=== PATIENT | male | born 1930 | race Hispanic/Latino ===

== ENCOUNTER 2016-11-22 13:05 | Inpatient (IN) | payer MEDICARE ==
[2016-11-22] MEDS ORDERED: Vancomycin 1gm in NS 250ml 1 GM/250 ML BAG IVPB STA (13:38)
[2016-11-22] MEDS ORDERED: Piperacillin/Tazobact 3.375 gm 100 ML IVPB STA (13:38)
--- NOTE | 2016-11-22 13:40 | ED PDOC ---
Arrival/HPI - General Chief Complaint: Cough, Cold, Congestion Time Seen by Provider: 11/22/16 13:27 Historian: Patient - History of Present Illness Narrative History of Present Illness (Text): 11/22/16 13:37 86 year old male whose past medical history includes myelodysplasia, hypertension, lung fibrosis, presents to the emergency department with cough and congestion for the past 2 days. Patient reports cough with white sputum. Denies pain or other complaints. PMD: Dr. Norwood Time/Duration: < week Symptom Onset: Gradual Symptom Course: Unchanged Modifying Factors (Text): None Past Medical History - Provider Review Nursing Documentation Reviewed: Yes - Infectious Disease Hx of Infectious Diseases: None - Cardiac Hx Cardiac Disorders: Yes Hx Congestive Heart Failure: No Hx Hypertension: Yes - Pulmonary Hx Chronic Obstructive Pulmonary Disease (COPD): No Hx Pneumonia: Yes - Neurological HX Cerebrovascular Accident: No - HEENT Hx HEENT Disorder: No - Renal Hx Renal Disorder: No - Endocrine/Metabolic Hx Endocrine Disorders: No - Hematological/Oncological Hx Cancer: Yes (of bone marrow) - Integumentary Hx Dermatological Disorder: No - Musculoskeletal/Rheumatological Hx Falls: Yes - Gastrointestinal Hx Gastrointestinal Disorders: No - Genitourinary/Gynecological Hx Prostate Problems: Yes - Psychiatric Hx Psychophysiologic Disorder: No Hx Substance Use: No - Surgical History Hx Appendectomy: Yes Hx Cardiac Catheterization: No Hx Coronary Stent: No - Anesthesia Hx Anesthesia: Yes Hx Anesthesia Reactions: No Hx Malignant Hyperthermia: No Family/Social History - Physician Review Nursing Documentation Reviewed: Yes Family/Social History: Unknown Family HX Smoking Status: Never Smoked Hx Alcohol Use: No Hx Substance Use: No Allergies/Home Meds Allergies/Adverse Reactions: Allergies No Known Allergies Allergy (Verified 11/22/16 13:27) Home Medications: Home Meds Medication Instructions Recorded Confirmed Deferasirox [Exjade] 250 mg PO Q72H 10/23/14 11/22/16 Valsartan [Diovan] 320 mg PO QAM 10/23/14 11/22/16 Aliskiren [Tekturna] 300 mg PO QPM 04/20/15 11/22/16 Epoetin Hal [Procrit] 2,000 units SQ QWK 05/01/16 11/22/16 Filgrastim [Neupogen] 300 mcg SQ QWK 05/01/16 11/22/16 Finasteride [Proscar] 5 mg PO PRN PRN 05/01/16 11/22/16 Lenalidomide [Revlimid] 2.5 mg PO .EVERY OTHER DAY 05/01/16 11/22/16 Review of Systems - Physician Review All systems were reviewed & negative as marked: Yes - Review of Systems ENT: Sinus Congestion Respiratory: Cough, Sputum (white) Physical Exam Vital Signs Reviewed: Yes Vital Signs Temp Pulse Resp BP Pulse Ox 11/22/16 16:07 84 18 142/72 97 11/22/16 14:07 101.6 F H 11/22/16 13:40 99.8 F H 108 H 18 138/71 94 L 11/22/16 13:19 100.2 F H 113 H 16 176/67 H 92 L Temperature: Febrile Blood Pressure: Hypertensive Pulse: Tachycardic Respiratory Rate: Normal Appearance: Positive for: Well-Appearing, Non-Toxic, Comfortable Pain Distress: None Mental Status: Positive for: Alert and Oriented X 3 - Systems Exam Head: Present: Atraumatic, Normocephalic Pupils: Present: PERRL Extroacular Muscles: Present: EOMI Conjunctiva: Present: Normal Mouth: Present: Moist Mucous Membranes Neck: Present: Normal Range of Motion Respiratory/Chest: Present: Good Air Exchange, Other (Coarse breath sounds bilaterally). No: Respiratory Distress, Accessory Muscle Use Cardiovascular: Present: Regular Rate and Rhythm, Normal S1, S2. No: Murmurs Abdomen: Present: Normal Bowel Sounds. No: Tenderness, Distention, Peritoneal Signs Back: Present: Normal Inspection Upper Extremity: Present: Normal Inspection. No: Cyanosis, Edema Lower Extremity: Present: Normal Inspection. No: Edema Neurological: Present: GCS=15, CN II-XII Intact, Speech Normal Skin: Present: Warm, Dry, Normal Color. No: Rashes Psychiatric: Present: Alert, Oriented x 3, Normal Insight, Normal Concentration Medical Decision Making ED Course and Treatment: Impression: 86 year old male presents to the emergency department with cough and congestion for the past 2 days. Differential Diagnosis included but are not limited to: r/o pna/sepssis Plan: -- EKG, CXR -- Vanco, Zosyn -- Reassess and disposition Prior Visits: Notes and results from previous visits were reviewed. Patient last seen in the ED on 05/21/16 for fever and chills and admitted for sepsis. Progress Notes: 11/22/16 14:47 pt with unknown ef, , fluids 500 cc ordered. b/p 140 systolic, hemodynamically stable. does not need 30cc/kg bolus 11/22/16 15:08 mildly elevated bnp, at baseline, diuresis held at this time. dr norwood accepts. requests ID consult. 02 sat low 90s, milldy hypoxic. pt with comorbities septic, needs iv antibiotics. 11/22/16 15:10 - Lab Interpretations Lab Results: 11/22/16 14:20 11/22/16 14:20 Lab Results 11/22/16 14:20: Sodium 141, Chloride 103, Potassium 4.5, Carbon Dioxide 29, Anion Gap 14, BUN 26 H, Creatinine 1.1, Est GFR ( Amer) > 60, Est GFR ( Non-Af Amer) > 60, Random Glucose 102, Calcium 9.8, Magnesium 1.9, Total Bilirubin 0.9, AST 22, ALT 44, Alkaline Phosphatase 108, Lactate Dehydrogenase 431, Total Creatine Kinase 31 L, Troponin I 0.01 D, NT-Pro-B Natriuret Pep 834 H, Total Protein 7.0, Albumin 4.3, Globulin 2.8, Albumin/Globulin Ratio 1.5 11/22/16 14:20: PT 11.3, INR 1.05, APTT 30.2 11/22/16 14:20: WBC 15.5 H D, RBC 2.78 L, Hgb 8.3 L, Hct 25.0 L, MCV 89.9, MCH 29.9, MCHC 33.2, RDW 18.9 H, Plt Count 98 L, MPV 12.2 H, Gran % 61.7, Lymph % ( Auto) 9.3 L, [place] % (Auto) 28.0 H, Eos % (Auto) 0.7 L, Baso % (Auto) 0.3, Gran # 9.59 H, Lymph # 1.4, [place] # 4.4 H, Eos # 0.1, Baso # 0.04 11/22/16 14:20: pO2 41, VBG pH 7.35, VBG pCO2 54.0, VBG HCO3 29.8 H, VBG Total CO2 31.5 H, VBG O2 Sat (Calc) 79.1 H, VBG Base Excess 2.9 H, VBG Potassium 4.4, Sodium 141.0, Chloride 107.0, Glucose 110, Lactate 2.8 H, FiO2 21.0, Venous Blood Potassium 4.4 11/22/16 13:45: Influenza Typ A,B (EIA) Negative for flu a/b 11/22/16 02:10: Urine Color Yellow, Urine Appearance Clear, Urine pH 6.0, Ur Specific [place] 1.025, Urine Protein 100 H, Urine Glucose (UA) Negative, Urine Ketones Negative, Urine Blood Moderate H, Urine Nitrate Negative, Urine Bilirubin Negative, Urine Urobilinogen 0.2, Ur Leukocyte Esterase Negative, Urine RBC 2 - 5, Urine WBC Negative, Ur Epithelial Cells 0 - 2 - RAD Interpretation Radiology Orders: 11/22/16 13:37 CHEST PORTABLE [RAD] Stat - EKG Interpretation EKG Interpretation (Text): EKG shows sinus tachycardia at 104 BPM with right bundle branch block which is old. Interpreted by me. Interpreted by ED Physician: Yes Type: 12 lead EKG - Medication Orders Current Medication Orders: Vancomycin HCl (Vancomycin 1gm) 1 gm in 250 mls @ 167 mls/hr IVPB Q12 SAPPHIRE PRN Reason: Protocol Piperacillin Sod/Tazobactam Sod (Zosyn 3.375 In Ns 100ml) 100 mls @ 200 mls/hr IVPB Q6 SAPPHIRE PRN Reason: Protocol Stop: 11/29/16 20:01 Last Admin: 11/22/16 20:35 Dose: 200 mls/hr Discontinued Medications Acetaminophen (Tylenol 325mg Tab) 650 mg PO STAT STA Stop: 11/22/16 13:40 Last Admin: 11/22/16 14:07 Dose: 650 mg Vancomycin HCl (Vancomycin 1gm) 1 gm in 250 mls @ 167 mls/hr IVPB STAT STA PRN Reason: Protocol Stop: 11/22/16 15:07 Last Admin: 11/22/16 15:31 Dose: 167 mls/hr Piperacillin Sod/Tazobactam Sod (Zosyn 3.375 In Ns 100ml) 100 mls @ 200 mls/hr IVPB STAT STA PRN Reason: Protocol Stop: 11/22/16 14:07 Last Admin: 11/22/16 14:07 Dose: 200 mls/hr Sodium Chloride (Sodium Chloride 0.9%) 500 mls @ 999 mls/hr IV .Q31M STA Stop: 11/22/16 15:17 Last Admin: 11/22/16 14:54 Dose: 999 mls/hr Piperacillin Sod/Tazobactam Sod (Zosyn 3.375 In Ns 100ml) 100 mls @ 200 mls/hr IVPB Q6 SAPPHIRE PRN Reason: Protocol Stop: 11/23/16 00:29 - Scribe Statement The provider has reviewed the documentation as recorded by the Kurt Armstrong Provider Scribe Attestation: All medical record entries made by the Kurt were at my direction and personally dictated by me. I have reviewed the chart and agree that the record accurately reflects my personal performance of the history, physical exam, medical decision making, and the department course for this patient. I have also personally directed, reviewed, and agree with the discharge instructions and disposition. Disposition/Present on Arrival - Present on Arrival Any Indicators Present on Arrival: No History of DVT/PE: No History of Uncontrolled Diabetes: No Urinary Catheter: No History of Decub. Ulcer: No History Surgical Site Infection Following: None - Disposition Have Diagnosis and Disposition been Completed?: Yes Diagnosis: Sepsis, Pneumonia Disposition: HOSPITALIZED Disposition Time: 15:10 Patient Problems: Current Active Problems Problem Status Onset Pneumonia Acute Sepsis Acute Condition: FAIR
[2016-11-22 14:20] LABS: ADD MANUAL DIFF? NO
[2016-11-22 14:23] LABS: URINE BILIRUBIN NEGATIVE (NEGATIVE); URINE BLOOD MODERATE (NEGATIVE); URINE GLUCOSE (UA) NEGATIVE (NEGATIVE); URINE KETONE NEGATIVE (NEGATIVE); URINE LEUKOCYTE ESTERASE NEGATIVE Leu/uL (NEGATIVE); URINE PROTEIN 100 mg/dL (<30 mg/dL); URINE UROBILINOGEN 0.2 E.U./dL (<1 E.U./dL)
[2016-11-22 14:25] LABS: URINE APPEARANCE CLEAR (CLEAR); URINE COLOR YELLOW (YELLOW)
[2016-11-22 14:26] LABS: URINE EPITHELIAL CELLS 0 - 2 /hpf (0-5); URINE WBC NEGATIVE /hpf (0-6)
[2016-11-22 14:27] LABS: VENOUS BLOOD GAS BASE EXCESS 2.9 mmol/L (0.0-2.0); VENOUS BLOOD PH 7.35 (7.32-7.43)
[2016-11-22 14:31] LABS: BASO # 0.04 K/mm3 (0.0-2.0); BASO % 0.3 % (0.0-3.0); EOS # 0.1 (0.0-0.7); EOS % 0.7 % (1.5-5.0); GRAN # 9.59 (1.4-6.5); GRAN % 61.7 % (50.0-68.0); LYMPH # 1.4 (1.2-3.4); LYMPH % 9.3 % (22.0-35.0); MEAN CELL VOLUME 89.9 fL (80.0-105.0); MEAN CORPUSCULAR HEMOGLOBIN 29.9 pg (25.0-35.0); MEAN CORPUSCULAR HGB CONC 33.2 g/dl (31.0-37.0); MEAN PLATELET VOLUME 12.2 fl (7.0-11.0); MONO # 4.4 (0.1-0.6); PLATELET COUNT 98 10^3/uL (120.0-450.0); RED CELL DISTRIBUTION WIDTH 18.9 % (11.5-14.5); WHITE BLOOD COUNT 15.5 10^3/ul (4.5-11.0)
[2016-11-22 14:43] LABS: INR 1.05 (0.93-1.08); PARTIAL THROMBOPLASTIN TIME 30.2 Seconds (23.7-30.8)
[2016-11-22 14:44] LABS: ALB/GLOB RATIO 1.5 (1.1-1.8); ALKALINE PHOSPHATASE 108 U/L (38-133); ALT/SGPT 44 U/L (7-56); AST/SGOT 22 U/L (15-59); BILIRUBIN,TOTAL 0.9 mg/dL (0.2-1.3); BLOOD UREA NITROGEN 26 mg/dL (7-21); CALCIUM 9.8 mg/dL (8.4-10.5); CARBON DIOXIDE 29 mmol/L (21-33); CHLORIDE 103 mmol/L (98-107); GFR AFRICAN-AMERICAN > 60; GLUCOSE,RANDOM 102 mg/dL (70-110); MAGNESIUM 1.9 mg/dL (1.7-2.2); POTASSIUM 4.5 mmol/L (3.6-5.0); SODIUM 141 mmol/L (132-148)
[2016-11-22] MEDS ORDERED: Sodium Chloride 0.9% 500 ML IV STA (14:47)
[2016-11-22 14:53] LABS: TROPONIN I 0.01 ng/mL
--- NOTE | 2016-11-22 15:53 | CARD ---
APPROVED REPORT EKG Measurement Heart [id number] <Conclusion> Sinus tachycardia Possible Left atrial enlargement Right bundle branch block Cannot rule out Inferior infarct, age undetermined Abnormal ECG
[2016-11-22 17:48] LABS: VENOUS BLOOD GAS BASE EXCESS 3.4 mmol/L (0.0-2.0); VENOUS BLOOD PH 7.42 (7.32-7.43)
[2016-11-22] MEDS ORDERED: Piperacillin/Tazobact 3.375 gm 100 ML IVPB SCH ×2 (18:00→20:00)
[2016-11-22 21:08] VITALS: BMI 24.7
[2016-11-22] MEDS ORDERED: Pneumococcal 23-Valent Vaccine IM ONE (21:09)
[2016-11-22] MEDS: Promethazine/Cod 6.25mg-10mg/5ml Syr UD PO PRN (22:03)
[2016-11-22] MEDS: Vancomycin 1gm in NS 250ml 1 GM/250 ML BAG IVPB SCH (22:19)
[2016-11-23] MEDS: Levalbuterol 1.25 MG/3 ML Inhal Soln UD IH PRN ×2 (00:52→20:13)
--- NOTE | 2016-11-23 01:10 | CP.PCM.PN ---
Subjective - Date & Time of Evaluation Date of Evaluation: 11/23/16 Time of Evaluation: 01:10 - Subjective Subjective: Patient was seen at bedside because as per nurse Marilynn he sounding wet , congested , had wheezing, does not look good. Patient complains of having lack of sleep. Denies sob, chest pain, nause, sweating , palpitation. This 86 year old white male is admitted with congestion, cough, sepsis pna. Has PMH of ,htn,cardiac disorder, renal disease, prostate, lung fibrosis, myelodysplasia. 99.5, 105/min 24 94% 3l/min Has received iv fluid when he received vancomycin ,merem, zosyn x 2. Objective - Vital Signs/Intake and Output Vital Signs (last 24 hours): Temp Pulse Resp BP Pulse Ox 98.1 F 86 19 140/58 L 97 11/22/16 20:58 11/23/16 00:53 11/22/16 20:58 11/22/16 20:58 11/22/16 16:07 - Medications Medications: Current Medications Arformoterol Tartrate (Brovana) 15 mcg IH [id number] SAPPHIRE Budesonide (Pulmicort Respules) 0.5 mg IH [id number] SAPPHIRE Vancomycin HCl (Vancomycin 1gm) 1 gm in 250 mls @ 167 mls/hr IVPB Q12 SAPPHIRE PRN Reason: Protocol Last Admin: 11/22/16 22:19 Dose: 167 mls/hr Meropenem 1g/NS 100mL IVPB (Meropenem 1g/Ns 100ml Ivpb) 1 gm in 100 mls @ 100 mls/hr IVPB Q8 SAPPHIRE PRN Reason: Protocol Stop: 11/29/16 22:31 Last Admin: 11/23/16 00:00 Dose: 100 mls/hr Levalbuterol HCl (Xopenex) 1.25 mg IH [id number] PRN PRN Reason: Shortness of Breath Last Admin: 11/23/16 00:52 Dose: 1.25 mg Promethazine HCl/Codeine (Phenergan/Codeine Oral Syrup) 5 ml PO Q6H PRN PRN Reason: Cough and congestion Last Admin: 11/22/16 22:03 Dose: 5 ml - Labs Labs: PT 11.3 Seconds (9.9-11.8) 11/22/16 14:20 INR 1.05 (0.93-1.08) 11/22/16 14:20 APTT 30.2 Seconds (23.7-30.8) 11/22/16 14:20 - Constitutional Appears: Well, No Acute Distress - Head Exam Head Exam: ATRAUMATIC, NORMAL INSPECTION, NORMOCEPHALIC - Eye Exam Eye Exam: Normal appearance - ENT Exam ENT Exam: Normal External Ear Exam - Neck Exam Neck Exam: Normal Inspection - Respiratory Exam Respiratory Exam: Wheezes (Occasional.), NORMAL BREATHING PATTERN. absent: Decreased Breath Sounds, Rales, Rhonchi, Respiratory Distress, Stridor - Cardiovascular Exam Cardiovascular Exam: Tachycardia, REGULAR RHYTHM, +S1 (Normal.), +S2 (Normal.). absent: JVD - GI/Abdominal Exam GI & Abdominal Exam: absent: Distended - Rectal Exam Rectal Exam: Deferred - Extremities Exam Extremities Exam: Pedal Edema (1+) - Back Exam Back Exam: NORMAL INSPECTION - Neurological Exam Neurological Exam: Alert, Oriented x3 Additional comments: Bilateral hands tremors positive. - Psychiatric Exam Psychiatric exam: Normal Affect, Normal Mood - Skin Skin Exam: Warm Assessment and Plan - Assessment and Plan (Free Text) Assessment: Airway congestion. CHF-Elevated BNP. Bilateral PNA. Sepsis. Myelodysplastic syndrome. Anemia. Prostate problem. Tremors. HTN. Cardiac disorder history. Plan: Lasix 40 mg IV stat. Frquent suctioning of airway. CBC, CMP, troponin, mag, phos stat.-->Hgb7.7 Hct--->23.3.-->Will order type and screen. EKG stat.------->Sinus tachycardia,RBBB, n s st t changes. Recieved nebulizer treatment. Oxygen at 4L/min by mn. Continue present management.
[2016-11-23 01:41] LABS: ADD MANUAL DIFF? NO
[2016-11-23 01:43] LABS: BASO # 0.05 K/mm3 (0.0-2.0); BASO % 0.3 % (0.0-3.0); EOS # 0.1 (0.0-0.7); EOS % 0.6 % (1.5-5.0); GRAN # 9.22 (1.4-6.5); GRAN % 51.1 % (50.0-68.0); LYMPH # 3.4 (1.2-3.4); LYMPH % 18.7 % (22.0-35.0); MEAN CELL VOLUME 89.6 fL (80.0-105.0); MEAN CORPUSCULAR HEMOGLOBIN 29.6 pg (25.0-35.0); MEAN PLATELET VOLUME 10.7 fl (7.0-11.0); MONO # 5.3 (0.1-0.6); MONO % 29.3 % (1.0-6.0); PLATELET COUNT 79 10^3/uL (120.0-450.0); RED CELL DISTRIBUTION WIDTH 18.9 % (11.5-14.5)
[2016-11-23 01:48] LABS: HEMATOCRIT 23.3 % (42.0-52.0)
[2016-11-23 01:53] LABS: ALB/GLOB RATIO 1.5 (1.1-1.8); ALKALINE PHOSPHATASE 83 U/L (38-133); ALT/SGPT 38 U/L (7-56); AST/SGOT 19 U/L (15-59); BILIRUBIN,TOTAL 1.2 mg/dL (0.2-1.3); BLOOD UREA NITROGEN 23 mg/dL (7-21); CALCIUM 9.1 mg/dL (8.4-10.5); CARBON DIOXIDE 28 mmol/L (21-33); CHLORIDE 104 mmol/L (98-107); GFR AFRICAN-AMERICAN > 60; GLUCOSE,RANDOM 104 mg/dL (70-110); MAGNESIUM 1.8 mg/dL (1.7-2.2); PHOSPHOROUS 3.5 mg/dL (2.5-4.5); POTASSIUM 4.3 mmol/L (3.6-5.0); SODIUM 140 mmol/L (132-148); TOTAL PROTEIN 6.4 g/dL (5.8-8.3)
[2016-11-23 02:07] LABS: TROPONIN I 0.02 ng/mL
[2016-11-23] MEDS: Meropenem 1g/NS 100mL IVPB 1 GM/100 ML PIGGYBACK IVPB SCH ×3 (05:32→13:43)
--- NOTE | 2016-11-23 07:56 | RAD ---
HISTORY: cough COMPARISON: No prior. FINDINGS: LUNGS: Elevated right hemidiaphragm with infiltrate/atelectasis at the right cardiophrenic angle. PLEURA: No significant pleural effusion identified, no pneumothorax apparent. CARDIOVASCULAR: Normal. OSSEOUS STRUCTURES: No significant abnormalities. VISUALIZED UPPER ABDOMEN: Normal. OTHER FINDINGS: None. IMPRESSION: Elevated right hemidiaphragm with infiltrate/atelectasis at the right cardiophrenic angle.
[2016-11-23] MEDS: Arformoterol 15 mcg/2 ml Inh Sol IH SCH ×2 (08:00→20:13)
[2016-11-23] MEDS: Budesonide 0.5 mg/2 ml Inhal Susp UD IH SCH ×2 (08:01→20:13)
[2016-11-23] MEDS ORDERED: DEFERASIROX PO SCH (08:15)
[2016-11-23] MEDS: Vancomycin 1gm in NS 250ml 1 GM/250 ML BAG IVPB SCH (10:13)
--- NOTE | 2016-11-23 10:40 | CP.PCM.CON ---
History of Present Illness - History of Present Illness History of Present Illness: 86 year old male with PMH of Morganella UTI with hematuria, myelodysplastic syndrome, BPH, coronary artery disease, history of ESBL E. coli bacteremia, history of lung fibrosis was brought in to [facility] because of cough and feeling of chest congestion for the past 2-3 days associated with cough productive of whitish phlegm. The patient denies fever or chills, no nausea or vomiting, no chest pain, no sore throat, no rhinorrhea, no dysphagia, no headache or dizziness, no abdominal pain, no diarrhea, no dysuria. In the ED , CXR was done which showed some opacification in the right costophrenic angle, either atelectasis or infiltrates. Infectious diseases consult is requested to further evaluate and manage. Review of Systems - Review of Systems All systems: reviewed and no additional remarkable complaints except (as per HPI ) Past Patient History - Infectious Disease Hx of Infectious Diseases: None - Past Social History Smoking Status: Never Smoked - CARDIAC Hx Cardiac Disorders: Yes Hx Congestive Heart Failure: No Hx Hypertension: Yes - PULMONARY Hx Respiratory Disorders: Yes (lung fibrosis) Hx Chronic Obstructive Pulmonary Disease (COPD): No Hx Pneumonia: Yes - NEUROLOGICAL HX Cerebrovascular Accident: No - HEENT Hx HEENT Problems: Yes Other/Comment: right eye red with watery drainage x 1 month - RENAL Hx Chronic Kidney Disease: Yes - ENDOCRINE/METABOLIC Hx Endocrine Disorders: No - HEMATOLOGICAL/ONCOLOGICAL Hx Anemia: Yes (blood transfusions) Hx Cancer: Yes (of bone marrow) Other/Comment: myelodysplastic anemia, bone marrow bx, thrombocytopenia - INTEGUMENTARY Hx Dermatological Problems: Yes Other/Comment: red hard dry skin to buttocks, ble tight red dry skin and multiple scabs,callous to ball of left foot 2cm x 1cm wound bed is red - MUSCULOSKELETAL/RHEUMATOLOGICAL Hx Falls: Yes (past) - GASTROINTESTINAL Hx Gastrointestinal Disorders: No - GENITOURINARY/GYNECOLOGICAL Hx Hematuria: Yes Hx Incontinence: Yes (leaky bladder) Hx Prostate Problems: Yes (enlarged) - PSYCHIATRIC Hx Substance Use: No - SURGICAL HISTORY Hx Appendectomy: Yes Hx Cardiac Catheterization: No Hx Coronary Stent: No Other/Comment: T&A, penile dorsal slit,cysto - ANESTHESIA Hx Anesthesia: Yes Hx Anesthesia Reactions: No Hx Malignant Hyperthermia: No Meds Allergies/Adverse Reactions: Allergies Allergy/AdvReac Type Severity Reaction Status Date / Time No Known Allergies Allergy Verified 11/22/16 13:27 - Medications Medications: Current Medications Arformoterol Tartrate (Brovana) 15 mcg IH [id number] SAPPHIRE Budesonide (Pulmicort Respules) 0.5 mg IH [id number] SAPPHIRE Vancomycin HCl (Vancomycin 1gm) 1 gm in 250 mls @ 167 mls/hr IVPB Q12 SAPPHIRE PRN Reason: Protocol Last Admin: 11/22/16 22:19 Dose: 167 mls/hr Piperacillin Sod/Tazobactam Sod (Zosyn 3.375 In Ns 100ml) 100 mls @ 200 mls/hr IVPB Q6 SAPPHIRE PRN Reason: Protocol Stop: 11/29/16 20:01 Last Admin: 11/22/16 20:35 Dose: 200 mls/hr Promethazine HCl/Codeine (Phenergan/Codeine Oral Syrup) 5 ml PO Q6H PRN PRN Reason: Cough and congestion Last Admin: 11/22/16 22:03 Dose: 5 ml Physical Exam - Constitutional Appears: Non-toxic, No Acute Distress - Head Exam Head Exam: NORMAL INSPECTION - ENT Exam ENT Exam: Mucous Membranes Moist - Neck Exam Neck exam: Negative for: Lymphadenopathy, Meningismus - Respiratory Exam Respiratory Exam: Decreased Breath Sounds (at the bases) - Cardiovascular Exam Cardiovascular Exam: +S1, +S2 - GI/Abdominal Exam GI & Abdominal Exam: Soft. absent: Tenderness Results - Vital Signs Recent Vital Signs: Last Vital Signs Temp 98.1 F 11/22/16 20:58 Pulse 86 11/22/16 20:58 Resp 19 11/22/16 20:58 BP 140/58 L 11/22/16 20:58 Pulse Ox 97 11/22/16 16:07 - Labs Result Diagrams: 11/23/16 01:35 11/23/16 01:35 Labs: Laboratory Results - last 24 hr 11/22/16 17:25 pO2 34 VBG pH 7.42 VBG pCO2 44.0 VBG HCO3 28.5 H VBG Total CO2 29.9 H VBG O2 Sat (Calc) 71.0 H VBG Base Excess 3.4 H VBG Potassium 4.5 Sodium 140.0 Chloride 108.0 H Glucose 116 H Lactate 2.2 H FiO2 21.0 Venous Blood Potassium 4.5 Assessment & Plan - Assessment and Plan (Free Text) Plan: Assessment systemic inflammatory response syndrome, R/O sepsis due to healthcare- associated pneumonia with possible gram positive cocci and/or gram negative bacilli history of sepsis secondary to ESBL E. coli bacteremia S/P sepsis due to Morganella UTI with hematuria history of lung fibrosis myelodysplastic syndrome BPH coronary artery disease Plan started patient on Vancomycin and Merrem pending blood, sputum cx, PCT; reviewed CXR; suggest to repeat the CXR tomorrow will follow clinically
--- NOTE | 2016-11-23 18:38 | CON ---
DATE: 11/23/2016 The patient in room 261, bed 2. REASON FOR CONSULTATION: Fever, respiratory tract infection, myelodysplastic syndrome, shortness of breath. HISTORY OF PRESENT ILLNESS: The patient is an 86-year-old male, known case of myelodysplastic syndro me, hypertension, lung fibrosis, BPH, admitted with a history that he has been having cough and conge stion since last past 2 days and he also had white expectoration. There is no chest pain, palpitatio n. The patient lying flat in bed without shortness of breath. PAST MEDICAL HISTORY: Positive for hypertension, myelodysplastic syndrome, pneumonia, respiratory tr act infections. PAST SURGICAL HISTORY: The patient had appendectomy in the past. PERSONAL HISTORY: No smoking, no drinking. ALLERGIES: None. REVIEW OF SYSTEMS: All the review of systems; positive mentioned in the history, others were negativ e. HOME MEDICATIONS: At home Diovan 320 mg daily, Exjade 250 mg p.o. q. 72 hours, Tekturna 300 mg p.o. daily, Procrit 2000 units subQ weekly, Neupogen 300 mcg subQ weekly, Proscar 5 mg p.o. p.r.n., Revlim id 2.5 mg p.o. alternate day. PHYSICAL EXAMINATION: VITAL SIGNS: Blood pressure 130/60, respirations 19, pulse 97, and temperature 101. HEENT: Head is normocephalic. Eyes: Pupils normal. Conjunctivae pale. NECK: JVP low. Carotid equal. THORAX: AP diameter normal. LUNGS: Scattered rales and rhonchi. CARDIOVASCULAR: S1, S2, systolic murmur, no rub. ABDOMEN: Soft, nontender, no organomegaly. EXTREMITIES: No clubbing, no cyanosis. LABORATORY DATA: WBC 18.0, hemoglobin 7.7, hematocrit 23.3, platelet 79. Sodium 140, potassium 4.3, BUN 23, creatinine 1.1. Calcium, phosphorus, magnesium normal. AST, ALT normal. Troponin x 2 were negative. Chest x-ray showed elevated right hemidiaphragm with infiltrate or bleeding atelectasis i n the right cardiophrenic angle. EKG showed regular sinus rhythm, R____ patent. The patient had ech o 05/24/2016, normal size LV, concentric LV hypertrophy with normal LV ejection fraction of 60% - 65% , RV mildly dilated, trace aortic regurgitation, mild tricuspid regurg. DIAGNOSES: Respiratory tract infection, possible pneumonia, myelodysplastic syndrome, lung fibrosis, benign prostatic hypertrophy, hypertension, anemia. PLAN: The patient is getting blood transfusions. The patient also getting Diovan 320 p.o. daily, fu rosemide 20 mg IV b.i.d. has been ordered, metoprolol 25 mg b.i.d., meropenem 1 gram IV q. 8 hours, Proscar 5 mg daily, vancomycin 1 gram IV q. 12 hours, Xopenex hand nebulizer therapy, piperacillin t azobactam 3.375 gram IV stat dose was given, Xopenex hand nebulizer therapy. Clinically no evidence of congestive heart failure. We will continue present therapy and we will monitor with you and feliciano herbert with you. Brenton Menezes MD cc: [id number] TT: 11/23/2016 18:37:25 Confirmation # [id number] Dictation # [id number] jn
--- NOTE | 2016-11-23 19:42 | CON ---
DATE: 11/23/2016 REFERRING PHYSICIAN: Dr. Magallon. REASON FOR CONSULT: Cough and shortness of breath, may have pneumonia. HISTORY OF PRESENT ILLNESS: This is an 86-year-old gentleman with a history of UTI, has myelodysplas tic syndrome, coronary artery disease, pulmonary fibrosis, came into Emergency Room with cough, short ness of breath, fever. Has a right lung infiltrate. No hemoptysis, no hematemesis. No hematuria, n o diarrhea. Admits to have snoring at nighttime, daytime sleepy and tired. PAST MEDICAL HISTORY: Myelodysplastic syndrome, BPH, coronary artery disease, recurrent UTI, history of pulmonary fibrosis, also has a history of recurrent urinary tract infections. SOCIAL HISTORY: Stopped smoking 50 years ago. Denied any alcohol use. ALLERGIES: None known. FAMILY HISTORY: No significant cardiopulmonary disease reported. MEDICATIONS: He is on Brovana 15 mcg inhaled twice a day and Diovan 320 mg daily. Also getting home medication . Lasix is 20 mg IV twice a day, metoprolol tartrate 25 mg twice a day, meropenem 1 g IV q.8 hours, Phenergan with codeine q.6 hours p.r.n., Proscar 5 mg daily, Pulmicort inhaled twice a day, Tylenol on a p.r.n. basis, vancomycin 1 g IV q.12 hours, Xopenex 1.25 mg q.6 hours p.r.n. REVIEW OF SYSTEMS: No headache, no rhinitis. Has a cough, shortness of breath and fever. No nausea , no vomiting, no diarrhea. No dysuria. No leg pain or leg swelling. Admitted to have snoring, day time sleepy and tired. PHYSICAL EXAMINATION: GENERAL: Lying in the bed. VITAL SIGNS: T-max is 101, heart rate is 86, respiratory rate is 20, blood pressure 110/51. HEENT: Moist mucous membranes. Crowded airway. Mallampati score is 4. NECK: Supple. No JVD. LUNGS: Has crackles and scattered rhonchi in both lungs correa. HEART: S1 and S2. ABDOMEN: Soft, nontender. No organomegaly. EXTREMITIES: There is no edema. NEUROLOGIC: Awake, alert, follows simple commands. LABORATORY DATA: Shows hemoglobin 7.7, hematocrit 23.3, WBC , and platelet is 79. INR 1.05, PT T is 30. Blood gases done yesterday shows VBG: pH 7.42, pCO2 44, O2 . Sodium 140, potassium 4 .3, chloride 104, bicarbonate 28, BUN 23, creatinine 1.1, glucose 104, calcium 9.1, phosphorus 3.5, m agnesium 1.8, AST 19, ALT 38, alkaline phosphatase is 83, albumin is 3.8. Troponin is 0.02. ProBNP 1080. Procalcitonin is . MICROBIOLOGY: Blood culture and urine culture, there is no growth. Chest x-ray showed possible righ t lung infiltrate. IMPRESSION AND PLAN: Pneumonia, history of recurrent urinary tract infection related infection, pulm onary fibrosis, myelodysplastic syndrome, benign prostatic hypertrophy and coronary artery disease. The patient was started on broad spectrum antibiotics covering healthcare-associated organism. Will add inhaled bronchodilator. Gastric prophylaxis. Deep venous thrombosis prophylaxis. The patient b eing transfused. Will order a CT of the chest without contrast to evaluate lung parenchyma. Kristine leon a sleep study upon discharge as an outpatient. Careful with sedation. Will suggest getting echoca rdiogram to assess right ventricular and left ventricular function. Thank you and will follow with you. Brenton Diaz MD cc: [id number] TT: 11/23/2016 19:41:43 Confirmation # [id number] Dictation # [id number]
--- NOTE | 2016-11-23 21:18 | PN ---
DATE: 11/23/2016 The patient had a fever of 101 today. Also, hemoglobin is low. He feels better than yesterday. He ate. No nausea, no vomiting. PHYSICAL EXAMINATION: GENERAL: The patient in the bed, comfortable. Family members are around him. He is in no distress. He is talking and seems better. VITAL SIGNS: Temperature 98.3, heart rate 105, blood pressure 139/64, respiration 19, saturation 94% on nasal cannula 3 liters. HEAD AND NECK: Normal. No JVD, no thyromegaly. CHEST: There are basilar rales bilaterally. CARDIAC: First and second sounds are normal. ABDOMEN: Soft, nontender. EXTREMITIES: No edema. NEUROLOGIC: Nonfocal. LABORATORY DATA: He had blood work today, which shows white count 18,000, hemoglobin 7.7, hematocrit 23.3, platelets 79. Chemistry: Sodium 140, potassium 4.3, chloride 104, bicarb 28, BUN 23, creatin ine 1.1. Liver function test is normal. Troponin is 0.02. Albumin globulin ratio is normal. The p atient also had a procalcitonin which is 0.87 elevated. His proBNP is elevated also at 1080. IMPRESSION AND PLAN: 1. Sepsis due to pneumonia. Continue IV antibiotic. The patient on IV meropenem and vancomycin. C ontinue current therapy. Cultures still pending. Continue inhaled bronchodilators, cough medicine a nd follow up clinically. 2. Hypertension, tachycardia, probably due to fever. Continue metoprolol 25 mg b.i.d., Diovan. IV fluids were given with Hep-Lock IV fluid because the patient has some crepitant rales with a high BNP and will consider IV Lasix. 3. Congestive heart failure. We will get a cardiology consult, probably an echocardiography to asse ss the left ventricular function. Will give him Lasix, monitor his cardiopulmonary status and will f ollow up clinically. 4. Anemia, thrombocytopenia. The patient will get transfusion of 2 units. I spoke with seth Koroma to give Solu-Cortef 100 mg plus Benadryl and Tylenol. The patient had a history of multiple t ransfusions in the past. PLAN: Continue current treatment, GI and DVT prophylaxis, SCDs, Protonix IV, Tylenol p.r.n. Mook Magallon MD cc: [phone] TT: 11/23/2016 21:17:42 Confirmation # [id number] Dictation # [id number] mn
--- NOTE | 2016-11-23 22:09 | HP ---
I saw the patient on 11/22/2016. The patient came to the hospital because of fever of 101, feeling weak and cough. HISTORY OF PRESENT ILLNESS: This is an 86-year-old male with myelodysplasia for the last years being managed by Dr. 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 The patient also has a history of hypertension, has a history of darren g mass and came into the Emergency Room because he felt weak, had a fever, chills, cough and came to the ER for evaluation. Denied any nausea, vomiting or dysuria or any abdominal pain or diarrhea. PAST MEDICAL HISTORY: As I mentioned, myelodysplasia, lung mass, prostate enlargement, hypertension, general weakness, history of lung fibrosis, pancytopenia on Neupogen, Procrit and Revlimid for his m yelodysplasia in addition to deferasirox or Exjade 250 mg every 3 days for iron overload. Also, lance ent getting Diovan is being used for his blood pressure management. PAST SURGICAL HISTORY: As above. ALLERGIES: No known allergies. SOCIAL HISTORY: No smoking, no drinking. The patient does not use any drugs. He does not drink. FAMILY HISTORY: Noncontributory. Brother has coronary artery disease. He did have immunizations of influenza and pneumococcal. REVIEW OF SYSTEMS: general weakness, multiple transfusions, feeling weak, dysuria, frequent ur inations and short of breath with exertion. The patient was seen in the Emergency Room for aa fever. Please be advised that the history and phys ical I am dictating is done in the Emergency Room on 11/22/2016. PHYSICAL EXAMINATION: VITAL SIGNS: His temperature was 101. His blood pressure was 176/67, heart rate 115, respirations 1 6, saturation 92% on room air. HEAD AND NECK: Normal. No JVD, no thyromegaly. CHEST: A few basilar rales. CARDIAC: First sound and second sound normal. ABDOMEN: Obese, nontender. EXTREMITIES: No edema with some mild discoloration of both of them. NEUROLOGIC: Normal, nonfocal, but general weakness. He has mild tremors. LABORATORY DATA: When he came in on 11/22/2016, date of admission, on which I saw the patient on . White count, 15.5, hemoglobin 8.3, hematocrit 25, platelet is 98. Chemistry shows sodium 141 , potassium 4.5, chloride 103, bicarb 29, BUN 26, creatinine 1.1. Liver function test is normal. CP K is 31. Troponin 0.01. BNP is 834. Albumin and globulin and albumin/globulin ratio were normal. He also had a blood gas which was probably venous blood, pH 7.35, pO2 of 41, pCO2 of 54 and his coagu lations PT and PTT were normal. The patient also had a urinalysis which shows moderate blood, but th ere was no white blood cells. The patient also had influenza type A and B were negative serology. T he patient had a chest x-ray when he came in, questionable atelectasis or infiltrates in the right stefan ng. IMPRESSION AND PLAN: 1. An 86-year-old male immunocompromised cancer patient came in with sepsis, leukocytosis, fever, in filtrates on x-ray, admitted with sepsis, pneumonia. Start the patient on IV meropenem. The patient already got Zosyn. We will get an ID consult, Dr. Mesa, or Dr. Jacobs, covering physician. Wi ll give IV fluids, IV Protonix, vancomycin and will follow up clinically. Also, pulmonary consult, Jayshree Diaz. We will also give the patient bronchodilators, IV and will follow up clinically. 2. Anemia. Will get a repeat blood count tomorrow. If blood count is still low or getting lower we may transfuse 2 units of packed RBCs. Oncology consult, Dr. Gonsales. 3. Hypertension. Monitor blood pressure. Resume Diovan and maybe will add beta yang for his tac hycardia. Continue current medications. Follow up clinically. Tylenol p.r.n. Proscar for his prost ate and cough medicine p.r.n. Continue current therapy. Mook Magallon MD cc: [phone] TT: 11/23/2016 22:08:50 oksana
--- NOTE | 2016-11-23 22:36 | CON ---
DATE: 11/23/2016 HISTORY OF PRESENT ILLNESS: The patient has the diagnosis of myelodysplastic syndrome with associate d anemia and is being followed by us in the office for the same. Has been getting intermittent blood transfusions along with treatment with drug called Vidaza. The patient also has a known left lower lobe lung mass along with some nodules in the right lung that is being monitored. The patient does n ot want any aggressive treatment for the diagnosis of the lung mass which was picked up recently abou t 4 months ago when he was in [facility]. The patient is now admitted with cough, shortn ess of breath and what appears to be pneumonia, at least on the chest x-ray. The patient has a histo ry of UTI, has a history of myelodysplastic syndrome under care for the last 4 years and has had inte rmittent treatments with Vidaza and Dacogen and he has been holding his own over the last several yea rs with intermittent therapy. The patient also has a history of coronary artery disease, pulmonary f ibrosis, history of benign prostatic hypertrophy, on medications for the BPH and also has a history o f hypertension. He denies any history of hemoptysis or hematemesis. No hematuria, no diarrhea. The patient feels tired and exhausted during the daytime. He was scheduled to start his treatment with next week. PAST MEDICAL HISTORY: Significant for myelodysplastic syndrome, BPH, coronary artery disease, recurr ent UTI, history of pulmonary fibrosis. SOCIAL HISTORY: The patient quit smoking 50 years ago. ALLERGIES: The patient has no known allergies. MEDICATIONS: Brovana 15 mcg inhaled twice a day, Diovan 320 mg daily. He is on Lasix 20 twice a day , metoprolol 25 mg twice a day. He has been already started on Merrem 1 gram IV q. 8 hours. He is o n Phenergan with codeine q. 6 hours p.r.n., Proscar 5 mg p.o. daily, Pulmicort inhaled twice a day, T ylenol on p.r.n. He is on vancomycin 1 gram IV q. 12 hours. He is on Xopenex 1.25 mg q. 6 hours via nebulizer. REVIEW OF SYSTEMS: Except for tiredness, he denies any headache, rhinitis. He has a history of coug h, which is nonproductive and shortness of breath on minimal exertion. The patient has also been hav ing temperature at home over the last 3 days. No nausea, no vomiting, no dysuria. PHYSICAL EXAMINATION: GENERAL: Reveals the patient to be alert. He is lying in bed. VITAL SIGNS: T-max is 101, heart rate is 86, respirations 20, blood pressure is 110/51. HEENT: Head is normocephalic, atraumatic. Conjunctivae are pale. Sclerae are anicteric. Pupils ar e equally reactive to light and accommodation. Examination of the oropharynx reveals no oropharyngea l lesions. Tongue is coated and dry. NECK: Supple. There is no adenopathy. No jugular venous distention noted. LUNGS: Reveal crackles and scattered rhonchi in both lung correa posteriorly. CARDIOVASCULAR: Reveals S1 and S2 to be normal. No gallop or murmur is heard. ABDOMEN: Soft, nontender. No rebound, rigidity or guarding is noted. Liver and spleen are not palp able. EXTREMITIES: Reveals no cyanosis, clubbing or edema. NEUROLOGIC: The patient is awake, alert and oriented to time, place and person. LABORATORY DATA: Reviewed shows a hemoglobin of 7.7, hematocrit 23, platelet count of 79. White cou nt is elevated. INR is 1.05. PH is 7.42, pCO2 is 44. Sodium is 140, K is 4.3, chloride 104, bicarb tyrone 28, BUN 23, creatinine 1.1. Magnesium is 1.8. AST is 19, ALT is 30. His alkaline phosphatase is 83 with an albumin of 3.8 and troponin of 0.02. ProBNP is 1080. Microbiology: Blood cultures and urine cultures have no growth. Chest x-ray shows a possible right lower lobe infiltrate. CAT scan that was done in September had shown left lower lobe lung mass and nodules in the right lobe of the lung on the CAT scan of 10/06/2016. ASSESSMENT NOTES AND PLAN: The patient has significant anemia for which he will benefit from 2 units of blood, which have already been ordered. The patient has already been started on broad spectrum a ntibiotics. In the background of the history the patient has myelodysplastic syndrome. On top of th at he has fever and what appears to be an infiltrate on the chest x-ray. The patient is on GI and DV T prophylaxis. Repeat CAT scan of chest has been ordered without contrast to compare with the September CAT scan that was done. Routine post exam instructions have been given to the patient. Will continu e to monitor the patient very carefully. Pulmonary and cardiology are already on the case. Echo has been also ordered in the a.m. Routine post exam instructions have been given. Mehdi Gonsales MD cc: [phone] TT: 11/23/2016 22:35:12 Confirmation # [id number] Dictation # [id number] mn
[2016-11-24] MEDS: Meropenem 1g/NS 100mL IVPB 1 GM/100 ML PIGGYBACK IVPB SCH ×4 (02:04→21:07)
[2016-11-24] MEDS: Vancomycin 1gm in NS 250ml 1 GM/250 ML BAG IVPB SCH (03:27)
[2016-11-24 07:10] LABS: BLOOD UREA NITROGEN 34 mg/dL (7-21); CALCIUM 8.9 mg/dL (8.4-10.5); CARBON DIOXIDE 30 mmol/L (21-33); CHLORIDE 100 mmol/L (98-107); GFR AFRICAN-AMERICAN > 60; GLUCOSE,RANDOM 99 mg/dL (70-110); POTASSIUM 3.7 mmol/L (3.6-5.0); SODIUM 141 mmol/L (132-148)
[2016-11-24] MEDS: Arformoterol 15 mcg/2 ml Inh Sol IH SCH (07:30)
[2016-11-24] MEDS: Budesonide 0.5 mg/2 ml Inhal Susp UD IH SCH (07:30)
--- NOTE | 2016-11-24 09:05 | CP.PCM.PN ---
Subjective - Date & Time of Evaluation Date of Evaluation: 11/24/16 Time of Evaluation: 07:45 - Subjective Subjective: Patient still had fever yesterday but is afebrile this morning. The patient is feeling a little better today, breathing better. Objective - Vital Signs/Intake and Output Vital Signs (last 24 hours): Temp Pulse Resp BP Pulse Ox 97.9 F 72 20 121/59 L 97 11/24/16 06:00 11/24/16 06:00 11/24/16 06:00 11/24/16 06:00 11/24/16 06:00 Intake and Output: 11/24/16 11/24/16 06:59 18:59 Intake Total 1025 Output Total 550 Balance 475 - Medications Medications: Current Medications Acetaminophen (Tylenol 325mg Tab) 650 mg PO Q6H PRN PRN Reason: temp Last Admin: 11/23/16 21:24 Dose: 650 mg Arformoterol Tartrate (Brovana) 15 mcg IH [id number] [facility] Last Admin: 11/24/16 07:30 Dose: Not Given Budesonide (Pulmicort Respules) 0.5 mg IH [id number] [facility] Last Admin: 11/24/16 07:30 Dose: Not Given Finasteride (Proscar) 5 mg PO DAILY [facility] Last Admin: 11/23/16 10:10 Dose: 5 mg Furosemide (Lasix) 20 mg IVP BID [facility] Last Admin: 11/23/16 19:52 Dose: 20 mg Home Med (Home Med) 1 unit PO Q72H [facility] Last Admin: 11/23/16 10:06 Dose: Not Given Meropenem 1g/NS 100mL IVPB (Meropenem 1g/Ns 100ml Ivpb) 1 gm in 100 mls @ 100 mls/hr IVPB Q8 [facility]PHIRE PRN Reason: Protocol Stop: 11/29/16 22:31 Last Admin: 11/24/16 06:00 Dose: 100 mls/hr Doxycycline Hyclate 100 mg/ (Sodium Chloride) 100 mls @ 100 mls/hr IVPB Q12 [facility]PHIRE PRN Reason: Protocol Levalbuterol HCl (Xopenex) 1.25 mg IH [id number] PRN PRN Reason: Shortness of Breath Last Admin: 11/23/16 20:13 Dose: 1.25 mg Metoprolol Tartrate (Lopressor) 25 mg PO BRKDIN [facility] Last Admin: 11/23/16 18:03 Dose: 25 mg Pantoprazole Sodium (Protonix Inj) 40 mg IVP DAILY [facility] Promethazine HCl/Codeine (Phenergan/Codeine Oral Syrup) 5 ml PO Q6H PRN PRN Reason: Cough and congestion Last Admin: 11/22/16 22:03 Dose: 5 ml Valsartan (Diovan) 320 mg PO QAM [facility] Last Admin: 11/23/16 10:12 Dose: 320 mg - Labs Labs: 11/23/16 01:35 11/24/16 05:10 PT 11.3 Seconds (9.9-11.8) 11/22/16 14:20 INR 1.05 (0.93-1.08) 11/22/16 14:20 APTT 30.2 Seconds (23.7-30.8) 11/22/16 14:20 - Constitutional Appears: Non-toxic, No Acute Distress - Head Exam Head Exam: NORMAL INSPECTION - ENT Exam ENT Exam: Mucous Membranes Moist - Neck Exam Neck Exam: absent: Lymphadenopathy, Meningismus - Respiratory Exam Respiratory Exam: Decreased Breath Sounds - Cardiovascular Exam Cardiovascular Exam: +S1, +S2 - GI/Abdominal Exam GI & Abdominal Exam: Soft. absent: Tenderness Assessment and Plan - Assessment and Plan (Free Text) Plan: Assessment systemic inflammatory response syndrome, R/O sepsis due to healthcare- associated pneumonia with possible gram positive cocci and/or gram negative bacilli history of sepsis secondary to ESBL E. coli bacteremia S/P sepsis due to Morganella UTI with hematuria history of lung fibrosis myelodysplastic syndrome BPH coronary artery disease Plan will hold IV Vancomycin since the patient developed mild renal failure; will continue Merrem (day 2) and add Doxycycline; blood cx are negative x 1 day, follow up sputum cx if it can be collected; PCT is elevated at 0.87; reviewed CXR will continue to follow clinically
[2016-11-24 09:33] LABS: HEMATOCRIT 29.5 % (42.0-52.0); MEAN CELL VOLUME 88.3 fL (80.0-105.0); MEAN CORPUSCULAR HEMOGLOBIN 29.3 pg (25.0-35.0); MEAN CORPUSCULAR HGB CONC 33.2 g/dl (31.0-37.0); MEAN PLATELET VOLUME 12.2 fl (7.0-11.0); RED CELL DISTRIBUTION WIDTH 17.6 % (11.5-14.5); WHITE BLOOD COUNT 15.2 10^3/ul (4.5-11.0)
--- NOTE | 2016-11-24 10:07 | CT ---
PROCEDURE: CT Chest without contrast HISTORY: pnemonia COMPARISON: CT 09/27/2016 TECHNIQUE: Contiguous axial images were obtained through the chest without intravenous contrast enhancement. Sagittal and coronal reconstructions were performed. Radiation dose (DLP): 694 mGy-cm. This CT exam was performed using one or more of the following dose reduction techniques: Automated exposure control, adjustment of the mA and/or kV according to patient size, and/or use of iterative reconstruction technique. FINDINGS: LUNGS: There is a large masslike consolidation at the left lung base measuring 5.5 x 6 cm as seen on image 84 series 4. This is unchanged from the earlier study. This lack of resolution in a 2 month time interval suggests an underlying mass rather than pneumonia. Contused 2 new follow-up or biopsy is recommended. There is a new area of consolidation at the right lung base. This contains some air bronchograms and most likely represents pneumonia. Bilateral infiltrates are also seen in the superior segments of the lower lobes. There is a minimal patchy infiltrate in the posterior aspect of the right upper lobe. MEDIASTINUM: Unremarkable thoracic aorta. No aneurysm. Normal sized heart. Main pulmonary artery unremarkable. No vascular congestion. No lymphadenopathy. PLEURA: No pleural fluid. No pneumothorax. BONES: No fracture. No destructive lesion. UPPER ABDOMEN: Grossly unremarkable. OTHER FINDINGS: None. IMPRESSION: New bilateral infiltrates consistent with pneumonia. No change in masslike consolidation at the left lung base over a 2 month time interval. This raises the suspicion of an underlying mass.
[2016-11-24] MEDS ORDERED: Potassium Chloride 20 mEq ER Tab PO ONE (13:34)
--- NOTE | 2016-11-24 15:18 | PN ---
DATE: 11/24/2016 REASON FOR CONSULTATION AND FOLLOWUP: Fever, respiratory tract infection, Myelodysplasia syndrome, shortness of breath. Cardiac evaluation. BRIEF CLINICAL HISTORY: This is an 86-year-old male with past medical history significant for myelodysplastic syndrome, hypertension, lung pulmonary fibrosis , BPH. Admitted with complaint of shortness of breath for 2 days while having expectoration. Denies any chest pain, denies any palpitation. Lying flat on the bed. The patient is coming from chest x-ray and CAT scan now. PHYSICAL EXAMINATION: As follows: VITAL SIGNS: Temperature afebrile, heart rate 80, blood pressure 118/56. HEENT: PERRLA. Extraocular muscles intact. NECK: Supple. No carotid bruits, thyromegaly. CHEST: Clear to auscultation. HEART: S1, S2 regular. ABDOMEN: Soft. EXTREMITIES: Clubbing and cyanosis negative. BLOOD WORKUP: As follows: WBC 15.2, hemoglobin 9.8, hematocrit 29.5, platelet count 96. Chemistry shows sodium 141, potassium 3.7, chloride 100, carbon dioxide 30, anion gap of 15, BUN 34, creatinine 1.3. Troponin 0.1, 0.2 x 2 negative. Total protein 6.4, albumin 3.8, albumin/globulin ratio 1.5. BNP 1080 ,. The patient had a chest CT done that shows new bilateral infiltrate consistent with pneumonia. No changes in massive consolidation at the lung base over 2 month time interval. There is suspicious for underlying mass. EKG shows sinus tachycardia, possible left atrial enlargement, right bundle branch block, poor progression. The patient had echocardiography on 05/24/2016, normal sized contraction, concentric left ventricular hypertrophy, ejection fraction 60% to 65%, right ventricle mildly dilated, trace aortic regurgitation , mild tricuspid regurgitation. RECOMMENDATION: Respiratory tract infection, possible pneumonia as per CT chest. Monitor for Myelodysplasia syndrome, lung fibrosis, pulmonary fibrosis , benign prostatic hypertrophy, hypertension, anemia. The patient got 2 units of packed RBC. Admitting was 7.7, now it increased to 8.8. Continue gentle diuretics. Keep hemoglobin around 10. Echo shows preserved Lv Fx, ejection fraction 60% to 65%, mild tricuspid regurgitation, mild dilated RV, trace aortic regurgitation. Continue treatment for COPD. Continue steroid. We will follow with you. Thank you, Dr. Magallon, for providing us the opportunity in taking care of patient. We will follow with you. Pulmonary infiltrate, rule out lung CA of mass. Anemia, as mentioned status post RBC transfusion, COPD. History of moderate mitral regurgitation by last echo. Keep gentle diuretics. Keep the fluid negative balance. We will follow with you. Thank you, Dr. Magallon, for providing the opportunity in taking care of the patient. Brenton Martines MD cc: [phone] TT: 11/24/2016 13:56:43 Confirmation # [id number] Dictation # [id number] 11/24/2016 14:17:22 LAURENCE
--- NOTE | 2016-11-24 20:30 | PN ---
DATE: 11/24/2016 REFERRING PHYSICIAN: Dr. Magallon. SUBJECTIVE: He is lying in the bed, feels better, still having cough and shortness of breath. No na usea, no vomiting, no diarrhea, no leg pain or leg swelling. OBJECTIVE: GENERAL: No acute distress. VITAL SIGNS: Temp is 98, heart rate is 86, respiratory rate is 20, blood pressure 120/58, pulse ox 9 5% on nasal cannula. HEENT: Moist mucous membrane. Crowded airway. NECK: Supple, no JVD. LUNGS: Have scattered rhonchi with crackles. HEART: S1, S2. ABDOMEN: Soft, nontender. No organomegaly. EXTREMITIES: Not much edema. NEUROLOGIC: Awake, alert, follows simple command. MEDICATIONS: He is on Brovana 15 mcg inhaled twice a day, Colace 100 mg twice a day, valsartan 320 m g daily, doxycycline 100 mg twice a day, Lasix 40 mg IV daily, metoprolol tartrate 25 mg twice a day, meropenem 1 g IV q. 8 hours, promethazine with codeine 5 mL q. 6 hours p.r.n., Proscar 5 mg daily, P rotonix 40 mg daily, Pulmicort inhaled twice a day, Tylenol p.r.n., Xopenex 1.25 mg q. 6 hours p.r.n. LABORATORY DATA: Shows hemoglobin 9.8, hematocrit 25, WBC 15.2, platelet count is 96. Sodium 141, p otassium 3.7, chloride 100, bicarbonate 30, BUN 34, creatinine 1.3, glucose is 99, calcium is 8.9. P roBNP 1080. Procalcitonin 0.87. Influenza A and B have been negative. Blood cultures no growth. U rine culture is no growth. CAT scan of the chest shows multilobar pneumonia. There is also a mass-l kiran consolidation left lung base which is not changed from the last 2 months. IMPRESSION AND PLAN: Multilobar pneumonia, recurrent urinary tract infection, pulmonary fibrosis, my elodysplastic syndrome, benign prostate hypertrophy, coronary artery disease, left lower lobe mass li ke infiltrate. Continue antibiotics covering healthcare-associated organism, bronchodilator. Gastri c prophylaxis. DVT prophylaxis. Once pneumonia improved, he will need CT-guided needle biopsy of th e left lower lobe area. Thank you and will follow with you. Brenton Diaz MD cc: [phone] TT: 11/24/2016 20:29:39 Confirmation # [id number] Dictation # [id number] jn
[2016-11-24] MEDS: Promethazine/Cod 6.25mg-10mg/5ml Syr UD PO PRN (22:15)
--- NOTE | 2016-11-25 01:49 | PN ---
DATE: 11/24/2016 LOCATION: The patient is in room 261, bed 2. SUBJECTIVE: The patient is lying in bed, feeling better, still has coughing and shortness of breath. No nausea, vomiting, diarrhea, leg pain or leg swelling. PHYSICAL EXAMINATION: GENERAL: The patient is in no acute distress. VITAL SIGNS: T-max is 98.4, heart rate is 86, respirations 20, blood pressure is 120/58, pulse ox is 95% on nasal cannula. HEENT: Head is normocephalic, atraumatic. Conjunctivae pale. Sclerae are anicteric. Pupils are eq ually reactive to light and accommodation. Examination of the oropharynx, tongue to be moist. No or opharyngeal lesions are noted. NECK: Supple. There is no adenopathy. No jugular venous distention. LUNGS: Reveals scattered wheezes and rhonchi with crackles at the bases. HEART: Reveals S1 and S2 to be normal. ABDOMEN: Soft, nontender. No organomegaly is noted. EXTREMITIES: Reveals no cyanosis, clubbing or edema. NEUROLOGIC: Reveals higher functions to be normal, no focal deficits are noted. MEDICATIONS: The patient's medications were reviewed. Her is on Brovana 15 mcg inhaled twice a day, Colace 100 mg twice a day, valsartan 320 mg daily, doxycycline 100 mg twice a day, Lasix 40 IV daily , metoprolol tartrate 25 mg twice a day, meropenem 1 gram IV q. 8 hours, promethazine q. 6 hour s p.r.n., Proscar 5 mg daily, Protonix 40 mg daily, Pulmicort inhaled twice a day, Tylenol p.r.n., Xo penex 1-1.25 mg q. 6 hours p.r.n. LABORATORY DATA: Shows hemoglobin 9.8, hematocrit 25, white count is 15.2 with a platelet count 96. Sodium is 141, K is 3.7, chloride is 100, bicarbonate is 30, BUN is 34, creatinine is 1.3, glucose i s 99, calcium is 8.9. ProBNP is 1080. Procalcitonin is 0.87. Influenza A and B are negative. Bloo d cultures showed no growth. Urine cultures negative. CAT scan of the chest shows multilobar pneumo sole. There is also a mass-like consolidation of the left lung, which is unchanged since 09/2016. ASSESSMENT NOTES AND PLAN: The patient has myelodysplastic syndrome with anemia, thrombocytopenia, s tatus post transfusion, now has a diagnosis of multilobar pneumonia, recurrent urinary tract infectio n, pulmonary fibrosis, benign prostatic hypertrophy, left lower lobe lung mass, etiology of which is unclear, coronary artery disease. Will continue IV antibiotics to cover healthcare-associated organi sms, bronchodilators. Gastric and deep venous thrombosis prophylaxis. Once patients an infection is better, we may have to consider CT-guided biopsy of the left lower lobe area. The patient has denie d testing when I questioned him and asked him about that when the initial scan from May showed t he left lung lesion. We will try to discuss again with the patient about rebiopsying the area, espec ially to document what we may be dealing with. Labs for a.m. have been requested. We will follow th e patient with you and make appropriate recommendations. Mehdi Gonsales MD cc: [phone] TT: 11/25/2016 01:49:13 Confirmation # [id number] Dictation # [id number] oksana
[2016-11-25] MEDS: Meropenem 1g/NS 100mL IVPB 1 GM/100 ML PIGGYBACK IVPB SCH ×3 (05:52→21:38)
[2016-11-25] MEDS: Arformoterol 15 mcg/2 ml Inh Sol IH SCH ×2 (07:16→20:34)
[2016-11-25] MEDS: Budesonide 0.5 mg/2 ml Inhal Susp UD IH SCH ×2 (07:16→20:34)
--- NOTE | 2016-11-25 08:19 | PN ---
DATE: 11/24/2016 The patient came in with cough, fever and shortness of breath. The patient clinically is stable, bet ter than before. Afebrile. No nausea, no vomiting. PHYSICAL EXAMINATION: VITAL SIGNS: Temperature 97.4, heart rate 86, blood pressure 120/58, respirations 20, saturation 95% on room air. HEAD AND NECK: Normal. No JVD. No thyromegaly. CHEST: There are crepitations bilaterally. CARDIAC: First and second sounds are normal. ABDOMEN: Soft, nontender. EXTREMITIES: No edema. NEUROLOGIC: Normal. LABORATORY DATA: Shows white count 15.2, hemoglobin 9.8, hematocrit 29.5, platelets 96. Hemoglobin 9.8 after transfusions of 2 units of packed RBCs. Sodium 141, potassium 3.7, chloride 100, bicarb 30 , BUN 34, creatinine 1.3. CAT scan of the lungs shows bilateral lower lobe and bilateral basilar infiltrate consistent with pne umonia. On the CAT scan, there is a mass. No change for the last 2 months. IMPRESSION AND PLAN: 1. Community-acquired pneumonia in an immunocompromised patient. Will continue current antibiotic a s per ID consults. The patient currently getting meropenem IV every 8 hours. Continue current treat ment. Continue inhaled bronchodilators, cough medicine. Will add chest PT. Will add Mucomyst and f ollow up clinically. 2. Hypertension. Continue blood pressure medicine Diovan. The patient also getting a dose of Lasix to help his breathing problems. Seems doing well with that and in addition to his cough medicine. 3. The patient has pancytopenia, has myelodysplasia. Hemoglobin was 7.5, now it is high above 9. H is last hemoglobin here is 9.8 after 2 units of packed RBCs. Seems to be doing well. Continue curre nt treatment and follow up with oncology. 4. Thrombocytopenia, stable, 96. We will continue current treatment for now. Will follow up clinic ally. 5. Underlying chronic obstructive pulmonary disease. Continue inhaled bronchodilators. The patient is getting nebulizer treatment. He is getting Brovana, Pulmicort, Xopenex, plus cough medicines. C ontinue current treatment. The patient also getting doxycycline IV. Mook S Saleeb MD cc: [phone] TT: 11/25/2016 08:18:26 Confirmation # [id number] Dictation # [id number] mn
[2016-11-25] MEDS: Promethazine/Cod 6.25mg-10mg/5ml Syr UD PO PRN ×2 (09:50→18:54)
--- NOTE | 2016-11-25 12:56 | PN ---
DATE: 11/25/2016 REASON FOR CONSULTATION AND FOLLOWUP: Fever, respiratory tract infection, myelodysplastic syndrome, shortness of breath, cardiac evaluation. BRIEF CLINICAL HISTORY: An 86-year-old male with past medical history significant for myelodysplasti c syndrome, hypertension, pulmonary fibrosis, BPH, admitted with complaint of shortness of breath for 2 days, having difficulty with expectoration, lying flat. Denies any chest pain, shortness of breat h, any palpitation. PHYSICAL EXAMINATION: VITAL SIGNS: Temperature afebrile, heart rate 85, blood pressure 128/61. HEENT: PERRLA. Extraocular muscles intact. NECK: Supple. No carotid bruits. No thyromegaly. CHEST: Clear to auscultation. HEART: S1, S2 regular. ABDOMEN: Soft. EXTREMITIES: Clubbing and cyanosis negative. LABORATORY DATA: Blood workup as follows: WBC ____, hemoglobin ____, hematocrit 29.5, platelet coun t 96. Chemistry shows sodium 141, potassium 3.7, chloride 100, carbon dioxide 30, anion gap of 15, B UN 34, creatinine 1.3. Troponin 0.02. IMPRESSION: No evidence of acute coronary syndrome, no evidence of acute angina, myelodysplastic syn drome, possible community-acquired pneumonia, anemia, thrombocytopenia, myelodysplastic syndrome, res piratory tract infection as mentioned. CT chest for possible pneumonia ____. Pulmonary fibrosis, his tory of benign prostatic hypertrophy, history of hypertension, anemia. RECOMMENDATION: Continue broad spectrum antibiotic. The patient's last echo showed preserved left v entricular function, ejection fraction 65%, mild TR, mildly dilated RV, trace aortic regurgitation. Continue aggressive treatment for COPD. Continue gentle diuretics, to keep a negative fluid balance. No further cardiac workup is planned at this time. Thank you, Dr. Magallon, for providing the opportunity in taking care of this patient. Brenton Martines MD cc: [id number] TT: 11/25/2016 12:56:00 Confirmation # [id number] Dictation # [id number] brandon
--- NOTE | 2016-11-25 15:19 | CP.PCM.PN ---
Subjective - Date & Time of Evaluation Date of Evaluation: 11/25/16 Time of Evaluation: 09:40 - Subjective Subjective: Comfortable, breathing better, not in distress, no fevers overnight. Objective - Vital Signs/Intake and Output Vital Signs (last 24 hours): Temp Pulse Resp BP Pulse Ox 98.2 F 85 22 128/61 96 11/25/16 07:30 11/25/16 07:30 11/25/16 07:30 11/25/16 07:30 11/25/16 07:30 Intake and Output: 11/25/16 11/25/16 06:59 18:59 Intake Total 620 Output Total 250 Balance 370 - Medications Medications: Current Medications Acetaminophen (Tylenol 325mg Tab) 650 mg PO Q6H PRN PRN Reason: temp Last Admin: 11/23/16 21:24 Dose: 650 mg Arformoterol Tartrate (Brovana) 15 mcg IH [id number] [facility] Last Admin: 11/25/16 07:16 Dose: 15 mcg Budesonide (Pulmicort Respules) 0.5 mg IH [id number] [facility] Last Admin: 11/25/16 07:16 Dose: 0.5 mg Docusate Sodium (Colace) 100 mg PO BID [facility] Last Admin: 11/24/16 18:40 Dose: 100 mg Finasteride (Proscar) 5 mg PO DAILY [facility] Last Admin: 11/24/16 11:15 Dose: 5 mg Furosemide (Lasix) 40 mg IV DAILY [facility] Home Med (Home Med) 1 unit PO Q72H [facility] Last Admin: 11/23/16 10:06 Dose: Not Given Meropenem 1g/NS 100mL IVPB (Meropenem 1g/Ns 100ml Ivpb) 1 gm in 100 mls @ 100 mls/hr IVPB Q8 [facility] PRN Reason: Protocol Stop: 11/29/16 22:31 Last Admin: 11/25/16 05:52 Dose: 100 mls/hr Doxycycline Hyclate 100 mg/ (Sodium Chloride) 100 mls @ 100 mls/hr IVPB Q12 [facility] PRN Reason: Protocol Last Admin: 11/24/16 22:42 Dose: 100 mls/hr Levalbuterol HCl (Xopenex) 1.25 mg IH [id number] PRN PRN Reason: Shortness of Breath Last Admin: 11/23/16 20:13 Dose: 1.25 mg Metoprolol Tartrate (Lopressor) 25 mg PO BRKDIN [facility] Last Admin: 11/24/16 18:41 Dose: 25 mg Pantoprazole Sodium (Protonix Inj) 40 mg IVP DAILY [facility] Last Admin: 11/24/16 11:14 Dose: 40 mg Promethazine HCl/Codeine (Phenergan/Codeine Oral Syrup) 5 ml PO Q6H PRN PRN Reason: Cough and congestion Last Admin: 11/24/16 22:15 Dose: 5 ml Valsartan (Diovan) 320 mg PO QAM [facility] Last Admin: 11/24/16 11:15 Dose: 320 mg - Labs Labs: 11/24/16 08:00 11/24/16 05:10 PT 11.3 Seconds (9.9-11.8) 11/22/16 14:20 INR 1.05 (0.93-1.08) 11/22/16 14:20 APTT 30.2 Seconds (23.7-30.8) 11/22/16 14:20 - Constitutional Appears: Non-toxic, No Acute Distress - Head Exam Head Exam: NORMAL INSPECTION - ENT Exam ENT Exam: Mucous Membranes Moist - Neck Exam Neck Exam: absent: Lymphadenopathy, Meningismus - Respiratory Exam Respiratory Exam: Decreased Breath Sounds - Cardiovascular Exam Cardiovascular Exam: +S1, +S2 - GI/Abdominal Exam GI & Abdominal Exam: Soft. absent: Tenderness Assessment and Plan - Assessment and Plan (Free Text) Plan: Assessment systemic inflammatory response syndrome, R/O sepsis due to healthcare- associated pneumonia with possible gram positive cocci and/or gram negative bacilli history of sepsis secondary to ESBL E. coli bacteremia S/P sepsis due to Morganella UTI with hematuria history of lung fibrosis myelodysplastic syndrome BPH coronary artery disease Plan will hold IV Vancomycin since the patient developed mild renal failure; will continue Merrem (day 3) and Doxycycline; blood cx are negative; PCT is elevated at 0.87; reviewed CXR; will target 4-7 days of therapy will continue to follow clinically
--- NOTE | 2016-11-25 17:18 | PN ---
DATE: 11/25/2016 REFERRING PHYSICIAN: Dr. Magallon. SUBJECTIVE: He is lying in the bed, head at 45 degrees. Feels better. Still has a cough with clear sputum. No nausea, no vomiting, no diarrhea. No dysuria. No leg pain or leg swelling. OBJECTIVE: GENERAL: No acute distress. VITAL SIGNS: Temp is 98, heart rate is 85, respiratory rate is 22, blood pressure 128/60, pulse ox 9 6% on nasal cannula. HEENT: Moist mucous membrane. Crowded airway. Mallampati score is 4. NECK: Supple. No JVD. LUNGS: Have scattered rhonchi. HEART: S1 and S2. ABDOMEN: Soft, nontender. No organomegaly. EXTREMITIES: There is no edema. NEUROLOGIC: Awake, alert, follows simple commands. MEDICATIONS: The patient is on Brovana 15 mcg inhaled twice a day, Diovan 320 mg daily, doxycycline 100 mg twice a day, Lasix 40 mg daily, metoprolol tartrate 25 mg daily, meropenem 1 gram q. 8 hours, Phenergan with codeine 5 mL q. 6 hours p.r.n., Proscar 5 mg daily, Protonix 40 mg daily, Pulmicort in haled twice a day, Tylenol on a p.r.n. basis, Xopenex p.r.n. basis. LABORATORY DATA: Reviewed and no new data available since yesterday. MICROBIOLOGY: Blood culture and urine culture: There is no growth. IMPRESSION AND PLAN: Multilobar pneumonia, recurrent urinary tract infection, pulmonary fibrosis, my elodysplastic syndrome, benign prostatic hypertrophy, coronary artery disease, left lower lobe mass-l kiran infiltrate. Continue antibiotics as per infectious diseases. Gastric prophylaxis, DVT prophylax is. Bronchodilators. Once stable, will need CT-guided biopsy of the left lower lobe mass. Incentiv e spirometer. Will order labs for the morning. Thank you, and will follow with you. Brenton Diaz MD cc: [phone] TT: 11/25/2016 17:17:18 Confirmation # [id number] Dictation # [id number] mn
--- NOTE | 2016-11-26 00:32 | PN ---
DATE: 11/25/2016 LOCATION: The patient is in 561, bed 2. SUBJECTIVE: The patient is lying in bed, head at 45 degrees, feeling a little bit better. Still has cough with clear phlegm. No history of nausea, vomiting, diarrhea, dysuria, leg pain, or leg swelli ng. No history of headaches, fevers, or chills. OBJECTIVE: GENERAL: The patient is in no acute distress. VITAL SIGNS: Stable. T-max is 98.4, heart rate is 85, respirations 22, blood pressure 128/60, O2 sa t is 96% on nasal cannula. HEENT: Head is normocephalic, atraumatic. Conjunctivae pale. Sclerae are anicteric. Pupils are e qually reactive to light and accommodation. Examination of the oropharynx reveals tongue to be coate d. No oropharyngeal lesions are noted. NECK: Supple. There is no adenopathy. No jugular venous distention noted. LUNGS: Reveal bilateral wheezes and rhonchi. HEART: Reveals S1 and S2 to be normal. No gallop or murmur is heard. ABDOMEN: Soft, nontender. Liver and spleen not palpable. No rebound, rigidity, or guarding is note d. EXTREMITIES: Reveal no cyanosis, clubbing, or edema. NEUROLOGIC: Higher functions are normal. No focal deficits are noted. LABORATORY DATA: Was reviewed from yesterday. No new labs from today are available. MEDICATIONS: The patient is on Brovana 15 mcg inhaled twice a day, Diovan 320 mg daily, doxycycline 100 mg twice a day, Lasix 40 mg daily, metoprolol tartrate 25 mg daily, meropenem 1 g IV q. 8 hours, Phenergan with codeine 5 mL q. 6 hours p.r.n., Proscar 5 mg daily, Protonix 40 mg daily, Pulmicort in haled twice a day, Tylenol p.r.n. MICROBIOLOGY: Blood cultures and urine cultures so far reveal no growth. ASSESSMENT NOTES AND PLAN: The patient has multilobar pneumonia, recent recurrent urinary tract infe ction, pulmonary fibrosis, myelodysplastic syndrome, benign prostatic hypertrophy, coronary artery di sease, left lower lobe mass-like infiltrate, which has not yet been biopsied. Continue antibiotics a s previously ordered. Gastric and deep venous thrombosis prophylaxis. There is noted patient is on bronchodilators. Will continue the current medications. Once the patient is stable, we can decide a bout the CT-guided biopsy of the left lower lobe mass. Hopefully the labs, especially his platelets, will allow us to approach to do a CT-guided biopsy. In the meantime, will continue supportive care and aggressive antibiotic therapy and pulmonary toilet. Mehdi Gonsales MD cc: [phone] TT: 11/26/2016 00:32:41 Confirmation # [id number] Dictation # [id number] dn
[2016-11-26] MEDS: Meropenem 1g/NS 100mL IVPB 1 GM/100 ML PIGGYBACK IVPB SCH ×3 (05:25→21:44)
[2016-11-26 06:53] LABS: HEMATOCRIT 32.3 % (42.0-52.0); MEAN CORPUSCULAR HEMOGLOBIN 29.3 pg (25.0-35.0); MEAN CORPUSCULAR HGB CONC 31.9 g/dl (31.0-37.0); MEAN PLATELET VOLUME 10.7 fl (7.0-11.0); PLATELET COUNT 93 10^3/uL (120.0-450.0); RED CELL DISTRIBUTION WIDTH 18.4 % (11.5-14.5); WHITE BLOOD COUNT 8.8 10^3/ul (4.5-11.0)
[2016-11-26 07:02] LABS: ADD MANUAL DIFF? YES
[2016-11-26 07:11] LABS: ALB/GLOB RATIO 1.3 (1.1-1.8); ALKALINE PHOSPHATASE 60 U/L (38-133); ALT/SGPT 34 U/L (7-56); AST/SGOT 23 U/L (15-59); BILIRUBIN,TOTAL 0.9 mg/dL (0.2-1.3); BLOOD UREA NITROGEN 43 mg/dL (7-21); CALCIUM 8.6 mg/dL (8.4-10.5); CARBON DIOXIDE 28 mmol/L (21-33); CHLORIDE 102 mmol/L (95-110); GFR AFRICAN-AMERICAN > 60; GLUCOSE,RANDOM 83 mg/dL (70-110); POTASSIUM 4.4 mmol/L (3.6-5.0); SODIUM 138 mmol/L (132-148)
[2016-11-26] MEDS: Arformoterol 15 mcg/2 ml Inh Sol IH SCH ×2 (07:13→22:00)
[2016-11-26] MEDS: Budesonide 0.5 mg/2 ml Inhal Susp UD IH SCH ×2 (07:13→22:00)
[2016-11-26 08:33] LABS: ATYPICAL LYMPHOCYTE 3 % (0.0-0.0); EOSINOPHIL 3 % (0.0-3.0); METAMYELOCYTE 1 %; MYELOCYTE 2 %
[2016-11-26 08:34] LABS: NEUTROPHIL 33 % (50.0-70.0)
[2016-11-26 08:35] LABS: ANISOCYTOSIS 1+; HYPOCHROMIA 1+; PLATELET ESTIMATE LOW (NORMAL); POLYCHROMASIA SLIGHT
[2016-11-26 08:36] LABS: OVALOCYTES SLIGHT; TEAR DROP CELLS SLIGHT; TOXIC GRANULATION SLIGHT
[2016-11-26] MEDS: Promethazine/Cod 6.25mg-10mg/5ml Syr UD PO PRN ×2 (10:15→18:48)
--- NOTE | 2016-11-26 15:58 | PN ---
DATE: 11/26/2016 REFERRING PHYSICIAN: Dr. Magallon SUBJECTIVE: He is out of bed to chair, feels better, decreased cough, decreased shortness of breath. No nausea, no vomiting, diarrhea. No leg pain or leg swelling. OBJECTIVE: GENERAL: No acute distress. VITAL SIGNS: Temp is 98, heart rate 78, respiratory rate is 20, blood pressure 120/60, pulse ox 94% on nasal cannula. HEENT: Moist mucous membrane. Crowded airway. NECK: Supple, no JVD. LUNGS: Have scattered rhonchi and a few crackles. HEART: S1, S2. ABDOMEN: Soft, nontender. No organomegaly. EXTREMITIES: There is no edema. NEUROLOGIC: Awake, alert, follows simple command. MEDICATIONS: He is on Brovana 15 mcg inhaled twice a day, Colace 100 mg twice a day, Diovan 320 mg d aily, doxycycline 100 mg twice a day, Lasix 40 mg daily, metoprolol tartrate 25 mg daily, meropenem 1 g IV q. 8 hours, Phenergan with codeine 5 mL q. 6 hours p.r.n., Proscar 5 mg daily, Protonix 40 mg d aily, Pulmicort inhaled twice a day, Tylenol p.r.n., Xopenex p.r.n. basis. LABORATORY DATA: Shows hemoglobin 10.3, hematocrit 32.3, WBC 8.8, platelet is 93. Sodium 138, potas sium 4.4, chloride 102, bicarbonate 28, BUN 43, creatinine 1.3, glucose 83, calcium is 8.6, AST 23, A LT 34, alk phos is 60, albumin is 3.4. IMPRESSION AND PLAN: Multilobar pneumonia, recurrent urinary tract infection, pulmonary fibrosis, my elodysplastic syndrome, benign prostatic hypertrophy, coronary artery disease, left lower lobe mass-l kiran infiltrate. Pulmonary point of view, doing well. Continue antibiotics, bronchodilators, gastric prophylaxis, deep venous thrombosis prophylaxis. Follow up platelet closely. The patient could be transferred to [facility] to complete his antibiotics and start some therapy. Will need followup CAT scan or biopsy of the left lower lobe mass-like infiltrate if it persists. Thank you, and will follow with you. Brenton Diaz MD cc: [phone] TT: 11/26/2016 15:58:08 Confirmation # [id number] Dictation # [id number] dn
--- NOTE | 2016-11-26 16:33 | CP.PCM.PN ---
Subjective - Date & Time of Evaluation Date of Evaluation: 11/26/16 Time of Evaluation: 09:25 - Subjective Subjective: Breathing better, no fevers, not in distress. Objective - Vital Signs/Intake and Output Vital Signs (last 24 hours): Temp Pulse Resp BP Pulse Ox 98.8 F 78 20 121/58 L 94 L 11/26/16 07:30 11/26/16 08:25 11/26/16 07:30 11/26/16 08:25 11/26/16 07:30 Intake and Output: 11/26/16 11/26/16 06:59 18:59 Intake Total 540 Output Total 100 Balance 440 - Medications Medications: Current Medications Acetaminophen (Tylenol 325mg Tab) 650 mg PO Q6H PRN PRN Reason: temp Last Admin: 11/23/16 21:24 Dose: 650 mg Arformoterol Tartrate (Brovana) 15 mcg IH [id number] [facility] Last Admin: 11/26/16 07:13 Dose: 15 mcg Budesonide (Pulmicort Respules) 0.5 mg IH [id number] [facility] Last Admin: 11/26/16 07:13 Dose: 0.5 mg Docusate Sodium (Colace) 100 mg PO BID [facility] Last Admin: 11/25/16 18:54 Dose: 100 mg Finasteride (Proscar) 5 mg PO DAILY [facility] Last Admin: 11/25/16 09:49 Dose: 5 mg Furosemide (Lasix) 40 mg IV DAILY [facility] Last Admin: 11/25/16 09:50 Dose: 40 mg Home Med (Home Med) 1 unit PO Q72H [facility] Last Admin: 11/23/16 10:06 Dose: Not Given Meropenem 1g/NS 100mL IVPB (Meropenem 1g/Ns 100ml Ivpb) 1 gm in 100 mls @ 100 mls/hr IVPB Q8 [facility] PRN Reason: Protocol Stop: 11/29/16 22:31 Last Admin: 11/26/16 05:25 Dose: 100 mls/hr Doxycycline Hyclate 100 mg/ (Sodium Chloride) 100 mls @ 100 mls/hr IVPB Q12 [facility] PRN Reason: Protocol Last Admin: 11/25/16 22:39 Dose: 100 mls/hr Levalbuterol HCl (Xopenex) 1.25 mg IH [id number] PRN PRN Reason: Shortness of Breath Last Admin: 11/23/16 20:13 Dose: 1.25 mg Metoprolol Tartrate (Lopressor) 25 mg PO BRKDIN [facility] Last Admin: 11/26/16 08:25 Dose: 25 mg Pantoprazole Sodium (Protonix Inj) 40 mg IVP DAILY [facility] Last Admin: 11/25/16 09:50 Dose: 40 mg Promethazine HCl/Codeine (Phenergan/Codeine Oral Syrup) 5 ml PO Q6H PRN PRN Reason: Cough and congestion Last Admin: 11/25/16 18:54 Dose: 5 ml Valsartan (Diovan) 320 mg PO QAM [facility] Last Admin: 11/25/16 09:50 Dose: 320 mg - Labs Labs: 11/26/16 06:15 11/26/16 06:15 PT 11.3 Seconds (9.9-11.8) 11/22/16 14:20 INR 1.05 (0.93-1.08) 11/22/16 14:20 APTT 30.2 Seconds (23.7-30.8) 11/22/16 14:20 - Constitutional Appears: Non-toxic, No Acute Distress - Head Exam Head Exam: NORMAL INSPECTION - ENT Exam ENT Exam: Mucous Membranes Moist - Neck Exam Neck Exam: absent: Lymphadenopathy, Meningismus - Respiratory Exam Respiratory Exam: Decreased Breath Sounds - Cardiovascular Exam Cardiovascular Exam: +S1, +S2 - GI/Abdominal Exam GI & Abdominal Exam: Soft. absent: Tenderness Assessment and Plan - Assessment and Plan (Free Text) Plan: Assessment systemic inflammatory response syndrome, R/O sepsis due to healthcare- associated pneumonia with possible gram positive cocci and/or gram negative bacilli history of sepsis secondary to ESBL E. coli bacteremia S/P sepsis due to Morganella UTI with hematuria history of lung fibrosis myelodysplastic syndrome BPH coronary artery disease Plan will continue Merrem (day 4) and Doxycycline; blood cx are negative; PCT is elevated at 0.87; reviewed CXR; will target 4-7 days of therapy will continue to follow clinically
--- NOTE | 2016-11-26 17:39 | PN ---
DATE: 11/25/2016 The patient being treated for pneumonia. He feels better. Less cough, less short of breath. No majo st pain. PHYSICAL EXAMINATION: VITAL SIGNS: Temperature is 98, heart rate 81, blood pressure 148/61, respiration , saturating % on 2 liters. HEAD AND NECK: Normal. No JVD, no thyromegaly. CHEST: Reveals few crepitations at the bases. CARDIAC: First sound, second sound normal. ABDOMEN: Soft, nontender. EXTREMITIES: No edema. NEUROLOGIC: Normal. Chest x-ray shows bilateral lower lobe pneumonias. The patient's chemistry: Sodium 141, potassium 3.7, chloride 100, bicarb 30, BUN 34, creatinine 1.3. The patient also white count 15.2, hemoglobin 9.8, hematocrit 29.5, platelets is 96. IMPRESSION AND PLAN: 1. Community-acquired pneumonia, immunocompromised. Continue current IV antibiotic as per ID consul t. The patient currently is getting meropenem IV q. 8 plus doxycycline IV. Continue current treatme nt. 2. Chronic obstructive pulmonary disease, history of lung mass, history of lung fibrosis. Continue Brovana, Pulmicort, cough medicines. Follow up clinically. 3. Hypertension. Continue current meds. Also, patient does have a history of prostate enlargement. He is currently on Proscar and he is getting Diovan, Lasix. Follow up clinically. 4. General weakness. The patient may benefit from continuation of physical therapy at [facility]CU in additi on to IV antibiotic. Continue current therapy. Mook Magallon MD cc: [phone] TT: 11/26/2016 17:38:29 Confirmation # [id number] Dictation # [id number] en
[2016-11-26] MEDS ORDERED: DEFERASIROX PO SCH (18:02)
--- NOTE | 2016-11-26 18:46 | PN ---
DATE: 11/26/2016 LOCATION: The patient in room 561, bed 2. REASON FOR CONSULTATION: Fever, respiratory tract infection, myelodysplastic syndrome, shortness of breath. HISTORY OF PRESENT ILLNESS: This is an 86-year-old male with a past medical history significant for myelodysplastic syndrome, hypertension, pulmonary fibrosis, BPH, admitted with shortness of breath of 2 days' duration, having difficulty expectorating and having a lot of cough. The patient denies any chest pain or palpitations. The patient states that his breathing is improving and he still has a c ough, but he is able to expectorate now. PHYSICAL EXAMINATION: VITAL SIGNS: Blood pressure 139/52, respirations 18, pulse 86, temperature 98.7. HEAD: Normocephalic. EYES: Pupils normal. Conjunctivae slightly pale. NECK: JVP low. Carotid equal. THORAX: AP diameter normal. LUNGS: A few rales on the bases, more so on the right base. Slight wheezing also noticed. CARDIOVASCULAR: S1, S2. ABDOMEN: Soft, nontender, no organomegaly. EXTREMITIES: No clubbing, no cyanosis. LABORATORY DATA: WBC 8.8, hemoglobin 10.3, hematocrit 32.3, platelet 93. Sodium 138, potassium 4.4, BUN 43, creatinine 1.3. AST and ALT normal. Total protein and albumin normal. DIAGNOSES: Myelodysplastic syndrome, possible community-acquired pneumonia, anemia, thrombocytopenia , pulmonary fibrosis, history of benign prostatic hypertrophy, hypertension, anemia. PLAN: Is to continue present therapy including metoprolol 25 b.i.d. The patient is on IV antibiotic , meropenem, Xopenex and Doryx 100 mg p.o. q.12 hours. Will follow with you. Brenton Menezes MD cc: [phone] TT: 11/26/2016 18:45:23 Confirmation # [id number] Dictation # [id number] denis
[2016-11-26] MEDS: DEFERASIROX PO SCH (19:07)
--- NOTE | 2016-11-26 21:42 | PN ---
DATE: 11/26/[address] Gonsales. SUBJECTIVE: The patient is an 86-year-old male seen resting in bed with cough modestly improved, adm itted for multilobular pneumonia with known history of severe anemia, myelodysplastic syndrome with t ransfusions and Procrit and Neupogen given on an almost weekly basis in the past. The patient is als o known to have a left lower lobe mass which is suspicious for a malignancy with biopsy to be conside red once he has improved. He is currently being treated for pneumonia. He is in no acute distress. PHYSICAL EXAMINATION: VITAL SIGNS: Temperature 98.7, pulse 85, respirations 18, blood pressure 140/52, pulse ox 92%. HEENT: Unremarkable. NECK: Supple. HEART: Regular rate, occasional ectopic beat. LUNGS: Occasional rhonchi, left greater than right. ABDOMEN: Soft. EXTREMITIES: No edema. SKIN: Warm, dry and clear. NEUROLOGIC: Awake, alert. However, he does suffer from Parkinson's with decreased range of motion. LABORATORY DATA: The patient's labs were done. White blood cell count of 8.8, hemoglobin of 10.3 up from a hemoglobin of 7.7 two days prior after transfusion of 2 units of packed cells with a platelet count of 93,000. His chem metabolic panel showed a BUN of 43, otherwise normal chem metabolic panel . His procalcitonin 0.8 three days prior. ASSESSMENT: Pneumonia, multilobular; myelodysplastic syndrome, pulmonary fibrosis, pulmonary mass, b enign prostatic hypertrophy, Parkinson's disease, hypertension, arteriosclerotic vascular heart disea se. PLAN: The patient is to continue present medical regimen with continuation of medication as per radha sharif and Dr. Magallon. The prognosis for this patient is guarded. Fabian Rosado MD cc: [phone] TT: 11/26/2016 21:42:05 Confirmation # [id number] Dictation # [id number] mn
[2016-11-27] MEDS: Meropenem 1g/NS 100mL IVPB 1 GM/100 ML PIGGYBACK IVPB SCH ×2 (05:47→15:29)
[2016-11-27 07:06] LABS: HEMATOCRIT 31.4 % (42.0-52.0); MEAN CELL VOLUME 91.8 fL (80.0-105.0); MEAN CORPUSCULAR HEMOGLOBIN 29.2 pg (25.0-35.0); MEAN CORPUSCULAR HGB CONC 31.8 g/dl (31.0-37.0); PLATELET COUNT 91 10^3/uL (120.0-450.0); RED CELL DISTRIBUTION WIDTH 18.4 % (11.5-14.5)
[2016-11-27 07:15] LABS: ADD MANUAL DIFF? YES
[2016-11-27 07:25] LABS: ALB/GLOB RATIO 1.2 (1.1-1.8); CALCIUM 8.8 mg/dL (8.4-10.5); POTASSIUM 4.5 mmol/L (3.6-5.0); TOTAL PROTEIN 5.8 g/dL (5.8-8.3)
[2016-11-27 08:35] LABS: ATYPICAL LYMPHOCYTE 1 % (0.0-0.0); BAND 2 % (0-2); NEUTROPHIL 20 % (50.0-70.0)
[2016-11-27 08:36] LABS: ANISOCYTOSIS 1+; EOSINOPHIL 8 % (0.0-3.0); HYPOCHROMIA 1+; MYELOCYTE 2 %; OVALOCYTES 1+; PLATELET ESTIMATE LOW (NORMAL); POIKILOCYTOSIS SLIGHT; POLYCHROMASIA SLIGHT; TEAR DROP CELLS SLIGHT
[2016-11-27 08:37] LABS: BURR CELLS 1+; TOXIC GRANULATION SLIGHT
[2016-11-27] MEDS: Acetylcysteine 20% Inhal Soln (4ml) IH SCH (08:52)
[2016-11-27] MEDS: Arformoterol 15 mcg/2 ml Inh Sol IH SCH ×2 (08:53→22:08)
[2016-11-27] MEDS: Budesonide 0.5 mg/2 ml Inhal Susp UD IH SCH ×2 (08:53→22:08)
--- NOTE | 2016-11-27 09:57 | PN ---
DATE: 11/26/2016 He is still coughing. He is getting chest PT, cough medicines and antibiotic IV. The patient clinic ally he feels better than before and currently on IV antibiotic, doxycycline and meropenem. He is afebrile. PHYSICAL EXAMINATION: VITAL SIGNS: Temperature 98.7, heart rate 86, blood pressure 139/62, respiration 18, saturation 92% on ____. HEAD AND NECK: ____. No JVD. No thyromegaly. CHEST: There are a few basilar crepitations in the bases. CARDIAC: First sound, second sound normal. ABDOMEN: Soft, nontender. EXTREMITIES: No edema. NEUROLOGIC: He is generally weak. The patient has difficulty moving from one side to the other. SKIN: Noted his back, there is red rash and thigh area red rash. LABORATORY STUDIES: Show the following on 12/06/2016: White count 8.8, hemoglobin 10.3, hematocrit 3 2, platelets 93. Chemistry shows sodium 138, potassium 4.4, chloride 102, bicarb 28, BUN 43, creatin ine 1.3. Liver enzymes are normal. IMPRESSION AND PLAN: 1. Bilateral pneumonia. Continue meropenem, doxycycline. Continue IV antibiotic, inhaled bronchodi lators and we will add Mucomyst to his regimen and continue chest percussion, chest physical therapy. 2. Rash, etiology unclear, non-itchy. Could be antibiotic related. We will consult with the infect ious disease consult, Dr. Mesa. ____ rash and if any change in antibiotic. I doubt ____ as an etiology. Platelet count 93,000 which is good enough. ____, however, is still a possibility. We w ill talk to the ____ consult. 3. Chronic underlying chronic obstructive pulmonary disease. Continue inhaled bronchodilators. 4. ____ dysplasia with pancytopenia, stable. Hemoglobin and platelets seem stable. Continue curren t therapy. 5. Hypertension, enlarged prostate. Continue Diovan, continue Lasix, continue Proscar. The patient otherwise better, ____ than before, clinically better. We will consider physical therapy and ____. The patient also getting ____. Mook Magallon MD cc: [phone] TT: 11/27/2016 09:18:34 Confirmation # [id number] Dictation # [id number] tn 11/27/2016 08:56:44
--- NOTE | 2016-11-27 10:58 | CON ---
DATE: 11/27/2016 This is an 86-year-old male seen at bedside complaining of pain to his left foot. The patient is in no distress. He states that he thinks he got a sore on his foot from the nonstick socks from twistin g in them when he is up with the physical therapist. PAST MEDICAL HISTORY: Positive for pneumonia, positive for a suspicious mass in his lungs. He is go ing to have a biopsy of that once he is improved. He has a history of myelodysplastic anemia. He al so has a history of coronary artery disease and BPH. The patient also has a history of UTI with seps is. MEDICATIONS: Reviewed on the AUG. He is presently on meropenem as per infectious disease. The rest of the medications were noted. ALLERGIES: He has no known drug allergies. SOCIAL HISTORY: He lives at home. He does not smoke or use alcohol. PHYSICAL EXAMINATION: GENERAL: Shows that he is nontoxic as noted above, in no distress. VITAL SIGNS: Today show a temperature of 98.2, his pulse is 82, his blood pressure is 129/63, his re spiratory is 22. LABORATORY DATA: Show a white blood cell count today of 9; he has had as high as 15.5 upon admission on 11/22/2016. H and H are 10 and 31.4 and his platelets are low at 95. The patient's BUN and crea tinine also are elevated with a 49 BUN and 1.6 creatinine. His glucose is within normal at 85. BNP was 1080. The rest of the SMA was grossly within normal limits. Microbiology shows blood cultures w ith no growth. LOWER EXTREMITIES: The patient's lower extremities were evaluated. He has nonpalpable pedal pulses bilateral. Temperature gradient to both feet is slightly cool and the capillary refill time is decre ased on all of his digits. His skin is extremely thin, hyperpigmented, and no pedal hair is noted. NEUROLOGICAL: He has intact neurological sensation. His DTRs at the ankle are 1/5. He does discern sharp and dull discrimination to the feet and to the lower legs. SKIN: His skin, as noted above, is thin. He has on his left foot an abrasion on the dorsal aspect o f his foot that measures 3 x 1 cm x 0.1; it is more of an abrasion than an ulceration at this time. There are no signs of infection. He does, however, have an ulceration submetatarsal 5. This ulcerat ion at this time is desiccated since it has no dressing on it; however, it is deep at approximately 0 .3 cm in depth. At this time, there was desiccated granulation tissue which was hard and firm over t he area. It did not probe to bone; however, there was some undermining around the edges. There was no cellulitis, but the area was painful to palpation for this patient. The wound measures 1.4 x 0.7 x 0.3 cm, and again there were no signs of any fulminant infection. ASSESSMENT: Severe peripheral vascular disease, nonstageable ulcer to the left plantar foot submetat arsal 5, and an abrasion to the dorsal aspect of the left foot, in a patient with severe peripheral v ascular disease. PLAN OF TREATMENT: A culture and sensitivity was taken from the wound. We ordered Silvadene and a d ry sterile dressing to be placed on daily over the wound areas. We also ordered surgical shoes for t his patient when he ambulates with physical therapy. We can offload the wound with some felt in the shoe. We also ordered ABIs for him and foot x-rays were also ordered. The patient's foot was dresse d with a DuoDERM in order to soften and rehydrate the wound. He will be seen and followed on a daily basis. The patient's foot was offloaded from the bed presently. Eleanor Agarwal DPM cc: 112 TT: 11/27/2016 10:57:28 Confirmation # [id number] Dictation # [id number] oksana
--- NOTE | 2016-11-27 15:37 | US ---
PROCEDURE: Lower extremity TIM exam HISTORY: Peripheral vascular disease with pain and claudication. Previous smoker PHYSICIAN(S): Shravan Sebastian MD. FINDINGS: The resting TIM's are normal: right, 1.20and left, 1.02. The brachial systolic pressures are symmetric. The high thigh pressures and waveforms are relatively normal. The calf PVR waveforms augment normally. No significant gradients are noted across the thighs. The ankle and metatarsal waveforms are relatively normal and symmetric. No significant pressure gradients are noted across the lower legs. IMPRESSION: 1. Normal TIM and PVR examination at rest.
--- NOTE | 2016-11-27 16:04 | RAD ---
PROCEDURE: Left Foot Radiographs. HISTORY: ulcer submet5 left COMPARISON: None. FINDINGS: BONES: There is no bony destruction to suggest osteomyelitis JOINTS: Normal. SOFT TISSUES: Normal. OTHER FINDINGS: None. IMPRESSION: No evidence of osteomyelitis
--- NOTE | 2016-11-27 16:42 | PN ---
DATE: 11/27/2016 REASON FOR CONSULTATION AND FOLLOWUP: Fever, respiratory tract infection, myelodysplastic syndrome, shortness of breath. The patient denies any chest pain, feels better, still feels congested and coug h. PHYSICAL EXAMINATION: As follows: VITAL SIGNS: Temperature afebrile, heart rate 82, blood pressure 110/63. HEENT: PERRLA, intact. NECK: Supple. No carotid bruits. No thyromegaly. CHEST: Clear to auscultation. HEART: S1, S2 regular. ABDOMEN: Soft. EXTREMITIES: Clubbing and cyanosis negative. BLOOD WORKUP: As follows: WBC 9, hemoglobin 10.0, hematocrit 31.4, platelet count 91. Chemistry sh ows sodium 139, potassium ____, chloride 103, carbon dioxide 26, anion gap of 15, BUN 46, creatinine 1.6. IMPRESSION: This is an 86-year-old male with a past medical history significant for myelodysplastic syndrome, hypertension, pulmonary fibrosis, benign prostatic hypertrophy, admitted with shortness of breath 2-3 days' duration. Having difficulty expectoration and having difficulty in cough. Denies a ny chest pain. Shortness of breath, anemia, myelodysplastic syndrome, possible community-acquired pn eumonia, anemia, thrombocytopenia, pulmonary fibrosis, history of benign prostatic hypertrophy, hyper tension, anemia. RECOMMENDATION: Continue metoprolol 25 mg daily. Continue IV antibiotic. Continue Xopenex. Contin ue gentle diuretics. Keep the negative fluid balance, but monitor electrolytes closely since the pat ient's BUN and creatinine is creeping up. We will hold the Lasix today and repeat the blood workup t omorrow. Today, creatinine is 1.5. The patient got the Lasix this morning. We will hold from now a nd repeat the lab in the morning. Thank you, Dr. Magallon, for providing us the opportunity in taking care of the patient. We will follo w with you. Brenton Martines MD cc: [phone] TT: 11/27/2016 16:41:13 Confirmation # [id number] Dictation # [id number] sn
[2016-11-27 17:29] VITALS: RESP 20
--- NOTE | 2016-11-27 18:33 | PN ---
DATE: 11/27/2016 REFERRING PHYSICIAN: Dr. Magallon. SUBJECTIVE: He is lying in the bed, head at 45 degrees. Still has some cough and shortness of breat h. No nausea, no vomiting, no diarrhea. No leg pain or leg swelling. OBJECTIVE: GENERAL: No acute distress. VITAL SIGNS: Temperature is 98, heart rate is 89, respiratory rate is 20, blood pressure 195/70, pul se ox 100% on room air. HEENT: Moist mucous membranes. Crowded airway. NECK: Supple, no JVD. LUNGS: Have a fair airflow with few rhonchi. HEART: S1, S2. ABDOMEN: Soft, nontender. No organomegaly. EXTREMITIES: There is no edema. NEUROLOGIC: Awake, alert, follows simple commands. MEDICATIONS: The patient is on Mucomyst inhaler twice a day, Brovana 15 mcg inhaled twice a day, Col alessandra 100 mg twice a day, Diovan 320 mg daily, doxycycline 100 mg twice a day, metoprolol tartrate 25 m g twice a day, meropenem 1 g IV q. 8 hours, Phenergan with codeine 5 mL q. 6 hours p.r.n., Proscar 5 mg daily, Protonix 40 mg daily, Pulmicort inhaled twice a day, Tylenol on a p.r.n. basis, Xopenex on a p.r.n. basis. LABORATORY DATA: Shows hemoglobin 10.0, hematocrit 31.4, WBC 9.0, platelet count is 91. Sodium 139, potassium 4.5, chloride 103, bicarbonate is 26, BUN 49, creatinine 1.6, glucose 85, calcium 8.5, AST 19, ALT 36, alkaline phosphatase is 60, albumin is 3.2. MICROBIOLOGY: Blood culture, urine culture, sputum culture: There is no growth. Foot x-ray done tod ay, which shows no evidence of osteomyelitis. IMPRESSION AND PLAN: Pneumonia, multilobar involvement; myelodysplastic syndrome; pulmonary fibrosis ; left lower lobe pulmonary mass; benign prostatic hypertrophy; hypertrophy; Parkinson's disease; hy pertension; arteriosclerosis vascular disease. From pulmonary point of view, doing well. Continue b ronchodilator. Keep head elevated at 45 degrees. Antibiotics. Aspiration precautions. deep venous thrombosis precaution. Thank you and will follow with you. Brenton Diaz MD cc: [phone] TT: 11/27/2016 18:32:51 Confirmation # [id number] Dictation # [id number] ln
[2016-11-27] MEDS: Promethazine/Cod 6.25mg-10mg/5ml Syr UD PO PRN (18:39)
--- NOTE | 2016-11-27 20:37 | PN ---
DATE: 11/27/2016 The patient is in bed in no acute distress, was seen earlier this morning, had a new rash on his back separate from the rash that he ____ groin. PHYSICAL EXAMINATION: VITAL SIGNS: Temperature of 98 Blood pressure is 195/70, respiratory rate of 22. HEENT: Unremarkable. NECK: Supple. LUNGS: Have decreased breath sounds. HEART: Normal S1, S2. ABDOMEN: Soft, nontender. Maculopapular rash present on the back. ASSESSMENT AND PLAN: This is an 86-year-old male who was seen earlier today in 561, bed 2. His liam edwin brother is present at the room visiting, and with systemic inflammatory response syndrome, and no w with new maculopapular rash, on day #5 of doxycycline and meropenem. We will discontinue the antib iotics. Follow the rash closely. The patient is chronically ill, but not acutely. ____ watch him o ff of antibiotics. Shilo Mesa MD cc: [phone] TT: 11/27/2016 20:36:20 Confirmation # [id number] Dictation # [id number] jn
--- NOTE | 2016-11-27 21:42 | PN ---
DATE: 11/27/2016 This the patient's hospital visit on the medical floor. For Dr. Gonsales. SUBJECTIVE: The patient is an 86-year-old male, seen lying awake in bed with family at the bedside, reporting that he feels improved, being treated for multilobar pneumonia, history of severe anemia, m yelodysplastic syndrome with transfusions almost on a weekly basis with Procrit and Neupogen being gi albin then also. The patient is also known to have a history of mass in the left lower lobe which is s uspicious for malignancy. With this, the patient is otherwise reporting he was not out bed due to di scomfort of his foot with a foot x-ray done earlier today read as left foot, no evidence of osteomyel itis. He also had an ultrasound of his lower extremities, TIM testing showing normal TIM and PVR exa mination at rest. PHYSICAL EXAMINATION: VITAL SIGNS: Temperature 98.4, pulse 89, respirations 20, blood pressure 129/63, pulse ox 100%. HEENT: Unremarkable. NECK: Supple. HEART: Regular rate, I/ systolic ejection murmur. LUNGS: Occasional rhonchi. Decreased breath sounds. ABDOMEN: Soft, nontender. EXTREMITIES: No edema. Decreased range of motion. NEUROLOGIC: Awake and alert with hearing aids. LABORATORY DATA: The patient's labs were done that include a white blood cell count of 9.0, hemoglob in 10.0, hematocrit of 31.4, platelet count of 91,000 with a chem metabolic panel showing a BUN of 49 , creatinine 1.6. ASSESSMENT: Multilobular pneumonia, myelodysplastic syndrome, severe anemia, pulmonary fibrosis, lef t lower lobe pulmonary mass, benign prostatic hypertrophy, Parkinson disease, hypertension, atheroscl erotic cardiovascular disease, deconditioning. PLAN: The patient is to continue his present medical regimen to include IV antibiotics as per Dr. Junaid koroma. However, these were discontinued as the patient had developed a rash after 5 days of doxyc ycline and meropenem with antibiotics discontinued as per Dr. Mesa and to be restarted as neede d. We will continue to monitor him clinically and with labs with consideration for transfer to [facility] o [facility] the patient is stable. Fabian Rosado MD cc: [phone] TT: 11/27/2016 21:41:01 Confirmation # [id number] Dictation # [id number] rn
[2016-11-28 07:11] LABS: CALCIUM 9.2 mg/dL (8.4-10.5); POTASSIUM 4.7 mmol/L (3.6-5.0)
[2016-11-28] MEDS: Arformoterol 15 mcg/2 ml Inh Sol IH SCH ×2 (07:14→20:27)
[2016-11-28] MEDS: Budesonide 0.5 mg/2 ml Inhal Susp UD IH SCH ×2 (07:15→20:27)
[2016-11-28] MEDS: Acetylcysteine 20% Inhal Soln (4ml) IH SCH ×2 (07:17→20:31)
[2016-11-28 08:24] VITALS: TEMP 98.6; O2SAT 96
--- NOTE | 2016-11-28 13:11 | PN ---
DATE: 11/27/2016 The patient seems comfortable, still coughing, getting chest physical therapy, Mucomyst. Otherwise s table. The patient seen by Dr. Mesa and seems better. PHYSICAL EXAMINATION: VITAL SIGNS: Temperature 98.4, heart rate 89, blood pressure 129/63, respiratory rate 20, saturation 100% on room air. HEAD AND NECK: Normal. No JVD, no thyromegaly. CHEST: Clear, good air entry. Few basal crepitations. CARDIAC: First sound, second sound normal. ABDOMEN: Soft, obese, nontender. EXTREMITIES: No edema. NEUROLOGIC: Normal. LABORATORY STUDIES: White count 9, hemoglobin 10, hematocrit 31.4, platelets is 95. Chemistry: Sod ium 141, potassium 4.7, chloride 101, bicarb 31, BUN 54, creatinine 1.4. Liver function test has bee n done and it was normal. IMPRESSION AND PLAN: 1. Bilateral pneumonia. Continue current IV antibiotic. The patient seen by ID consult. Currently , patient getting same antibiotic, meropenem and vancomycin. We will discuss with the ID about the r tawny. He may consider changing it or discontinuation of the antibiotics. We will discuss further wit h him. 2. Hypertension. Continue Diovan. Will monitor blood pressure. 3. Chronic obstructive pulmonary disease. Continue inhaled bronchodilators. The patient seems doin g better. He is on Lasix, which will be discontinued. 4. Pancytopenia, thrombocytopenia, secondary to myelodysplasia. Continue current therapy. Monitor his platelets. Platelet count is normal. Continue Mucomyst. Continue chest physiotherapy. The pat ient will go to transitional care unit for further evaluations. Mook Magallon MD cc: [phone] TT: 11/28/2016 13:11:18 Confirmation # [id number] Dictation # [id number] en
--- NOTE | 2016-11-28 16:15 | CP.PCM.PN ---
Subjective - Date & Time of Evaluation Date of Evaluation: 11/28/16 Time of Evaluation: 11:15 - Subjective Subjective: Comfortable, breathing well, has rash on his back which is not bothering him. Objective - Vital Signs/Intake and Output Vital Signs (last 24 hours): Temp Pulse Resp BP Pulse Ox 98.6 F 90 20 150/63 96 11/28/16 08:23 11/28/16 08:23 11/28/16 08:23 11/28/16 08:23 11/28/16 08:23 Intake and Output: 11/28/16 11/28/16 06:59 18:59 Intake Total 240 Output Total 1300 Balance -1060 - Medications Medications: Current Medications Acetaminophen (Tylenol 325mg Tab) 650 mg PO Q6H PRN PRN Reason: temp Last Admin: 11/23/16 21:24 Dose: 650 mg Acetylcysteine (Acetylcysteine 20%) 3 ml IH BIDRESP [facility] Last Admin: 11/28/16 07:17 Dose: 3 ml Arformoterol Tartrate (Brovana) 15 mcg IH [id number] [facility] Last Admin: 11/28/16 07:14 Dose: 15 mcg Atenolol (Tenormin) 25 mg PO DAILY [facility] Budesonide (Pulmicort Respules) 0.5 mg IH [id number] [facility] Last Admin: 11/28/16 07:15 Dose: 0.5 mg Clonidine HCl (Catapres) 0.1 mg PO Q6H PRN PRN Reason: Systolic Blood Pressure Stop: 12/29/16 08:31 Docusate Sodium (Colace) 100 mg PO BID [facility] Last Admin: 11/27/16 18:38 Dose: 100 mg Finasteride (Proscar) 5 mg PO DAILY [facility] Last Admin: 11/27/16 11:10 Dose: 5 mg Home Med (Home Med) 1 unit PO Q48H [facility] Last Admin: 11/26/16 19:07 Dose: 1 unit Levalbuterol HCl (Xopenex) 1.25 mg IH [id number] PRN PRN Reason: Shortness of Breath Last Admin: 11/23/16 20:13 Dose: 1.25 mg Metoprolol Tartrate (Lopressor) 25 mg PO BRKDIN [facility] Last Admin: 11/27/16 18:39 Dose: 25 mg Pantoprazole Sodium (Protonix Inj) 40 mg IVP DAILY [facility] Last Admin: 11/27/16 11:10 Dose: 40 mg Promethazine HCl/Codeine (Phenergan/Codeine Oral Syrup) 5 ml PO Q6H PRN PRN Reason: Cough and congestion Last Admin: 11/27/16 18:39 Dose: 5 ml Valsartan (Diovan) 320 mg PO QAM [facility] Last Admin: 11/27/16 11:10 Dose: 320 mg - Labs Labs: 11/27/16 06:30 11/28/16 06:30 PT 11.3 Seconds (9.9-11.8) 11/22/16 14:20 INR 1.05 (0.93-1.08) 11/22/16 14:20 APTT 30.2 Seconds (23.7-30.8) 11/22/16 14:20 - Constitutional Appears: Non-toxic, No Acute Distress - Head Exam Head Exam: NORMAL INSPECTION - ENT Exam ENT Exam: Mucous Membranes Moist - Neck Exam Neck Exam: absent: Lymphadenopathy, Meningismus - Respiratory Exam Respiratory Exam: Decreased Breath Sounds - Cardiovascular Exam Cardiovascular Exam: +S1, +S2 - GI/Abdominal Exam GI & Abdominal Exam: Soft. absent: Tenderness - Skin Skin Exam: Rash (maculopapular, on his back) Assessment and Plan - Assessment and Plan (Free Text) Plan: Assessment systemic inflammatory response syndrome, S/P treatment of healthcare-associated pneumonia Maculopapular rash on his back history of sepsis secondary to ESBL E. coli bacteremia S/P sepsis due to Morganella UTI with hematuria history of lung fibrosis myelodysplastic syndrome BPH coronary artery disease Plan Will continue to monitor off antibiotics since he is at risk for nosocomial infections; will also monitor his rash on his back, which is currently not bothering him
[2016-11-28] MEDS ORDERED: Silver Sulfadiazine 1% Cream (20 gm) TOP SCH (18:00)
--- NOTE | 2016-11-28 18:19 | PN ---
DATE: 11/28/2016 LOCATION: The patient in room 561, bed 2. REASON FOR CONSULTATION AND FOLLOWUP: Fever and respiratory tract infection, myelodysplastic syndrom e, shortness of breath. HISTORY OF PRESENT ILLNESS: The patient with known case of myelodysplastic syndrome, admitted with c ough and shortness of breath. The patient is now feeling better, he still has a cough. He denies an y chest pain, shortness of breath or palpitations. PHYSICAL EXAMINATION: VITAL SIGNS: Blood pressure 150/63, respirations 20, pulse 90, temperature 98.6. HEAD: Normocephalic. EYES: Pupils normal. Conjunctivae slightly pale. NECK: JVP low. Carotid equal. THORAX: AP diameter normal. LUNGS: A few rales in the right base. CARDIOVASCULAR: S1, S2. ABDOMEN: Soft, nontender, no organomegaly. Bowel sounds normal. EXTREMITIES: No clubbing, no cyanosis. LABORATORY DATA: WBC 9.0, hemoglobin 10.0, hematocrit 31.4, platelets 91. Sodium 141, potassium 4.7 , BUN 54, creatinine 1.4, glucose 92, calcium 9.2. DIAGNOSES: Respiratory tract infection, myelodysplastic syndrome, hypertension, pulmonary fibrosis, benign prostatic hypertrophy, possible community-acquired pneumonia, anemia, thrombocytopenia, renal dysfunction with elevated BUN. PLAN: The patient's Lasix has been stopped because of elevated BUN. The patient on Diovan 320 mg da nirmala, metoprolol tartrate 25 b.i.d., Proscar 5 mg daily and Protonix. Brenton Menezes MD cc: [phone] TT: 11/28/2016 18:18:32 Confirmation # [id number] Dictation # [id number] denis
[2016-11-28] MEDS: Promethazine/Cod 6.25mg-10mg/5ml Syr UD PO PRN (18:42)
[2016-11-28] MEDS: DEFERASIROX PO SCH (18:43)
[2016-11-28 18:52] VITALS: BP 128/87; PULSE 78
--- NOTE | 2016-11-28 18:56 | PN ---
DATE: 11/28/2016 The patient is in room 561, bed 2. REASON FOR CONSULTATION: The patient has a diagnosis of myelodysplastic syndrome, is on ongoing bloo d transfusion and systemic chemotherapy, was admitted to the hospital because of failure to thrive an d pneumonia and is on antibiotics and is gradually improving. SUBJECTIVE: The patient is comfortable, breathing well. The rash on his back which is not bothering him. OBJECTIVE: VITAL SIGNS: Stable. T-max is 98.4, pulse is 90, respirations 20, blood pressure is 150/63, pulse o x is 96. CURRENT MEDICATIONS: Reviewed. He is on Tylenol p.r.n. He is on acetylcysteine 20% 3 mL inhaled b. i.d. for his lungs. He is on Brovana 15 mcg inhaled q. 12 hours, Tenormin 25 mg p.o. b.i.d., Pulmic ort 0.5 mg inhaled q. 12 hours, clonidine 0.1 mg q. 6 hours. He is on Colace 100 mg b.i.d., Prosca r 5 mg daily. He is on Xopenex 1.25 mg inhaled q. 6 hours p.r.n. He is on metoprolol 25 mg p.o. b. i.d. He is on pantoprazole 40 mg IV daily, Phenergan with codeine for cough 5 mL q. 6 hours p.r.n. and he is on Diovan 320 mg p.o. once a day. LABORATORY DATA: From today reveals a white count of 9, hemoglobin 10, hematocrit 31, platelet count is 91,000. Sodium is 141, K is 4.7, chloride 101, CO2 of 31, BUN of 54, creatinine 1.4, blood sugar is 92. PHYSICAL EXAMINATION: GENERAL: The patient is examined in bed, appears to be nontoxic, in no acute distress. HEENT: Head is normocephalic, atraumatic. Temporal muscle wasting is noted. Examination of the or opharynx reveals mucous membranes to be moist. No oropharyngeal lesions are noted. NECK: Supple. There is no adenopathy. No jugular venous distention noted. LUNGS: Reveals decreased breath sounds bilaterally with scattered wheezes. HEART: Reveals S1 and S2 to be normal. ABDOMEN: Soft, nontender. Liver and spleen are not palpable. No rebound, rigidity or guarding note d. EXTREMITIES: Reveals no cyanosis, clubbing or edema. NEUROLOGIC: Higher functions are normal. No focal deficits are noted at this time. Blood cultures, urine cultures and sputum cultures are all negative. Foot x-ray did not show any ost eomyelitis. ASSESSMENT NOTES AND PLAN: The patient has multilobar pneumonia in the background history of having myelodysplastic syndrome, pulmonary fibrosis. The patient also has a left lower lobe pulmonary mass, which we will plan to biopsy once he overcomes his pneumonia to determine the source of it, most lik vincenzo it could be neoplastic as when you came to know about it in 05/2016 when he was first admitted to the hospital, benign prostatic hypertrophy, Parkinson's disease, hypertension, atherosclerotic heart disease. The patient is improving from a hematologic point of view. He is stable. The patient is also stable from a pulmonary point of view with bronchodilators. He is on gastric and DVT prophylaxi s at this time and we will discuss with pulmonary and ID about the timing of the CT-guided biopsy of the lung. Initially when I had asked the patient and discussed with him and his sister, he wanted me to hold off on the biopsy. It may be prudent to find out what we are dealing with at this time, bec ause there are nodules on the right side of the lung as well. Primary differential diagnosis would b e a neoplastic process. Routine post exam instructions have been given to the patient. Blood work f or a.m. has been requested. Mehdi Gonsales MD cc: [phone] TT: 11/28/2016 18:55:09 Confirmation # [id number] Dictation # [id number] diana
--- NOTE | 2016-11-28 19:57 | PN ---
DATE: 11/28/2016 REFERRING PHYSICIAN: Dr. Magallon. SUBJECTIVE: He is out of bed to chair, feels better, decreased cough, decreased shortness of breath. No nausea, vomiting, diarrhea. No leg pain or leg swelling. OBJECTIVE: GENERAL: No acute distress. VITAL SIGNS: Temp is 98, heart rate is 90, respiratory rate is 20, blood pressure 150/63, pulse ox 9 6% on nasal cannula. HEENT: Moist mucous membrane. Crowded airway. NECK: Supple. No JVD. LUNGS: Has scattered rhonchi. HEART: S1, S2. ABDOMEN: Soft, nontender. No organomegaly. EXTREMITIES: There is no edema. NEUROLOGIC: Awake, alert, follows simple commands. MEDICATIONS: He is on Mucomyst 20% inhaled twice a day, Brovana 15 mcg inhaled twice a day, clonidin e 0.1 mg q. 6 hours p.r.n., Colace 100 mg twice a day, Diovan 320 mg daily, metoprolol tartrate 50 mg twice a day, Phenergan with codeine q. 6 hours, 5 mg daily, Protonix 40 mg daily, Pulmicort in haled twice a day, Tylenol on a p.r.n. basis, Topamax on a p.r.n. basis. LABORATORY DATA: Shows sodium 141, potassium 4.7, chloride 101, bicarbonate 31, BUN 54, creatinine 1 .4, glucose is 92, calcium is 9.2. IMPRESSION AND PLAN: Multilobar pneumonia, history of myelodysplastic syndrome, pulmonary fibrosis, left lower lobe dense infiltrate, benign prostatic hypertrophy, prostate hypertrophy, Parkinson disea se, hypertension, atherosclerotic vascular disease. Will continue inhaled bronchodilators and antibi otics. Gastric prophylaxis. Once improved, will need to consider biopsy of the left lower lobe area . Thank you and will follow with you. Brenton Diaz MD cc: [phone] TT: 11/28/2016 19:56:44 Confirmation # [id number] Dictation # [id number] ln
--- NOTE | 2016-12-01 08:58 | DS ---
The patient is an 86-year-old male admitted with pneumonia. The patient received IV antibiotic for a t least 5 days. The patient had ____ vancomycin and doxycycline. The patient seems to have responde d well. No respiratory distress. His cough was less. He received Mucomyst and chest PT. He develo ped a rash. ID saw the patient and discontinued antibiotic for now and patient seems stable. He is generally weak, with difficulty ambulating. Blood pressure seems fluctuating. The patient does have a history of blood pressures very difficult to control in the past; however, recently it is better, required less blood pressure medicines. Has been on labetalol, has been on Diovan, has been on other meds and diuretics. ____ has no other new complaint. Generally weak, ____ instability. The patien t will be evaluated for TCU ____ to be discharged to transitional care unit. PHYSICAL EXAMINATION: VITAL SIGNS: Temperature 98.6, heart rate 90, blood pressure 150/63, respirations 20, saturation 96% . HEAD AND NECK: ____ No JVD. CHEST: Clear, good entry. CARDIAC: 1st and 2nd sounds normal. ABDOMEN: Soft, nontender. EXTREMITIES: No edema. NEUROLOGIC: General weakness. SKIN: Rash on the back and the thigh area. LABORATORY DATA: White count 9, hemoglobin 10, hematocrit 31.____, platelets ____. Chemistry: sod ium 141, potassium ____, chloride 101. bicarb 31, BUN 54, creatinine 1.4. DISCHARGE DIAGNOSES: 1. Community-acquired pneumonia. 2. 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 3. Myelodysplasia with pancytopenia and thrombocytopenia. 4. Anemia requiring blood transfusion. 5. Iron ____ saturations ____ continue ____ continue current therapy ____ 6. ____ 7. Hypertension, stable. Currently the patient on antibiotic. He will be discharged to rehab ____. Continue GI and DVT proph ylaxis ____ SCDs. Mook Magallon MD cc: 223 TT: 11/30/2016 12:33:47 diana
== END 2016-11-28 22:00 | DRG 871 ==
LOC: ED 13:05 → ERH 15:00 → 2RNO 16:31 → 5RNO 11-24 16:51
PROVIDERS: ADMIT Internal Medicine; ATTEND Internal Medicine
PROC: 30233N1 Transfusion of Nonautologous Red Blood Cells into Peripheral Vein, Percutaneous Approach (ICD-10-PCS; principal; 2016-11-23)
PROC: 3E0F7GC Introduction of Other Therapeutic Substance into Respiratory Tract, Via Natural or Artificial Opening (ICD-10-PCS; 2016-11-23)
DX: A41.9 Sepsis, unspecified organism (principal); J18.9 Pneumonia, unspecified organism; D46.9 Myelodysplastic syndrome, unspecified; D61.818 Other pancytopenia; C34.32 Malignant neoplasm of lower lobe, left bronchus or lung; I50.9 Heart failure, unspecified; G20 Parkinson's disease; J84.10 Pulmonary fibrosis, unspecified; I25.10 Atherosclerotic heart disease of native coronary artery without angina pectoris; N18.9 Chronic kidney disease, unspecified; L97.529 Non-pressure chronic ulcer of other part of left foot with unspecified severity; I73.9 Peripheral vascular disease, unspecified; R21 Rash and other nonspecific skin eruption; N40.0 Benign prostatic hyperplasia without lower urinary tract symptoms; J44.0 Chronic obstructive pulmonary disease with (acute) lower respiratory infection; I13.0 Hypertensive heart and chronic kidney disease with heart failure and stage 1 through stage 4 chronic kidney disease, or unspecified chronic kidney disease; R62.7 Adult failure to thrive; Z79.899 Other long term (current) drug therapy; Z87.440 Personal history of urinary (tract) infections; Z87.891 Personal history of nicotine dependence

== ENCOUNTER 2016-11-28 22:00 | Inpatient (IN) | payer MEDICARE ==
[2016-11-28] MEDS ORDERED: Levalbuterol 1.25 MG/3 ML Inhal Soln UD IH PRN (23:14)
[2016-11-29 00:20] VITALS: BMI 24.2
[2016-11-29] MEDS ORDERED: Pantoprazole 40mg/100ml IVPB 40 MG/100 ML BAG IVPB SCH (06:00)
[2016-11-29 06:53] LABS: HEMATOCRIT 29.5 % (42.0-52.0); MEAN CELL VOLUME 92.5 fL (80.0-105.0); MEAN CORPUSCULAR HEMOGLOBIN 29.5 pg (25.0-35.0); MEAN CORPUSCULAR HGB CONC 31.9 g/dl (31.0-37.0); PLATELET COUNT 74 10^3/uL (120.0-450.0); RED CELL DISTRIBUTION WIDTH 17.9 % (11.5-14.5); WHITE BLOOD COUNT 8.6 10^3/ul (4.5-11.0)
[2016-11-29 06:54] LABS: ADD MANUAL DIFF? YES
[2016-11-29 07:11] LABS: BLOOD UREA NITROGEN 55 mg/dL (7-21); CALCIUM 9.3 mg/dL (8.4-10.5); CARBON DIOXIDE 28 mmol/L (21-33); CHLORIDE 103 mmol/L (95-110); GFR AFRICAN-AMERICAN > 60; GLUCOSE,RANDOM 85 mg/dL (70-110); POTASSIUM 4.2 mmol/L (3.6-5.0); SODIUM 141 mmol/L (132-148)
[2016-11-29] MEDS: Arformoterol 15 mcg/2 ml Inh Sol IH SCH ×2 (07:16→21:00)
[2016-11-29] MEDS: Acetylcysteine 20% Inhal Soln (4ml) IH SCH ×2 (07:16→21:00)
[2016-11-29] MEDS: Budesonide 0.5 mg/2 ml Inhal Susp UD IH SCH ×2 (07:16→21:00)
[2016-11-29] MEDS ORDERED: Arformoterol 15 mcg/2 ml Inh Sol IH SCH (08:00)
[2016-11-29 08:21] LABS: BAND 5 % (0-2); NEUTROPHIL 40 % (50.0-70.0)
[2016-11-29 08:33] LABS: EOSINOPHIL 2 % (0.0-3.0)
[2016-11-29 08:34] LABS: ATYPICAL LYMPHOCYTE 7 % (0.0-0.0); PLATELET ESTIMATE LOW (NORMAL)
[2016-11-29 08:35] LABS: ANISOCYTOSIS 1+; HYPOCHROMIA 1+; POLYCHROMASIA SLIGHT
--- NOTE | 2016-11-29 10:51 | PN ---
DATE: 11/29/2016 An 86-year-old man seen at bedside for continued evaluation and management of an ulceration on his l eft plantar foot at the 5th metatarsophalangeal joint and a nonstageable superficial ulceration on hi s dorsal left foot. The patient states that his wound is becoming less painful; however, he states h e is tired. He is still extremely tired. VITAL SIGNS: Reveal temperature 98.7, pulse rate of 76, blood pressure 130/64, respiratory rate of 2 0. LABORATORY DATA: Reveal a white count of 8.6, hemoglobin of 9.4, hematocrit of 29.5, platelet count of 74. X-ray results of the foot reveal no radiographic evidence of bony destruction to suggest oste omyelitis at the 5th metatarsophalangeal joint. Arterial Dopplers revealed relatively normal wave le ngths, which are symmetrical. OBJECTIVE: Nonpalpable pedal pulses noted bilaterally, +1 nonpitting lower extremity edema noted orlando aterally, temperature gradient is slightly reversed and capillary filling time is delayed x 10. Low er extremity skin presents thin, shiny and discolored and there is an absence of pedal hair growth no holly. There is a full thickness ulceration on the plantar aspect of his left foot at the 5th metatars ophalangeal joint that measures approximately 1 cm x 0.6 cm x 0.2 cm. Base of the ulceration is prim arily granular with minimal serous drainage. There is no purulence to suggest underlying abscess for mation. The wound does not probe to tendon or bone. The area is less edematous and erythematous santa n yesterday. There is a superficial abrasion on the dorsal aspect of the foot that remains granular and with minimal serous drainage and no signs of acute infection. ASSESSMENT: Full thickness ulceration to the plantar aspect of the left foot as well as superficial nonstageable ulceration on the dorsal aspect of the left foot in a patient with severe peripheral vas cular disease. PLAN: Culture and sensitivity results were reviewed. Dr. Jacobs's note was read and appreciated. We will continue with antibiotics as per infectious disease. His foot was cleansed with normal sterile saline and application of Silvadene and a dry sterile dressing was applied. I will order a forefoot offloading shoe for patient to be trained to ambulate on as tolerated. However, if patient is unsta ble on his forefoot offloading shoe, we will discontinue using it, but it would speed up wound healin g. The patient will be seen and followed daily. Neville Maya DPM cc: [id number] TT: 11/29/2016 10:50:39 Confirmation # [id number] Dictation # [id number] diana
[2016-11-29 10:56] LABS: URINE BILIRUBIN NEGATIVE (NEGATIVE); URINE BLOOD TRACE-INTACT (NEGATIVE); URINE GLUCOSE (UA) NEGATIVE (NEGATIVE); URINE KETONE NEGATIVE (NEGATIVE); URINE LEUKOCYTE ESTERASE NEGATIVE Leu/uL (NEGATIVE); URINE PROTEIN 30 mg/dL (<30 mg/dL); URINE UROBILINOGEN 0.2 E.U./dL (<1 E.U./dL)
[2016-11-29 10:57] LABS: URINE APPEARANCE CLEAR (CLEAR); URINE COLOR YELLOW (YELLOW)
[2016-11-29] MEDS: Silver Sulfadiazine 1% Cream (20 gm) TOP SCH ×2 (10:59→17:32)
[2016-11-29 11:08] LABS: URINE BACTERIA FEW (NEG); URINE EPITHELIAL CELLS 0 - 2 /hpf (0-5); URINE RBC 0 - 2 /hpf (0-2); URINE WBC 0 - 2 /hpf (0-6)
[2016-11-29] MEDS: Promethazine/Cod 6.25mg-10mg/5ml Syr UD PO PRN (14:48)
--- NOTE | 2016-11-29 19:12 | CON ---
DATE: 11/29/2016 REFERRING PHYSICIAN: Dr. Magallon. REASON FOR CONSULT: Multilobe pneumonia. HISTORY OF PRESENT ILLNESS: This is an 86-year-old gentleman with a history of urinary tract infecti on, myelodysplastic syndrome, coronary artery disease, pulmonary fibrosis, history of left lower lobe dense infiltrate, comes into ER with cough, shortness of breath, found to have multilobe pneumonia, admitted to the hospital, started on antibiotics, slowly improved. Presently, transferred to [facility] continued care. He is lying in the bed. Night was unremarkable. Still has some cough. No sputum production. No nausea, no vomiting, diarrhea. No leg pain or leg swelling. Admitted to have snori ng, daytime sleepy and tired. PAST MEDICAL HISTORY: Myelodysplastic syndrome, BPH, coronary artery disease, recurrent urinary trac t infection, history of pulmonary fibrosis. SOCIAL HISTORY: Stopped smoking many years ago. Denied any alcohol use. ALLERGIES: None known. FAMILY HISTORY: No significant cardiopulmonary disease reported. MEDICATIONS: He is on Mucomyst 20% 3 mL inhaled twice a day, Bactroban ointment to the affected area , Brovana 15 mcg inhaled twice a day, clonidine 0.1 mg q. 6 hours p.r.n., Colace 100 mg twice a day, Diovan 320 mg daily, metoprolol tartrate 50 mg twice a day, promethazine with codeine 5 mL q. 6 hours p.r.n., Proscar 5 mg daily, Protonix 40 mg daily, Pulmicort inhaled twice a day, Pyridium 100 mg twi ce a day, Tylenol p.r.n., Xopenex q. 6 hours p.r.n. REVIEW OF SYSTEMS: No headache, no rhinitis. Still has a cough, clear sputum. No chest pain, no na usea, no vomiting, no dysuria, leg pain or leg swelling. Admitted to have snoring, daytime sleepy an d tired. PHYSICAL EXAMINATION: GENERAL: No acute distress. VITAL SIGNS: Temp is 99, heart rate is 75, respiratory rate is 18, blood pressure 137/58, pulse ox 9 6% on nasal cannula. HEENT: Moist mucous membranes. Crowded airway. Mallampati score is 4. NECK: Supple. No JVD. LUNGS: Have scattered rhonchi with few crackles at the bases. HEART: S1, S2. ABDOMEN: Soft, nontender. No organomegaly. EXTREMITIES: There is no edema. NEUROLOGIC: Awake, alert, follows simple commands. LABORATORY DATA: Shows hemoglobin 9.4, hematocrit 29.5, WBC 8.6, platelet is 74. Sodium 141, potass ium 4.2, chloride 103, bicarbonate 28, BUN 55, creatinine 1.3, glucose 52, blood glucose is 385, calc ium is 9.3. Leg wound has a staph. Blood cultures have been negative. Sputum culture has normal brianne ra. IMPRESSION AND PLAN: Multilobe pneumonia, myelodysplastic syndrome, pulmonary fibrosis, left lower l obe dense infiltrate, benign prostate hypertrophy, Parkinson's disease, hypertension, atherosclerosis , vascular disease. Pulmonary point of view, doing okay. We will continue antibiotics as per infect ious disease, use bronchodilator. Gastric prophylaxis. Aspiration precautions. We will do followup PA and lateral chest x-ray to assure the stability of infiltrate. Avoid sedatives. We will recommen d PFT and attended sleep study as outpatient. Thank you and we will follow with you. Brenton Diaz MD cc: [phone] TT: 11/29/2016 19:12:10 Confirmation # [id number] Dictation # [id number] brandon
[2016-11-30] MEDS: Promethazine/Cod 6.25mg-10mg/5ml Syr UD PO PRN ×3 (05:22→23:42)
[2016-11-30] MEDS: Pantoprazole 40 mg EC Tab PO SCH (05:47)
[2016-11-30] MEDS: Budesonide 0.5 mg/2 ml Inhal Susp UD IH SCH ×2 (07:12→22:10)
[2016-11-30] MEDS: Arformoterol 15 mcg/2 ml Inh Sol IH SCH ×2 (07:12→22:10)
[2016-11-30] MEDS: Acetylcysteine 20% Inhal Soln (4ml) IH SCH ×2 (07:12→22:10)
--- NOTE | 2016-11-30 07:37 | HP ---
The patient is an 86-year-old male, came into transitional care unit from medical floor for generaliz ed weakness and underlying pneumonia. HISTORY OF PRESENT ILLNESS: As in the previous admission, patient came with community-acquired pneum onia, IV antibiotics. The patient complained of general weakness, inability to ambulate using a walk er. However, he got weak with his pneumonia. The patient seen by ID consult, Dr. Mesa; pulmon lucy consult, Dr. Diaz; oncology consult, Dr. Gonsales. The patient was treated, received blood rowe sfusion, IV antibiotic. Developed rash, was discontinued antibiotic on discharge. However, patient seems weak and needs further evaluation and observations. This time his underlying lung disease, johnathan montes has lung mass, has COPD. We will admit the patient for continuation of therapy and follow up wi th the other consultants. PAST MEDICAL HISTORY: As I mentioned before, myelodysplasia for years, anemia, thrombocytopenia, hyp ertension, prostate enlargement, lung mass, chronic lung fibrosis. ALLERGIES: No known allergies. SOCIAL HISTORY: He does not smoke nor drink, lives by himself. FAMILY HISTORY: Noncontributory. MEDICATIONS: As before. He is taking Diovan 320. He is taking Proscar, Neupogen, Procrit, ____. H as been taking Tekturna in the past and Revlimid for myelodysplasia the other day. This has been adrián en as outpatient. REVIEW OF SYSTEMS: As in present illness. PHYSICAL EXAMINATION: VITAL SIGNS: Stable. ____. Temperature 98.3, heart rate 75, blood pressure 114/59, respirations 20 , saturation 98%. HEAD AND NECK: Normal. No JVD, no thyromegaly. CHEST: Diminished breath sounds, few basilar rales. CARDIAC: First sound, second sound normal. ABDOMEN: Soft, nontender. EXTREMITIES: No edema. NEUROLOGIC: Normal. LABORATORY STUDIES: Shows white count 8.6, hemoglobin 9.4, hematocrit 29.5, platelets 374. Chemistr y: Sodium 141, potassium 4.2, chloride 103, bicarb 28, BUN 55, creatinine 1.3. UA negative. IMPRESSION AND PLAN: 1. Status post community-acquired pneumonia. Off intravenous antibiotics. Continue current therapy . Follow up with Dr. Diaz. Will continue Brovana, Pulmicort, inhaled bronchodilators, chest ____. 2. Generalized weakness. Continue physical therapy. 3. The patient complained of dysuria, burning urination. We will get a urine culture sensitivity. We will hold off on any antibiotic, give him Pyridium and will follow up with infectious disease on t hat. 4. Hypertension, stable. Continue metoprolol 50 b.i.d., Diovan. Doing okay. Continue gastrointest inal and deep venous thrombosis prophylaxis. 5. Prostate enlargement. Continue Proscar and Flomax. Mook Magallon MD cc: [phone] TT: 11/30/2016 07:37:38 sn
[2016-11-30] MEDS: Silver Sulfadiazine 1% Cream (20 gm) TOP SCH ×2 (10:28→17:16)
--- NOTE | 2016-11-30 12:44 | RAD ---
HISTORY: Infiltrate. COMPARISON: 11/22/2016. 11/24/2016 CT thorax TECHNIQUE: Chest PA and lateral FINDINGS: LUNGS: Persistent consolidative changes retrocardiac region left lower lobe accentuated by poor inspiratory effort. No additional abnormalities are identified. PLEURA: No significant pleural effusion identified. No pneumothorax apparent. CARDIOVASCULAR: Normal. OSSEOUS STRUCTURES: No significant abnormalities. VISUALIZED UPPER ABDOMEN: Normal. OTHER FINDINGS: None. IMPRESSION: Left lower lobe infiltrate/mass. Perceived changes likely technical related to poor inspiratory effort.
[2016-11-30] MEDS: DEFERASIROX PO SCH (17:14)
[2016-11-30] MEDS: Benzocaine/Menthol (Cepacol) Lozenge MT PRN ×2 (17:16→20:37)
--- NOTE | 2016-11-30 18:46 | PN ---
DATE: 11/30/2016 REFERRING PHYSICIAN: Dr. Magallon. SUBJECTIVE: The patient is out of bed to chair, night was unremarkable. Cough is better. No nausea , no vomiting and no diarrhea. No leg pain or leg swelling. OBJECTIVE: GENERAL: In no acute distress. VITAL SIGNS: Temp is 98, heart rate is 77, respiratory rate is 20, blood pressure 136/68, pulse ox 9 7% on room air. HEENT: Moist mucous membranes. Crowded airway. NECK: Supple, no JVD. LUNGS: Have fair airflow with few rhonchi. HEART: S1 and S2. ABDOMEN: Soft and nontender. No organomegaly. EXTREMITIES: There is no edema. NEUROLOGIC: Awake, alert, follows simple commands. MEDICATIONS: He is on Mucomyst 20% inhaled twice a day, Bactroban to the affected area twice a day, Brovana 15 mcg inhaled twice a day, clonidine 0.1 mg q. 6 hours p.r.n., Cepacol lozenges q. ho urs p.r.n., Colace 100 mg twice a day, Diovan 320 mg daily, metoprolol tartrate 50 mg twice a day, Ph energan with codeine 5 mL q. 6 hours p.r.n., Proscar 5 mg daily, Protonix 40 mg daily, Pulmicort inha led twice a day, Pyridium 100 mg twice a day, Tylenol p.r.n., Xopenex inhaled q. 6 hours p.r.n. LABORATORY DATA: Reviewed and shows procalcitonin is . Chest x-ray done yesterday shows a left lower lobe infiltrate/mass. IMPRESSION AND PLAN: Multilobar pneumonia which is resolved, mild lower myelodysplastic syndrome, pu lmonary fibrosis, left lower lobe with dense infiltrate/mass, benign prostatic hypertrophy, Parkinson disease, hypertension, atherosclerosis, vascular disease. From a pulmonary point of view doing well . Continue bronchodilator. Keep head elevated at 45 degrees. Gastric prophylaxis. DVT prophylaxis . Will get Dr. Shravan Sebastian to see the patient. We can do biopsy of the left lower lobe area mass. Thank you and will follow with you. Brenton Diaz MD cc: [id number] TT: 11/30/2016 18:45:39 Confirmation # [id number] Dictation # [id number] mn
--- NOTE | 2016-11-30 22:13 | CP.PCM.PN ---
Subjective - Date & Time of Evaluation Date of Evaluation: 11/29/16 Time of Evaluation: 14:00 - Subjective Subjective: NO acute complaints. Would like to go home. Family at bedsie 12 ROS negative. Worked with PT and able to ambulate today Objective - Vital Signs/Intake and Output Vital Signs (last 24 hours): Temp Pulse Resp BP Pulse Ox 98.6 F 77 18 136/68 97 11/30/16 16:00 11/30/16 17:15 11/30/16 16:00 11/30/16 17:15 11/30/16 16:00 - Medications Medications: Current Medications Acetaminophen (Tylenol 325mg Tab) 650 mg PO Q6H PRN PRN Reason: Fever >100.4 F Acetylcysteine (Acetylcysteine 20%) 3 ml IH BIDRESP [facility] Last Admin: 11/30/16 07:12 Dose: 3 ml Arformoterol Tartrate (Brovana) 15 mcg IH [id number] [facility] Last Admin: 11/30/16 07:12 Dose: 15 mcg Benzocaine/Menthol (Cepacol Sore Throat) 1 yoni MT Q2H PRN; Protocol PRN Reason: Sore Throat Last Admin: 11/30/16 20:37 Dose: 1 yoni Budesonide (Pulmicort Respules) 0.5 mg IH [id number] [facility] Last Admin: 11/30/16 07:12 Dose: 0.5 mg Clonidine HCl (Catapres) 0.1 mg PO Q6 PRN PRN Reason: if BP is > 180 Docusate Sodium (Colace) 100 mg PO BID [facility] Last Admin: 11/30/16 17:13 Dose: 100 mg Finasteride (Proscar) 5 mg PO DAILY [facility] Last Admin: 11/30/16 10:28 Dose: 5 mg Home Med (Home Med) 1 unit PO Q48H [facility] Last Admin: 11/30/16 17:14 Dose: 1 unit Levalbuterol HCl (Xopenex) 1.25 mg IH [id number] PRN PRN Reason: Shortness of Breath Levofloxacin (Levaquin) 500 mg PO DAILY [facility] Metoprolol Tartrate (Lopressor) 50 mg PO 0800,1800 [facility] Last Admin: 11/30/16 17:15 Dose: 50 mg Mupirocin (Bactroban Ointment) 0 gm TOP BID [facility] Last Admin: 11/30/16 17:12 Dose: 1 applic Pantoprazole Sodium (Protonix Ec Tab) 40 mg PO 0630 [facility] Last Admin: 11/30/16 05:47 Dose: 40 mg Phenazopyridine HCl (Pyridium) 100 mg PO BID [facility] Stop: 12/03/16 18:00 Last Admin: 11/30/16 17:15 Dose: 100 mg Promethazine HCl/Codeine (Phenergan/Codeine Oral Syrup) 5 ml PO Q6 PRN PRN Reason: Cough and congestion Last Admin: 11/30/16 17:16 Dose: 5 ml Silver Sulfadiazine (Silvadene 1% 20 Gm) 1 ea TOP BID [facility] Last Admin: 11/30/16 17:16 Dose: 1 applic Valsartan (Diovan) 320 mg PO QAM [facility] Last Admin: 11/30/16 10:28 Dose: 320 mg - Labs Labs: 11/29/16 06:37 11/29/16 06:37 - Constitutional Appears: Well - Respiratory Exam Respiratory Exam: Clear to Ausculation Bilateral, NORMAL BREATHING PATTERN - Cardiovascular Exam Cardiovascular Exam: REGULAR RHYTHM, +S1, +S2. absent: Murmur - GI/Abdominal Exam GI & Abdominal Exam: Soft, Normal Bowel Sounds. absent: Tenderness - Extremities Exam Extremities Exam: Full ROM, Normal Capillary Refill, Normal Inspection. absent : Joint Swelling, Pedal Edema Assessment and Plan (1) Thrombocytopenia Status: Acute - Assessment and Plan (Free Text) Assessment: Mr. Oseguera yasmani 86 y/o man with MDS, pulmonary fibrosis, BPH, Parkinson's HTN, ASCVD recently admitted with multilobar pneumonia and appears to be recovering slowly. MDS appears stable will continue to observe. Agree with management with primary team
--- NOTE | 2016-11-30 22:15 | CP.PCM.PN ---
Subjective - Date & Time of Evaluation Date of Evaluation: 12/07/16 Time of Evaluation: 16:00 - Subjective Subjective: patient endorses some sore throat and some burning with urinary. 12 ROS otherwise negative Objective - Vital Signs/Intake and Output Vital Signs (last 24 hours): Temp Pulse Resp BP Pulse Ox 98.6 F 77 18 136/68 97 11/30/16 16:00 11/30/16 17:15 11/30/16 16:00 11/30/16 17:15 11/30/16 16:00 - Medications Medications: Current Medications Acetaminophen (Tylenol 325mg Tab) 650 mg PO Q6H PRN PRN Reason: Fever >100.4 F Acetylcysteine (Acetylcysteine 20%) 3 ml IH BIDRESP [facility] Last Admin: 11/30/16 07:12 Dose: 3 ml Arformoterol Tartrate (Brovana) 15 mcg IH [id number] [facility] Last Admin: 11/30/16 07:12 Dose: 15 mcg Benzocaine/Menthol (Cepacol Sore Throat) 1 yoni MT Q2H PRN; Protocol PRN Reason: Sore Throat Last Admin: 11/30/16 20:37 Dose: 1 yoni Budesonide (Pulmicort Respules) 0.5 mg IH [id number] [facility] Last Admin: 11/30/16 07:12 Dose: 0.5 mg Clonidine HCl (Catapres) 0.1 mg PO Q6 PRN PRN Reason: if BP is > 180 Docusate Sodium (Colace) 100 mg PO BID [facility] Last Admin: 11/30/16 17:13 Dose: 100 mg Finasteride (Proscar) 5 mg PO DAILY [facility] Last Admin: 11/30/16 10:28 Dose: 5 mg Home Med (Home Med) 1 unit PO Q48H [facility] Last Admin: 11/30/16 17:14 Dose: 1 unit Levalbuterol HCl (Xopenex) 1.25 mg IH [id number] PRN PRN Reason: Shortness of Breath Levofloxacin (Levaquin) 500 mg PO DAILY [facility] Metoprolol Tartrate (Lopressor) 50 mg PO 0800,1800 [facility] Last Admin: 11/30/16 17:15 Dose: 50 mg Mupirocin (Bactroban Ointment) 0 gm TOP BID [facility] Last Admin: 11/30/16 17:12 Dose: 1 applic Pantoprazole Sodium (Protonix Ec Tab) 40 mg PO 0630 [facility] Last Admin: 11/30/16 05:47 Dose: 40 mg Phenazopyridine HCl (Pyridium) 100 mg PO BID [facility] Stop: 12/03/16 18:00 Last Admin: 11/30/16 17:15 Dose: 100 mg Promethazine HCl/Codeine (Phenergan/Codeine Oral Syrup) 5 ml PO Q6 PRN PRN Reason: Cough and congestion Last Admin: 11/30/16 17:16 Dose: 5 ml Silver Sulfadiazine (Silvadene 1% 20 Gm) 1 ea TOP BID [facility] Last Admin: 11/30/16 17:16 Dose: 1 applic Valsartan (Diovan) 320 mg PO QAM [facility] Last Admin: 11/30/16 10:28 Dose: 320 mg - Labs Labs: 11/29/16 06:37 11/29/16 06:37 - Constitutional Appears: Well - Respiratory Exam Respiratory Exam: Clear to Ausculation Bilateral, NORMAL BREATHING PATTERN - Cardiovascular Exam Cardiovascular Exam: REGULAR RHYTHM, +S1, +S2. absent: Murmur - Extremities Exam Extremities Exam: Full ROM, Normal Capillary Refill, Normal Inspection. absent : Joint Swelling, Pedal Edema Assessment and Plan (1) Thrombocytopenia Status: Acute - Assessment and Plan (Free Text) Assessment: Mr. Oseguera yasmani 86 y/o man with MDS, pulmonary fibrosis, BPH, Parkinson's HTN, ASCVD recently admitted with multilobar pneumonia and appears to be recovering slowly. MDS appears stable will continue to observe. CXR obtained yesterday demonstrated LLL infiltrate vs mass? Would consider obtaining CT for further evaluation? Will discuss with pulmonary. Agree with primary team getting UA/UCx given dsyuria symptoms. Will continue to follow
--- NOTE | 2016-12-01 01:27 | PN ---
DATE: 11/30/2016 HISTORY OF PRESENT ILLNESS: An 86-year-old male stable, still complaining of burning urinations. Ot herwise, no new complaints. PHYSICAL EXAMINATION: VITAL SIGNS: Temperature 98.6, heart rate 77, blood pressure 136/68, respirations 18, saturation 97% on room air. HEAD AND NECK: Normal. No JVD, no thyromegaly. CHEST: Clear, good entry. CARDIAC: First and second sounds are normal. ABDOMEN: Soft and nontender. EXTREMITIES: No edema. NEUROLOGIC: Nonfocal, but general weakness. LABORATORY DATA: Urinalysis negative. Culture is negative. IMPRESSION AND PLAN: 1. Dysuria, probably prostate-related. No evidence of infections. No need for any antibiotics. We will continue Proscar and will also give him Flomax and continue current therapy. 2. History of underlying chronic obstructive pulmonary disease, lung mass. Also has chronic history of pneumonia, resolved, off antibiotic, continue inhaled bronchodilators. 3. Hypertension, stable. Continue Lopressor, Diovan, doing better. 4. Generalized weakness. Continue physical therapy. 5. Myelodysplasia, stable. Seen by oncologist. PLAN: Continue current therapy, follow up clinically. Mook Magallon MD cc: 223 TT: 12/01/2016 01:25:52 Confirmation # [id number] Dictation # [id number] oksana
[2016-12-01] MEDS: Pantoprazole 40 mg EC Tab PO SCH (05:55)
[2016-12-01] MEDS: Acetylcysteine 20% Inhal Soln (4ml) IH SCH ×2 (07:28→21:15)
[2016-12-01] MEDS: Budesonide 0.5 mg/2 ml Inhal Susp UD IH SCH ×2 (07:28→21:14)
[2016-12-01] MEDS: Arformoterol 15 mcg/2 ml Inh Sol IH SCH ×2 (07:28→21:14)
--- NOTE | 2016-12-01 10:10 | CP.PCM.PN ---
Subjective - Date & Time of Evaluation Date of Evaluation: 12/01/16 Time of Evaluation: 11:00 - Subjective Subjective: 86 year old male seen at bedside concerning left foot ulceration. Pts dressing remain, clean, dry, and intact. No complaints of pedal pain at this time. Fatigue is reducing. No major pedal complaints at this time Objective - Vital Signs/Intake and Output Vital Signs (last 24 hours): Temp Pulse Resp BP Pulse Ox 98.6 F 77 18 136/68 97 11/30/16 16:00 11/30/16 17:15 11/30/16 16:00 11/30/16 17:15 11/30/16 16:00 - Medications Medications: Current Medications Acetaminophen (Tylenol 325mg Tab) 650 mg PO Q6H PRN PRN Reason: Fever >100.4 F Acetylcysteine (Acetylcysteine 20%) 3 ml IH BIDRESP [facility] Last Admin: 12/01/16 07:28 Dose: 3 ml Arformoterol Tartrate (Brovana) 15 mcg IH [id number] [facility] Last Admin: 12/01/16 07:28 Dose: 15 mcg Benzocaine/Menthol (Cepacol Sore Throat) 1 yoni MT Q2H PRN; Protocol PRN Reason: Sore Throat Last Admin: 11/30/16 20:37 Dose: 1 yoni Budesonide (Pulmicort Respules) 0.5 mg IH [id number] [facility] Last Admin: 12/01/16 07:28 Dose: 0.5 mg Clonidine HCl (Catapres) 0.1 mg PO Q6 PRN PRN Reason: if BP is > 180 Docusate Sodium (Colace) 100 mg PO BID [facility] Last Admin: 11/30/16 17:13 Dose: 100 mg Finasteride (Proscar) 5 mg PO DAILY [facility] Last Admin: 11/30/16 10:28 Dose: 5 mg Home Med (Home Med) 1 unit PO Q48H [facility] Last Admin: 11/30/16 17:14 Dose: 1 unit Levalbuterol HCl (Xopenex) 1.25 mg IH [id number] PRN PRN Reason: Shortness of Breath Levofloxacin (Levaquin) 500 mg PO DAILY [facility] Metoprolol Tartrate (Lopressor) 50 mg PO 0800,1800 [facility] Last Admin: 12/01/16 08:41 Dose: 50 mg Mupirocin (Bactroban Ointment) 0 gm TOP BID [facility] Last Admin: 11/30/16 17:12 Dose: 1 applic Pantoprazole Sodium (Protonix Ec Tab) 40 mg PO 0630 [facility] Last Admin: 12/01/16 05:55 Dose: 40 mg Phenazopyridine HCl (Pyridium) 100 mg PO BID [facility] Stop: 12/03/16 18:00 Last Admin: 11/30/16 17:15 Dose: 100 mg Promethazine HCl/Codeine (Phenergan/Codeine Oral Syrup) 5 ml PO Q6 PRN PRN Reason: Cough and congestion Last Admin: 11/30/16 23:42 Dose: 5 ml Silver Sulfadiazine (Silvadene 1% 20 Gm) 1 ea TOP BID [facility] Last Admin: 11/30/16 17:16 Dose: 1 applic Tamsulosin HCl (Flomax) 0.4 mg PO 1830 [facility] Stop: 12/09/16 08:00 Valsartan (Diovan) 320 mg PO QAM [facility] Last Admin: 11/30/16 10:28 Dose: 320 mg - Labs Labs: 11/29/16 06:37 11/29/16 06:37 - Constitutional Appears: Well, Non-toxic, No Acute Distress - Extremities Exam Additional comments: Left lower extremity focused. Non-palpable pedal pulses, Non-pitting edema noted to bilateral lower extremity. Delayed capillary refill time. DERM: Skin is thin, absent pedal hair growth. Left plantar 5th metatarsal full thickness ulceration measuring 1 x 0.6x 0.2 cm on a granular bed with minor seorus drainage. Absent purulent discharge. Superficial dorsal foot abrasion with a granular base absent acute signs of infection NERUO: Protective sensation is grossly absent. - Neurological Exam Neurological Exam: Alert, Awake, Oriented x3 Assessment and Plan - Assessment and Plan (Free Text) Assessment: 86 year old male with left foot ulcerations. 1) Full thickness ulceration ( Rose Grade 2) plantar to 5th metatarsal 2) Dorsal foot excoriation. Plan: Pt seen and evaluated with attending. Dr Agarwal. continue IV abx. Dressed foot with Silvadene cream and DSD. Continue full weightbearing ambulation with use of forefoot offloading shoe to left foot. Podiatry will continue to follow while inhouse.
[2016-12-01] MEDS: levoFLOXacin 500 MG TAB PO SCH (10:26)
[2016-12-01] MEDS: Silver Sulfadiazine 1% Cream (20 gm) TOP SCH ×2 (10:27→17:05)
[2016-12-01] MEDS: Promethazine/Cod 6.25mg-10mg/5ml Syr UD PO PRN ×2 (17:08→21:42)
[2016-12-01] MEDS: Benzocaine/Menthol (Cepacol) Lozenge MT PRN (17:09)
--- NOTE | 2016-12-01 21:02 | CON ---
DATE: 12/01/2016 CARDIOLOGY CONSULTATION REASON FOR CONSULTATION: Rule out CHF, continuity of care and transitional care unit. BRIEF CLINICAL HISTORY: This is an 86-year-old male with past medical history of myelodysplastic syn drome, hypertension, lung fibrosis/pulmonary fibrosis, BPH admitted with a cough, expectoration, poss ibly COPD, pneumonia. The patient was in acute medical floor. Now patient transferred to transition al care unit for continuity of care. Cardiology consult was called. PAST MEDICAL HISTORY: Significant for hypertension, myelodysplastic syndrome, pneumonia, respiratory tract infection. PAST SURGICAL HISTORY: Significant for appendectomy. PERSONAL HISTORY: Denies any history of alcohol abuse. CURRENT MEDICATIONS AT HOME: The patient is taking Diovan, Exjade q.24, Tekturna daily, Procrit, Lai pogen, Proscar. REVIEW OF SYSTEMS: As per HPI. PHYSICAL EXAMINATION: VITAL SIGNS: Temperature afebrile, heart rate 77, blood pressure 129/63. HEENT: PERRLA. Extraocular muscles intact. NECK: Supple. No carotid bruits. No thyromegaly. CHEST: Clear to auscultation. HEART: S1, S2, regular. ABDOMEN: Soft. EXTREMITIES: Clubbing and cyanosis negative. BLOOD WORKUP: WBC 8.6, hemoglobin 9.4, hematocrit 29.5, platelet count 74. Chemistry shows sodium 1 41, potassium 4.2, chloride 103, carbon dioxide 28, anion gap of 14, BUN 55, creatinine 1.3. IMPRESSION: Respiratory tract infection, myelodysplastic syndrome, hypertension, pulmonary fibrosis, benign prostatic hypertrophy; possible community-acquired pneumonia, recovering; anemia, thrombocyto penia, renal insufficiency. RECOMMENDATIONS: Continue clonidine, avoid nephrotoxic medication, continue valsartan. IV Lasix was stopped because of rising BUN and creatinine. Continue metoprolol, continue cough suppressant. Con tinue beta 2 agonist. Will follow with you. Thank you, Dr. Magallon, for providing the opportunity in taking care of the patient. Brenton Martines MD cc: [id number] TT: 12/01/2016 21:01:47 Confirmation # [id number] Dictation # [id number] [place]
[2016-12-02] MEDS: Pantoprazole 40 mg EC Tab PO SCH (06:27)
[2016-12-02] MEDS: Acetylcysteine 20% Inhal Soln (4ml) IH SCH ×2 (07:16→20:26)
[2016-12-02] MEDS: Budesonide 0.5 mg/2 ml Inhal Susp UD IH SCH ×2 (07:16→20:27)
[2016-12-02] MEDS: Arformoterol 15 mcg/2 ml Inh Sol IH SCH ×2 (07:16→20:27)
--- NOTE | 2016-12-02 08:13 | PN ---
DATE: 12/01/2016 SUBJECTIVE: He is ambulating in the [place]elson with the help of therapist. Night was unremarkable. Cough is better. No nausea, no vomiting, no diarrhea. No leg pain or leg swelling. OBJECTIVE: GENERAL: No acute distress. VITAL SIGNS: Temp is 98, heart rate is 77, respiratory rate is 16, blood pressure 129/63, pulse ox 9 7% on room air. HEENT: Moist mucous membranes. Crowded airway. NECK: Supple. No JVD. LUNGS: Have fair airflow with a few rhonchi. HEART: S1 and S2. ABDOMEN: Soft, nontender. No organomegaly. EXTREMITIES: No edema. NEUROLOGIC: Awake, alert, follows simple command. MEDICATIONS: He is on Mucomyst 20% inhaled twice a day, Brovana 15 mcg inhaled twice a day, Catapres tablet 0.1 mg q. 6 hours, Cepacol lozenges q. 2 hours p.r.n., Colace 100 mg twice a day, Diovan 320 mg daily, Flomax 0.4 mg daily, Levaquin 500 mg daily, metoprolol tartrate 50 mg twice a day, prometha zine 5 mL q. 6 hours p.r.n., Proscar 5 mg daily, Protonix 40 mg daily, Pulmicort inhaled twice a day, Pyridium 100 mg twice a day, Tylenol p.r.n. basis, Xopenex inhaled q. 6 hours. LABORATORY DATA: Shows yesterday procalcitonin 0.08. IMPRESSION AND PLAN: Multilobar pneumonia which has resolved, myelodysplastic syndrome, pulmonary fi brosis, pulmonary/left lower lobe with dense infiltrate, benign prostatic hypertrophy, Parkinson dise ase, hypertension, atherosclerotic vascular disease. Pulmonary point of view, doing okay. Continue bronchodilator. Gastric prophylaxis. DVT prophylaxis. Aspiration precaution. Interventional radio logy evaluation for possible biopsy. Thank you, and will follow with you. Brenton Diaz MD cc: [phone] TT: 12/02/2016 08:13:26 Confirmation # [id number] Dictation # [id number] mn
[2016-12-02] MEDS: Silver Sulfadiazine 1% Cream (20 gm) TOP SCH ×2 (10:19→18:37)
[2016-12-02] MEDS: levoFLOXacin 500 MG TAB PO SCH (10:20)
--- NOTE | 2016-12-02 16:42 | CP.PCM.PN ---
<Myke Almendarez - Last Filed: 12/02/16 16:38> Subjective - Date & Time of Evaluation Date of Evaluation: 12/02/16 Time of Evaluation: 12:00 - Subjective Subjective: 86 year old male seen at bedside concerning left foot ulceration. Pts dressing remain, clean, dry, and intact. No complaints of pedal pain at this time. Forefoot offloading shoe dispensed, pt has begun ambulating with it. No major pedal complaints at this time Objective - Vital Signs/Intake and Output Vital Signs (last 24 hours): Temp Pulse Resp BP Pulse Ox 97.3 F L 77 15 129/63 97 12/01/16 16:00 12/01/16 16:00 12/01/16 16:00 12/01/16 16:00 12/01/16 16:00 - Medications Medications: Current Medications Acetaminophen (Tylenol 325mg Tab) 650 mg PO Q6H PRN PRN Reason: Fever >100.4 F Acetylcysteine (Acetylcysteine 20%) 3 ml IH BIDRESP [facility] Last Admin: 12/02/16 07:16 Dose: 3 ml Arformoterol Tartrate (Brovana) 15 mcg IH [id number] [facility] Last Admin: 12/02/16 07:16 Dose: 15 mcg Benzocaine/Menthol (Cepacol Sore Throat) 1 yoni MT Q2H PRN; Protocol PRN Reason: Sore Throat Last Admin: 12/01/16 17:09 Dose: 1 yoni Budesonide (Pulmicort Respules) 0.5 mg IH [id number] [facility] Last Admin: 12/02/16 07:16 Dose: 0.5 mg Clonidine HCl (Catapres) 0.1 mg PO Q6 PRN PRN Reason: if BP is > 180 Docusate Sodium (Colace) 100 mg PO BID [facility] Last Admin: 12/02/16 10:20 Dose: 100 mg Finasteride (Proscar) 5 mg PO DAILY [facility] Last Admin: 12/02/16 10:20 Dose: 5 mg Home Med (Home Med) 1 unit PO Q48H [facility] Last Admin: 11/30/16 17:14 Dose: 1 unit Levalbuterol HCl (Xopenex) 1.25 mg IH [id number] PRN PRN Reason: Shortness of Breath Levofloxacin (Levaquin) 500 mg PO DAILY [facility] Last Admin: 12/02/16 10:20 Dose: 500 mg Metoprolol Tartrate (Lopressor) 50 mg PO 0800,1800 [facility] Last Admin: 12/02/16 08:42 Dose: 50 mg Mupirocin (Bactroban Ointment) 0 gm TOP BID [facility] Last Admin: 12/02/16 10:19 Dose: 1 applic Pantoprazole Sodium (Protonix Ec Tab) 40 mg PO 0630 [facility] Last Admin: 12/02/16 06:27 Dose: 40 mg Phenazopyridine HCl (Pyridium) 100 mg PO BID [facility] Stop: 12/03/16 18:00 Last Admin: 12/02/16 10:20 Dose: 100 mg Promethazine HCl/Codeine (Phenergan/Codeine Oral Syrup) 5 ml PO Q6 PRN PRN Reason: Cough and congestion Last Admin: 12/01/16 21:42 Dose: 5 ml Silver Sulfadiazine (Silvadene 1% 20 Gm) 1 ea TOP BID [facility] Last Admin: 12/02/16 10:19 Dose: 1 applic Tamsulosin HCl (Flomax) 0.4 mg PO 1830 [facility] Stop: 12/09/16 08:00 Last Admin: 12/01/16 17:54 Dose: Not Given Valsartan (Diovan) 320 mg PO QAM [facility] Last Admin: 12/02/16 10:20 Dose: 320 mg - Labs Labs: 11/29/16 06:37 11/29/16 06:37 - Constitutional Appears: Well, Non-toxic, No Acute Distress - Extremities Exam Additional comments: Left lower extremity focused. Non-palpable pedal pulses, Non-pitting edema noted to bilateral lower extremity. Delayed capillary refill time. DERM: Skin is thin, absent pedal hair growth. Left plantar 5th metatarsal full thickness ulceration measuring 1 x 0.6x 0.2 cm on a granular bed with minor seorus drainage. Absent purulent discharge. Superficial dorsal foot abrasion with a granular base absent acute signs of infection NERUO: Protective sensation is grossly absent. - Neurological Exam Neurological Exam: Alert, Awake, Oriented x3 - Psychiatric Exam Psychiatric exam: Normal Affect, Normal Mood Assessment and Plan - Assessment and Plan (Free Text) Assessment: 86 year old male with left foot ulcerations. 1) Full thickness ulceration ( Rose Grade 2) plantar to 5th metatarsal 2) Dorsal foot excoriation. Plan: Pt seen and evaluated with attending, Dr Maya. continue IV abx. Dressed foot with Silvadene cream and DSD. Continue full weightbearing ambulation with use of forefoot offloading shoe to left foot. Podiatry will continue to follow while inhouse. <Neville Maya - Last Filed: 12/05/16 18:20> Objective - Vital Signs/Intake and Output Vital Signs (last 24 hours): Temp Pulse Resp BP Pulse Ox 98.4 F 70 18 115/66 98 12/05/16 16:00 12/05/16 17:49 12/05/16 16:00 12/05/16 17:49 12/05/16 16:00 - Medications Medications: Current Medications Acetaminophen (Tylenol 325mg Tab) 650 mg PO Q6H PRN PRN Reason: Fever >100.4 F Acetylcysteine (Acetylcysteine 20%) 3 ml IH BIDRESP [facility] Last Admin: 12/05/16 07:14 Dose: 3 ml Arformoterol Tartrate (Brovana) 15 mcg IH [id number] [facility] Last Admin: 12/05/16 07:14 Dose: 15 mcg Benzocaine/Menthol (Cepacol Sore Throat) 1 yoni MT Q2H PRN; Protocol PRN Reason: Sore Throat Last Admin: 12/04/16 21:14 Dose: 1 yoni Budesonide (Pulmicort Respules) 0.5 mg IH [id number] [facility] Last Admin: 12/05/16 07:14 Dose: 0.5 mg Clonidine HCl (Catapres) 0.1 mg PO Q6 PRN PRN Reason: if BP is > 180 Docusate Sodium (Colace) 100 mg PO BID [facility] Last Admin: 12/05/16 12:49 Dose: 100 mg Finasteride (Proscar) 5 mg PO DAILY [facility] Last Admin: 12/05/16 12:50 Dose: 5 mg Home Med (Home Med) 1 unit PO Q48H [facility] Last Admin: 12/04/16 18:18 Dose: 1 unit Levalbuterol HCl (Xopenex) 1.25 mg IH [id number] PRN PRN Reason: Shortness of Breath Last Admin: 12/03/16 20:43 Dose: 1.25 mg Levofloxacin (Levaquin) 500 mg PO DAILY [facility] Last Admin: 12/05/16 12:50 Dose: 500 mg Metoprolol Tartrate (Lopressor) 50 mg PO 0800,1800 [facility] Last Admin: 12/05/16 17:49 Dose: 50 mg Mupirocin (Bactroban Ointment) 0 gm TOP BID [facility] Last Admin: 12/05/16 10:00 Dose: 1 applic Pantoprazole Sodium (Protonix Ec Tab) 40 mg PO 0630 [facility] Last Admin: 12/05/16 05:43 Dose: 40 mg Promethazine HCl/Codeine (Phenergan/Codeine Oral Syrup) 5 ml PO Q6 PRN PRN Reason: Cough and congestion Last Admin: 12/04/16 21:15 Dose: 5 ml Silver Sulfadiazine (Silvadene 1% 20 Gm) 1 ea TOP BID [facility] Last Admin: 12/05/16 17:50 Dose: 1 applic Tamsulosin HCl (Flomax) 0.4 mg PO 1830 [facility] Stop: 12/09/16 08:00 Last Admin: 12/05/16 17:48 Dose: 0.4 mg Valsartan (Diovan) 320 mg PO QAM [facility] Last Admin: 12/05/16 12:49 Dose: Not Given - Labs Labs: 12/05/16 06:30 12/05/16 06:30 Attending/Attestation - Attestation I have personally seen and examined this patient.: Yes I have fully participated in the care of the patient.: Yes I have reviewed all pertinent clinical information, including history, physical exam and plan: Yes
[2016-12-02] MEDS: DEFERASIROX PO SCH (18:35)
--- NOTE | 2016-12-02 21:04 | PN ---
DATE: 12/02/[address] Gonsales. SUBJECTIVE: The patient is an 86-year-old male seen with family at the bedside, suffers from MDS wit h transfusions and Procrit and Neupogen given almost on a weekly basis, pulmonary fibrosis, BPH, Park inson disease and now with multilobular pneumonia with a biopsy being done earlier today on a suspici ous lesion in his lung. He is otherwise sitting up, resting comfortably, in no acute distress. PHYSICAL EXAMINATION: VITAL SIGNS: Temperature 97.3, pulse 77, respirations 15, blood pressure 120/63, pulse ox 97%. HEENT: Unremarkable. NECK: Supple. HEART: Regular rate, I/ systolic ejection murmur. LUNGS: Scattered rhonchi. ABDOMEN: Soft, nontender. EXTREMITIES: No edema, no tremor. NEUROLOGIC: Awake and alert. SKIN: Warm and dry. LABORATORY DATA: The patient's labs were done 3 days prior and will be repeated tomorrow. ASSESSMENT: Deconditioning, multilobular pneumonia improved, myelodysplastic syndrome, pulmonary fib rosis, suspicious left lower lobe infiltrate/mass, Parkinson disease, hypertension. PLAN: To check the biopsy report with further recommendations as indicated. We will check his labs tomorrow in the morning. Continue with reconditioning. Fabian Rosado MD cc: [phone] TT: 12/02/2016 21:03:52 Confirmation # [id number] Dictation # [id number] [place]
--- NOTE | 2016-12-02 21:12 | PN ---
DATE: 12/02/2016 REFERRING PHYSICIAN: Dr. Magallon. SUBJECTIVE: Lying in the bed. No headache, no rhinitis, decreased cough, decreased shortness of vandana ath. No nausea, no vomiting, no diarrhea. No leg pain or leg swelling. OBJECTIVE: GENERAL: No acute distress. VITAL SIGNS: Temp is 98, heart rate is 77, respiratory rate is 20, blood pressure 129/63, pulse ox 9 7% nasal cannula. HEENT: Moist mucous membranes. Crowded airway. NECK: Supple, no JVD. LUNGS: Have a fair airflow with few rhonchi. HEART: S1, S2. ABDOMEN: Soft, nontender. No organomegaly. EXTREMITIES: There is no edema. NEUROLOGIC: Awake, alert, follows simple command. MEDICATIONS: He is on Mucomyst 20% inhaled twice a day, Brovana 15 mcg inhaled twice a day, clonidin e 0.1 mg q. 6 hours p.r.n., Cepacol lozenges p.r.n. basis, Colace 100 mg twice a day, Diovan 320 mg d aily, Flomax 0.4 mg daily, Levaquin 500 mg daily, metoprolol tartrate 50 mg twice a day, promethazine with codeine q. 6 hours p.r.n., Proscar 5 mg daily, Protonix 40 mg daily, Pulmicort inhaled twice a day, Pyridium 100 mg twice a day, Tylenol on a p.r.n. basis, Xopenex 1.25 mg q. 6 hours p.r.n. LABORATORY DATA: Reviewed. No new lab is available. IMPRESSION AND PLAN: Multilobar pneumonia which has been resolved, pulmonary fibrosis, myelodysplast ic syndrome, left lower lobe dense infiltrate , BPH, Parkinson disease, hypertension, atheroscle rotic vascular disease. Pulmonary point of view, doing okay. Scheduled for biopsy today. Gastric p rophylaxis, deep venous thrombosis prophylaxis. Fall precaution. Thank you and will follow with you . Brenton Diaz MD cc: [phone] TT: 12/02/2016 21:11:33 Confirmation # [id number] Dictation # [id number] mn
[2016-12-02] MEDS: Promethazine/Cod 6.25mg-10mg/5ml Syr UD PO PRN (23:00)
[2016-12-02] MEDS: Benzocaine/Menthol (Cepacol) Lozenge MT PRN (23:00)
[2016-12-03] MEDS: Pantoprazole 40 mg EC Tab PO SCH (05:31)
[2016-12-03 07:09] LABS: ADD MANUAL DIFF? NO
[2016-12-03 07:13] LABS: BASO # 0.02 K/mm3 (0.0-2.0); BASO % 0.3 % (0.0-3.0); EOS # 0.2 (0.0-0.7); EOS % 2.7 % (1.5-5.0); GRAN # 2.13 (1.4-6.5); GRAN % 30.7 % (50.0-68.0); HEMATOCRIT 24.3 % (42.0-52.0); LYMPH # 2.1 (1.2-3.4); LYMPH % 30.2 % (22.0-35.0); MEAN CELL VOLUME 92.4 fL (80.0-105.0); MEAN CORPUSCULAR HEMOGLOBIN 29.3 pg (25.0-35.0); MEAN CORPUSCULAR HGB CONC 31.7 g/dl (31.0-37.0); MEAN PLATELET VOLUME 11.3 fl (7.0-11.0); MONO # 2.5 (0.1-0.6); MONO % 36.1 % (1.0-6.0); PLATELET COUNT 46 10^3/uL (120.0-450.0); RED CELL DISTRIBUTION WIDTH 17.2 % (11.5-14.5); WHITE BLOOD COUNT 6.9 10^3/ul (4.5-11.0)
[2016-12-03] MEDS: Acetylcysteine 20% Inhal Soln (4ml) IH SCH ×2 (07:14→20:42)
[2016-12-03] MEDS: Budesonide 0.5 mg/2 ml Inhal Susp UD IH SCH ×2 (07:14→20:42)
[2016-12-03] MEDS: Arformoterol 15 mcg/2 ml Inh Sol IH SCH ×2 (07:14→20:42)
[2016-12-03 07:23] LABS: ALB/GLOB RATIO 1.2 (1.1-1.8); ALKALINE PHOSPHATASE 58 U/L (38-133); ALT/SGPT 43 U/L (7-56); AST/SGOT 21 U/L (15-59); BLOOD UREA NITROGEN 36 mg/dL (7-21); CALCIUM 9.3 mg/dL (8.4-10.5); CARBON DIOXIDE 29 mmol/L (21-33); CHLORIDE 103 mmol/L (98-107); GFR AFRICAN-AMERICAN > 60; GLUCOSE,RANDOM 86 mg/dL (70-110); POTASSIUM 4.7 mmol/L (3.6-5.0); SODIUM 140 mmol/L (132-148); TOTAL PROTEIN 6.4 g/dL (5.8-8.3)
[2016-12-03] MEDS: Silver Sulfadiazine 1% Cream (20 gm) TOP SCH ×2 (10:28→18:33)
[2016-12-03] MEDS: levoFLOXacin 500 MG TAB PO SCH (10:29)
--- NOTE | 2016-12-03 14:08 | CP.PCM.PN ---
Subjective - Date & Time of Evaluation Date of Evaluation: 12/03/16 Time of Evaluation: 14:04 - Subjective Subjective: 86 year old male seen at bedside concerning left foot ulceration. Pts dressing remain, clean, dry, and intact. No complaints of pedal pain at this time. Forefoot offloading shoe dispensed, pt has begun ambulating with it. No major pedal complaints at this time Objective - Vital Signs/Intake and Output Vital Signs (last 24 hours): Temp Pulse Resp BP Pulse Ox 97.8 F 72 20 128/63 97 12/03/16 10:00 12/03/16 10:00 12/03/16 10:00 12/03/16 10:00 12/03/16 10:00 - Medications Medications: Current Medications Acetaminophen (Tylenol 325mg Tab) 650 mg PO Q6H PRN PRN Reason: Fever >100.4 F Acetylcysteine (Acetylcysteine 20%) 3 ml IH BIDRESP [facility] Last Admin: 12/03/16 07:14 Dose: 3 ml Arformoterol Tartrate (Brovana) 15 mcg IH [id number] [facility] Last Admin: 12/03/16 07:14 Dose: 15 mcg Benzocaine/Menthol (Cepacol Sore Throat) 1 yoni MT Q2H PRN; Protocol PRN Reason: Sore Throat Last Admin: 12/02/16 23:00 Dose: 1 yoni Budesonide (Pulmicort Respules) 0.5 mg IH [id number] [facility] Last Admin: 12/03/16 07:14 Dose: 0.5 mg Clonidine HCl (Catapres) 0.1 mg PO Q6 PRN PRN Reason: if BP is > 180 Docusate Sodium (Colace) 100 mg PO BID [facility] Last Admin: 12/03/16 10:29 Dose: 100 mg Finasteride (Proscar) 5 mg PO DAILY [facility] Last Admin: 12/03/16 10:29 Dose: 5 mg Home Med (Home Med) 1 unit PO Q48H [facility] Last Admin: 12/02/16 18:35 Dose: 1 unit Levalbuterol HCl (Xopenex) 1.25 mg IH [id number] PRN PRN Reason: Shortness of Breath Levofloxacin (Levaquin) 500 mg PO DAILY [facility] Last Admin: 12/03/16 10:29 Dose: 500 mg Metoprolol Tartrate (Lopressor) 50 mg PO 0800,1800 [facility] Last Admin: 12/03/16 08:36 Dose: 50 mg Mupirocin (Bactroban Ointment) 0 gm TOP BID [facility] Last Admin: 12/03/16 10:28 Dose: 1 applic Pantoprazole Sodium (Protonix Ec Tab) 40 mg PO 0630 [facility] Last Admin: 12/03/16 05:31 Dose: 40 mg Phenazopyridine HCl (Pyridium) 100 mg PO BID [facility] Stop: 12/03/16 18:00 Last Admin: 12/03/16 10:29 Dose: 100 mg Promethazine HCl/Codeine (Phenergan/Codeine Oral Syrup) 5 ml PO Q6 PRN PRN Reason: Cough and congestion Last Admin: 12/02/16 23:00 Dose: 5 ml Silver Sulfadiazine (Silvadene 1% 20 Gm) 1 ea TOP BID [facility] Last Admin: 12/03/16 10:28 Dose: 1 applic Tamsulosin HCl (Flomax) 0.4 mg PO 1830 [facility] Stop: 12/09/16 08:00 Last Admin: 12/02/16 18:36 Dose: 0.4 mg Valsartan (Diovan) 320 mg PO QAM [facility] Last Admin: 12/03/16 10:29 Dose: 320 mg - Labs Labs: 12/03/16 05:30 12/03/16 05:30 - Constitutional Appears: Well, Non-toxic, No Acute Distress - Extremities Exam Additional comments: Left lower extremity focused. Non-palpable pedal pulses, Non-pitting edema noted to bilateral lower extremity. Delayed capillary refill time. DERM: Skin is thin, absent pedal hair growth. Left plantar 5th metatarsal full thickness ulceration measuring 1 x 0.6x 0.2 cm on a fibro-granular bed with minor serous drainage. Absent purulent discharge. Superficial dorsal foot abrasion with a granular base absent acute signs of infection NERUO: Protective sensation is grossly absent. - Neurological Exam Neurological Exam: Alert, Awake, Oriented x3 Assessment and Plan - Assessment and Plan (Free Text) Assessment: 86 year old male with left foot ulcerations. 1) Full thickness ulceration ( Rose Grade 2) plantar to 5th metatarsal 2) Dorsal foot excoriation. Plan: Pt seen and evaluated with attending, Dr Agarwal. continue IV abx. Aseptic excisional debridement of devitalized fibrotic wound base tissue using a curette. Debrided area totaled 1cm^2 down to level of health perfused dermal tissue without incident. Dressed foot with Silvadene cream and DSD. Continue full weightbearing ambulation with use of forefoot offloading shoe to left foot. Podiatry will continue to follow while inhouse.
--- NOTE | 2016-12-03 15:06 | PN ---
DATE: 12/02/2016 The patient seems comfortable, status post lung biopsy. He is doing better. No distress. No nausea , no vomiting, no fever. PHYSICAL EXAMINATION: VITAL SIGNS: Temperature 97.3, heart rate 77, blood pressure is 129/63, respirations 15, saturating 97% on 2 liters. HEAD AND NECK: Normal. No JVD, no thyromegaly. CHEST: There are a few basal crackles in the bases. CARDIAC: First sound, second sound normal. ABDOMEN: Soft, nontender. EXTREMITIES: No edema. NEUROLOGIC: General weakness but nonfocal. LABORATORY DATA: White count 8.6, hemoglobin 9.4, hematocrit 29.5, platelets 74. IMPRESSION AND PLAN: 1. Lung mass status post lung biopsy. Will follow up on the pathology. Will continue current manag ement. Discuss with oncology. 2. Chronic obstructive pulmonary disease, lung fibrosis, history of pneumonia. Continue Levaquin. Continue inhaled bronchodilators. 3. Myelodysplasia, anemia. Will repeat labs in the morning, CBC. Will follow up clinically. 4. Dysuria, prostate enlargement. Continue Proscar, continue Flomax, Pyridium. Follow up clinicall y. 5. General weakness. Continue physical therapy. 6. Hypertension. Continue Catapres, Diovan, and clonidine. Will follow up clinically. Mook Magallon MD cc: 223 TT: 12/03/2016 15:06:02 Confirmation # [id number] Dictation # [id number] mn
--- NOTE | 2016-12-03 15:16 | PN ---
DATE: 12/01/2016 An 86-year-old male who is in TCU. The patient is comfortable. Complained of sore throat which is b mary, cough which seems less than before. The patient has no chest pain, no other complaint. PHYSICAL EXAMINATION: VITAL SIGNS: Temperature 97.9, heart rate 76, blood pressure 119/55, respirations 20, saturation 98% . HEAD AND NECK: Normal. No JVD. No thyromegaly. CHEST: Clear, good entry. CARDIAC: First sound, second sound normal. ABDOMEN: Soft, obese, nontender. EXTREMITIES: No edema. NEUROLOGIC: Normal. LABORATORY DATA: The patient had urine culture, which came back negative. IMPRESSION AND PLAN: 1. Generalized weakness. Continue physical therapy. 2. Chronic obstructive pulmonary disease, lung fibrosis, lung mass, ____ biopsy; however, we will ge t the diagnosis for prognostic. We will discuss with Dr. Gonsales about it. 3. Hypertension, stable and better. Continue current blood pressure medicines. 4. Hypertrophic prostate enlargement. Continue Proscar. 5. Myelodysplasia. We will repeat labs in the morning, CBC. The patient seems stable clinically. Continue gastrointestinal and deep venous thrombosis prophylaxis. We will follow up clinically. CURRENT MEDICATIONS: Inhaled bronchodilator, Pulmicort, Brovana, Mucomyst, Catapres, Colace, Diovan, Flomax, ____, Levaquin and Protonix, Silvadene, Xopenex We will put SCDs on. Continue current treatment. Continue Pyridium. Mook Magallon MD cc: 223 TT: 12/03/2016 15:15:12 Confirmation # [id number] Dictation # [id number] tn
--- NOTE | 2016-12-03 16:02 | PN ---
DATE: 12/03/2016 REFERRING PHYSICIAN: Dr. Magallon. SUBJECTIVE: He is lying in the bed, head at 45 degrees. Had a biopsy done yesterday. No nausea, no vomiting. Mild cough. No dysuria. No leg pain or leg swelling. OBJECTIVE: GENERAL: No acute distress. VITAL SIGNS: Temp is 98, heart rate is 72, respiratory rate is 20, blood pressure 128/63, pulse ox 9 7% on 3 liter nasal cannula. HEENT: Moist mucous membrane. Crowded airway. NECK: Supple. No JVD. LUNGS: Have fair airflow with scattered rhonchi. HEART: S1, S2. ABDOMEN: Soft, nontender. No organomegaly. EXTREMITIES: There is no edema. NEUROLOGIC: Awake, alert, follows simple command. MEDICATIONS: He is on Mucomyst 20% 3 mL inhaled twice a day, bacitracin ointment to affected area tw ice a day, ____ Catapres is 0.1 mg q. 6 hours p.r.n., Cepacol lozenges q. 2 hours p.r.n., Colace 100 mg twice a day, Diovan 320 mg daily, Flomax 0.4 mg daily, Levaquin 500 mg daily, metoprolol tartrate 50 mg twice a day, Phenergan with codeine q. 6 hours p.r.n., Proscar 5 mg daily, Protonix 40 mg daily , Pulmicort inhaled twice a day, Pyridium 100 mg twice a day, Tylenol on a p.r.n. basis, Xopenex 1.25 mg q. 6 hours p.r.n. LABORATORY DATA: Shows hemoglobin 7.7, hematocrit 24.3, WBC 6.9, platelet is 46. Sodium 140, potass ium 4.7, chloride 103, bicarbonate 29, BUN 36, creatinine 1.2, glucose 86, calcium 9.3. AST 21, ALT 43, alk phos is 58. Procalcitonin 0.08. Microbiology: Urine culture, there is no growth. IMPRESSION AND PLAN: Multilobar pneumonia, which is resolved; pulmonary fibrosis, myelodysplastic sy ndrome, left lower lobe nodule, benign prostatic hypertrophy, Parkinson disease, hypertension, athero sclerotic vascular disease, anemia, drop of hemoglobin since yesterday. Will repeat PA and lateral c hest x-ray. Follow up H and H in the morning. There is no obvious bleed; hemodynamically stable. Thank you, and will follow with you. Brenton Diaz MD cc: [phone] TT: 12/03/2016 16:01:56 Confirmation # [id number] Dictation # [id number] mn
[2016-12-03 16:57] VITALS: RESP 18
--- NOTE | 2016-12-03 21:42 | PN ---
DATE: 12/03/2016 SUBJECTIVE: The patient is an 86-year-old male seen on the TCU floor; however, being transfused toda y as per Dr. Gonsales's recommendations. Family at his bedside. He is now being reconditioned after recent treatment for pneumonia. Suffers from MDS with transfusion, Procrit, and Neupogen given perio dically. He is known to have an early decubitus on his backside for which Optifoam was placed. He is otherwise without complaint. PHYSICAL EXAMINATION: VITAL SIGNS: Temperature 98.1, pulse 68, respirations 18, blood pressure 123/60 with a pulse ox of 9 7%. HEENT: Unremarkable. NECK: Supple. HEART: Regular rate, I/ systolic ejection murmur. LUNGS: Rare rhonchi. ABDOMEN: Soft, nontender. EXTREMITIES: No edema. SKIN: Warm, dry. NEUROLOGIC: Awake and alert. LABORATORY DATA: The patient's labs were done. White blood cell count of 6.9, hemoglobin 7.7, hemat ocrit 24.3, platelet count of 46,000 with a chem metabolic panel within normal limits. BUN of 36. ASSESSMENT: Deconditioning, anemia of chronic disease, myelodysplastic syndrome, recently treated fo r multilobar pneumonia, pulmonary fibrosis, lower lobe lung nodule, status post biopsy, Parkinson's d isease, hypertension, ACVD. PLAN: To check a chest x-ray as per Dr. Diaz of pulmonary. We will ask for a doughnut pad 1/3 inf lated with Optifoam treatment for his early decubitus and wound care for his decubiti. We will check his labs in the morning. With transfusion of 2 units packed cells done today. Fabian Rosado MD cc: [phone] TT: 12/03/2016 21:41:34 Confirmation # [id number] Dictation # [id number] an
[2016-12-03] MEDS: Benzocaine/Menthol (Cepacol) Lozenge MT PRN (21:49)
[2016-12-03] MEDS: Promethazine/Cod 6.25mg-10mg/5ml Syr UD PO PRN (21:49)
[2016-12-04] MEDS: Pantoprazole 40 mg EC Tab PO SCH (05:36)
[2016-12-04] MEDS: Promethazine/Cod 6.25mg-10mg/5ml Syr UD PO PRN ×2 (05:45→21:15)
[2016-12-04 07:14] LABS: HEMATOCRIT 27.6 % (42.0-52.0); MEAN CELL VOLUME 88.5 fL (80.0-105.0); MEAN CORPUSCULAR HEMOGLOBIN 28.8 pg (25.0-35.0); MEAN CORPUSCULAR HGB CONC 32.6 g/dl (31.0-37.0); MEAN PLATELET VOLUME 12.8 fl (7.0-11.0); RED CELL DISTRIBUTION WIDTH 16.6 % (11.5-14.5); WHITE BLOOD COUNT 10.4 10^3/ul (4.5-11.0)
[2016-12-04] MEDS: Arformoterol 15 mcg/2 ml Inh Sol IH SCH ×2 (07:38→20:04)
[2016-12-04] MEDS: Budesonide 0.5 mg/2 ml Inhal Susp UD IH SCH ×2 (07:38→20:04)
[2016-12-04] MEDS: Acetylcysteine 20% Inhal Soln (4ml) IH SCH ×2 (07:38→20:04)
--- NOTE | 2016-12-04 09:09 | RAD ---
HISTORY: infiltrate COMPARISON: 12/02/2016 TECHNIQUE: Chest PA and lateral FINDINGS: LUNGS: There is a minimal infiltrate at the right lung base. There is a persistent small infiltrate in the lingular segment of the left lobe. Findings are unchanged PLEURA: No significant pleural effusion identified. No pneumothorax apparent. CARDIOVASCULAR: Normal. OSSEOUS STRUCTURES: No significant abnormalities. VISUALIZED UPPER ABDOMEN: Normal. OTHER FINDINGS: None. IMPRESSION: There is a minimal infiltrate at the right lung base. There is a persistent small infiltrate in the lingular segment of the left lobe. Findings are unchanged
--- NOTE | 2016-12-04 09:22 | PN ---
DATE: 12/03/2016 An 86-year-old male patient in TCU is comfortable, no distress, found to have anemia, hemoglobin 7, h istory of myelodysplasia. The patient clinically stable. No new complaint. PHYSICAL EXAMINATION: VITAL SIGNS: Temperature 97.8, heart rate 72, blood pressure 128/63, respirations 20, saturation 97% . HEAD AND NECK: Normal. No JVD, no thyromegaly. CHEST: Clear, good air entry. There are diminished breath sounds on the left lung more than the rig ht. CARDIAC: First sound, second sound normal: ABDOMEN: Soft, nontender. EXTREMITIES: No edema. NEUROLOGIC: Generally weak, especially both legs and difficult ambulation. LABORATORY DATA: White count 6.9, hemoglobin 7.7, hematocrit 24.3, platelets 46. Chemistry shows so dium 140, potassium 4.7, chloride 103, bicarb 29, BUN 36, creatinine 1.2. Liver function test is nor mal. IMPRESSION AND PLAN: 1. Severe anemia secondary to myelodysplasia. We will give 2 units of blood transfusions. Repeat l abs in the morning. 2. Thrombocytopenia, leukopenia, anemia secondary to myelodysplasia. 3. Chronic obstructive lung disease in addition to lung fibrosis. The patient has a lung mass. [place] recio is still pending status post biopsy. 4. Generalized weakness, especially lower extremity. Continue physical therapy. Continue gait sorin mahsa. The patient may need more physical therapy. 5. Hypertension, stable. Continue Diovan. Continue metoprolol and patient also getting clonidine p .r.n. Continue current medicines, follow up clinically. Continue gastrointestinal and deep venous t hrombosis prophylaxis. He is getting sequential compression devices, getting Flomax for his prostate plus Proscar. Mook Magallon MD cc: [phone] TT: 12/04/2016 09:21:16 Confirmation # [id number] Dictation # [id number] tn
[2016-12-04] MEDS: levoFLOXacin 500 MG TAB PO SCH (11:06)
[2016-12-04] MEDS: Silver Sulfadiazine 1% Cream (20 gm) TOP SCH ×2 (11:07→18:19)
[2016-12-04] MEDS ORDERED: Darbepoetin Alfa 60 mcg/ml Inj SC ONE (12:23)
--- NOTE | 2016-12-04 14:10 | CP.PCM.PN ---
Subjective - Date & Time of Evaluation Date of Evaluation: 12/04/16 Time of Evaluation: 08:40 - Subjective Subjective: 86 year old male seen at bedside concerning left foot ulceration. Pts dressing remain clean, dry, and intact. No complaints of pedal pain at this time. No major pedal complaints at this time. Objective - Vital Signs/Intake and Output Vital Signs (last 24 hours): Temp Pulse Resp BP Pulse Ox 98.1 F 91 H 18 125/57 L 125 H 12/03/16 16:00 12/04/16 08:40 12/03/16 16:00 12/04/16 08:40 12/03/16 16:00 - Medications Medications: Current Medications Acetaminophen (Tylenol 325mg Tab) 650 mg PO Q6H PRN PRN Reason: Fever >100.4 F Acetylcysteine (Acetylcysteine 20%) [address] [facility] Last Admin: 12/04/16 07:38 Dose: 3 ml Arformoterol Tartrate (Brovana) [id number] [facility] Last Admin: 12/04/16 07:38 Dose: 15 mcg Benzocaine/Menthol (Cepacol Sore Throat) 1 yoni MT Q2H PRN; Protocol PRN Reason: Sore Throat Last Admin: 12/03/16 21:49 Dose: 1 yoni Budesonide (Pulmicort Respules) 0.[id number] [facility] Last Admin: 12/04/16 07:38 Dose: 0.5 mg Clonidine HCl (Catapres) 0.1 mg PO Q6 PRN PRN Reason: if BP is > 180 Docusate Sodium (Colace) [address] [facility] Last Admin: 12/04/16 11:04 Dose: 100 mg Finasteride (Proscar) [address] [facility] Last Admin: 12/04/16 11:06 Dose: 5 mg Home Med (Home Med) [address] [facility] Last Admin: 12/02/16 18:35 Dose: 1 unit Levalbuterol HCl (Xopenex) 1.25 mg IH [id number] PRN PRN Reason: Shortness of Breath Last Admin: 12/03/16 20:43 Dose: 1.25 mg Levofloxacin (Levaquin) [address] [facility] Last Admin: 12/04/16 11:06 Dose: 500 mg Metoprolol Tartrate (Lopressor) 50 mg PO 0800,1800 [facility] Last Admin: 12/04/16 08:40 Dose: 50 mg Mupirocin (Bactroban Ointment) [address] [facility] Last Admin: 12/04/16 11:07 Dose: 1 applic Pantoprazole Sodium (Protonix Ec Tab) [address] [facility] Last Admin: 12/04/16 05:36 Dose: 40 mg Promethazine HCl/Codeine (Phenergan/Codeine Oral Syrup) 5 ml PO Q6 PRN PRN Reason: Cough and congestion Last Admin: 12/04/16 05:45 Dose: 5 ml Silver Sulfadiazine (Silvadene 1% 20 Gm) [address] [facility] Last Admin: 12/04/16 11:07 Dose: 1 applic Tamsulosin HCl (Flomax) 0.[address] [facility] Stop: 12/09/16 08:00 Last Admin: 12/03/16 18:32 Dose: Not Given Valsartan (Diovan) [address] [facility] Last Admin: 12/04/16 11:11 Dose: Not Given - Labs Labs: 12/04/16 06:25 12/03/16 05:30 - Constitutional Appears: Well, Non-toxic, No Acute Distress - Extremities Exam Additional comments: Left lower extremity focused. Non-palpable pedal pulses, Non-pitting edema noted to bilateral lower extremity. Delayed capillary refill time. DERM: Skin is thin, absent pedal hair growth. Left plantar 5th metatarsal full thickness ulceration measuring 0.8 x 0.6x 0.2 cm on a fibro-granular bed with minor serous drainage. Absent purulent discharge. Superficial dorsal foot abrasion with a granular base absent acute signs of infection NERUO: Protective sensation is grossly absent. - Neurological Exam Neurological Exam: Alert, Awake, Oriented x3 - Psychiatric Exam Psychiatric exam: Normal Affect, Normal Mood Assessment and Plan - Assessment and Plan (Free Text) Assessment: 86 year old male with left foot ulcerations. 1) Full thickness ulceration ( Rose Grade 2) plantar to 5th metatarsal 2) Dorsal foot excoriation. Plan: Pt seen and evaluated with attending, Dr Agarwal. continue IV abx. Dressed foot with Silvadene cream and DSD. Continue full weightbearing ambulation with use of forefoot offloading shoe to left foot. Podiatry will continue to follow while inhouse.
[2016-12-04] MEDS: DEFERASIROX PO SCH (18:18)
[2016-12-04] MEDS: Benzocaine/Menthol (Cepacol) Lozenge MT PRN (21:14)
--- NOTE | 2016-12-04 22:45 | PN ---
DATE: 12/04/[address] Gonsales. SUBJECTIVE: The patient is an 86-year-old male seen sitting up in bed, status post transfusion of 2 units of packed red blood cells yesterday. The patient without complaint today. The patient has been getting Procrit and Neupogen almost on a weekly basis for his severe myelodyspla stic syndrome with consideration for this to be given here in the hospital as per Dr. Gonsales's recom mendation. With this, the patient is otherwise noted to have early decubitus on his backside with re commendations for a doughnut pad to be given along with treatment for his decubitus. PHYSICAL EXAMINATION: VITAL SIGNS: Temperature 98.1, pulse 74, respirations 18, blood pressure 132/55, pulse ox 98%. HEENT: Unremarkable. NECK: Supple. HEART: Regular rate, I/ systolic ejection murmur. Occasional ectopic beat. LUNGS: Clear. ABDOMEN: Soft, nontender. EXTREMITIES: No edema. SKIN: With early decubitus on his backside. LABORATORY DATA: The patient's labs were done. White blood cell count of 10.4, hemoglobin 9.0, incr eased from 7.7 yesterday after transfusion of 2 units of packed red blood cells, hematocrit 27.6, pietro telet count of 60,000 with a chem metabolic panel showing a BUN of 36, creatinine 1.2. The patient had a chest x-ray done yesterday; it was read as minimal infiltrate at the right lung bas e, persistent small infiltrate lingular segment of the left lobe. Findings are unchanged. ASSESSMENT: Deconditioning, multilobular pneumonia, anemia of chronic disease, myelodysplastic syndr ome, thrombocytopenia, lower lobe lung nodule status post biopsy, Parkinson disease, hypertension, at herosclerotic cardiovascular disease. PLAN: Recondition with awaiting of the tissue diagnosis of his lung biopsy. The patient also has a left foot ulceration which is being followed by Dr. Agarwal. We will also monitor clinically and wit h labs as indicated with continuation of his present medical regimen as per Dr. Magallon. We will also offer the Neupogen, which is Granix, in [facility] along with Procrit which is ____ equi valent here as per Dr. Gonsales's recommendation. The prognosis for this patient is guarded. Fabian Rosado MD cc: [phone] TT: 12/04/2016 22:44:45 Confirmation # [id number] Dictation # [id number] jn
--- NOTE | 2016-12-05 01:25 | PN ---
DATE: 12/04/2016 REFERRING PHYSICIAN: Dr. Magallon. SUBJECTIVE: He is lying in the reclining chair. Night was unremarkable. Doing well in therapy. Co ugh is better. Shortness of breath is better. No nausea, no vomiting, diarrhea. No leg pain or leg swelling. OBJECTIVE: GENERAL: No acute distress. VITAL SIGNS: Temp is 98, heart rate 74, respiratory rate is 18, blood pressure 132/55, pulse ox 98% on nasal cannula. HEENT: Moist mucous membrane. Crowded airway. NECK: Supple. No JVD. LUNGS: Has a fair airflow with few rhonchi. HEART: S1, S2. ABDOMEN: Soft, nontender. No organomegaly. EXTREMITIES: There is no edema. NEUROLOGIC: Awake, alert, follows simple commands. MEDICATIONS: He is on Mucomyst mL inhaled twice a day, Bactroban ointment to the affected area twice a day, Brovana 15 mcg inhaled twice a day, Catapres 0.1 mg q. 6 hours p.r.n., Cepacol lozenges q. 2 hours p.r.n., Colace 100 mg twice a day, Diovan 320 mg daily, Flomax 0.4 mg daily, Levaquin 500 mg daily, metoprolol tartrate 50 mg q. 12 hours, promethazine with codeine q. 6 hours p.r.n., Prosca r 5 mg daily, Protonix 40 mg daily, Pulmicort inhaled twice a day, Tylenol on a p.r.n. basis, Xopenex 1.25 mg q. 6 hours p.r.n. LABORATORY DATA: Shows hemoglobin 9.0, hematocrit 27.6, WBC , platelet is 60. IMPRESSION AND PLAN: Multilobar pneumonia, which is resolved, pulmonary fibrosis, myelodysplastic sy ndrome, left lower lobe nodule, status post biopsy, apposed to be adenocarcinoma, Parkinson disease, hypertension, atherosclerosis, vascular disease, anemia. I spoke to the patient and informed him abo ut his diagnosis. The patient already being followed by Dr. Gonsales's group. We will speak to him w ith further care. The patient seemed like a poor candidate for any resection this time. May benefit from radiation and chemotherapy. Thank you. Will follow with you. Brenton Diaz MD cc: [phone] TT: 12/05/2016 01:25:27 Confirmation # [id number] Dictation # [id number] mn
[2016-12-05] MEDS: Pantoprazole 40 mg EC Tab PO SCH (05:43)
[2016-12-05 07:00] LABS: ADD MANUAL DIFF? NO
[2016-12-05 07:10] LABS: BASO # 0.02 K/mm3 (0.0-2.0); BASO % 0.3 % (0.0-3.0); EOS # 0.1 (0.0-0.7); EOS % 2.2 % (1.5-5.0); GRAN # 1.68 (1.4-6.5); GRAN % 28.7 % (50.0-68.0); HEMATOCRIT 27.9 % (42.0-52.0); LYMPH # 2.5 (1.2-3.4); LYMPH % 43.2 % (22.0-35.0); MEAN CELL VOLUME 89.4 fL (80.0-105.0); MEAN CORPUSCULAR HEMOGLOBIN 29.2 pg (25.0-35.0); MEAN CORPUSCULAR HGB CONC 32.6 g/dl (31.0-37.0); MEAN PLATELET VOLUME 12.2 fl (7.0-11.0); MONO # 1.5 (0.1-0.6); MONO % 25.6 % (1.0-6.0); PLATELET COUNT 60 10^3/uL (120.0-450.0); RED CELL DISTRIBUTION WIDTH 16.5 % (11.5-14.5); WHITE BLOOD COUNT 5.9 10^3/ul (4.5-11.0)
[2016-12-05] MEDS: Acetylcysteine 20% Inhal Soln (4ml) IH SCH ×2 (07:14→19:59)
[2016-12-05] MEDS: Budesonide 0.5 mg/2 ml Inhal Susp UD IH SCH ×2 (07:14→20:00)
[2016-12-05] MEDS: Arformoterol 15 mcg/2 ml Inh Sol IH SCH ×2 (07:14→20:00)
[2016-12-05 07:27] LABS: ALB/GLOB RATIO 1.2 (1.1-1.8); ALKALINE PHOSPHATASE 58 U/L (38-133); ALT/SGPT 36 U/L (7-56); AST/SGOT 20 U/L (15-59); BILIRUBIN,TOTAL 1.2 mg/dL (0.2-1.3); BLOOD UREA NITROGEN 43 mg/dL (7-21); CALCIUM 9.1 mg/dL (8.4-10.5); CARBON DIOXIDE 27 mmol/L (21-33); CHLORIDE 104 mmol/L (98-107); GFR AFRICAN-AMERICAN > 60; GLUCOSE,RANDOM 83 mg/dL (70-110); SODIUM 142 mmol/L (132-148); TOTAL PROTEIN 6.5 g/dL (5.8-8.3)
--- NOTE | 2016-12-05 09:56 | PN ---
DATE: 12/04/2016 An 86-year-old male in transitional care unit. The patient seems comfortable, no distress. He seems to be very weak. He has been getting physical therapy, using walker but still needs more days. He has no new complaint. PHYSICAL EXAMINATION (12/04/2016): VITAL SIGNS: Temperature 98.1, heart rate 74, blood pressure 132/55, respirations 18, sat 98%. HEAD AND NECK: Normal. No JVD, no thyromegaly. CHEST: Clear. Good air entry. Diminished breath sound on the left side, a few rhonchi on the bases . CARDIAC: First and second sounds are normal. ABDOMEN: Soft, nontender. EXTREMITIES: No edema. NEUROLOGIC: General weakness. He is alert, awake, oriented x 3. LABORATORY DATA: White count 10.4, hemoglobin 9, hematocrit 27.6, platelet is 60. Chemistry showed sodium , potassium 4.7, chloride 103, bicarbonate 29, BUN 36, creatinine 1.2. Liver function te st is normal. Pathology report for lung biopsy showed positive adenocarcinoma of the lung. IMPRESSION AND PLAN: 1. Generalized weakness due to multifactorial, continue current therapy, physical therapy on daily b asis and gait training. The patient is using a walker now, seems better but will need more physical therapy. 2. Chronic obstructive pulmonary disease, lung fibrosis, lung adenocarcinoma, positive biopsy. Disc ussed with the patient. We are not doing any treatments for that symptomatically. The patient would not tolerate any chemotherapy. Benefit from radiation could be done as outpatient to help him. Silvio armstrong discuss further with the oncologist. 3. Myelodysplasia with anemia, severe. The patient may be symptomatic from it by general weakness s tatus post transfusion 2 units. Hemoglobin went up from 7 to 9 range and seems to be doing better to uch 4. Prostate enlargement, hypertension. The patient is stable. Continue current treatment. Mook Magallon MD cc: 223 TT: 12/05/2016 09:55:35 Confirmation # [id number] Dictation # [id number] tn
[2016-12-05] MEDS: Silver Sulfadiazine 1% Cream (20 gm) TOP SCH ×2 (10:57→17:50)
[2016-12-05] MEDS: levoFLOXacin 500 MG TAB PO SCH (12:50)
[2016-12-05 16:39] VITALS: TEMP 98.4; O2SAT 98
--- NOTE | 2016-12-05 18:31 | CP.PCM.PN ---
<Myke Almendarez - Last Filed: 12/05/16 18:27> Subjective - Date & Time of Evaluation Date of Evaluation: 12/05/16 Time of Evaluation: 14:30 - Subjective Subjective: 86 year old male seen at bedside concerning left foot ulceration. Pts dressing remain clean, dry, and intact. No complaints of pedal pain at this time. No major pedal complaints at this time. Objective - Vital Signs/Intake and Output Vital Signs (last 24 hours): Temp Pulse Resp BP Pulse Ox 98.4 F 70 18 115/66 98 12/05/16 16:00 12/05/16 17:49 12/05/16 16:00 12/05/16 17:49 12/05/16 16:00 - Medications Medications: Current Medications Acetaminophen (Tylenol 325mg Tab) 650 mg PO Q6H PRN PRN Reason: Fever >100.4 F Acetylcysteine (Acetylcysteine 20%) 3 ml IH BIDRESP [facility] Last Admin: 12/05/16 07:14 Dose: 3 ml Arformoterol Tartrate (Brovana) 15 mcg IH [id number] [facility] Last Admin: 12/05/16 07:14 Dose: 15 mcg Benzocaine/Menthol (Cepacol Sore Throat) 1 yoni MT Q2H PRN; Protocol PRN Reason: Sore Throat Last Admin: 12/04/16 21:14 Dose: 1 yoni Budesonide (Pulmicort Respules) 0.5 mg IH [id number] [facility] Last Admin: 12/05/16 07:14 Dose: 0.5 mg Clonidine HCl (Catapres) 0.1 mg PO Q6 PRN PRN Reason: if BP is > 180 Docusate Sodium (Colace) 100 mg PO BID [facility] Last Admin: 12/05/16 12:49 Dose: 100 mg Finasteride (Proscar) 5 mg PO DAILY [facility] Last Admin: 12/05/16 12:50 Dose: 5 mg Home Med (Home Med) 1 unit PO Q48H [facility] Last Admin: 12/04/16 18:18 Dose: 1 unit Levalbuterol HCl (Xopenex) 1.25 mg IH [id number] PRN PRN Reason: Shortness of Breath Last Admin: 12/03/16 20:43 Dose: 1.25 mg Levofloxacin (Levaquin) 500 mg PO DAILY [facility] Last Admin: 12/05/16 12:50 Dose: 500 mg Metoprolol Tartrate (Lopressor) 50 mg PO 0800,1800 [facility] Last Admin: 12/05/16 17:49 Dose: 50 mg Mupirocin (Bactroban Ointment) 0 gm TOP BID [facility] Last Admin: 12/05/16 10:00 Dose: 1 applic Pantoprazole Sodium (Protonix Ec Tab) 40 mg PO 0630 [facility] Last Admin: 12/05/16 05:43 Dose: 40 mg Promethazine HCl/Codeine (Phenergan/Codeine Oral Syrup) 5 ml PO Q6 PRN PRN Reason: Cough and congestion Last Admin: 12/04/16 21:15 Dose: 5 ml Silver Sulfadiazine (Silvadene 1% 20 Gm) 1 ea TOP BID [facility] Last Admin: 12/05/16 17:50 Dose: 1 applic Tamsulosin HCl (Flomax) 0.4 mg PO 1830 [facility] Stop: 12/09/16 08:00 Last Admin: 12/05/16 17:48 Dose: 0.4 mg Valsartan (Diovan) 320 mg PO QAM [facility] Last Admin: 12/05/16 12:49 Dose: Not Given - Labs Labs: 12/05/16 06:30 12/05/16 06:30 - Constitutional Appears: Well, Non-toxic, No Acute Distress - Extremities Exam Additional comments: Left lower extremity focused. Non-palpable pedal pulses, Non-pitting edema noted to bilateral lower extremity. Delayed capillary refill time. DERM: Skin is thin, absent pedal hair growth. Left plantar 5th metatarsal full thickness ulceration measuring 0.8 x 0.6x 0.2 cm on a 100% granular bed with minor serous drainage. Minor hyperkeratotic wound border. Absent purulent discharge. Superficial dorsal foot abrasion with a epitheliazed base absent acute signs of infection. NERUO: Protective sensation is grossly absent. - Neurological Exam Neurological Exam: Alert, Awake, Oriented x3 - Psychiatric Exam Psychiatric exam: Normal Affect, Normal Mood Assessment and Plan - Assessment and Plan (Free Text) Assessment: 86 year old male with left foot ulcerations. 1) Full thickness ulceration ( Rose Grade 2) plantar to 5th metatarsal 2) Dorsal foot excoriation. Plan: Pt seen and evaluated. Discussed with attending, Dr Maya. continue IV abx. Dressed foot with Silvadene cream and DSD. Continue full weightbearing ambulation with use of forefoot offloading shoe to left foot. PT evaluation reviewed; assessment for transfer home noted. Podiatry will continue to follow while inhouse. Pt is stable from podiatric standpoint for discharge. <Neville Maya - Last Filed: 12/06/16 08:12> Objective - Vital Signs/Intake and Output Vital Signs (last 24 hours): Temp Pulse Resp BP Pulse Ox 98.4 F 70 18 115/66 98 12/05/16 16:00 12/05/16 17:49 12/05/16 16:00 12/05/16 17:49 12/05/16 16:00 - Medications Medications: Current Medications Acetaminophen (Tylenol 325mg Tab) 650 mg PO Q6H PRN PRN Reason: Fever >100.4 F Acetylcysteine (Acetylcysteine 20%) 3 ml IH BIDRESP [facility] Last Admin: 12/06/16 07:23 Dose: 3 ml Arformoterol Tartrate (Brovana) 15 mcg IH [id number] [facility] Last Admin: 12/06/16 07:23 Dose: 15 mcg Benzocaine/Menthol (Cepacol Sore Throat) 1 yoni MT Q2H PRN; Protocol PRN Reason: Sore Throat Last Admin: 12/04/16 21:14 Dose: 1 yoni Budesonide (Pulmicort Respules) 0.5 mg IH [id number] [facility] Last Admin: 12/06/16 07:24 Dose: 0.5 mg Clonidine HCl (Catapres) 0.1 mg PO Q6 PRN PRN Reason: if BP is > 180 Docusate Sodium (Colace) 100 mg PO BID [facility] Last Admin: 12/05/16 12:49 Dose: 100 mg Finasteride (Proscar) 5 mg PO DAILY [facility] Last Admin: 12/05/16 12:50 Dose: 5 mg Home Med (Home Med) 1 unit PO Q48H [facility] Last Admin: 12/04/16 18:18 Dose: 1 unit Levalbuterol HCl (Xopenex) 1.25 mg IH [id number] PRN PRN Reason: Shortness of Breath Last Admin: 12/03/16 20:43 Dose: 1.25 mg Levofloxacin (Levaquin) 500 mg PO DAILY [facility] Last Admin: 12/05/16 12:50 Dose: 500 mg Metoprolol Tartrate (Lopressor) 50 mg PO 0800,1800 [facility] Last Admin: 12/05/16 17:49 Dose: 50 mg Mupirocin (Bactroban Ointment) 0 gm TOP BID [facility] Last Admin: 12/05/16 10:00 Dose: 1 applic Pantoprazole Sodium (Protonix Ec Tab) 40 mg PO 0630 [facility] Last Admin: 12/06/16 05:36 Dose: 40 mg Promethazine HCl/Codeine (Phenergan/Codeine Oral Syrup) 5 ml PO Q6 PRN PRN Reason: Cough and congestion Last Admin: 12/04/16 21:15 Dose: 5 ml Silver Sulfadiazine (Silvadene 1% 20 Gm) 1 ea TOP BID [facility] Last Admin: 12/05/16 17:50 Dose: 1 applic Tamsulosin HCl (Flomax) 0.4 mg PO 1830 [facility] Stop: 12/09/16 08:00 Last Admin: 12/05/16 17:48 Dose: 0.4 mg Valsartan (Diovan) 320 mg PO QAM [facility] Last Admin: 12/05/16 12:49 Dose: Not Given - Labs Labs: 12/05/16 06:30 12/05/16 06:30 Attending/Attestation - Attestation I have personally seen and examined this patient.: Yes I have fully participated in the care of the patient.: Yes I have reviewed all pertinent clinical information, including history, physical exam and plan: Yes
--- NOTE | 2016-12-05 18:57 | PN ---
DATE: 12/05/2016 REASON FOR CONSULTATION AND FOLLOWUP: Rule out congestive heart failure. Continued care in the [facility] emergency department unit. BRIEF CLINICAL HISTORY: This is an 86-year-old male with a past medical history significant for myel odysplastic syndrome, hypertension, pulmonary fibrosis, BPH. Admitted floor. Now patient is i n the transitional care. Denies any chest pain, shortness of breath or any palpitations. PHYSICAL EXAMINATION: VITAL SIGNS: Temperature afebrile, heart rate 70, blood pressure . HEENT: PERRLA. Extraocular muscles intact. NECK: Supple. No carotid bruits. No thyromegaly. CHEST: Clear to auscultation. HEART: S1, S2 regular. ABDOMEN: Soft. EXTREMITIES: Clubbing and cyanosis negative. LABORATORY DATA: Blood workup as follows: WBC 5.9, hemoglobin , hematocrit 27.9, platelet coun t 60. Chemistry shows sodium , potassium 4, chloride 104, carbon dioxide 27, anion gap of 15, B UN , creatinine 1.3. IMPRESSION: Respiratory tract infection, myelodysplastic syndrome, hypertension, pulmonary fibrosis, benign prostatic hypertrophy, possible community-acquired pneumonia, recovering; anemia, thrombocyto penia, renal insufficiency. RECOMMENDATION: Continue physical therapy. Monitor H and H. Monitor platelets. Avoid nephrotoxic medication. Continue valsartan, continue metoprolol at 50 mg twice. Will follow with you. Thank you, Dr. Magallon, for providing me the opportunity in taking care of the patient. Brenton Martines MD cc: [id number] TT: 12/05/2016 18:56:34 Confirmation # [id number] Dictation # [id number] dn
[2016-12-06] MEDS: Pantoprazole 40 mg EC Tab PO SCH (05:36)
[2016-12-06] MEDS: Acetylcysteine 20% Inhal Soln (4ml) IH SCH (07:23)
[2016-12-06] MEDS: Arformoterol 15 mcg/2 ml Inh Sol IH SCH (07:23)
[2016-12-06] MEDS: Budesonide 0.5 mg/2 ml Inhal Susp UD IH SCH (07:24)
[2016-12-06 08:18] VITALS: BP 136/61; PULSE 78
[2016-12-06] MEDS: levoFLOXacin 500 MG TAB PO SCH (09:16)
[2016-12-06] MEDS: Silver Sulfadiazine 1% Cream (20 gm) TOP SCH (09:17)
--- NOTE | 2016-12-06 10:03 | CP.PCM.PN ---
<Karen Christopher - Last Filed: 12/06/16 09:59> Subjective - Date & Time of Evaluation Date of Evaluation: 12/06/16 Time of Evaluation: 10:00 - Subjective Subjective: 86 year old male seen at bedside concerning left foot ulceration. Pts dressing remain clean, dry, and intact. No complaints of pedal pain at this time. No major pedal complaints at this time. He denies any n/v/f/c/sob/cp. Objective - Vital Signs/Intake and Output Vital Signs (last 24 hours): Temp Pulse Resp BP Pulse Ox 98.4 F 78 18 136/61 98 12/05/16 16:00 12/06/16 08:16 12/05/16 16:00 12/06/16 08:16 12/05/16 16:00 - Medications Medications: Current Medications Acetaminophen (Tylenol 325mg Tab) 650 mg PO Q6H PRN PRN Reason: Fever >100.4 F Acetylcysteine (Acetylcysteine 20%) 3 ml IH BIDRESP [facility] Last Admin: 12/06/16 07:23 Dose: 3 ml Arformoterol Tartrate (Brovana) 15 mcg IH [id number] [facility] Last Admin: 12/06/16 07:23 Dose: 15 mcg Benzocaine/Menthol (Cepacol Sore Throat) 1 yoni MT Q2H PRN; Protocol PRN Reason: Sore Throat Last Admin: 12/04/16 21:14 Dose: 1 yoni Budesonide (Pulmicort Respules) 0.5 mg IH [id number] [facility] Last Admin: 12/06/16 07:24 Dose: 0.5 mg Clonidine HCl (Catapres) 0.1 mg PO Q6 PRN PRN Reason: if BP is > 180 Docusate Sodium (Colace) 100 mg PO BID [facility] Last Admin: 12/06/16 09:16 Dose: 100 mg Finasteride (Proscar) 5 mg PO DAILY [facility] Last Admin: 12/06/16 09:17 Dose: 5 mg Home Med (Home Med) 1 unit PO Q48H [facility] Last Admin: 12/04/16 18:18 Dose: 1 unit Levalbuterol HCl (Xopenex) 1.25 mg IH [id number] PRN PRN Reason: Shortness of Breath Last Admin: 12/03/16 20:43 Dose: 1.25 mg Levofloxacin (Levaquin) 500 mg PO DAILY [facility] Last Admin: 12/06/16 09:16 Dose: 500 mg Metoprolol Tartrate (Lopressor) 50 mg PO 0800,1800 [facility] Last Admin: 12/06/16 08:16 Dose: 50 mg Mupirocin (Bactroban Ointment) 0 gm TOP BID [facility] Last Admin: 12/06/16 09:14 Dose: 1 applic Pantoprazole Sodium (Protonix Ec Tab) 40 mg PO 0630 [facility] Last Admin: 12/06/16 05:36 Dose: 40 mg Promethazine HCl/Codeine (Phenergan/Codeine Oral Syrup) 5 ml PO Q6 PRN PRN Reason: Cough and congestion Last Admin: 12/04/16 21:15 Dose: 5 ml Silver Sulfadiazine (Silvadene 1% 20 Gm) 1 ea TOP BID [facility] Last Admin: 12/06/16 09:17 Dose: 1 applic Tamsulosin HCl (Flomax) 0.4 mg PO 1830 [facility] Stop: 12/09/16 08:00 Last Admin: 12/05/16 17:48 Dose: 0.4 mg Valsartan (Diovan) 320 mg PO QAM [facility] Last Admin: 12/06/16 09:15 Dose: 320 mg - Labs Labs: 12/05/16 06:30 12/05/16 06:30 - Constitutional Appears: Well, Non-toxic, No Acute Distress - Extremities Exam Additional comments: Left lower extremity focused. VASC:Non-palpable pedal pulses, Non-pitting edema noted to bilateral lower extremity. Delayed capillary refill time. DERM: Skin is thin, absent pedal hair growth. Left plantar 5th metatarsal full thickness ulceration measuring 0.8cm x 0.6cm x 0.2 cm on a 100% granular bed with minor serous drainage. Minor hyperkeratotic wound border. Absent purulent discharge. Superficial dorsal foot abrasion with a epitheliazed base absent acute signs of infection. NERUO: Protective sensation is grossly absent. - Neurological Exam Neurological Exam: Alert, Awake, Oriented x3 - Psychiatric Exam Psychiatric exam: Normal Affect, Normal Mood Assessment and Plan - Assessment and Plan (Free Text) Assessment: 86 year old male with left foot ulcerations Full thickness ulceration (Rose Grade 2) plantar to 5th metatarsal, and Dorsal foot excoriation. Plan: Pt seen and evaluated with attending, Dr Maya. continue IV abx. Dressed foot with optifoam, silvadene cream and DSD. Continue full weightbearing ambulation with use of forefoot offloading shoe to left foot. Patient to follow up in wound care center next week <Neville Maya - Last Filed: 12/07/16 21:10> Objective - Vital Signs/Intake and Output Vital Signs (last 24 hours): Temp Pulse Resp BP Pulse Ox 98.4 F 78 18 136/61 98 12/05/16 16:00 12/06/16 08:16 12/05/16 16:00 12/06/16 08:16 12/05/16 16:00 - Labs Labs: 12/05/16 06:30 12/05/16 06:30 Attending/Attestation - Attestation I have personally seen and examined this patient.: Yes I have fully participated in the care of the patient.: Yes I have reviewed all pertinent clinical information, including history, physical exam and plan: Yes
--- NOTE | 2016-12-06 13:35 | PN ---
DATE: 12/05/2016 REFERRING PHYSICIAN: . Subjectively, he is participating in therapy. . Short of breath with minimal exertion. Cough is better. No nausea, no vomiting, no diarrhea and no leg pain or leg swelling. OBJECTIVE: GENERAL: No acute distress. VITAL SIGNS: Temperature is 98, heart rate is 70, respiratory rate is 18, blood pressure 131/64 and pulse ox 98% on nasal cannula. HEENT: Moist mucous membranes. Crowded airway. NECK: Supple. No JVD. LUNGS: Fair airflow with few rhonchi. HEART: S1 and S2. ABDOMEN: Soft and nontender. No organomegaly. EXTREMITIES: Not much edema. NEUROLOGIC: Awake and alert, follows simple commands. MEDICATIONS: He is on Mucomyst 20% inhaled twice a day, Bactroban ointment to affected area twice a day, Brovana 15 mcg inhaled twice a day, Catapres 0.1 mg q. 6 hours p.r.n., Cepacol lozenges q. 2 bob rs p.r.n., Colace 100 mg twice a day, Diovan 320 mg daily, Flomax 0.4 mg daily, Levaquin 500 mg daily , metoprolol tartrate 50 mg twice a day, promethazine 5 mg q. 6 hours p.r.n., Proscar 5 mg daily, Pro tonix 40 mg daily, Pulmicort inhaled twice a day, Tylenol on a p.r.n. basis and ____ q. 6 hours p.r.n . LABORATORY DATA: Shows hemoglobin 9.1, hematocrit 27.9, WBC 5.9 and platelets are 60. Sodium 142, p otassium 4.0, chloride 104, bicarbonate 27, BUN , creatinine 1.3, glucose is 52, calcium , AST 20, ALT 36, alk phos is 58 and albumin is 3.5. IMPRESSION AND PLAN: Multilobar pneumonia, which has resolved, left lower lobe biopsy showed adenoca rcinoma, pulmonary fibrosis, myelodysplastic syndrome, reactive anemia transfusion, Parkinson d isease, hypertension, atherosclerosis, vascular disease . The case discussed with Dr. Gonsales. The patient is unresectable because of medical condition. From a pulmonary point of view, continue bronchodilator, keep head elevated at 45 degrees, gastric prophylaxis, ____ to lower extremity, cont inue therapy and fall precautions. In the future, needs to make a decision. The patient would benef it from chemotherapy/radiation therapy. We will follow with you. Brenton Diaz MD cc: [phone] TT: 12/05/2016 23:48:57 Confirmation # [id number] Dictation # [id number] sn
--- NOTE | 2016-12-06 15:57 | PN ---
DATE: 12/06/2016 REFERRING PHYSICIAN: Dr. Magallon. SUBJECTIVE: He is out of bed to chair, night was unremarkable, feels okay. Cough is better, still s hort of breath with exertion. No nausea, no vomiting, diarrhea. No leg pain or leg swelling. OBJECTIVE: GENERAL: No acute distress. VITAL SIGNS: Temperature is 98, heart rate is 70, respiratory rate is 18, blood pressure 115/66, pul se ox 98% on room air. HEENT: Moist mucous membranes. Crowded airway. NECK: Supple. No JVD. LUNGS: Has a few scattered rhonchi. HEART: S1 and S2. ABDOMEN: Soft, nontender. No organomegaly. EXTREMITIES: There is no edema. NEUROLOGIC: Awake, alert, follows simple commands. MEDICATIONS: Reviewed, noted. No new changes in medication reported since yesterday. LABORATORY DATA: Reviewed, noted. No new lab is available since yesterday. IMPRESSION AND PLAN: Left lung adenocarcinoma, chronic obstructive lung disease, status post pneumon ia, pulmonary fibrosis, myelodysplastic syndrome, recurrent anemia requiring multiple transfusions, P arkinson disease, hypertension, arthrosclerosis, vascular disease. Pulmonary point of view, he is do ing okay. Okay to discharge. Follow up with Dr. Magallon as well as Dr. Gonsales as an outpatient. Dr Rafaela Gonsales will make decision about further care for adenocarcinoma. Thank you. Brenton Diaz MD cc: [phone] TT: 12/06/2016 15:56:03 Confirmation # [id number] Dictation # [id number] diana
--- NOTE | 2016-12-07 18:50 | PN ---
DATE: 12/05/2016 The patient is an 86-year-old male. The patient clinically stable, has no new complaint. He is walk ing with a walker, may need some more walking as outpatient, more physical therapy as outpatient. He has no chest pain. He is getting oxygen at home. PHYSICIAL EXAMINATION: VITAL SIGNS: On that date, 12/05/2016, temperature 98.7, heart rate 80, blood pressure 118/74, respi ration 18, saturation 97%. HEAD AND NECK: Normal. No JVD. No thyromegaly. CHEST: A few rhonchi in the bases, otherwise negative. CARDIAC: First sound and second sound normal. ABDOMEN: Soft, obese, nontender. EXTREMITIES: No edema. NEUROLOGIC: The patient is stable. Generally weak, able to walk with a walker to the bed and to the bathroom. LABORATORY DATA: Last lab shows white count 5.9, hemoglobin 9.1, hematocrit 27.9, platelets 60. IMPRESSION AND PLAN: 1. Myelodysplastic syndrome. Continue current therapy. The patient is status post transfusions. 2. Anemia, status post transfusion, stable. He got 2 units x 2, a total of 4 units while he is in [facility] this admission. 3. Lung CA adenocarcinoma. No chemotherapy for now due to his condition and bone marrow depre ssion, myelodysplasia. 4. COPD. 5. History of hypertension, prostate enlargement. We will continue current therapy and will follow up clinically. The patient may be discharged in the morning. Mook Magallon MD cc: [phone] TT: 12/07/2016 18:49:48 Confirmation # [id number] Dictation # [id number] mn
--- NOTE | 2016-12-07 18:55 | DS ---
The patient clinically stable, being discharged today, has a walker, all prescriptions given to his p cristian. He has no chest pain, no short of breath. He is on oxygen, stable. PHYSICAL EXAMINATION: VITAL SIGNS: Temperature 98.4, heart rate 78, blood pressure 136/61, respirations 18, saturation 98% on 2 liters. HEAD AND NECK: Normal. No JVD, no thyromegaly. CHEST: Few basilar rhonchi bilaterally. CARDIAC: First sound and second sound normal. ABDOMEN: Obese. EXTREMITIES: No edema. NEUROLOGIC: General weakness, otherwise negative. LABORATORY DATA: Last white count 5.9, hemoglobin 9.1, hematocrit 27.9, platelets . His also c hemistry noted for sodium 142, potassium 4, chloride 104, bicarbonate 27, BUN 43, creatinine 1.3. Li leo function test is normal. DISCHARGE DIAGNOSES: 1. Generalized weakness, due to multifactorial. The patient does have underlying adenocarcinoma, my elodysplasia, multiple medical problems, aging which contributed to general weakness. The patient wi ll be discharged home on a walker and will get physical therapy by [place] visiting nurse. 2. Myelodysplasia, anemia, pancytopenia. 3. Anemia, status post transfusion. 4. Prostate enlargement, COPD, hypertension. PLAN: Discharge the patient home. Resume all his meds. All prescriptions were given to his pharmac y and sent electronically. Mook Magallon MD cc: [phone] TT: 12/07/2016 18:54:45 pa
== END 2016-12-06 10:22 | disposition home or self-care (01) | DRG 194 ==
LOC: TRCU 22:00
PROVIDERS: ADMIT Internal Medicine; ATTEND Internal Medicine
PROC: F07Z9FZ Gait Training/Functional Ambulation Treatment using Assistive, Adaptive, Supportive or Protective Equipment (ICD-10-PCS; principal; 2016-11-29)
PROC: F07M6ZZ Therapeutic Exercise Treatment of Musculoskeletal System - Whole Body (ICD-10-PCS; 2016-11-29)
PROC: F08Z1ZZ Dressing Techniques Treatment (ICD-10-PCS; 2016-12-01)
PROC: F08Z2ZZ Grooming/Personal Hygiene Treatment (ICD-10-PCS; 2016-12-01)
PROC: F08Z0ZZ Bathing/Showering Techniques Treatment (ICD-10-PCS; 2016-12-01)
PROC: F08Z4ZZ Home Management Treatment (ICD-10-PCS; 2016-12-01)
DX: J18.9 Pneumonia, unspecified organism (principal); C34.92 Malignant neoplasm of unspecified part of left bronchus or lung; D61.818 Other pancytopenia; G20 Parkinson's disease; J44.0 Chronic obstructive pulmonary disease with (acute) lower respiratory infection; J84.10 Pulmonary fibrosis, unspecified; D46.9 Myelodysplastic syndrome, unspecified; D63.8 Anemia in other chronic diseases classified elsewhere; I73.9 Peripheral vascular disease, unspecified; I10 Essential (primary) hypertension; I25.10 Atherosclerotic heart disease of native coronary artery without angina pectoris; L97.529 Non-pressure chronic ulcer of other part of left foot with unspecified severity; N40.0 Benign prostatic hyperplasia without lower urinary tract symptoms; Z87.01 Personal history of pneumonia (recurrent); Z87.440 Personal history of urinary (tract) infections; Z87.891 Personal history of nicotine dependence; Z99.81 Dependence on supplemental oxygen; I99.9 Unspecified disorder of circulatory system; J98.8 Other specified respiratory disorders; Z90.49 Acquired absence of other specified parts of digestive tract; N28.9 Disorder of kidney and ureter, unspecified; R30.0 Dysuria; L85.9 Epidermal thickening, unspecified; S90.812A Abrasion, left foot, initial encounter

== ENCOUNTER 2016-12-02 14:22 | Day surgery (SDC) | payer MEDICARE ==
[2016-12-02 14:48] VITALS: TEMP 98.4
[2016-12-02] MEDS ORDERED: Sodium Chloride 0.45% 1,000 ML IV SCH (15:45)
[2016-12-02 16:32] VITALS: O2SAT 99
[2016-12-02 16:50] VITALS: RESP 21
[2016-12-02 17:13] VITALS: BP 136/58; PULSE 72
--- NOTE | 2016-12-02 17:48 | CT ---
PROCEDURE: CT guided left lower lobe lung biopsy. HISTORY: Myelodysplastic syndrome. Bilateral large pulmonary opacities. Evaluate for malignancy versus infection. PHYSICIAN(S): Shravan Sebastian MD. TECHNIQUE: The relative risks and indications of the procedure were explained to the patient and consent obtained. The patient was placed prone on the CT scanner and preliminary images through the bases obtained. Conscious sedation and monitoring were provided throughout the procedure by a nurse. There is a dominant 5.5 cm opacity in the left lower lobe posteromedially.. A left posterior approach was selected and the area prepped and draped in the usual sterile fashion. 1% Xylocaine was used to anesthetize the skin and soft tissues. A 19 gauge guiding needle was advanced into the 5.5 cm left lower lobe opacity. Its position was confirmed with CT. Using coaxial technique, multiple core biopsies were obtained. The postprocedure images show no evidence of large pneumothorax or significant hemorrhage.. IMPRESSION: 1. CT-guided left lower lobe lung biopsy as described above. The specimen was sent for histology and microbiology
--- NOTE | 2016-12-03 15:24 | RAD ---
HISTORY: lt lung bx COMPARISON: 11/29/2016 FINDINGS: LUNGS: No active pulmonary disease. PLEURA: No significant pleural effusion identified, no pneumothorax apparent. CARDIOVASCULAR: Normal. OSSEOUS STRUCTURES: No significant abnormalities. VISUALIZED UPPER ABDOMEN: Normal. OTHER FINDINGS: None. IMPRESSION: No evidence of pneumothorax
== END 2016-12-02 18:05 ==
LOC: SDS 14:22
PROVIDERS: ATTEND Radiology Vascular & Interventional Radiology
DX: C34.32 Malignant neoplasm of lower lobe, left bronchus or lung (principal); D46.9 Myelodysplastic syndrome, unspecified
CPT/HCPCS: 32405; 71010; 77012; 87015; 87070; 87075; 87101; 87116; 87206; 88305; J3010; J7030

== ENCOUNTER 2017-06-08 08:23 | Day surgery (SDC) | payer MEDICARE ==
[2017-06-04 10:08] VITALS: BMI 25.1
[2017-06-08 09:18] LABS: BASO # 0.02 K/mm3 (0.0-2.0); BASO % 0.3 % (0.0-3.0); EOS # 0.2 (0.0-0.7); GRAN # 2.19 (1.4-6.5); GRAN % 35.2 % (50.0-68.0); LYMPH # 1.7 (1.2-3.4); LYMPH % 27.8 % (22.0-35.0); MEAN CELL VOLUME 90.2 fl (80.0-105.0); MEAN CORPUSCULAR HEMOGLOBIN 28.9 pg (25.0-35.0); MONO # 2.1 (0.1-0.6); MONO % 33.7 % (1.0-6.0); PLATELET COUNT 63 10^3/uL (120.0-450.0); WHITE BLOOD COUNT 6.2 10^3/ul (4.5-11.0)
[2017-06-08 09:25] VITALS: RESP 18; TEMP 98
[2017-06-08 09:31] LABS: BLOOD UREA NITROGEN 34 mg/dL (7-21); CALCIUM 9.4 mg/dL (8.4-10.5); CARBON DIOXIDE 27 mmol/L (21-33); CHLORIDE 105 mmol/L (98-107); GFR AFRICAN-AMERICAN > 60; GLUCOSE,RANDOM 90 mg/dL (70-110); POTASSIUM 4.7 mmol/L (3.6-5.0); SODIUM 143 mmol/L (132-148)
[2017-06-08 10:06] LABS: INR 1.24 (0.93-1.08); PARTIAL THROMBOPLASTIN TIME 38.1 Seconds (25.1-36.5)
[2017-06-08 10:09] LABS: HEMATOCRIT 23.1 % (42.0-52.0)
[2017-06-08 11:09] LABS: ATYPICAL LYMPHOCYTE 3 % (0.0-0.0); BAND 3 % (0-2); BASOPHIL 1 % (0.0-1.0); EOSINOPHIL 1 % (0.0-3.0); NEUTROPHIL 40 % (50.0-70.0)
[2017-06-08 11:10] LABS: ANISOCYTOSIS 1+; HYPOCHROMIA 2+; METAMYELOCYTE 1 %; MYELOCYTE 1 %; PLATELET ESTIMATE LOW (NORMAL); POLYCHROMASIA SLIGHT
[2017-06-08] MEDS ORDERED: Midazolam 2 MG/2 ML VIAL ONE ×2 (12:22→13:24)
[2017-06-08] MEDS ORDERED: Lidocaine 2% Inj (20ml) ONE (12:22)
[2017-06-08] MEDS ORDERED: Oxycodone/Acetaminophen 5/325 mg Tab PO PRN (14:18)
[2017-06-08] MEDS ORDERED: Sodium Chloride 0.45% 1,000 ML IV SCH (14:30)
[2017-06-08 15:59] VITALS: O2SAT 92
[2017-06-08 17:11] VITALS: BP 126/72; PULSE 87
--- NOTE | 2017-06-08 18:00 | VASCULAR ---
PROCEDURE: Ultrasound and fluoroscopic right internal jugular venous access port. CLINICAL HISTORY: Myelodysplastic syndrome. Chronic anemia. Needs venous port for frequent IV ax PHYSICIAN(S): Shravan Sebastian M.D. TECHNIQUE: The relative risks and indications of the procedure were explained to the patient and his sister and consent obtained. The patient was placed supine on the arteriogram table and the right neck and chest prepped and draped in the usual sterile fashion. Conscious sedation monitoring was provided throughout the procedure by a nurse. Antibiotics were given prior to the procedure. Under direct ultrasound guidance, the right internal jugular vein was punctured with a micro-puncture set. A 0.035 angled Glidewire was advanced into the IVC. A 4 cm incision was made below the right clavicle and the pocket blunted dissected. A 8 [place] single-lumen catheter, 22 cm long, was advanced to the SVC/RA junction. The catheter was trimmed and attached to the port. The port aspirates and injects easily. The port was placed in the pocket and closed in 2 layers.. The patient tolerated the procedure well. IMPRESSION: Ultrasound and fluoroscopically placed right internal jugular venous access port.
== END 2017-06-08 17:00 | disposition home or self-care (01) ==
LOC: SDSVAS 08:23
PROVIDERS: ATTEND Radiology Vascular & Interventional Radiology
DX: D46.9 Myelodysplastic syndrome, unspecified (principal); I10 Essential (primary) hypertension; J84.10 Pulmonary fibrosis, unspecified
CPT/HCPCS: 36415; 36561; 76937; 77001; 80048; 85025; 85610; 85730; 99152; 99153; C1769; C1788; J0690; J2250; J2405; J3010; J7030 ×2

== ENCOUNTER 2017-08-29 16:33 | Inpatient (IN) | payer MEDICARE ==
[2017-08-29 16:33] VITALS: BMI 25.1
--- NOTE | 2017-08-29 16:51 | ED PDOC ---
Arrival/HPI - General Chief Complaint: Abdominal Pain Time Seen by Provider: 08/29/17 16:48 Historian: Patient - History of Present Illness Narrative History of Present Illness (Text): 08/29/17 16:50 86 year old male whose past medical history includes myelodysplasia, hypertension, lung fibrosis, presents to the emergency department with family member c/o RLQ abdominal pain a few hours ago. Patient stated pain is moderate. Patient also noted darken urine. Patient denies fever, sob, cp, nausea, vomiting, diarrhea, dysuria, hematuria, rectal bleeding, dizziness, or skin rash. Last BM was this victoriano, domitila Magallon, PMD Time/Duration: Other Context: Home Past Medical History - Provider Review Nursing Documentation Reviewed: Yes - Infectious Disease Hx of Infectious Diseases: None - Cardiac Hx Hypertension: Yes Hx Pacemaker: No - Pulmonary Hx Respiratory Disorders: Yes (lung fibrosis) Hx Chronic Obstructive Pulmonary Disease (COPD): No Hx Pneumonia: Yes - Neurological Hx Paralysis: No - HEENT Hx HEENT Disorder: Yes Other/Comment: right eye red with watery drainage x 1 month - Renal Hx Renal Disorder: Yes - Endocrine/Metabolic Hx Endocrine Disorders: No - Hematological/Oncological Hx Blood Transfusions: Yes (11/2016) Hx Blood Transfusion Reaction: No - Integumentary Hx Dermatological Disorder: Yes Other/Comment: red hard dry skin to buttocks, ble tight red dry skin and multiple scabs,callous to ball of left foot 2cm x 1cm wound bed is red - Musculoskeletal/Rheumatological Hx Musculoskeletal Disorders: No - Gastrointestinal Hx Gastrointestinal Disorders: No - Genitourinary/Gynecological Hx Hematuria: Yes Hx Incontinence: Yes (leaky bladder) Hx Prostate Problems: Yes (enlarged) - Psychiatric Hx Emotional Abuse: No Hx Physical Abuse: No Hx Substance Use: No - Surgical History Hx Appendectomy: Yes Other/Comment: T&A, penile dorsal slit,cysto - Anesthesia Hx Anesthesia Reactions: No Hx Malignant Hyperthermia: No - Suicidal Assessment Feels Threatened In Home Enviroment: No Family/Social History - Physician Review Nursing Documentation Reviewed: Yes Family/Social History: Other (noncontributory) Smoking Status: Never Smoked Hx Alcohol Use: No Hx Substance Use: No Allergies/Home Meds Allergies/Adverse Reactions: Allergies No Known Allergies Allergy (Verified 08/29/17 16:42) Home Medications: Home Meds Medication Instructions Recorded Confirmed Deferasirox [Exjade] 250 mg PO Q48H 02/12/17 08/29/17 Doxazosin [Cardura] 8 mg PO BID 06/04/17 08/29/17 Finasteride [Proscar] 5 mg PO DAILY 06/04/17 08/29/17 Metoprolol Tartrate [Lopressor] 50 mg PO BID 06/04/17 08/29/17 Pramipexole Di-HCl [Pramipexole 0.125 mg PO TID 06/04/17 08/29/17 Dihydrochloride] hydrALAZINE [hydralazine 25 mg PO TID 06/04/17 08/29/17 Hydrochloride] Danazol 50 mg PO DAILY 07/30/17 08/29/17 Review of Systems - Review of Systems Constitutional: Normal. absent: Fatigue, Weight Change, Fevers, Night Sweats Eyes: Normal ENT: Normal Respiratory: Normal Cardiovascular: Normal Gastrointestinal: Abdominal Pain. absent: Stool Changes, Constipation, Diarrhea , Nausea, Vomiting, Appetite Changes, Hematochezia, Hematemesis, Anorexia, Food Intolerance Genitourinary Male: Other (see hpi). absent: Dysuria Musculoskeletal: Normal. absent: Back Pain Skin: Normal Neurological: Normal Endocrine: Normal Hemo/Lymphatic: Normal Psychiatric: Normal Physical Exam Vital Signs Temp Pulse Resp BP Pulse Ox 08/29/17 21:56 82 16 132/74 100 08/29/17 19:30 84 18 142/84 99 08/29/17 17:40 86 18 139/59 L 93 L 08/29/17 16:47 97.6 F 90 20 146/73 88 L Temperature: Afebrile Blood Pressure: Normal Pulse: Regular Respiratory Rate: Normal Appearance: Positive for: Well-Appearing, Non-Toxic, Comfortable Pain Distress: None - Systems Exam Head: Present: Atraumatic, Normocephalic Pupils: Present: PERRL Extroacular Muscles: Present: EOMI Conjunctiva: Present: Other (trace discharge left ey. pt is been tretaed by pmd ) Mouth: Present: Moist Mucous Membranes Nose (External): Present: Atraumatic Neck: Present: Normal Range of Motion. No: Meningeal Signs, MIDLINE TENDERNESS , Paraspinal Tenderness Respiratory/Chest: Present: Clear to Auscultation, Good Air Exchange. No: Respiratory Distress, Accessory Muscle Use, Wheezes, Retracting, Rhonchi Cardiovascular: Present: Regular Rate and Rhythm, Normal S1, S2. No: Murmurs Abdomen: Present: Normal Bowel Sounds. No: Tenderness, Distention, Peritoneal Signs Back: Present: Normal Inspection. No: CVA Tenderness Upper Extremity: Present: Normal Inspection, Normal ROM, NORMAL PULSES, Neurovascularly Intact. No: Cyanosis, Edema, Tenderness, Erythema Lower Extremity: Present: Edema (chronic b/l trace edema). No: CALF TENDERNESS , Erythema, Temperature Abnormalties Neurological: Present: GCS=15, CN II-XII Intact, Speech Normal Skin: Present: Warm, Dry, Normal Color. No: Rashes Psychiatric: Present: Alert, Normal Insight, Normal Concentration Medical Decision Making ED Course and Treatment: 08/29/17 21:[address] Magallon regarding ct scan finding, labs result, cxr with infiltrates, and patient chief complains. He recommended consult for Ilda Rai, and Dr. Shravan Sebastian. Re-evaluation Time: 21:59 Reassessment Condition: Re-examined, Improving,but remains with symptoms - Lab Interpretations Lab Results: 08/29/17 17:30 08/29/17 17:30 Lab Results 08/29/17 19:05: Urine Color Yellow, Urine Appearance Slight-cloudy, Urine pH 6.0 , Ur Specific [place] 1.025, Urine Protein 100 H, Urine Glucose (UA) Negative, Urine Ketones Negative, Urine Blood Large H, Urine Nitrate Negative, Urine Bilirubin Negative, Urine Urobilinogen 0.2, Ur Leukocyte Esterase Negative, Urine RBC Tntc, Urine WBC 1 - 3, Ur Epithelial Cells 1 - 3, Urine Bacteria Few 08/29/17 17:30: Sodium 146, Potassium 4.6, Chloride 106, Carbon Dioxide 27, Anion Gap 18, BUN 57 H, Creatinine 1.9 H, Est GFR ( Amer) 41, Est GFR ( Non-Af Amer) 34, Random Glucose 125 H, Calcium 9.9, Total Bilirubin 0.3, AST 16 L, ALT 28, Alkaline Phosphatase 73, Lactate Dehydrogenase 341, Total Creatine Kinase 30 L, Troponin I 0.01 D, Total Protein 6.6, Albumin 3.9, Globulin 2.7, Albumin/Globulin Ratio 1.4, Lipase 77 08/29/17 17:30: PT 12.7 H, INR 1.11 H, APTT 33.0 08/29/17 17:30: WBC 14.2 H D, RBC 2.85 L, Hgb 8.1 L, Hct 25.2 L, MCV 88.4 D, MCH 28.4, MCHC 32.1, RDW 17.5 H, Plt Count 61 L, Gran % 67.0, Lymph % (Auto) 14.0 L, Calloway % (Auto) 17.7 H, Eos % (Auto) 1.2 L, Baso % (Auto) 0.1, Gran # 9.48 H, Lymph # (Auto) 2.0, Calloway # (Auto) 2.5 H, Eos # (Auto) 0.2, Baso # (Auto ) 0.02 I have reviewed the lab results: Yes Interpretation: Abnormal lab values - RAD Interpretation Narrative RAD Interpretations (Text): 08/29/17 21:32 IMPRESSION: Mild right pelvocaliectasis and ureterectasis with a 3.4 mm stone at the right ureterovesical junction; multiple bilateral renal cysts with probable hemorrhage in a right renal cyst; interval increase in size of the left lower lobe mass now with multiple bilateral pulmonary nodules consistent with metastases; bilateral pleural effusions with basilar airspace disease; mediastinal and hilar adenopathy; gallstones, no ductal dilatation; prominence of the pancreatic head with peripancreatic edema suggest possible pancreatitis; L3 compression fracture Additional nonemergent findings as described above. 08/29/17 21:00 CXR: RML infiltrates Radiology Orders: 08/29/17 17:10 CHEST PORTABLE [RAD] Stat 08/29/17 17:15 ABD & PELVIS W/O PO OR IV CONT [CT] Stat - Medication Orders Current Medication Orders: Acetaminophen (Tylenol 325mg Tab) 650 mg PO Q4H PRN PRN Reason: Pain, Mild (1-3) Acetylcysteine (Acetylcysteine 20%) 4 ml IH BIDRESP SAPPHIRE Albuterol/Ipratropium (Duoneb 3 Mg/0.5 Mg (3 Ml) Ud) 3 ml IH QIDRESP SAPPHIRE Last Admin: 08/30/17 11:12 Dose: 3 ml Albuterol/Ipratropium (Duoneb 3 Mg/0.5 Mg (3 Ml) Ud) 3 ml IH Q4 PRN PRN Reason: Cough and congestion Doxazosin Mesylate (Cardura) 8 mg PO BID [facility] Last Admin: 08/30/17 10:42 Dose: 8 mg Finasteride (Proscar) 5 mg PO DAILY [facility] Last Admin: 08/30/17 10:43 Dose: 5 mg Home Med (Home Med) 250 unit PO DAILY [facility] Hydralazine HCl (Apresoline) 25 mg PO TID [facility] Last Admin: 08/30/17 10:40 Dose: 25 mg MAR Pulse and Blood Pressure Document 08/30/17 10:40 AJ (Rec: 08/30/17 10:41 AJ [facility] [id number][place] Pulse Pulse Rate (60-90) 86 Blood Pressure Blood Pressure (100/60-150/90) 133/60 Sodium Chloride (Sodium Chloride 0.9%) 1,000 mls @ 60 mls/hr IV .[id number] STA Stop: 08/30/17 14:35 Last Admin: 08/29/17 22:12 Dose: 60 mls/hr eMAR Start Stop Document 08/29/17 22:12 GONZALEZ (Rec: 08/29/17 22:12 GONZALEZ [facility] [id number]) Intravenous Solution Start Date 08/29/17 Start Time 22:12 Methylprednisolone (Solu-Medrol) 30 mg IVP Q8 [facility] Last Admin: 08/30/17 10:37 Dose: 30 mg IVP Administration Document 08/30/17 10:37 AJ (Rec: 08/30/17 10:37 AJ [facility] [id number][place] Charges for Administration # of IVP Administrations 1 Metoprolol Tartrate (Lopressor) 50 mg PO BID [facility] Last Admin: 08/30/17 10:42 Dose: 50 mg MAR Pulse and Blood Pressure Document 08/30/17 10:42 AJ (Rec: 08/30/17 10:43 AJ [facility] [id number]) Pulse Pulse Rate (60-90) 86 Blood Pressure Blood Pressure (100/60-150/90) 133/60 Morphine Sulfate (Morphine) 2 mg IVP Q4H PRN PRN Reason: Pain, severe (8-10) Pramipexole Dihydrochloride (Mirapex) 0.125 mg PO TID [facility] Last Admin: 08/30/17 10:43 Dose: 0.125 mg Valsartan (Diovan) 320 mg PO QAM [facility] Last Admin: 08/30/17 10:42 Dose: 320 mg Discontinued Medications Albuterol/Ipratropium (Duoneb 3 Mg/0.5 Mg (3 Ml) Ud) 3 ml IH Q4 [facility] Home Med (Home Med) 50 unit PO DAILY [facility] Last Admin: 08/30/17 10:42 Dose: Sodium Chloride (Sodium Chloride 0.9%) 500 mls @ 999 mls/hr IV .Q31M STA Stop: 08/29/17 17:42 Last Admin: 08/29/17 17:29 Dose: 999 mls/hr eMAR Start Stop Document 08/29/17 17:29 EWO (Rec: 08/29/17 17:29 EWO [id number]) Intravenous Solution Start Date 08/29/17 Start Time 17:29 End Date 08/29/17 End time 17:59 Total Infusion Time 30 Ceftriaxone Sodium (Rocephin 1 Gram Ivpb) 1 gm in 100 mls @ 200 mls/hr IVPB STAT STA PRN Reason: Protocol Stop: 08/29/17 20:54 Last Admin: 08/29/17 20:57 Dose: 200 mls/hr eMAR Start Stop Document 08/29/17 20:57 GONZALEZ (Rec: 08/29/17 20:58 GONZALEZ [facility] [id number][place] Intravenous Solution Start Date 08/29/17 Start Time 20:58 End Date 08/29/17 End time 21:28 Total Infusion Time 30 Morphine Sulfate (Morphine) 2 mg IVP STAT STA Stop: 08/29/17 17:13 Last Admin: 08/29/17 17:28 Dose: 2 mg MAR Pain Assessment Document 08/29/17 17:28 EWO (Rec: 08/29/17 17:29 EWO [id number]) Pain Reassessment Is this a pain reassessment? No Sleep Is patient sleeping during reassessment? No Presence of Pain Presence of Pain Yes Pain Scale Used Pain Scale Used Numeric Location Pain Location Body Site Abdomen Description Description Intermittent Intensity of Pain at present 7 IVP Administration Document 08/29/17 17:28 EWO (Rec: 08/29/17 17:29 EWO [id number]) Charges for Administration # of IVP Administrations 1 Morphine Sulfate (Morphine) 2 mg IVP PRN PRN PRN Reason: Pain, severe (8-10) Stop: 08/30/17 09:00 Morphine Sulfate (Morphine) 2 mg IVP Q4 SAPPHIRE Stop: 08/30/17 09:00 Morphine Sulfate (Morphine) 2 mg IVP Q4 PRN PRN Reason: Pain, severe (8-10) Stop: 08/30/17 09:00 Ondansetron HCl (Zofran Inj) 4 mg IVP STAT STA Stop: 08/29/17 17:13 Last Admin: 08/29/17 17:28 Dose: 4 mg IVP Administration Document 08/29/17 17:28 EWO (Rec: 08/29/17 17:28 EWO [id number]) Charges for Administration # of IVP Administrations 1 Disposition/Present on Arrival - Present on Arrival Any Indicators Present on Arrival: No History of DVT/PE: No History of Uncontrolled Diabetes: No Urinary Catheter: No History of Decub. Ulcer: No History Surgical Site Infection Following: None - Disposition Have Diagnosis and Disposition been Completed?: Yes Diagnosis: Renal stone, Compression fracture of third lumbar vertebra, Intractable abdominal pain, Pneumonia Disposition: HOSPITALIZED Disposition Time: 22:00 Patient Plan: Admission Patient Problems: Current Active Problems Problem Status Onset Compression fracture of third lumbar vertebra Acute Intractable abdominal pain Acute Renal stone Acute Condition: STABLE
[2017-08-29] MEDS ORDERED: Morphine 2 mg/ml ISec IVP STA ×2 (17:12→21:57)
[2017-08-29] MEDS ORDERED: Sodium Chloride 0.9% 500 ML IV STA (17:12)
[2017-08-29 17:40] LABS: BASO # 0.02 K/mm3 (0.0-2.0); BASO % 0.1 % (0.0-3.0); EOS # 0.2 (0.0-0.7); EOS % 1.2 % (1.5-5.0); GRAN # 9.48 (1.4-6.5); HEMOGLOBIN 8.1 g/dL (14.0-18.0); MEAN CELL VOLUME 88.4 fl (80.0-105.0); MEAN CORPUSCULAR HEMOGLOBIN 28.4 pg (25.0-35.0); MEAN CORPUSCULAR HGB CONC 32.1 g/dl (31.0-37.0); MONO # 2.5 (0.1-0.6); MONO % 17.7 % (1.0-6.0); PLATELET COUNT 61 10^3/uL (120.0-450.0); RBC 2.85 10^6/uL (3.5-6.1); RED CELL DISTRIBUTION WIDTH 17.5 % (11.5-14.5); WHITE BLOOD COUNT 14.2 10^3/ul (4.5-11.0)
[2017-08-29 18:03] LABS: ALB/GLOB RATIO 1.4 (1.1-1.8); ALBUMIN 3.9 g/dL (3.0-4.8); CALCIUM 9.9 mg/dL (8.4-10.5)
[2017-08-29 18:09] LABS: INR 1.11 (0.93-1.08); PROTHROMBIN TIME 12.7 SECONDS (9.4-12.5)
[2017-08-29 18:13] LABS: TROPONIN I 0.01 ng/mL
[2017-08-29 19:37] LABS: URINE BILIRUBIN NEGATIVE (NEGATIVE); URINE BLOOD LARGE (NEGATIVE); URINE GLUCOSE (UA) NEGATIVE (NEGATIVE); URINE LEUKOCYTE ESTERASE NEGATIVE Leu/uL (NEGATIVE); URINE PROTEIN 100 mg/dL (<30 mg/dL); URINE UROBILINOGEN 0.2 E.U./dL (<1 E.U./dL)
[2017-08-29 19:39] LABS: URINE APPEARANCE SLIGHT-CLOUDY (CLEAR)
[2017-08-29 19:46] LABS: URINE COLOR YELLOW (YELLOW)
[2017-08-29 19:53] LABS: URINE RBC TNTC /hpf (0-2)
[2017-08-29 19:54] LABS: URINE BACTERIA FEW (NEG)
[2017-08-29] MEDS ORDERED: cefTRIAXone 1 gm 1 GM/100 ML BAG IVPB STA (20:25)
--- NOTE | 2017-08-29 21:28 | CT ---
EXAM: CT Abdomen and Pelvis Without Intravenous Contrast EXAM DATE/TIME: 08/29/2017 5:15 PM CLINICAL HISTORY: 86 years old, male; Pain; Abdominal pain; Patient HX: Rlq abdominal pain; lung cancer TECHNIQUE: Axial computed tomography images of the abdomen and pelvis without intravenous contrast. All CT scans at this facility use one or more dose reduction techniques, viz.: automated exposure control; ma/kV adjustment per patient size (including targeted exams where dose is matched to indication; i.e. head); or iterative reconstruction technique. Coronal and sagittal reformatted images were created and reviewed. COMPARISON: CT - ABD PELVIS W/O PO OR IV CONT 2016-05-22 10:51 FINDINGS: Lower thorax: The heart is enlarged. There are coronary artery calcifications. There is a small amount of pericardial fluid. There is streak artifact from a central line. There is a 7.6 x 7.6 cm left lower lobe mass increased in size since the prior study.. There are now multiple bilateral pulmonary nodules bilaterally. There is a lingular nodule which measures approximately 2.3 x 2.1 cm, image 17 series 3. There are bilateral pleural effusions. There is airspace disease at the lung bases. There are small pericardial nodes. There is mediastinal and hilar adenopathy. ABDOMEN: Liver: There is increased attenuation of the liver. There is a small cyst in the liver. Gallbladder and bile ducts: Gallbladder is distended. There are dependent stones.There is prominence of the common duct. Pancreas: Pancreas is mildly atrophic. There is mild edema in and around the pancreatic head. Spleen: Spleen is unremarkable. There is an accessory spleen in the left upper quadrant. Adrenals: unremarkable Kidneys and ureters: Multiple bilateral renal cysts are again identified. There is increased echogenicity in the central renal cyst on the right suggesting hemorrhage, image 46 series 2. There are multiple nonobstructing left renal stones. There are no right renal stones. There is right pelvocaliectasis and ureterectasis. There is a 3.4 mm stone at the right ureterovesical junction. There is no pelvocaliectasis or ureterectasis on the left. There are no left ureteral stones. Stomach and bowel: Stomach is almost completely empty. Rotation is normal. Small bowel is mildly distended with fluid and air. There is no obstruction. Terminal ileum is unremarkable.There is no pericecal inflammation. Appendix is only partially visualized.Colon is incompletely distended which limits evaluation. There is scattered diverticulosis Appendix: See stomach and bowel PELVIS: Bladder: Bladder is almost empty. There is asymmetric bladder wall thickening. Reproductive: The prostate is mildly prominent with calcifications. Seminal vesicles are unremarkable. ABDOMEN and PELVIS: Intraperitoneal space: There is a small amount of free fluid in the abdomen and pelvis. There is no free air Bones/joints: Bony structures are osteopenic. There is multilevel degenerative change. There is a new compression fracture at L3. Lesion /hemangioma T10 is unchanged. There has been progression of L5-S1 disc disease. Soft tissues: There are bilateral fat-containing inguinal hernias. There is a small amount of fluid in the inguinal hernias left greater than right. Vasculature: There are vascular calcifications. Lymph nodes: There is no para-aortic adenopathy. IMPRESSION: Mild right pelvocaliectasis and ureterectasis with a 3.4 mm stone at the right ureterovesical junction; multiple bilateral renal cysts with probable hemorrhage in a right renal cyst; interval increase in size of the left lower lobe mass now with multiple bilateral pulmonary nodules consistent with metastases; bilateral pleural effusions with basilar airspace disease; mediastinal and hilar adenopathy; gallstones, no ductal dilatation; prominence of the pancreatic head with peripancreatic edema suggest possible pancreatitis; L3 compression fracture Additional nonemergent findings as described above.
[2017-08-29] MEDS ORDERED: Sodium Chloride 0.9% 1,000 ML IV STA (21:56)
[2017-08-29] MEDS ORDERED: Morphine 2 mg/ml ISec IVP PRN ×2 (22:04→22:26)
[2017-08-29] MEDS ORDERED: Morphine 2 mg/ml ISec ONE (22:10)
[2017-08-30] MEDS ORDERED: Morphine 2 mg/ml ISec IVP SCH
--- NOTE | 2017-08-30 09:12 | RAD ---
HISTORY: admission COMPARISON: No prior. FINDINGS: LUNGS: Bilateral infiltrates left larger than right. Increasing right upper lobe mass now measures 2.6 cm. PLEURA: No significant pleural effusion identified, no pneumothorax apparent. CARDIOVASCULAR: No radiographic findings to suggest acute or significant cardiovascular disease. Venous access catheter in stable, satisfactory position. Last feels OSSEOUS STRUCTURES: No significant abnormalities. VISUALIZED UPPER ABDOMEN: Normal. OTHER FINDINGS: None. IMPRESSION: Progressive lower lobe infiltrates and pulmonary nodules.
[2017-08-30] MEDS: Albuterol-Ipratrop 3 mg / 0.5 (3 ml) UD IH SCH ×4 (09:28→19:03)
[2017-08-30] MEDS ORDERED: DANAZOL PO SCH (10:00)
[2017-08-30] MEDS: MethylPREDNISolone 40 mg Vial IVP SCH ×3 (10:37→21:19)
[2017-08-30] MEDS ORDERED: Albuterol-Ipratrop 3 mg / 0.5 (3 ml) UD IH SCH (12:00)
[2017-08-30] MEDS: Morphine 2 mg/ml ISec IVP PRN (15:46)
[2017-08-30] MEDS: Acetylcysteine 20% Inhal Soln (4ml) IH SCH (19:03)
--- NOTE | 2017-08-30 23:09 | CARD ---
APPROVED REPORT EKG Measurement Heart [id number] <Conclusion> Normal sinus rhythm Possible Left atrial enlargement Right bundle branch block Abnormal ECG
--- NOTE | 2017-08-31 03:34 | CON ---
DATE: 08/30/2017 This is Ash Oseguera's consult for Dr. Gonsales on the medical floor. CHIEF COMPLAINT: Severe back pain. HISTORY OF PRESENT ILLNESS: The patient is an 86-year-old male admitted by the Emergency Room for evaluation of severe pain to his back with subsequent workup showing nephrolithiasis along with a compression fracture. The patient is known to Dr. Gonsales for weekly visits in which Procrit and Neupogen are given almost on a weekly basis for his severe myelodysplastic syndrome with transfusions also being required periodically, most recently almost on a weekly basis. At present, he reports his pain is better. After conversation with his sister and his brother at the bedside, he continues to request full code status, which is what we will continue, with the patient now also known to suffer from cancer of the lung, for which the patient and family requested no active treatment to be given, with these results now noted on his most recent scans. He is at present resting comfortably, also recently Parkinson's disease was diagnosed with significant tremor with a significant gait disturbance for this patient. PAST MEDICAL HISTORY: Myelodysplastic syndrome, severe, requiring transfusions and weekly Procrit and Neupogen. He also suffers from hypertension, BPH, significant gait disturbance with Parkinson's disease, pedal edema, cancer of the lung, hypertension. ALLERGIES: NO KNOWN ALLERGIES. MEDICATIONS: Include hydralazine, Cardura, Diovan, DuoNeb, acetylcysteine, Exjade, metoprolol, Mirapex, Proscar and Zofran. FAMILY HISTORY: None. SOCIAL HISTORY: Nonsmoker. Non-ethanolic. Otherwise noncontributory. Brother and sister at the bedside. REVIEW OF SYSTEMS: A 12-point review of systems was done, which was negative to questioning except as per items mentioned in history of present illness. PHYSICAL EXAMINATION: GENERAL: He appears frail. VITAL SIGNS: Temperature 98.6, pulse 65, respirations 20, blood pressure 117/55 with a pulse ox of 93%. HEENT: Tongue is dry. NECK: Supple. HEART: Regular rate. Occasional ectopic beat. LUNGS: Scattered rhonchi. ABDOMEN: Soft. Nontender. EXTREMITIES: +1 edema of the feet of chronic nature with induration. NEUROLOGIC: He is awake and alert with sluggish responses to questioning with parkinsonian tremor at rest with decreased strength to customer services coordinator. SKIN: Otherwise warm, dry with known decubitus ulcers of his back side slowly improving. NEUROLOGIC: Patient is known to have a significant gait disturbance. LABORATORY DATA: Labs were done. White blood cell count of 14.2, hemoglobin of 8.1, status post transfusion earlier in this week, hematocrit of 25.2, platelet count of 61,000. His INR is 1.11 with a chem metabolic panel showing a BUN of 57, creatinine of 1.9, with otherwise normal chem metabolic panel. His urinalysis showed large amount of blood. Patient had a chest x-ray done earlier today. It was read as progressive lower lobe infiltrates and pulmonary nodules. He had a CT scan of the abdomen and pelvis done yesterday, it was read as mild right pelvocaliectasis and ureterectasis with a 3.4-mm stone at the right ureterovesical junction, multiple bilateral renal cysts with probable hemorrhage and the right renal cyst interval increase in size, left lower lobe mass, now with multiple bilateral pulmonary emboli consistent with metastases, bilateral pleural effusions with bibasilar airspace disease, mediastinal and hilar adenopathy, gallstones, no ductal dilatation prominence of the pancreatic head with peripancreatic edema suggestive of possible pancreatitis with a L3 compression fracture. Patient had EKG done, it was not read by the table games shift manager yet; however, the preliminary reading by the Emergency Room physician was to be read. ASSESSMENT: The assessment for this patient is that of intractable pain to the flank with nephrolithiasis, compression fracture of L3 with questionable pneumonia, decubitus ulcer at the back side, severe myelodysplastic syndrome with hemoglobin and platelets compromised with need for transfusion with Procrit, Neupogen almost on a weekly basis, Parkinson's disease with gait disturbance, peripheral edema, cancer of the lung with no active treatment as per patient and family's request, hypertension, atherosclerotic cardiovascular disease, benign prostatic hyperplasia, gait disturbance, chronic obstructive pulmonary disease. PLAN: Plan for this patient after conversation with Dr. Gonsales is to admit to the Med-Surg floor with consults recommended with Dr Hastings, Urology; Dr. Figueredo, as there is a question of pancreatitis; Dr. Diaz, Pulmonary; Dr. Og for his kidney function, and Dr Shravan Sebastian regarding possible compression fracture evaluation. We will continue his present medical regimen with narcotic analgesics given for pain as needed with antibiotics as indicated. This is a complex patient with a comprehensive medically necessary and appropriate history and physical carried out at the bedside in excess of 90 minutes [id number] time with the patient and his family members for which questions were answered to their satisfaction. It should be noted that the patient's amylase was within normal range, with ultrasound recommended by Dr. Figueredo. We will monitor clinically with labs. Fabian Rosado MD
--- NOTE | 2017-08-31 04:41 | CON ---
DATE: 08/30/2017 REASON FOR CONSULTATION: Cough, shortness of breath, abdominal pain. HISTORY OF PRESENT ILLNESS: This is an 86-year-old gentleman with a past medical history significant for myelodysplasia, hypertension, adenocarcinoma of the lung, lung fibrosis and has a history of renal stone, comes in with a right lower abdominal pain, found to have a ureteral stone. Has mild cough and shortness of breath. No chest pain. No nausea. No leg pain or leg swelling. PAST MEDICAL HISTORY: Myelodysplasia, hypertension, lung fibrosis, adenocarcinoma of the lung and BPH. ALLERGIES: NONE KNOWN. FAMILY HISTORY: No significant cardiopulmonary disease reported. SOCIAL HISTORY: Nonsmoker, nondrinker. MEDICATIONS: He is on Mucomyst 4 mL inhaled twice a day, hydralazine 25 mg three times a day, Cardura 8 mg twice a day, Diovan 320 mg daily in the morning, DuoNeb q.4 hours p.r.n. and four times daily [id number], metoprolol tartrate 50 mg twice a day, MiraLax three times a day, morphine 2 mg IV q.4 hours p.r.n., Proscar 5 mg daily, Solu-Medrol 30 mg q.8 hours and Tylenol p.r.n. REVIEW OF SYSTEMS: No headache, no rhinitis. Has some cough, shortness of breath. No chest pain. Has a right lower quadrant tenderness. No leg pain or leg swelling. PHYSICAL EXAMINATION: GENERAL: Lying in the bed, in no acute distress. VITAL SIGNS: Temp is 98, heart rate is 82, respiratory rate is 20, blood pressure 109/54, pulse ox of 95% on nasal cannula. HEENT: Moist mucous membrane. Crowded airway. Mallampati score is IV. NECK: Supple. No JVD. LUNGS: Have scattered rhonchi. HEART: S1, S2. ABDOMEN: Has right lower quadrant tenderness on palpation. EXTREMITIES: No edema. NEUROLOGIC: Awake, alert. Follows simple command. LABORATORY DATA: Shows hemoglobin 8.1, hematocrit 25.2, WBC of 14.2, platelet . INR 1.1. PTT is 33. Sodium 146, potassium 4.6, chloride 106, bicarbonate 27, BUN 57, creatinine 1.9, glucose 125, calcium 9.9 and total bili 0.3. AST 16, ALT 28, alk phos is 73. LDH 341. Troponin 0.01. Albumin 3.9 and lipase is 77. Urinalysis shows rbc too numerous to count, wbc . Microbiology, blood culture has been negative. He had a chest x-ray done in the ER shows progressive lower lobe infiltrate and pulmonary nodule. Has a CAT scan of the abdomen done, which shows mild right pelvocaliectasis and ureterectasis with 3.4 mm stone in the right ureterovesical junction. There are multiple bilateral renal cysts probably some hemorrhagic. There are left lower lobe mass with multiple bilateral pulmonary nodules consistent with metastatic disease, has a small bilateral pleural effusion and basilar atelectasis. There is also mediastinal and hilar adenopathy. Has a gallstone. No ductal dilatation. There is L3 compression fracture. IMPRESSION AND PLAN: Ureteral stone with hematuria, left lung adenocarcinoma, chronic obstructive lung disease, status post pneumonia in the past, pulmonary fibrosis, myelodysplastic syndrome, anemia, history of Parkinson disease, hypertension, atherosclerosis, vascular disease. Spoke to patient and brother at bedside. All the questions answered. Continue pain medication. Continue bronchodilator. Keep head at 45 degrees. May add Flomax 0.4 mg daily. Continue pain management. May need Oncology followup. Continue IV fluid. Follow up labs in the morning. Thank you and we will follow with you. Brenton Diaz MD
[2017-08-31] MEDS: MethylPREDNISolone 40 mg Vial IVP SCH ×3 (05:48→22:17)
[2017-08-31 06:44] LABS: BASO # 0.01 K/mm3 (0.0-2.0); BASO % 0.1 % (0.0-3.0); GRAN # 7.21 (1.4-6.5); GRAN % 85.1 % (50.0-68.0); HEMOGLOBIN 7.2 g/dL (14.0-18.0); LYMPH # 0.6 (1.2-3.4); LYMPH % 6.7 % (22.0-35.0); MEAN CELL VOLUME 89.4 fl (80.0-105.0); MEAN CORPUSCULAR HEMOGLOBIN 28.3 pg (25.0-35.0); MEAN CORPUSCULAR HGB CONC 31.7 g/dl (31.0-37.0); MEAN PLATELET VOLUME 11.6 fl (7.0-11.0); MONO # 0.7 (0.1-0.6); MONO % 8.1 % (1.0-6.0); RBC 2.54 10^6/uL (3.5-6.1); RED CELL DISTRIBUTION WIDTH 17.9 % (11.5-14.5); WHITE BLOOD COUNT 8.5 10^3/ul (4.5-11.0)
[2017-08-31 07:18] LABS: ALB/GLOB RATIO 1.2 (1.1-1.8); ALBUMIN 3.4 g/dL (3.0-4.8)
[2017-08-31] MEDS: Acetylcysteine 20% Inhal Soln (4ml) IH SCH ×2 (07:24→19:18)
[2017-08-31] MEDS: Albuterol-Ipratrop 3 mg / 0.5 (3 ml) UD IH SCH ×4 (07:24→19:18)
--- NOTE | 2017-08-31 08:27 | CON ---
DATE: 08/30/2017 REASON FOR CONSULTATION: Abdominal pain, abnormal CAT scan, rule out pancreatitis. HISTORY OF PRESENT ILLNESS: This is a 86-year-old patient with past medical history of lung cancer, metastatic; history of myelodysplasia, hypertension, lung fibrosis, was brought to the hospital by his family for complaints of increased right-sided abdominal pain. No vomiting. No fever. He described the pain mainly in the upper abdomen towards the right side. PAST MEDICAL HISTORY: Significant as above, history of COPD, lung cancer, history of thrombocytopenia, enlarged prostate. SOCIAL HISTORY: Denies any smoking or alcohol now. FAMILY HISTORY: Noncontributory. Brother was at bedside at the time of examination. REVIEW OF SYSTEMS: Chronically patient is weak. Patient gives a history of urinary incontinence and episodes of hematuria. ALLERGIES: NO KNOWN DRUG ALLERGY. PHYSICAL EXAMINATION GENERAL: Patient is lying on the bed, not in acute distress. VITAL SIGNS: Temperature is 98.8, pulse 84, blood pressure 118/55, O2 saturation is 88%. HEENT: Atraumatic, anicteric. NECK: Supple. HEART: S1 and S2 heard. LUNGS: Bilateral air entry present, slightly reduced at the base. ABDOMEN: Soft. There was tenderness present in the right upper quadrant area and epigastric area. There is no rebound or guarding. EXTREMITIES: No cyanosis, no clubbing. NEUROLOGICAL: The patient is alert. Overall the patient appears weak and cachectic. LABORATORY DATA: Hemoglobin 8.1, hematocrit 25.2, WBC is 14.2, platelets 61. Review of the labs, BUN 57, creatinine 1.9. Lipase 77. LFTs otherwise appear normal. The patient's creatinine 3 months ago was 1.3. Patient had a CAT scan of the abdomen and pelvis done with no p.o. or IV contrast, which was reviewed large lung mass with multiple lung lesions noticed, suggests metastatic. Patient does have some haziness around the pancreatic head area. The patient's gallbladder shows some small stones, slight prominence of the common bile duct noticed. In addition, patient also has a pelvocaliectasis with small stone in the right ureterovesical junction. IMPRESSION: This is an 86-year-old patient with metastatic lung cancer, myelodysplasia, with severe chronic obstructive pulmonary disease, presented with worsening of the right upper quadrant abdominal discomfort, epigastric pain. The patient's CAT scan showed some haziness around the pancreatic head. Slight prominence of the common bile duct was noticed. The patient has gallstones. The liver function tests appear normal. The patient also has the ureterovesical calculus noticed. The patient appears clinically cachectic. The patient is pancytopenic, have history of myelodysplasia. The differential diagnosis cannot rule out mild pancreatitis in this patient. Patient has multiple other comorbidities including metastatic lung cancer, myelodysplasia, ureteric stone. RECOMMENDATIONS: We would recommend now is: 1. Ultrasound scan of the abdomen to further evaluate the common bile duct and gallbladder. 2. We will continue the clear liquid diet. 3. Patient also has acute kidney injury on the top of chronic kidney disease. IV hydration. Advised strict intake and output. We will continue to closely follow up his care and suggest further management based on the clinical course. Valorie Figueredo MD MTDJayshree
[2017-08-31] MEDS ORDERED: Sod Polystyrene Sulf 15 gm/60 ml Susp PO ONE (09:44)
[2017-08-31] MEDS ORDERED: Home Med 1 UNIT PO SCH (10:00)
--- NOTE | 2017-08-31 10:45 | RAD ---
HISTORY: shortness of breath, ronchorous breath sounds COMPARISON: 08/29/2017 FINDINGS: LUNGS: No change in left-sided pulmonary nodule and infiltrate in left lower lobe PLEURA: No significant pleural effusion identified, no pneumothorax apparent. CARDIOVASCULAR: Moderate cardiomegaly OSSEOUS STRUCTURES: No significant abnormalities. VISUALIZED UPPER ABDOMEN: Normal. OTHER FINDINGS: None. IMPRESSION: No change in left-sided lower lobe infiltrate and left upper lobe pulmonary nodule
[2017-08-31] MEDS: cefTRIAXone 1 gm 1 GM/100 ML BAG IVPB SCH (11:30)
--- NOTE | 2017-08-31 11:57 | US ---
HISTORY: r/o pancreatitis COMPARISON: None. TECHNIQUE: Sonographic evaluation of the abdomen. FINDINGS: LIVER: Measures cm. Normal echogenicity of the liver parenchyma. No mass. No intrahepatic bile duct dilatation. GALLBLADDER: Gallstones. COMMON BILE DUCT: Measures mm. No stones. No dilatation. PANCREAS: Unremarkable as visualized. No mass. No ductal dilatation. RIGHT KIDNEY: Measures cm. Normal echogenicity. No calculus, mass, or hydronephrosis. Multiple renal cysts the largest measuring 9 centimeters. LEFT KIDNEY: Measures cm. Normal echogenicity. No calculus, mass, or hydronephrosis. Multiple renal cysts largest measuring 7 centimeters. SPLEEN: Normal in size and contour. No mass. AORTA: No aneurysmal dilatation. IVC: Unremarkable. OTHER FINDINGS: None. IMPRESSION: Multiple bilateral renal cysts. Cholelithiasis.
[2017-08-31] MEDS ORDERED: Sodium Chloride 0.9% 1,000 ML IV SCH (12:00)
--- NOTE | 2017-08-31 12:40 | CP.PCM.PN ---
Subjective - Date & Time of Evaluation Date of Evaluation: 08/31/17 Time of Evaluation: 07:20 - Subjective Subjective: Heme-onc Progress Note, Casey Francisco DO, IM PGY-2 This is an 86 yo M with PMH of MDS (transfusion dependent, on regular injections of Procrit and Neupogen), HTN, Lung fibrosis, and urinary incontinence who presented to [facility] with complaint of severe back pain, found to have likely compression fracture on imaging. Heme-onc was consulted for leukocystosis, and his hx of MDS. Patient seen and examined at bedside. Patient somewhat lethargic, answering some questions, not speaking much, but reports feeling terrible, due to shortness of breath. Notable ronchi at upper lobes bilaterally on auscultation , decreased breath sounds at bases, but patient denies productive cough (does exhibit wet cough at bedside during exam). Not grossly tachypnic or cyanotic on exam. Denies chest pain, emesis, fevers, chills. Objective - Vital Signs/Intake and Output Vital Signs (last 24 hours): Temp Pulse Resp BP Pulse Ox 98.0 F 82 20 127/60 93 L 08/31/17 07:27 08/31/17 07:27 08/31/17 07:27 08/31/17 07:27 08/31/17 07:27 Intake and Output: 08/31/17 08/31/17 06:59 18:59 Intake Total 1680 120 Output Total 380 Balance 1300 120 - Medications Medications: Current Medications Acetaminophen (Tylenol 325mg Tab) 650 mg PO Q4H PRN PRN Reason: Pain, Mild (1-3) Acetylcysteine (Acetylcysteine 20%) 4 ml IH BIDRESP [facility] Last Admin: 08/31/17 07:24 Dose: 4 ml Albuterol/Ipratropium (Duoneb 3 Mg/0.5 Mg (3 Ml) Ud) 3 ml IH QIDRESP [facility] Last Admin: 08/31/17 11:24 Dose: 3 ml Albuterol/Ipratropium (Duoneb 3 Mg/0.5 Mg (3 Ml) Ud) 3 ml IH Q4 PRN PRN Reason: Cough and congestion Doxazosin Mesylate (Cardura) 8 mg PO BID [facility] Last Admin: 08/31/17 10:04 Dose: 8 mg Finasteride (Proscar) 5 mg PO DAILY [facility] Last Admin: 08/31/17 10:04 Dose: 5 mg Home Med (Home Med) 1 unit PO DAILY [facility] Hydralazine HCl (Apresoline) 25 mg PO TID [facility] Last Admin: 08/31/17 10:00 Dose: 25 mg Ceftriaxone Sodium (Rocephin 1 Gram Ivpb) 1 gm in 100 mls @ 100 mls/hr IVPB DAILY [facility] PRN Reason: Protocol Doxycycline Hyclate 100 mg/ (Sodium Chloride) 100 mls @ 100 mls/hr IVPB Q12 [facility] PRN Reason: Protocol Last Admin: 08/31/17 10:05 Dose: 100 mls/hr Sodium Chloride (Sodium Chloride 0.9%) 1,000 mls @ 100 mls/hr IV .Q10H [facility] Methylprednisolone (Solu-Medrol) 30 mg IVP Q8 [facility] Last Admin: 08/31/17 05:48 Dose: 30 mg Metoprolol Tartrate (Lopressor) 50 mg PO BID [facility] Last Admin: 08/31/17 10:04 Dose: 50 mg Morphine Sulfate (Morphine) 2 mg IVP Q4H PRN PRN Reason: Pain, severe (8-10) Last Admin: 08/30/17 15:46 Dose: 2 mg Pramipexole Dihydrochloride (Mirapex) 0.125 mg PO TID [facility] Last Admin: 08/31/17 10:05 Dose: 0.125 mg Tamsulosin HCl (Flomax) 0.4 mg PO DAILY [facility] Last Admin: 08/31/17 10:04 Dose: 0.4 mg Valsartan (Diovan) 320 mg PO QAM [facility] Last Admin: 08/30/17 10:42 Dose: 320 mg - Labs Labs: 08/31/17 06:25 08/31/17 10:30 PT 12.7 SECONDS (9.4-12.5) H 08/29/17 17:30 INR 1.11 (0.93-1.08) H 08/29/17 17:30 APTT 33.0 Seconds (25.1-36.5) 08/29/17 17:30 - Constitutional Appears: Non-toxic, No Acute Distress (reports shortness of breath and feeling poorly, but does not exhibit this, and appeared to be resting comfortably in bed prior to interview/exam), Other (somewhat lethargic, but easily aroused) - Head Exam Head Exam: ATRAUMATIC, NORMAL INSPECTION, NORMOCEPHALIC - Eye Exam Eye Exam: EOMI, Normal appearance. absent: Conjunctival injection Pupil Exam: absent: Irregular, NORMAL ACCOMODATION, Unequal - ENT Exam ENT Exam: Mucous Membranes Moist Additional comments: no petechiae appreciated - Neck Exam Neck Exam: Full ROM. absent: Lymphadenopathy, Thyromegaly - Respiratory Exam Respiratory Exam: Decreased Breath Sounds (mild-moderately decreased breath sounds in all correa, most prominent at bilateral bases), Rhonchi (at bilateral upper lobes), NORMAL BREATHING PATTERN. absent: Clear to Ausculation Bilateral , Rales, Wheezes - Cardiovascular Exam Cardiovascular Exam: REGULAR RHYTHM, RRR, +S1, +S2. absent: Bradycardia, Tachycardia, Irregular Rhythm, JVD, +S4 - GI/Abdominal Exam GI & Abdominal Exam: Soft, Normal Bowel Sounds. absent: Distended, Firm, Tenderness - Extremities Exam Extremities Exam: Normal Inspection. absent: Calf Tenderness, Pedal Edema, Tenderness - Neurological Exam Additional comments: Lethargic but easily arousable, oriented to self and location, seems to have delay between some questions being asked and answered Following commands appropriately Motor appears grossly intact and equal bilaterally - Psychiatric Exam Psychiatric exam: Normal Affect, Normal Mood - Skin Skin Exam: Dry, Intact, Normal Color, Warm Assessment and Plan - Assessment and Plan (Free Text) Assessment: This is an 86 yo M with PMH of MDS (transfusion dependent, on regular injections of Procrit and Neupogen), HTN, Lung fibrosis, and urinary incontinence who presented to [facility] with complaint of severe back pain, found to have likely compression fracture on imaging. Heme-onc was consulted for leukocystosis, and his hx of MDS. 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 - worsened Nephrolithiasis L3 compression fracture Worsening renal function Hyperkalemia Will need to continue Procrit and Neupogen injections while inpatient Pending authorization for Revlimid Known to have lung cancer, but as per patient and family, wants no interventions for this Worsening renal function today, Renal has been consulted, appreciate their recs Leukocytosis improved, may be reactive to pain vs infection, but remains afebrile, continue to monitor GI consulted for possible pancreatitis Pain control X-ray and EKG ordered due to complaint of shortness of breath in setting of hyperkalemis, will f/u Kayexelate already ordered by primary for hyperkalemia, will obtain K recheck and f/u Patient reviewed and discussed at length with attending, Dr. Gonsales
--- NOTE | 2017-08-31 12:49 | CARD ---
APPROVED REPORT EKG Measurement Heart [id number] <Conclusion> Sinus rhythm withAPCs RBBB NSSTW changes Q in 3
--- NOTE | 2017-08-31 14:02 | HP ---
Patient is seen on 08/30/2017. The reason is patient complained of abdominal pain that seems worse and could not stay home. He also has been coughing and has some difficulty getting the phlegm out. Patient also feels generally weak. HISTORY OF PRESENT ILLNESS: Patient is an 86-year-old male with history of myelodysplasia syndrome that has been for years, over maybe 10 years, being treated with Oncology, Dr. Gonsales, with blood transfusions, oral chemotherapeutic agents, and seems stable despite of his worsening of his myelodysplastic syndrome. Patient came in today with worsening abdominal pain over the last few hours. He does localize the pain more on the right side and patient came for evaluations. No vomiting, no nausea, no diarrhea, no fever, no chills. Although patient also mentions if he has been coughing, he has difficulty getting the phlegm out and has some blood-tinged sputum and he seems compliant with all of his meds. There is no other complaint. He takes his blood pressure medications and prostate medications. PAST MEDICAL HISTORY: Noted for: 1. Myelodysplasia syndrome with pancytopenia, has history of multiple and recurrent blood transfusions. He has been on Epogen and Neupogen and also oral chemotherapeutic agents, iron chelating agents, and seems stable. 2. He does also have lung fibrosis. 3. He does have also lung CA, has been treated by Dr. Gonsales, positive biopsy. 4. He does have enlarged prostate and he has medication for that. Patient also has generalized weakness, thrombocytopenia in the past, anemia in the past and still having. Patient also has significant hypertension, it seems better controlled now. 5. Lung fibrosis, lung CA, and multiple nodules in the lung. 6. COPD. ALLERGIES: NO KNOWN ALLERGIES. FAMILY HISTORY: Patient is stable. No significant past medical history. REVIEW OF SYSTEMS: As in the present illness. He does have generalized weakness. He walks with a walker. He does have his brother, very psychiatric technician assistant to him and seems stable. He does have some trouble with urination because of prostate enlargement, coughing, dyspnea. No chest pain. He does have some weakness allover. He uses a walker. His mental status is still alert, awake, oriented x3, but does have some forgetfulness. PHYSICAL EXAMINATION VITAL SIGNS: On admission is as follows: On the , his temperature 98.8, his heart rate was 84, blood pressure 133/60, respiration is 20, and saturating was 93% on 3 liter nasal cannula. Earlier was 100%. HEAD AND NECK: Normal. No JVD, no thyromegaly. CHEST: Diminished breath sounds bilaterally. No wheezing. CARDIAC: First sound and second sound normal. ABDOMEN: Soft, obese, mild general tenderness allover. Bowel sounds intact. EXTREMITIES: No edema. NEUROLOGIC: Normal except the generalized weakness in the lower extremities. Patient also, on facial exam, he does have some blepharitis on the left eye than the right, and he does have some skin redness and plethora of his facial skin area. LABORATORY STUDIES: On admission, he has white count 14.2, hemoglobin 8.1, hematocrit 25.2, platelets 61. Chemistries: Sodium 146, potassium 4.6, chloride 106, bicarb 27, BUN 57, creatinine 1.9, blood sugar 125. Liver enzymes are normal. His troponin is negative. His lipase is normal. Albumin and globulin is normal with normal ratio. Patient also in emergency room, had chest x-ray done, which shows bilateral infiltrate, left larger than right, increasing right upper lobe mass, now measured 2.6 cm. He has a [address] abdomen and pelvis, which shows multiple bilateral renal cysts again are noted, increased echogenic cortical renal cysts on the right, suggesting hemorrhage. There are also multiple non-obstructing left renal stones. There are no right renal stones. There is right ureterovesical junction 3.4-mm stone on the ureter. That is all the findings, otherwise, the pancreas here showed mildly atrophic. There is mild edema in and around pancreatic head. There is accessory spleen on the left. There are vascular calcifications. There is bilateral fat-containing inguinal hernias. Small bowel is mildly distended with fluid and air. There is no obstructions in terminal ileum and there is pericecal inflammations. Appendix only partially visualized. According to the patient, he had a history of appendectomy. IMPRESSION AND PLAN: 1. Abdominal pain. Etiology could be that kidney stone causing the pain. We will give the patient intravenous fluid, pain medication p.r.n. Right now, he does not complain of any pain when I examine him, so we will monitor and observe. Right renal ureterovesical junction stone probably causing these minimal dilation. We will get Dr. Hastings, Urology consult for evaluation. 2. Pulmonary ellis, patient does have lung mass, has multiple nodules, has infiltrate increasing. We will put the patient on intravenous antibiotic. He receives Rocephin and doxycycline. We will continue intravenous antibiotic for now. We will give him also intravenous steroids, Solu-Medrol, and we will get Pulmonary consult for further evaluation and management. Continue oxygen if necessary. We will give the patient BiPAP. We will continue current therapy. 3. Acute renal failure. Usually, his creatinine is within normal range. If it got worse, we will give him intravenous fluids. We will resume his blood pressure medicine for now and monitor his electrolytes and kidney functions. Repeat labs in the morning and we will get Dr. Dwain Og for Renal consult. 4. Abdominal pain, again, right-sided more pain, however, patient does not have significant tenderness on physical examination; however, right-sided and vascular calcification with possibility of ischemic right-sided colon will be considered. We will get Dr. Figueredo for evaluation on that case. 5. Patient does have history of myelodysplasia, thrombocytopenia, pancytopenia, bone marrow failure. We will get Dr. Gonsales, Oncology consult. We will continue current medications, which include intravenous fluids, Mucomyst, chest PT. We will give him doxazosin 8 mg b.i.d., hydralazine 25 t.i.d. We will resume valsartan 320. Continue nebulizer treatment every 4 hours 4 times a day and every 4 hours p.r.n., Flomax 0.4 once a day, continue deferoxamine or iron chelating agents, metoprolol 50 mg b.i.d., continue Mirapex 0.125 t.i.d. for his leg cramps. Continue morphine p.r.n. only for abdominal pain, finasteride 5 mg and Rocephin 1 mg daily, Solu-Medrol 30 mg IV q.8, Tylenol p.r.n. has been added and we will also give doxycycline 100 mg b.i.d. Continue current therapy. Follow up with the other consultants. Mook Magallon MD [facility] # [id number]
[2017-08-31] MEDS: Sodium Chloride 0.9% 1,000 ML IV SCH ×2 (15:20→18:36)
[2017-08-31 20:22] LABS: CREATININE,RANDOM URINE 115 mg/dL
--- NOTE | 2017-09-01 02:22 | PN ---
DATE: 08/31/2017 PULMONARY PROGRESS NOTE REFERRING PHYSICIAN: Dr. Magallon. SUBJECTIVE: He is lying in the bed, head at 45 degrees. Feels a little better, has some cough and sputum production. No hemoptysis, no hematemesis. Abdominal pain a little better. No leg pain or leg swelling. OBJECTIVE: GENERAL: In no acute distress. VITAL SIGNS: Temperature is 98, heart rate is 94, respiratory rate is 18, blood pressure 123/61, pulse ox of 95% on 4 liters nasal cannula. HEENT: Moist mucous membrane. Crowded airway. NECK: Supple. No JVD. LUNGS: Has a scattered rhonchi. HEART: S1 and S2. ABDOMEN: Soft, nontender, nondistended. EXTREMITIES: No edema. NEUROLOGIC: Awake and alert, follows simple command. MEDICATIONS: He is on Mucomyst 4 mL inhaled twice a day; hydralazine 25 mg three times a day; Cardura 8 mg twice a day; doxycycline 100 mg twice a day; albuterol/Atrovent nebulizer q. 4 hours p.r.n., also q.i.d. round the clock; Flomax 0.4 mg daily; metoprolol tartrate 50 mg twice a day; MiraLax 0.125 mg three times a day; morphine 2 mg q. 4 hours p.r.n.; Proscar 5 mg daily; Rocephin 1 g IV daily; IV fluid normal saline 75 mL/hour; Solu-Medrol 30 mg q. 8 hours; Tylenol p.r.n. basis. LABORATORY DATA: Shows hemoglobin 7.2, hematocrit 22.7, WBC 8.5, platelet is 55. Sodium 144, potassium 5.3, chloride 109, bicarbonate 21, BUN 65, creatinine 2.9, glucose 148, AST 12, ALT 20, alk phos is 52. Albumin 3.4. Urinalysis shows rbc too numerous to count, wbc 1 to 3. Urine culture has gram-negative rods. Blood culture has been negative. Chest x-ray done today shows no change in the left-sided lower lobe infiltrate and left upper lobe pulmonary nodule. IMPRESSION AND PLAN: Ureteral stone with hematuria. He has a adenocarcinoma of the lung in left lung area, chronic obstructive lung disease, status post pneumonia, pulmonary fibrosis, myelodysplastic syndrome, anemia, history of Parkinson disease, hypertension, atherosclerosis, vascular disease, may have urinary tract infection. Pulmonary point of view, doing okay. I spoke to the patient's brother at bedside. All the questions answered. We will have speech therapy evaluate for oropharyngeal dysphagia. I spoke to nursing staff. Continue antibiotics, IV and inhaled bronchodilator. Keep head elevated at 45 degrees. Started on IV fluid. Follow BUN and creatinine. Thank you and we will follow with you. Brenton Diaz MD
--- NOTE | 2017-09-01 05:07 | PN ---
DATE:08/31/2017 SUBJECTIVE: Patient is comfortable, not in distress. PHYSICAL EXAMINATION: VITAL SIGNS: Temperature is 97.5, pulse 84, blood pressure 110/56. HEENT: Atraumatic, anicteric. NECK: Supple. HEART: S1 and S2 heard. LUNGS: Bilateral air entry present. ABDOMEN: Soft. Patient is still complaining of mild tenderness in the epigastric and right upper quadrant area. No rebound or guarding. EXTREMITIES: No cyanosis, no clubbing. LABORATORY DATA: Hemoglobin has gone down to 7.2, WBC is 8.5, platelets 55, low. IMPRESSION: This is an 86-year-old patient with large lung cancer, admitted with epigastric and right upper quadrant pain. CAT scan showed some haziness around the pancreatic head area. Also noticed to have ureterovesical calculus. History of myelodysplasia. RECOMMENDATIONS: He is advised to follow up with Dr. Gonsales. Abdominal ultrasound showed gallstones. Follow up with LFTs. Slowly advance the diet. Continue PPI. Valorie Figueredo MD [facility]
[2017-09-01] MEDS: MethylPREDNISolone 40 mg Vial IVP SCH ×3 (05:32→21:50)
[2017-09-01 06:46] LABS: MEAN CELL VOLUME 89.6 fl (80.0-105.0); MEAN CORPUSCULAR HEMOGLOBIN 28.6 pg (25.0-35.0); MEAN CORPUSCULAR HGB CONC 31.9 g/dl (31.0-37.0); PLATELET COUNT 57 10^3/uL (120.0-450.0); RBC 2.41 10^6/uL (3.5-6.1); WHITE BLOOD COUNT 6.1 10^3/ul (4.5-11.0)
[2017-09-01 07:03] LABS: HEMOGLOBIN 6.9 g/dL (14.0-18.0)
--- NOTE | 2017-09-01 07:13 | CON ---
DATE: 08/31/2017 The patient is admitted for Mook Magallon MD. REFERRING MD: Mook Magallon MD. REASON FOR CONSULTATION: Evaluation of a patient unknown to me, who presents with a rising BUN and creatinine in the setting of chronic kidney disease stage II/III. HISTORY OF PRESENT ILLNESS: The patient is a very pleasant 86-year-old white male who is seen together with his brother who is at his bedside. Patient has a history of myelodysplastic syndrome, currently receiving weekly injections of Neupogen and Procrit and requires transfusions on a p.r.n. basis. He follows with Dr. Gonsales. History of hypertension, history of BPH, history of Parkinson disease, history of adenocarcinoma of the lung. Patient was never a cigarette smoker. History of possible COPD and pulmonary fibrosis, patient has had a baseline BUN in the 30-50 range with a baseline creatinine in the 1.34 range to 1.4 range. Patient presented to the hospital on 08/29/2017 complaining of abdominal pain and dark urine. In the emergency room, he was noted to have TNTC red blood cells in his urine with a Gram-negative jeannine currently growing out of his urine. Imaging studies in the emergency room showed abdominal ultrasound, bilateral kidney stones with no obstruction. Bilateral renal cysts. Abdominal pelvic CT scan showed bilateral renal cysts, bilateral kidney stones with no obstruction. Patient had increased echogenicity of his kidneys and perhaps a hemorrhagic cyst in the right kidney. His chest CT scan showed a left lower lobe lung mass/infiltrate with bilateral pulmonary nodules. His chest x-ray showed a left lower lobe infiltrate with a left upper lobe nodule. On admission to the hospital, patient's BUN was 57 up from his baseline in the mid 30 to perhaps upper 40 range. His BUN today is 65. His creatinine had been in the 1.3-1.4 range consistent with chronic kidney disease stage II/III. It was 1.9 on admission and today's value was 2.9. His potassium level was elevated at 5.8 and it was repeated, post one dose of Kayexalate, it has come back at 5.3. We are asked to evaluate the patient for his rising BUN and creatinine in the setting of a possible Gram-negative jeannine urinary tract infection with no evidence for obstructive uropathy in a patient with bilateral kidney stones and renal cysts. PAST MEDICAL HISTORY: Significant for myelodysplastic syndrome, hypertension, BPH, Parkinson disease, history of lung cancer, history of COPD and pulmonary fibrosis. MEDICATIONS AT HOME: Include that of hydralazine, Diovan, pramipexole, Lopressor, Proscar, Cardura, Exjade, and danazol. ALLERGIES: HE HAS NO KNOWN ALLERGIES TO MEDICATIONS. CURRENT MEDICATIONS IN THE HOSPITAL: Include that of acetylcysteine, Apresoline, Cardura, Diovan is on hold, doxycycline, albuterol, Flomax, Exjade, metoprolol, Mirapex, morphine p.r.n., Proscar, Rocephin, normal saline 100 mL an hour, Solu-Medrol, and Tylenol p.r.n. SOCIAL HISTORY: No history of alcohol use presently. Remote history of cigarette smoking many years ago. FAMILY HISTORY: Father of gastric cancer. Mother of old age at the age of 98. REVIEW OF SYSTEMS: GENERAL: The patient, according to his brother, states appetite has been good. Weight has been stable. ENT: Denies any hearing or visual problems. PULMONARY: Increased shortness of breath with any type of exertion. History of COPD, history of pulmonary fibrosis, history of lung cancer. CARDIAC: No known history of ASHD. GI: Abdominal pain with negative findings on the CT scan. : History of chronic kidney disease stage II/III. ENDOCRINE: No history of diabetes. MUSCULOSKELETAL: No complaints. NEURO: Positive Parkinson disease. HEME/ONC: History of myelodysplastic syndrome, anemia, leukopenia, thrombocytopenia, and history of lung cancer. PSYCHIATRIC: History is negative. PHYSICAL EXAMINATION: GENERAL: Patient is currently seen on 5R. He is lying comfortable supine in bed, IV fluids are infusing. His brother is at bedside. Patient appears tremulous. VITAL SIGNS: Blood pressure is 127/60, temperature is 98.0 with a T-max of 99.8. Respiratory rate is 20 with a pulse of 82. Pulse ox is 93%. HEENT: Shows him to be normocephalic, atraumatic. Conjunctivae are pale. Sclerae are nonicteric. Pupils are equal, reactive to light and accommodation. Extraocular muscles are intact. Posterior appears normal. NECK: Supple. No neck vein distention. No lymphadenopathy. No bruits. CHEST: Scattered rhonchi. No wheezing. No rales. CARDIOVASCULAR: Shows a regular rate and rhythm without audible murmurs, rubs or gallops. ABDOMEN: Soft. Bowel sounds normal. There is no rebound, no guarding. No masses. BACK: No CVAT. No spinal tenderness. He does have trace to 1+ presacral edema. EXTREMITIES: Trace to 1+ pitting lower leg edema bilaterally. Diminished lower extremity pulses. No cyanosis or clubbing. NEURO: Shows him to be alert, oriented x3 with no gross focal sensory deficits. No obvious motor deficits. Positive bilateral tremors of his upper extremity. LABORATORY DATA AND IMAGING STUDIES: Imaging studies as noted above. Abdominal ultrasound as commented above, chest x-ray as commented above and chest and abdominal CT scan as commented above. Labs: CBC, white blood cell count 14.2 on admission with a hemoglobin of 8.1; today 8.5 with a hemoglobin of 7.2, platelet count is low at 55,000. Coags, PT 12.7 with an INR of 1.11 and PTT is 33. Chemistries: Sodium of 144. Potassium was 5.8 this morning, on admission it was 4.6, post Kayexalate, it is 5.3. CO2 was 21 with a chloride of 109, BUN is 65 with a creatinine of 2.9. This is well above his baseline BUN in the 30-40 range with a baseline creatinine in the 1.3-1.4 range. Glucose is 148. Calcium is 9.0. Liver enzymes are normal. Albumin is 3.4. Urine showed 2+ protein, TNTC red blood cells, 1 to 3 white blood cells. Microbiology, urine cultures presently are positive for Gram-negative jeannine. Blood cultures are negative at 24 hours. ASSESSMENT: 1. Acute renal failure superimposed on chronic kidney disease stage II/III. This is in the setting of a possible Gram-negative jeannine urinary tract infection. There is no evidence for obstructive uropathy. Patient has bilateral kidney cysts and bilateral renal stones, but no obstruction. Concern here is that patient is receiving IV fluid hydration and he is becoming more edematous. I think we definitely need to continue hydration, but we need to be very cautious not to over hydrate the patient as he will likely become very edematous from fluid administration. We will obtain a urine sodium and creatinine. We will obtain a urine Yanick stain, though I did not feel that he has acute interstitial nephritis. We will avoid all nephrotoxic agents. We will discontinue angiotensin receptor yang therapy, which I already had been discontinued. 2. History of hypertension. Patient's blood pressure currently is controlled on present medical therapy. Patient may continue beta-yang therapy and again will avoid angiotensin receptor yang therapy. We may continue hydralazine therapy. 3. History of Parkinson disease. Patient will continue present medical therapy. 4. History of adenocarcinoma of the lung with perhaps worsening on the chest CT scan and chest x-ray. Patient is being evaluated by Oncology. 5. History of myelodysplastic syndrome. Patient remains anemic with thrombocytopenia. Presently, he is not leukopenic. 6. History of chronic obstructive pulmonary disease with pulmonary fibrosis, being followed by Pulmonary. 7. History of benign prostatic hypertrophy, currently on medication. PLAN: 1. We may safely and cautiously continue IV fluid hydration, but my concern is that of increasing fluid retention with worsening edema. 2. Obtain urine sodium, urine creatinine. 3. Obtain urine Yanick stain, though I did not feel he has acute interstitial nephritis. 4. Try and taper steroids as quickly as possible as this will likely elevate his BUN further. 5. Continue to hold angiotensin receptor yang therapy. 6. Continue appropriate treatment for his urinary tract infection, avoid any nephrotoxic antibiotics and, for that matter, any nephrotoxic agents in general. 7. No IV contrast or dye studies. 8. Close renal followup with accurate monitoring of I's and O's and daily labs. 9. Case discussed with Dr. Magallon in the morning. Thank you for letting me partake and share in the care of your patient. Dwain Og
[2017-09-01 07:16] LABS: ALB/GLOB RATIO 1.3 (1.1-1.8); ALBUMIN 3.4 g/dL (3.0-4.8); URIC ACID 10.7 mg/dL (3.5-8.5)
[2017-09-01] MEDS: Acetylcysteine 20% Inhal Soln (4ml) IH SCH ×2 (07:16→22:21)
[2017-09-01] MEDS: Albuterol-Ipratrop 3 mg / 0.5 (3 ml) UD IH SCH ×4 (07:16→22:21)
--- NOTE | 2017-09-01 08:13 | CON ---
DATE: 08/31/2017 GENITOURINARY CONSULTATION CHIEF COMPLAINT: Abdominal pain. HISTORY OF PRESENT ILLNESS: This is an 86-year-old male who is known to me from office visits. He presented to the emergency room complaining of a few days' history of right lower quadrant abdominal pain. Pain was moderate in nature, but worsening. He did not have any noted gross hematuria, but felt his urine was dark. He did have some increased urinary frequency, but denied any fevers or chills, denied any nausea or vomiting. During his workup, he was noted to have a small ureterovesical junction calculus. He was admitted for pain control. Currently, he reports pain has resolved. He is feeling better. He has a Branch catheter in place, which is draining clear urine. He has had no fever or chills. No nausea or vomiting since admission. He is unsure whether or not he has passed the stone. PAST MEDICAL HISTORY: Significant for myelodysplasia, lung mass, hypertension, gross hematuria in the past, phimosis with dorsal slit, urinary tract infections, and BPH. MEDICATIONS: Currently include Mucomyst, hydralazine, Cardura, Diovan, doxycycline, DuoNeb, Flomax, Lopressor, Mirapex, morphine, Proscar, Rocephin, Solu-Medrol and Tylenol. ALLERGIES: NO KNOWN DRUG ALLERGIES. FAMILY HISTORY: Noncontributory to this event. SOCIAL HISTORY: No current smoking or EtOH use. REVIEW OF SYSTEMS: Patient is awake and answering questions. Family is present who is also helping. Positive for weakness. Positive for lethargy. Positive for dark urine. Positive for right lower quadrant abdominal pain. Positive for difficulty ambulating. Positive for weakness. Positive for loss of hearing. Positive for cough and shortness of breath. Other systems are negative. PHYSICAL EXAMINATION: GENERAL: Patient is awake, lying in bed. He is able to answer questions, somewhat lethargic. VITAL SIGNS: Temperature of 98, pulse 82, BP 127/60, respirations are 20. NECK: Supple. There is no noted adenopathy. CHEST: Reveals a slightly increased inspiratory effort. CARDIAC: Shows positive S1, S2. There is moderate peripheral edema noted. ABDOMEN: The abdomen is soft and is mildly distended. There is no tenderness. There is no rebound or guarding. There is no CVA tenderness. 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 There is a Branch catheter in place, which is draining clear colored urine. EXTREMITIES: There is moderate edema. No cyanosis. LABORATORY EXAMINATION: WBC count was 14.2, now down to 8.5. Creatinine 1.9, has now gone up to 2.9. Potassium is elevated at 5.3. GFR of 21. Urinalysis shows too numerous to count rbc's, 1 to 3 wbc's. Nitrites are negative. On radiologic exam, chest x-ray showed left-sided pulmonary nodule and infiltrate in the left lower lobe. Abdominal ultrasound done yesterday showed multiple bilateral renal cysts and cholelithiasis. No hydronephrosis on the left kidney. No hydronephrosis on the right kidney. There are multiple cysts again. Patient had a CT of the abdomen and pelvis done from August 29 that showed cardiomyopathy with a small amount of pericardial fluid. There is a ____ 7 x 6 cm left lower lobe mass, which is increased in size since prior study with multiple bilateral pulmonary nodules, mediastinal and hilar adenopathy. There are multiple nonobstructing left renal stones. There are no right renal stones. There is a right ureterectasis with a 3.4-mm stone at the right UV junction. There is asymmetric bladder wall thickening and an enlarged prostate. IMPRESSION AND PLAN: This is an 86-year-old male with multiple medical issues. 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 He has a history of myelodysplasia. As far as Urology is concerned, patient has a small right ureterovesical junction calculus. Currently, his pain has improved. The plan would be to continue patient on Flomax daily along with his other prostate medications. Continue IV hydration and IV antibiotics. Follow his blood work and GFR. If pain does not recur, we can discharge patient home from a Urology standpoint and repeat a CT scan in a few days to see if the stone has cleared. Alternatively, we can consider placing a ureteral stent or doing a ureteroscopy and pulling the stone out. The stone will likely pass spontaneously given its size; however, patient is 86 years old with significant medical issues and I would try to avoid internal anesthesia in him at this time. Need to discuss with Oncology regarding the lung mass and likely pulmonary metastases. Thank you for allowing me to participate in the care of this patient. We will follow him with you. French Hastings MD
[2017-09-01] MEDS: Sodium Chloride 0.9% 1,000 ML IV SCH (09:05)
[2017-09-01] MEDS ORDERED: DEFERASIROX PO SCH (10:00)
[2017-09-01] MEDS: cefTRIAXone 1 gm 1 GM/100 ML BAG IVPB SCH (11:26)
[2017-09-01] MEDS: DEFERASIROX PO SCH (13:09)
--- NOTE | 2017-09-01 14:05 | CP.PCM.PN ---
<Casey Francisco - Last Filed: 09/01/17 13:59> Subjective - Date & Time of Evaluation Date of Evaluation: 09/01/17 Time of Evaluation: 07:20 - Subjective Subjective: Heme-onc Progress Note, Casey Francisco DO, IM PGY-2 This is an 86 yo M with PMH of MDS (transfusion dependent, on regular injections of Procrit and Neupogen), HTN, Lung fibrosis, and urinary incontinence who presented to [facility] with complaint of severe back pain, found to have likely compression fracture on imaging. Heme-onc was consulted for leukocystosis, and his hx of MDS. Patient seen and examined at bedside. More awake today and answering all questions appropriately. Nursing reports confusion overnight, oriented only to self, but AAOx4 today on exam (self, year, location, situation). Pending blood transfusion due to worsening Hgb today. Patient reports improved but not fully alleviated shortness of breath. Does report sensation of phlegm that he is unable to clear in his throat. Denies chest pain, nausea, emesis, diarrhea. Objective - Vital Signs/Intake and Output Vital Signs (last 24 hours): Temp Pulse Resp BP Pulse Ox 99.5 F 82 20 122/60 92 L 09/01/17 12:35 09/01/17 12:35 09/01/17 12:35 09/01/17 12:35 09/01/17 07:28 Intake and Output: 09/01/17 09/01/17 06:59 18:59 Intake Total 4155 0 Output Total 1601 Balance 2554 0 - Medications Medications: Current Medications Acetaminophen (Tylenol 325mg Tab) 650 mg PO Q4H PRN PRN Reason: Pain, Mild (1-3) Acetylcysteine (Acetylcysteine 20%) 4 ml [facility] Last Admin: 09/01/17 07:16 Dose: 4 ml Albuterol/Ipratropium (Duoneb 3 Mg/0.5 Mg (3 Ml) Ud) 3 ml IH [facility]IDRESP [facility] Last Admin: 09/01/17 11:24 Dose: 3 ml Albuterol/Ipratropium (Duoneb 3 Mg/0.5 Mg (3 Ml) Ud) 3 ml IH Q4 PRN PRN Reason: Cough and congestion Doxazosin Mesylate (Cardura) 8 mg PO BID [facility] Last Admin: 09/01/17 10:31 Dose: 8 mg Finasteride (Proscar) 5 mg PO DAILY [facility] Last Admin: 09/01/17 10:33 Dose: 5 mg Home Med (Home Med) 0 unit PO DAILY [facility] Last Admin: 09/01/17 13:09 Dose: 1 unit Hydralazine HCl (Apresoline) 25 mg PO TID [facility] Last Admin: 09/01/17 10:32 Dose: 25 mg Doxycycline Hyclate 100 mg/ (Sodium Chloride) 100 mls @ 100 mls/hr IVPB Q12 [facility] PRN Reason: Protocol Last Admin: 09/01/17 10:33 Dose: 100 mls/hr Sodium Chloride (Sodium Chloride 0.9%) 1,000 mls @ 75 mls/hr IV .[id number] [facility] Last Admin: 09/01/17 09:05 Dose: 75 mls/hr Meropenem 500 mg/ Sodium (Chloride) 50 mls @ 100 mls/hr IVPB Q12 [facility] PRN Reason: Protocol Methylprednisolone (Solu-Medrol) 30 mg IVP Q8 [facility] Last Admin: 09/01/17 05:32 Dose: 30 mg Metoprolol Tartrate (Lopressor) 50 mg PO BID [facility] Last Admin: 09/01/17 10:32 Dose: 50 mg Morphine Sulfate (Morphine) 2 mg IVP Q4H PRN PRN Reason: Pain, severe (8-10) Last Admin: 08/30/17 15:46 Dose: 2 mg Pramipexole Dihydrochloride (Mirapex) 0.125 mg PO TID [facility] Last Admin: 09/01/17 10:33 Dose: 0.125 mg Tamsulosin HCl (Flomax) 0.4 mg PO DAILY [facility] Last Admin: 09/01/17 10:31 Dose: 0.4 mg - Labs Labs: 09/01/17 06:20 09/01/17 06:20 PT 12.7 SECONDS (9.4-12.5) H 08/29/17 17:30 INR 1.11 (0.93-1.08) H 08/29/17 17:30 APTT 33.0 Seconds (25.1-36.5) 08/29/17 17:30 - Additional Findings Additional findings: - Constitutional Appears: Non-toxic, No Acute Distress, Hard of hearing - Head Exam Head Exam: ATRAUMATIC, NORMAL INSPECTION, NORMOCEPHALIC - Eye Exam Eye Exam: EOMI, Normal appearance. absent: Conjunctival injection Pupil Exam: absent: Irregular, NORMAL ACCOMODATION, Unequal - ENT Exam ENT Exam: Mucous Membranes Moist, no petechiae appreciated - Neck Exam Neck Exam: Full ROM. absent: Lymphadenopathy, Thyromegaly - Respiratory Exam Respiratory Exam: Decreased Breath Sounds (mild-moderately decreased breath sounds in all correa, most prominent at bilateral bases), Rhonchi (at bilateral upper lobes), NORMAL BREATHING PATTERN. absent: Clear to Ausculation Bilateral , Rales, Wheezes - Cardiovascular Exam Cardiovascular Exam: REGULAR RHYTHM, RRR, +S1, +S2. absent: Bradycardia, Tachycardia, Irregular Rhythm, JVD, +S4 - GI/Abdominal Exam GI & Abdominal Exam: Soft, Normal Bowel Sounds. absent: Distended, Firm, Tenderness - Extremities Exam Extremities Exam: Normal Inspection. absent: Calf Tenderness, Pedal Edema, Tenderness - Neurological Exam Awake and alert, following all commands appropriately, AAOx4 (self, location, year, situation) Moving all extremities spontaneously Motor grossly intact and equal bilaterally - Psychiatric Exam Psychiatric exam: Normal Affect, Normal Mood - Skin Skin Exam: Dry, Intact, Normal Color, Warm Assessment and Plan - Assessment and Plan (Free Text) Assessment: This is an 86 yo M with PMH of MDS (transfusion dependent, on regular injections of Procrit and Neupogen), HTN, Lung fibrosis, and urinary incontinence who presented to [facility] with complaint of severe back pain, found to have likely compression fracture on imaging. Heme-onc was consulted for leukocystosis, and his hx of MDS. 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 - worsened Nephrolithiasis L3 compression fracture CAMILO on CKD II/III - improved Hyperkalemia - improved Shortness of breath - improved Will need to continue Procrit and Neupogen injections while inpatient Pending authorization for Revlimid Known to have lung cancer, but as per patient and family, wants no interventions for this Renal function improved, being followed by Nephro, in setting of possible G(-) jeannine UTI, will obtain Urine Yanick stain to rule out AIN Leukocytosis improved, may be reactive to pain vs infection, but remains afebrile, continue to monitor GI consulted for possible pancreatitis Pain control Hgb decreased to 6.9, ordered 2 units pRBC as per GI, Desferal IM 1g ordered to be given in between units transfused to chelate iron and prevent iron overload Patient reviewed and discussed at length with attending, Dr. Gonsales <Mehdi Gonsales P - Last Filed: 09/05/17 19:22> Objective - Vital Signs/Intake and Output Vital Signs (last 24 hours): Temp Pulse Resp BP Pulse Ox 98.0 F 81 18 140/70 96 09/05/17 18:45 09/05/17 18:45 09/05/17 18:45 09/05/17 18:45 09/05/17 07:30 Intake and Output: 09/05/17 09/06/17 18:59 06:59 Intake Total 385 Output Total 800 Balance -415 - Medications Medications: Current Medications Acetaminophen (Tylenol 325mg Tab) 650 mg PO Q4H PRN PRN Reason: Pain, Mild (1-3) Last Admin: 09/05/17 17:57 Dose: 650 mg Acetaminophen (Tylenol 325mg Tab) 650 mg PO ONCE PRN PRN Reason: 1/2 hour prior transfusion Acetylcysteine (Acetylcysteine 20%) 4 ml IH BIDRESP [facility] Last Admin: 09/05/17 07:52 Dose: 4 ml Albuterol/Ipratropium (Duoneb 3 Mg/0.5 Mg (3 Ml) Ud) 3 ml IH QIDRESP [facility] Last Admin: 09/05/17 15:19 Dose: Not Given Albuterol/Ipratropium (Duoneb 3 Mg/0.5 Mg (3 Ml) Ud) 3 ml IH Q4 PRN PRN Reason: Cough and congestion Last Admin: 09/03/17 01:22 Dose: 3 ml Calcium Acetate (Phoslo) 667 mg PO WM [facility] Last Admin: 09/05/17 18:08 Dose: 667 mg Carbidopa/Levodopa (Sinemet 10/100) 1 tab PO BID [facility] Last Admin: 09/05/17 18:09 Dose: 1 tab Diphenhydramine HCl (Benadryl) 25 mg IVP ONCE PRN PRN Reason: 1/2 hour prior transfusion Last Admin: 09/05/17 17:57 Dose: 25 mg Doxazosin Mesylate (Cardura) 8 mg PO BID [facility] Last Admin: 09/05/17 18:09 Dose: 8 mg Famotidine (Pepcid) 20 mg PO 2200 [facility] Last Admin: 09/04/17 21:43 Dose: 20 mg Finasteride (Proscar) 5 mg PO DAILY [facility] Last Admin: 09/05/17 12:00 Dose: 5 mg Home Med (Home Med) 0 unit PO DAILY [facility] Last Admin: 09/05/17 12:02 Dose: 1 unit Hydralazine HCl (Apresoline) 25 mg PO TID [facility] Last Admin: 09/05/17 18:09 Dose: 25 mg Hydrocortisone Sodium Succinate (Solu-Cortef) 100 mg IVP ONCE PRN PRN Reason: 1/2 hr prior transfusion Last Admin: 09/05/17 17:57 Dose: 100 mg Meropenem 500 mg/ Sodium (Chloride) 50 mls @ 100 mls/hr IVPB Q12 [facility] PRN Reason: Protocol Last Admin: 09/05/17 12:01 Dose: 100 mls/hr Sodium Chloride (Sodium Chloride 0.45%) 1,000 mls @ 50 mls/hr IV .Q20H [facility] Last Admin: 09/01/17 21:07 Dose: 50 mls/hr Methylprednisolone (Solu-Medrol) 30 mg IVP Q8 [facility] Last Admin: 09/05/17 14:37 Dose: 30 mg Metoprolol Tartrate (Lopressor) 50 mg PO BID [facility] Last Admin: 09/05/17 18:10 Dose: 50 mg Morphine Sulfate (Morphine) 2 mg IVP Q4H PRN PRN Reason: Pain, severe (8-10) Last Admin: 08/30/17 15:46 Dose: 2 mg Polyethylene Glycol (Miralax) 17 gm PO DAILY [facility] Last Admin: 09/05/17 12:01 Dose: 17 gm Pramipexole Dihydrochloride (Mirapex) 0.125 mg PO TID [facility] Last Admin: 09/05/17 18:09 Dose: 0.125 mg Silver Sulfadiazine (Silvadene 1% 25 Gm) 0 gm TP BID [facility] Last Admin: 09/05/17 18:10 Dose: 25 gm Tamsulosin HCl (Flomax) 0.4 mg PO DAILY [facility] Last Admin: 09/05/17 12:00 Dose: 0.4 mg - Labs Labs: 09/05/17 08:27 09/05/17 08:27 PT 12.7 SECONDS (9.4-12.5) H 08/29/17 17:30 INR 1.11 (0.93-1.08) H 08/29/17 17:30 APTT 33.0 Seconds (25.1-36.5) 08/29/17 17:30 Attending/Attestation - Attestation I have personally seen and examined this patient.: Yes I have fully participated in the care of the patient.: Yes I have reviewed all pertinent clinical information, including history, physical exam and plan: Yes
--- NOTE | 2017-09-01 14:33 | PN ---
DATE: 08/31/2017 SUBJECTIVE: The patient is an 86-year-old male, seems stable. He still has some cough with blood-tinged sputum. Otherwise, no respiratory distress. He is on oxygen 3 liters, seems stable. He is awake and alert. Does not have any abdominal pain. No nausea, no vomiting. No other complaints. PHYSICAL EXAMINATION VITAL SIGNS: On 08/31/2017, temperature is 98.3, heart rate 94, blood pressure 123/61, respirations 16, and saturation 95% on 3 liters nasal cannula. HEAD AND NECK: Normal. No JVD. No thyromegaly. EYES: A little bit red on the eyelid area, otherwise stable. CHEST: There are bilateral crackles with diminished breath sounds bilaterally. CARDIAC: First sound and second sound are normal. No murmur. ABDOMEN: Soft, nontender. EXTREMITIES: There is no edema. NEUROLOGIC: He is alert, awake, oriented x3 and moves all extremities. LABORATORY DATA: His laboratory study on 08/31 is as follows: White count 8.5, hemoglobin 7.2, hematocrit 22.7 and platelets 55. Chemistry was noted for sodium 144, potassium 5.8, chloride 102, bicarb 21, BUN is 65 and creatinine is 2.9. His blood sugar is 148. His liver enzymes are normal. First troponin was negative. IMPRESSION AND PLAN 1. Abdominal pain. He is getting morphine p.r.n. Seems pain is stable. We will consult Dr. Hastings because of the renal stone in the right side and the need for further evaluation and treatment. 2. The patient has respiratory distress, etiology is multifactorial. The patient does have pulmonary fibrosis bilaterally in addition to his underlying malignancy in the lung with bilateral infiltrates. Pulmonary consult in the case. Patient getting Rocephin 1 g daily and doxycycline. We will consider Infectious Disease consult in the hospital and maybe, we will put a stronger antibiotic. We will get an Infectious Disease consult, Dr. Mesa. 3. The patient does have chronic obstructive pulmonary disease. Continue DuoNeb. Continue Mucomyst and we will follow up clinically. 4. Hypertension, stable. We will continue current medicines. We will hold off on Diovan because of high creatinine and we will monitor his blood pressure. 5. Acute renal failure. We will get Dr. Og, [facility] consultant. Repeat chemistry in the morning and we will follow up clinically. 6. Pancytopenia. The patient has anemia, thrombocytopenia and low white count. Oncology consult on the case. We will follow up his recommendations. The patient may need blood transfusion. I will continue current therapy, sequential compression device for deep vein thrombosis prophylaxis. The patient seems stable. CURRENT MEDICATIONS: Mucomyst nebulizer twice a day, hydralazine 25 mg three times a day, Cardura 8 mg twice a day, doxycycline 100 mg b.i.d., DuoNeb, Flomax once a day, Lopressor 50 mg b.i.d., Mirapex 0.125 mg t.i.d., morphine p.r.n. 2 mg q. 4 hours, Proscar 5 mg, Rocephin 1 g, IV fluid mL/hr and Solu-Medrol 30 IV q. 8, Tylenol p.r.n. We will continue current therapy. Continue followup with other consultants. The patient does multiple medical problems with multiorgan failure. He does have respiratory involvement with kidney involvement. 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 Continue current therapy. Follow up clinically. Mook Magallon MD
--- NOTE | 2017-09-01 14:49 | CP.PCM.PN ---
<Angela Wan - Last Filed: 09/01/17 14:45> Subjective - Date & Time of Evaluation Date of Evaluation: 09/01/17 Time of Evaluation: 10:00 - Subjective Subjective: GI Progress Note - Dr. Figueredo Pt was seen and examined at bedside. Pt is hard of hearing. Pt states he is feeling better than yesterday, however still feels weak. Pt admitted to mild abdominal pain RUQ that has also improved. Pt denied BM, is NPO. Pt denied fever , chills, sob, chest pains, nausea, vomiting, melena, or hematochezia. Objective - Vital Signs/Intake and Output Vital Signs (last 24 hours): Temp Pulse Resp BP Pulse Ox 99.5 F 82 20 122/60 92 L 09/01/17 12:35 09/01/17 12:35 09/01/17 12:35 09/01/17 12:35 09/01/17 07:28 Intake and Output: 09/01/17 09/01/17 06:59 18:59 Intake Total 4155 0 Output Total 1601 Balance 2554 0 - Medications Medications: Current Medications Acetaminophen (Tylenol 325mg Tab) 650 mg PO Q4H PRN PRN Reason: Pain, Mild (1-3) Acetylcysteine (Acetylcysteine 20%) 4 ml IH BIDRESP [facility] Last Admin: 09/01/17 07:16 Dose: 4 ml Albuterol/Ipratropium (Duoneb 3 Mg/0.5 Mg (3 Ml) Ud) 3 ml IH QIDRESP [facility] Last Admin: 09/01/17 11:24 Dose: 3 ml Albuterol/Ipratropium (Duoneb 3 Mg/0.5 Mg (3 Ml) Ud) 3 ml IH Q4 PRN PRN Reason: Cough and congestion Doxazosin Mesylate (Cardura) 8 mg PO BID [facility] Last Admin: 09/01/17 10:31 Dose: 8 mg Finasteride (Proscar) 5 mg PO DAILY [facility] Last Admin: 09/01/17 10:33 Dose: 5 mg Home Med (Home Med) 0 unit PO DAILY [facility] Last Admin: 09/01/17 13:09 Dose: 1 unit Hydralazine HCl (Apresoline) 25 mg PO TID [facility] Last Admin: 09/01/17 10:32 Dose: 25 mg Doxycycline Hyclate 100 mg/ (Sodium Chloride) 100 mls @ 100 mls/hr IVPB Q12 [facility] PRN Reason: Protocol Last Admin: 09/01/17 10:33 Dose: 100 mls/hr Meropenem 500 mg/ Sodium (Chloride) 50 mls @ 100 mls/hr IVPB Q12 [facility] PRN Reason: Protocol Sodium Chloride (Sodium Chloride 0.45%) 1,000 mls @ 50 mls/hr IV .Q20H [facility] Methylprednisolone (Solu-Medrol) 30 mg IVP Q8 [facility] Last Admin: 09/01/17 05:32 Dose: 30 mg Metoprolol Tartrate (Lopressor) 50 mg PO BID [facility] Last Admin: 09/01/17 10:32 Dose: 50 mg Morphine Sulfate (Morphine) 2 mg IVP Q4H PRN PRN Reason: Pain, severe (8-10) Last Admin: 08/30/17 15:46 Dose: 2 mg Pramipexole Dihydrochloride (Mirapex) 0.125 mg PO TID [facility] Last Admin: 09/01/17 10:33 Dose: 0.125 mg Tamsulosin HCl (Flomax) 0.4 mg PO DAILY [facility] Last Admin: 09/01/17 10:31 Dose: 0.4 mg - Labs Labs: 09/01/17 06:20 09/01/17 06:20 PT 12.7 SECONDS (9.4-12.5) H 08/29/17 17:30 INR 1.11 (0.93-1.08) H 08/29/17 17:30 APTT 33.0 Seconds (25.1-36.5) 08/29/17 17:30 - Constitutional Appears: No Acute Distress, Chronically Ill - Head Exam Head Exam: ATRAUMATIC, NORMAL INSPECTION, NORMOCEPHALIC - Eye Exam Eye Exam: EOMI, Normal appearance, PERRL Pupil Exam: NORMAL ACCOMODATION, PERRL - ENT Exam ENT Exam: Mucous Membranes Dry - Respiratory Exam Respiratory Exam: Rhonchi, NORMAL BREATHING PATTERN - Cardiovascular Exam Cardiovascular Exam: REGULAR RHYTHM, +S1, +S2. absent: Murmur - GI/Abdominal Exam GI & Abdominal Exam: Soft, Tenderness (RUQ), Normal Bowel Sounds - Neurological Exam Neurological Exam: Alert, Awake, CN II-XII Intact, Oriented x3 - Psychiatric Exam Psychiatric exam: Normal Affect, Normal Mood - Skin Skin Exam: Dry, Intact, Normal Color, Warm Assessment and Plan - Assessment and Plan (Free Text) Assessment: severely anemic MDS lung ca G(-) ejannine UTI uterovesicle calculus gallstone HTN CAMILO on CKD II/III L3 compression fracture Lung fibrosis urinary incontinence leukocystosis Plan: Transfuse 2u pRBCs Monitor H&H Procrit and Neupogen weekly as per heme/onc Monitor and trend LFTs Advance diet slowly continue PPI Continue abx EGD to follow Seen reviewed and discussed with Dr. Figueredo <Valorie Figueredo V - Last Filed: 09/02/17 00:36> Objective - Vital Signs/Intake and Output Vital Signs (last 24 hours): Temp Pulse Resp BP Pulse Ox 98 F 79 20 127/69 95 09/01/17 19:48 09/01/17 19:48 09/01/17 19:48 09/01/17 19:48 09/01/17 14:00 Intake and Output: 09/01/17 09/02/17 18:59 06:59 Intake Total 420 600 Output Total 700 Balance 420 -100 - Medications Medications: Current Medications Acetaminophen (Tylenol 325mg Tab) 650 mg PO Q4H PRN PRN Reason: Pain, Mild (1-3) Acetylcysteine (Acetylcysteine 20%) 4 ml IH BIDRESP [facility] Last Admin: 09/01/17 22:21 Dose: 4 ml Albuterol/Ipratropium (Duoneb 3 Mg/0.5 Mg (3 Ml) Ud) 3 ml IH QIDRESP [facility] Last Admin: 09/01/17 22:21 Dose: 3 ml Albuterol/Ipratropium (Duoneb 3 Mg/0.5 Mg (3 Ml) Ud) 3 ml IH Q4 PRN PRN Reason: Cough and congestion Doxazosin Mesylate (Cardura) 8 mg PO BID [facility] Last Admin: 09/01/17 19:04 Dose: 8 mg Finasteride (Proscar) 5 mg PO DAILY [facility] Last Admin: 09/01/17 10:33 Dose: 5 mg Home Med (Home Med) 0 unit PO DAILY [facility] Last Admin: 09/01/17 13:09 Dose: 1 unit Hydralazine HCl (Apresoline) 25 mg PO TID [facility] Last Admin: 09/01/17 19:05 Dose: 25 mg Doxycycline Hyclate 100 mg/ (Sodium Chloride) 100 mls @ 100 mls/hr IVPB Q12 [facility] PRN Reason: Protocol Last Admin: 09/01/17 21:49 Dose: 100 mls/hr Meropenem 500 mg/ Sodium (Chloride) 50 mls @ 100 mls/hr IVPB Q12 [facility] PRN Reason: Protocol Last Admin: 09/01/17 21:49 Dose: 100 mls/hr Sodium Chloride (Sodium Chloride 0.45%) 1,000 mls @ 50 mls/hr IV .Q20H [facility] Last Admin: 09/01/17 21:07 Dose: 50 mls/hr Methylprednisolone (Solu-Medrol) 30 mg IVP Q8 [facility] Last Admin: 09/01/17 21:50 Dose: 30 mg Metoprolol Tartrate (Lopressor) 50 mg PO BID [facility] Last Admin: 09/01/17 19:01 Dose: 50 mg Morphine Sulfate (Morphine) 2 mg IVP Q4H PRN PRN Reason: Pain, severe (8-10) Last Admin: 08/30/17 15:46 Dose: 2 mg Pramipexole Dihydrochloride (Mirapex) 0.125 mg PO TID [facility] Last Admin: 09/01/17 19:04 Dose: 0.125 mg Tamsulosin HCl (Flomax) 0.4 mg PO DAILY [facility] Last Admin: 09/01/17 10:31 Dose: 0.4 mg - Labs Labs: 09/01/17 06:20 09/01/17 06:20 PT 12.7 SECONDS (9.4-12.5) H 08/29/17 17:30 INR 1.11 (0.93-1.08) H 08/29/17 17:30 APTT 33.0 Seconds (25.1-36.5) 08/29/17 17:30 Attending/Attestation - Attestation I have personally seen and examined this patient.: Yes I have fully participated in the care of the patient.: Yes I have reviewed all pertinent clinical information, including history, physical exam and plan: Yes Notes (Text): This is an addendum to GI consult report dictated by the Bag Machine Helper.The patient was seen and examined earlier. Medical records, lab studies, imagings were reviewed. Last 24 hours events reviewed. Agreed with the above treatment plan as outlined in Bag Machine Helper 's notes the with the addition of the following Patient's sister and brother at bedside at the time of examination Patient feels better abdominal pain on the right side has significantly improved no obvious melena or bleeding per rectum On examination some tenderness present in the right upper quadrant area no rebound or guarding much improved status post 2 units transfusion cholelithiasis, stone at the vasculitic junction Complicated UTI ESBL in the urine Lung cancer advanced Myelodysplasia with pancytopenia Continue the antibiotics as per ID Restart the pure diet Follow up of the hemoglobin and hematocrit 09/02/17 00:35
[2017-09-01] MEDS: Meropenem 500 MG in Sodium Chloride 0.9% 50 ML IVPB SCH ×2 (14:59→21:49)
[2017-09-01] MEDS: Sodium Chloride 0.45% 1,000 ML IV SCH ×2 (15:13→21:07)
--- NOTE | 2017-09-01 16:59 | PN ---
DATE: SUBJECTIVE: The patient is currently seen on 5R. He is receiving the first of 2 units of blood. His hemoglobin had dropped to 6.9. The patient is receiving IV antibiotic therapy for his urinary tract infection and has been on IV fluid hydration for his [id number] renal failure. MEDICATIONS: List reviewed. The patient is on acetylcysteine inhalation therapy, Apresoline, Cardura, doxycycline, DuoNeb, Flomax, Exjade, metoprolol, meropenem, Mirapex, morphine, Proscar, normal saline 75 mL an hour, Solu-Medrol, and Tylenol p.r.n. OBJECTIVE INTAKE/OUTPUT: Intake 4275, output 1801. Weight if correct is up from 170 to 182 pounds (?). HEENT: Shows him to be normocephalic, atraumatic. Conjunctivae are pale. Sclera are nonicteric. NECK: Supple. No neck vein distention. CHEST: Clear to auscultation and percussion. No rales, rhonchi or wheezing. CARDIOVASCULAR: Shows a regular rate and rhythm without audible murmurs, rubs or gallops. ABDOMEN: Soft. Bowel sounds normal. No rebound. No guarding. No masses. EXTREMITIES: Show trace to 1+ pitting lower extremity edema, with diminished lower extremity pulses bilaterally. LABORATORY DATA AND IMAGING: Followup chest x-ray shows a left lower lobe infiltrate with a left upper lung nodule. CBC: White blood cell count down to 6.1, hemoglobin down from 8.1 to 6.9. Hence, the patient is receiving 2 units of packed red blood cells. Platelet count is low at 57,000. Chemistry showed normal electrolytes. Potassium is now down to normal at 4.7. Sodium is 147. BUN is 70 with a creatinine of 2.2. Creatinine baseline is in the 1.3-1.4 range. His creatinine was as high as 2.9, with hydration it has improved. BUN with steroids is up from 57 to 70. Baseline is in the 30 to 40 range. Glucose is 137. Uric acid is elevated at 10.7. Calcium is 9.0 with a phosphorus of 6.6. The patient should start binder therapy once he starts a diet. Magnesium is normal at 2.2. Liver enzymes are normal. Urine eosinophil stain was negative. Urine sodium was 90 with urine random creatinine of 115. Fractional excretion of sodium is less than 1% indicative of renal hypoperfusion. His abdominal ultrasound and abdominal CT scan showed no evidence for obstructive uropathy. ASSESSMENT: 1. 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 This is in the setting of renal hypoperfusion as evidenced by low fractional excretion of sodium, no evidence for interstitial nephritis. No evidence for obstructive uropathy. The patient does indeed have a Gram-negative jeannine urinary tract infection. Urine cultures are positive for Escherichia coli. The patient remains on IV antibiotic therapy. Elevation of BUN in part might be secondary to steroid use. 2. Hypertension. Blood pressure is presently controlled on present medical therapy. No change in medications indicated. 3. History of Parkinson disease. The patient continues on medication. Tremors are better controlled today. 4. History of adenocarcinoma of the lung with abnormal chest CT and chest x-ray noted. The patient is being evaluated by Oncology. 5. History of severe myelodysplastic syndrome. The patient is severely anemic and thrombocytopenic. He requires periodic transfusions. Presently, he is not leukopenic. 6. History of chronic obstructive pulmonary disease and pulmonary fibrosis, being followed by Pulmonary. 7. History of benign prostatic hypertrophy, currently stable on medication. PLAN: 1. Post transfusions. I will decrease his fluid intake as the patient has started to develop lower extremity edema. It is important to try and lower his steroid dose as this will likely help lower his BUN more effectively than I can do with IV fluid hydration in light of his positive fluid balance and increased sacral and lower extremity edema. 2. Avoid all nephrotoxic agents. 3. Continue to hold angiotensin receptor yang therapy. 4. Monitor accurate Is and Os and daily weights. 5. Discussed with staff on 5R. Dwain Og MD
--- NOTE | 2017-09-01 17:33 | CP.PCM.CON ---
History of Present Illness - History of Present Illness History of Present Illness: 86 year old male with PMH of Morganella UTI with hematuria, myelodysplastic syndrome, BPH, coronary artery disease, history of ESBL E. coli bacteremia, history of lung fibrosis came in to [facility] [place] complaining of right lower quadrant pain. He was found to have ureteral stones and nephrolithiasis and also has bacteria in the urine which is ESBL producing. He is feeling better and denies fever or chills, no nausea or vomiting, no chest pain, no SOB, no headache or dizziness, no cough or colds, no diarrhea. Infectious Diseases consult is requested to further evaluate and manage.= Review of Systems - Review of Systems All systems: reviewed and no additional remarkable complaints except (as per HPI ) Past Patient History - Infectious Disease Hx of Infectious Diseases: None - Past Social History Smoking Status: Never Smoked - CARDIAC Hx Hypertension: Yes - PULMONARY Hx Pneumonia: Yes - NEUROLOGICAL Hx Paralysis: No - HEENT Hx HEENT Problems: Yes Other/Comment: right eye red with watery drainage x 1 month - RENAL Hx Chronic Kidney Disease: Yes - ENDOCRINE/METABOLIC Hx Endocrine Disorders: No - HEMATOLOGICAL/ONCOLOGICAL Hx Blood Transfusions: Yes (11/2016) Hx Blood Transfusion Reaction: No - INTEGUMENTARY Hx Dermatological Problems: Yes Other/Comment: red hard dry skin to buttocks, ble tight red dry skin and multiple scabs,callous to ball of left foot 2cm x 1cm wound bed is red - MUSCULOSKELETAL/RHEUMATOLOGICAL Hx Musculoskeletal Disorders: No - GASTROINTESTINAL Hx Gastrointestinal Disorders: No - GENITOURINARY/GYNECOLOGICAL Hx Hematuria: Yes Hx Incontinence: Yes (leaky bladder) Hx Prostate Problems: Yes (enlarged) - PSYCHIATRIC Hx Emotional Abuse: No Hx Physical Abuse: No Hx Substance Use: No - SURGICAL HISTORY Hx Appendectomy: Yes Other/Comment: T&A, penile dorsal slit,cysto - ANESTHESIA Hx Anesthesia Reactions: No Hx Malignant Hyperthermia: No Meds Allergies/Adverse Reactions: Allergies Allergy/AdvReac Type Severity Reaction Status Date / Time No Known Allergies Allergy Verified 08/29/17 16:42 - Medications Medications: Current Medications Acetaminophen (Tylenol 325mg Tab) 650 mg PO Q4H PRN PRN Reason: Pain, Mild (1-3) Acetylcysteine (Acetylcysteine 20%) 4 ml IH BIDRESP [facility] Last Admin: 09/01/17 07:16 Dose: 4 ml Albuterol/Ipratropium (Duoneb 3 Mg/0.5 Mg (3 Ml) Ud) 3 ml IH QIDRESP [facility] Last Admin: 09/01/17 07:16 Dose: 3 ml Albuterol/Ipratropium (Duoneb 3 Mg/0.5 Mg (3 Ml) Ud) 3 ml IH Q4 PRN PRN Reason: Cough and congestion Doxazosin Mesylate (Cardura) 8 mg PO BID [facility] Last Admin: 08/31/17 18:13 Dose: 8 mg Finasteride (Proscar) 5 mg PO DAILY [facility] Last Admin: 08/31/17 10:04 Dose: 5 mg Home Med (Home Med) 0 unit PO DAILY [facility] Hydralazine HCl (Apresoline) 25 mg PO TID [facility] Last Admin: 08/31/17 15:18 Dose: 25 mg Doxycycline Hyclate 100 mg/ (Sodium Chloride) 100 mls @ 100 mls/hr IVPB Q12 [facility] PRN Reason: Protocol Last Admin: 08/31/17 22:17 Dose: 100 mls/hr Sodium Chloride (Sodium Chloride 0.9%) 1,000 mls @ 75 mls/hr IV .[id number] [facility] Last Admin: 08/31/17 18:36 Dose: 75 mls/hr Meropenem 500 mg/ Sodium (Chloride) 50 mls @ 100 mls/hr IVPB Q12 [facility] PRN Reason: Protocol Methylprednisolone (Solu-Medrol) 30 mg IVP Q8 [facility] Last Admin: 09/01/17 05:32 Dose: 30 mg Metoprolol Tartrate (Lopressor) 50 mg PO BID [facility] Last Admin: 08/31/17 18:13 Dose: 50 mg Morphine Sulfate (Morphine) 2 mg IVP Q4H PRN PRN Reason: Pain, severe (8-10) Last Admin: 08/30/17 15:46 Dose: 2 mg Pramipexole Dihydrochloride (Mirapex) 0.125 mg PO TID [facility] Last Admin: 08/31/17 18:13 Dose: 0.125 mg Tamsulosin HCl (Flomax) 0.4 mg PO DAILY [facility] Last Admin: 08/31/17 10:04 Dose: 0.4 mg Physical Exam - Constitutional Appears: Chronically Ill - Head Exam Head Exam: NORMAL INSPECTION - ENT Exam ENT Exam: Mucous Membranes Moist - Neck Exam Neck exam: Negative for: Meningismus - Respiratory Exam Respiratory Exam: Decreased Breath Sounds - Cardiovascular Exam Cardiovascular Exam: +S1, +S2 - GI/Abdominal Exam GI & Abdominal Exam: Soft. absent: Tenderness Results - Vital Signs Recent Vital Signs: Last Vital Signs Temp 98.0 F 09/01/17 07:28 Pulse 84 09/01/17 07:28 Resp 18 09/01/17 07:28 BP 119/67 09/01/17 07:28 Pulse Ox 92 L 09/01/17 07:28 - Labs Result Diagrams: 09/01/17 06:20 09/01/17 06:20 Labs: Laboratory Results - last 24 hr 08/31/17 08/31/17 08/31/17 10:30 19:45 19:45 WBC RBC Hgb Hct MCV MCH MCHC RDW Plt Count Sodium Potassium Chloride Carbon Dioxide Anion Gap BUN Creatinine Est GFR ( Amer) Est GFR (Non-Af Amer) Random Glucose Uric Acid Calcium Phosphorus Magnesium Total Bilirubin AST ALT Alkaline Phosphatase Total Protein Albumin Globulin Albumin/Globulin Ratio Urine Eosinophils Negative Ur Random Creatinine 115 Ur Random Sodium 19 Blood Type O POSITIVE Antibody Screen Negative Crossmatch See Detail BBK History Checked Patient has bt 08/31/17 09/01/17 09/01/17 20:35 06:20 06:20 WBC 6.1 D RBC 2.41 L Hgb 6.9 L* Hct 21.6 L MCV 89.6 MCH 28.6 MCHC 31.9 RDW 18.0 H Plt Count 57 L Sodium 147 Potassium 4.9 4.7 Chloride 111 H Carbon Dioxide 24 Anion Gap 17 BUN 70 H Creatinine 2.2 H Est GFR ( Amer) 34 Est GFR (Non-Af Amer) 28 Random Glucose 137 H Uric Acid 10.7 H Calcium 9.0 Phosphorus 6.6 H Magnesium 2.2 Total Bilirubin 0.4 AST 9 L D ALT 22 Alkaline Phosphatase 49 Total Protein 5.9 Albumin 3.4 Globulin 2.6 Albumin/Globulin Ratio 1.3 Urine Eosinophils Ur Random Creatinine Ur Random Sodium Blood Type Antibody Screen Crossmatch BBK History Checked Assessment & Plan - Assessment and Plan (Free Text) Plan: Assessment Complicated UTI with ESBL-producing E. coli S/P treatment of healthcare-associated pneumonia Maculopapular rash on his back history of sepsis secondary to ESBL E. coli bacteremia S/P sepsis due to Morganella UTI with hematuria history of lung fibrosis myelodysplastic syndrome BPH coronary artery disease Plan started Merrem and will monitor clinically; target about 10 days of therapy
--- NOTE | 2017-09-01 23:51 | PN ---
DATE: 09/01/2017 PULMONARY PROGRESS NOTE REFERRING PHYSICIAN: Mook Magallon MD. SUBJECTIVE: The patient is lying in the bed, head at 45 degrees, was made n.p.o. by GI Services. Has a dysphagia evaluation done. Has oropharyngeal dysphagia. Family is at bedside. He has some cough and sputum production. No hemoptysis or hematemesis. Does have some hematuria. No bowel movement. No leg swelling. OBJECTIVE: GENERAL: In no acute distress. VITAL SIGNS: Temp is 98, heart rate is 79, respiratory rate is 20, blood pressure 127/69 and pulse ox 95% on nasal cannula. HEENT: Moist mucous membrane. Crowded airway. Mallampati score is IV. NECK: Supple. No JVD. LUNGS: Have scattered rhonchi. HEART: S1, S2. ABDOMEN: Soft, nontender. No organomegaly. EXTREMITIES: There is no edema. NEUROLOGIC: Awake,alert. Follows simple command. MEDICATIONS: He is on Mucomyst 20% inhaled twice a day, hydralazine 25 mg three times a day, Cardura 8 mg twice a day, doxycycline 100 mg twice a day, DuoNeb q.4 hours p.r.n. and four times daily [id number], Flomax 0.4 mg daily, metoprolol tartrate 50 mg twice a day, meropenem 500 mg q.12 hours, Mirapex 0.125 mg three times a day, morphine 2 mg IV q.4 hours p.r.n., Proscar 5 mg daily, IV fluid half-normal saline 50 mL per hour, Solu-Medrol mg q.8 hours and Tylenol p.r.n. basis. LABORATORY DATA: Shows hemoglobin 6.9, hematocrit 21.6, WBC 6.1, platelet is 57. Sodium 147, potassium 4.7, chloride 111, bicarbonate 24, BUN 70, creatinine 2.2, glucose 137, calcium is 9.0, phosphorus is 6.6, magnesium 2.2. AST 9, ALT 22, alk phos is 49. Albumin is 3.4. Procalcitonin 0.28. Microbiology, blood culture negative. Urine culture has E. coli, which is ESBL. IMPRESSION AND PLAN: Ureteral stone with hematuria and now has extended-spectrum beta-lactamase infection, has adenocarcinoma of the lung, chronic obstructive lung disease, status post pneumonia, pulmonary fibrosis, myelodysplastic syndrome, anemia, Parkinson disease, hypertension, atherosclerosis, vascular disease and oropharyngeal dysphagia. Patient is n.p.o. as per GI. Spoke to family at bedside. Keep head at 45 degrees. May start incentive spirometer, bronchodilator, antibiotics as per Infectious Diseases. Sequential compression device to lower extremity. Gastric prophylaxis. May need blood transfusion, we will leave it for Hematology Services. Thank you and we will follow with you. Brenton Diaz MD
[2017-09-02] MEDS: Albuterol-Ipratrop 3 mg / 0.5 (3 ml) UD IH PRN (01:24)
[2017-09-02 03:46] LABS: ALB/GLOB RATIO 1.3 (1.1-1.8); ALBUMIN 3.4 g/dL (3.0-4.8); CALCIUM 9.2 mg/dL (8.4-10.5)
[2017-09-02 03:47] LABS: ARTERIAL BLOOD GAS HCO3 21.6 mmol/L (21-28); ARTERIAL BLOOD GAS HEMOGLOBIN 8.2 g/dL (11.7-17.4); ARTERIAL BLOOD GAS O2 CAPACITY 11.1 mL/dl (16-24); ARTERIAL BLOOD GAS O2 CONTENT 10.2 ML/dl (15-23); ARTERIAL BLOOD GAS O2 SAT 91.5 % (95-98); ARTERIAL BLOOD GAS PCO2 42 mm/Hg (35-45); ARTERIAL BLOOD GAS PH 7.32 (7.35-7.45); ARTERIAL BLOOD GAS TCO2 22.9 mmol.L (22-28)
[2017-09-02 03:51] LABS: HEMOGLOBIN 8.3 g/dL (14.0-18.0); MEAN CELL VOLUME 87.7 fl (80.0-105.0); MEAN CORPUSCULAR HEMOGLOBIN 28.4 pg (25.0-35.0); MEAN CORPUSCULAR HGB CONC 32.4 g/dl (31.0-37.0); PLATELET COUNT 53 10^3/uL (120.0-450.0); RBC 2.92 10^6/uL (3.5-6.1); RED CELL DISTRIBUTION WIDTH 17.2 % (11.5-14.5); WHITE BLOOD COUNT 5.7 10^3/ul (4.5-11.0)
[2017-09-02 03:57] LABS: TROPONIN I 0.03 ng/mL
--- NOTE | 2017-09-02 04:32 | CP.PCM.PN ---
Subjective - Date & Time of Evaluation Date of Evaluation: 09/02/17 Time of Evaluation: 02:45 - Subjective Subjective: Patient seen for his c/o inability to bring up his phlegm that is stuck in the upper part of of his chest.His R N noted his O2 sat on 3L is 88%sometimes goes down to 84%.He was given his nebulizer Rx before I was called.He is being suctioned frequently. He denies any c/o chest pain,abdominal pain,nausea,vomiting or any other complaints. He got 2 units of PRBCs during the day yesterday. VS: BP 123/62 RR 18 HR 84 T 98.4 O2 sat on 3L O2 is 88%. I/O 12noon 12 midnight 1080/900.Input included 2 units of PRBCs. Chart reviewed,pt is on antibiotics. PMH:AdenoCa L Lung,? 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,COPD,Pulmonary Fibrosis Objective - Vital Signs/Intake and Output Vital Signs (last 24 hours): Temp Pulse Resp BP Pulse Ox 98 F 79 20 127/69 95 09/01/17 19:48 09/01/17 19:48 09/01/17 19:48 09/01/17 19:48 09/01/17 14:00 Intake and Output: 09/01/17 09/02/17 18:59 06:59 Intake Total 420 600 Output Total 700 Balance 420 -100 - Medications Medications: Current Medications Acetaminophen (Tylenol 325mg Tab) 650 mg PO Q4H PRN PRN Reason: Pain, Mild (1-3) Acetylcysteine (Acetylcysteine 20%) 4 ml IH BIDRESP [facility] Last Admin: 09/01/17 22:21 Dose: 4 ml Albuterol/Ipratropium (Duoneb 3 Mg/0.5 Mg (3 Ml) Ud) 3 ml IH QIDRESP [facility] Last Admin: 09/01/17 22:21 Dose: 3 ml Albuterol/Ipratropium (Duoneb 3 Mg/0.5 Mg (3 Ml) Ud) 3 ml IH Q4 PRN PRN Reason: Cough and congestion Last Admin: 09/02/17 01:24 Dose: 3 ml Doxazosin Mesylate (Cardura) 8 mg PO BID [facility] Last Admin: 09/01/17 19:04 Dose: 8 mg Finasteride (Proscar) 5 mg PO DAILY [facility] Last Admin: 09/01/17 10:33 Dose: 5 mg Home Med (Home Med) 0 unit PO DAILY [facility] Last Admin: 09/01/17 13:09 Dose: 1 unit Hydralazine HCl (Apresoline) 25 mg PO TID [facility] Last Admin: 09/01/17 19:05 Dose: 25 mg Doxycycline Hyclate 100 mg/ (Sodium Chloride) 100 mls @ 100 mls/hr IVPB Q12 [facility] PRN Reason: Protocol Last Admin: 09/01/17 21:49 Dose: 100 mls/hr Meropenem 500 mg/ Sodium (Chloride) 50 mls @ 100 mls/hr IVPB Q12 [facility] PRN Reason: Protocol Last Admin: 09/01/17 21:49 Dose: 100 mls/hr Sodium Chloride (Sodium Chloride 0.45%) 1,000 mls @ 50 mls/hr IV .Q20H [facility] Last Admin: 09/01/17 21:07 Dose: 50 mls/hr Methylprednisolone (Solu-Medrol) 30 mg IVP Q8 [facility] Last Admin: 09/01/17 21:50 Dose: 30 mg Metoprolol Tartrate (Lopressor) 50 mg PO BID [facility] Last Admin: 09/01/17 19:01 Dose: 50 mg Morphine Sulfate (Morphine) 2 mg IVP Q4H PRN PRN Reason: Pain, severe (8-10) Last Admin: 08/30/17 15:46 Dose: 2 mg Pramipexole Dihydrochloride (Mirapex) 0.125 mg PO TID [facility] Last Admin: 09/01/17 19:04 Dose: 0.125 mg Tamsulosin HCl (Flomax) 0.4 mg PO DAILY [facility] Last Admin: 09/01/17 10:31 Dose: 0.4 mg - Labs Labs: 09/01/17 06:20 09/01/17 06:20 PT 12.7 SECONDS (9.4-12.5) H 08/29/17 17:30 INR 1.11 (0.93-1.08) H 08/29/17 17:30 APTT 33.0 Seconds (25.1-36.5) 08/29/17 17:30 - Constitutional Appears: No Acute Distress - Head Exam Head Exam: ATRAUMATIC, NORMAL INSPECTION, NORMOCEPHALIC - Eye Exam Eye Exam: PERRL - ENT Exam ENT Exam: Mucous Membranes Moist - Neck Exam Neck Exam: Normal Inspection - Respiratory Exam Respiratory Exam: Rales (Bilateral basal crepts), Rhonchi, Wheezes (occasional scattered wheezes ), NORMAL BREATHING PATTERN. absent: Stridor Additional comments: portacath is noted in R chest wall. - Cardiovascular Exam Cardiovascular Exam: REGULAR RHYTHM, +S1, +S2 - GI/Abdominal Exam GI & Abdominal Exam: Soft, Normal Bowel Sounds. absent: Tenderness - Extremities Exam Extremities Exam: Pedal Edema (bilateral pitting pedal edema noted.). absent: Calf Tenderness - Neurological Exam Neurological Exam: Awake, Oriented x3 - Psychiatric Exam Psychiatric exam: Normal Affect - Skin Skin Exam: Dry, Warm Assessment and Plan - Assessment and Plan (Free Text) Assessment: Fluid overload due to blood transfusion. Plan: Chest Xray done stat shows increase in pulmonary congestion .Pt given 20 mg Lasix stat Ekg done stat shows NSR,RBBB,nonspecific changes{same as before}. ABG shows hypoxemia.Pt placed on %l O2 by NC.O2 sat improved to 92%,Pt states he feels better.has put out 150 ccs of urine since lasix was given. Also ordered Trponin1 Q 8h x3 and BNP.Trop1 is 0.03 ,BNP is 4440.Will give additional dose of Lasix 20 mg iv push stat and hold iv fluids for now.
[2017-09-02] MEDS: MethylPREDNISolone 40 mg Vial IVP SCH ×3 (05:07→22:29)
[2017-09-02] MEDS: Acetylcysteine 20% Inhal Soln (4ml) IH SCH ×2 (07:33→19:03)
[2017-09-02] MEDS: Albuterol-Ipratrop 3 mg / 0.5 (3 ml) UD IH SCH ×4 (07:33→19:03)
--- NOTE | 2017-09-02 08:55 | RAD ---
HISTORY: shortness of breath COMPARISON: 08/31/2017 FINDINGS: LUNGS: There is a slight increase in the bilateral lower lobe infiltrates. Left upper lobe nodule unchanged PLEURA: No significant pleural effusion identified, no pneumothorax apparent. CARDIOVASCULAR: Normal. OSSEOUS STRUCTURES: No significant abnormalities. VISUALIZED UPPER ABDOMEN: Normal. OTHER FINDINGS: None. IMPRESSION: Slight increase in bibasilar infiltrates
[2017-09-02] MEDS: DEFERASIROX PO SCH (11:35)
[2017-09-02] MEDS: Meropenem 500 MG in Sodium Chloride 0.9% 50 ML IVPB SCH ×2 (14:58→22:29)
--- NOTE | 2017-09-02 15:01 | CP.PCM.PN ---
Subjective - Date & Time of Evaluation Date of Evaluation: 09/02/17 Time of Evaluation: 09:00 - Subjective Subjective: GI Progress Note Dr Figueredo Pt was seen and examined at bedside. Pt states he is feeling better than yesterday. Pt has no acute complaints at this time, he states his abdominal pain is improved. Pt denied fever, chills, sob, chest pains, nausea, vomiting or urinary symptoms. Pt has cough with sputum production. Objective - Vital Signs/Intake and Output Vital Signs (last 24 hours): Temp Pulse Resp BP Pulse Ox 98.8 F 77 18 125/59 L 93 L 09/02/17 07:40 09/02/17 07:40 09/02/17 07:40 09/02/17 07:40 09/02/17 07:40 Intake and Output: 09/02/17 09/02/17 06:59 18:59 Intake Total 850 Output Total 1100 Balance -250 - Medications Medications: Current Medications Acetaminophen (Tylenol 325mg Tab) 650 mg PO Q4H PRN PRN Reason: Pain, Mild (1-3) Acetylcysteine (Acetylcysteine 20%) 4 ml IH BIDRESP [facility] Last Admin: 09/02/17 07:33 Dose: 4 ml Albuterol/Ipratropium (Duoneb 3 Mg/0.5 Mg (3 Ml) Ud) 3 ml IH QIDRESP [facility] Last Admin: 09/02/17 11:29 Dose: 3 ml Albuterol/Ipratropium (Duoneb 3 Mg/0.5 Mg (3 Ml) Ud) 3 ml IH Q4 PRN PRN Reason: Cough and congestion Last Admin: 09/02/17 01:24 Dose: 3 ml Calcium Acetate (Phoslo) 667 mg PO WM [facility] Doxazosin Mesylate (Cardura) 8 mg PO BID [facility] Last Admin: 09/02/17 11:29 Dose: 8 mg Doxycycline Hyclate (Doryx) 100 mg PO Q12 [facility] Finasteride (Proscar) 5 mg PO DAILY [facility] Last Admin: 09/02/17 11:30 Dose: 5 mg Home Med (Home Med) 0 unit PO DAILY [facility] Last Admin: 09/02/17 11:35 Dose: 1 unit Hydralazine HCl (Apresoline) 25 mg PO TID [facility] Last Admin: 03/14/18 11:29 Dose: 25 mg Meropenem 500 mg/ Sodium (Chloride) 50 mls @ 100 mls/hr IVPB Q12 [facility] PRN Reason: Protocol Last Admin: 09/01/17 21:49 Dose: 100 mls/hr Sodium Chloride (Sodium Chloride 0.45%) 1,000 mls @ 50 mls/hr IV .Q20H [facility] Last Admin: 09/01/17 21:07 Dose: 50 mls/hr Methylprednisolone (Solu-Medrol) 30 mg IVP Q8 [facility] Last Admin: 09/02/17 05:07 Dose: 30 mg Metoprolol Tartrate (Lopressor) 50 mg PO BID [facility] Last Admin: 09/02/17 11:30 Dose: 50 mg Morphine Sulfate (Morphine) 2 mg IVP Q4H PRN PRN Reason: Pain, severe (8-10) Last Admin: 08/30/17 15:46 Dose: 2 mg Pramipexole Dihydrochloride (Mirapex) 0.125 mg PO TID [facility] Last Admin: 09/02/17 11:29 Dose: 0.125 mg Tamsulosin HCl (Flomax) 0.4 mg PO DAILY [facility] Last Admin: 09/02/17 11:29 Dose: 0.4 mg - Labs Labs: 09/02/17 03:26 09/02/17 03:26 PT 12.7 SECONDS (9.4-12.5) H 08/29/17 17:30 INR 1.11 (0.93-1.08) H 08/29/17 17:30 APTT 33.0 Seconds (25.1-36.5) 08/29/17 17:30 - Constitutional Appears: No Acute Distress, Chronically Ill - Head Exam Head Exam: ATRAUMATIC, NORMAL INSPECTION, NORMOCEPHALIC - Eye Exam Eye Exam: EOMI, Normal appearance, PERRL Pupil Exam: NORMAL ACCOMODATION, PERRL - ENT Exam ENT Exam: Mucous Membranes Dry - Respiratory Exam Respiratory Exam: Clear to Ausculation Bilateral, NORMAL BREATHING PATTERN - Cardiovascular Exam Cardiovascular Exam: REGULAR RHYTHM, +S1, +S2. absent: Murmur - GI/Abdominal Exam GI & Abdominal Exam: Soft, Tenderness (RUQ), Normal Bowel Sounds - Extremities Exam Extremities Exam: Full ROM, Normal Capillary Refill, Normal Inspection. absent : Joint Swelling, Pedal Edema - Neurological Exam Neurological Exam: Alert, Awake, CN II-XII Intact, Oriented x3 - Psychiatric Exam Psychiatric exam: Normal Affect, Normal Mood - Skin Skin Exam: Dry, Intact, Normal Color, Warm Assessment and Plan - Assessment and Plan (Free Text) Assessment: severely anemic MDS lung ca G(-) jeannine UTI uterovesicle calculus gallstone HTN CAMILO on CKD II/III L3 compression fracture Lung fibrosis urinary incontinence leukocystosis Plan: s/p 2u pRBCs Monitor H&H, stable Procrit and Neupogen weekly as per heme/onc Monitor and trend LFTs Advance diet, restart puree diet continue PPI Continue abx as per ID EGD to follow Seen reviewed and discussed with Dr. Figueredo
--- NOTE | 2017-09-02 15:02 | PN ---
DATE: 09/02/2017 PULMONARY PROGRESS NOTE REFERRING PHYSICIAN: Mook Magallon MD. SUBJECTIVE: The patient is lying in the bed. Had transfusion done last night. Has episode of shortness of breath this morning. Received bronchodilator and diuretics. After diuresis, felt much better. Still has some cough. No hemoptysis. No hematemesis. No diarrhea reported. OBJECTIVE: GENERAL: No acute distress. VITAL SIGNS: Temp is 98, heart rate is 77, respiratory rate is 18, blood pressure 125/59, pulse ox 93% on nasal cannula. HEENT: Moist mucous membrane. Crowded airway. NECK: Supple. No JVD. LUNGS: Have scattered rhonchi, crackles at the bases. HEART: S1 and S2. ABDOMEN: Soft, nontender. No organomegaly. EXTREMITIES: No edema. NEUROLOGICAL: Awake and alert. Follows simple command. LABORATORY DATA: Shows hemoglobin 8.3, hematocrit 25.6, WBC 5.7, platelet is 53. ABG showed pH 7.32, pCO2 of 42, O2 of 50. This is on nasal cannula. Sodium 146, potassium 4.3, chloride 112, bicarbonate 23, BUN 72, creatinine 2.0, glucose is 138, phosphorus 5.5, AST 9, ALT 26, alk phos is 51. ProBNP 4440. Albumin is 3.4. Procalcitonin 0.28. Urine culture has E. coli. Chest x-ray done this morning shows basilar infiltrate. MEDICATIONS: He is on Mucomyst 20% inhaled twice a day, also hydralazine 25 mg three times a day, Cardura 8 mg twice a day, doxycycline 100 mg twice a day, DuoNeb q. 4 hours p.r.n. and four times daily around the clock, Flomax 0.4 mg daily, metoprolol tartrate 50 mg twice a day, meropenem 500 mg q. 12 hours, Mirapex 0.125 mg three times a day, morphine 2 mg q. 4 hours p.r.n., PhosLo with the meals, Proscar 5 mg daily, IV fluid half normal saline 50 mL/hour, Solu-Medrol 30 mg q. 8 hours, Tylenol p.r.n. basis. ASSESSMENT AND PLAN: Hematuria, has a renal stone, Escherichia coli urinary tract infection, adenocarcinoma of the lung, obstructive lung disease, status post pneumonia, pulmonary fibrosis, myelodysplastic syndrome, anemia requiring transfusion, Parkinson disease with oropharyngeal dysphagia, hypertension, atherosclerosis, vascular disease. I spoke to the patient and family at bedside. All the questions answered. Pulmonary point of view, doing well. Continue bronchodilator, antibiotics, incentive spirometer. May have to re-look at his echocardiogram. Assess right ventricular and left ventricular function. We will discontinue IV fluid. Aspiration precaution. Being followed by Gastroenterology. Thank you and we will follow with you. Brenton Diaz MD
--- NOTE | 2017-09-02 15:56 | PN ---
DATE: SUBJECTIVE: The patient is currently seen lying comfortable in bed on 5-R. He did receive 2 units of packed red blood cells yesterday. His hemoglobin is up from 6.9 to 8.3. He is continuing on antibiotic therapy for his urinary tract infection. MEDICATIONS: Medication list reviewed. The patient is currently on acetylcysteine inhalation therapy, Apresoline, Cardura, Doryx, DuoNeb, Flomax, Exjade, metoprolol, meropenem, Mirapex, morphine, Proscar, half-normal saline is on hold, Solu-Medrol, and Tylenol p.r.n. OBJECTIVE: INTAKE/OUTPUT: Intake is 1270, output is 1100. VITAL SIGNS: Blood pressure is 125/59. Temperature is 98.8. Respiratory rate is 18 with a pulse of 77. Oxygen saturation is 93%. HEENT: Show him to be normocephalic, atraumatic. Conjunctivae are pale. Sclerae are nonicteric. NECK: Supple. No neck vein distention. CHEST: Clear to auscultation and percussion. No rales, rhonchi, or wheezing. CARDIOVASCULAR: Shows a regular rate and rhythm without audible murmurs, rubs, or gallops. ABDOMEN: Soft. Bowel sounds normal. No rebound or guarding. No masses. EXTREMITIES: Show trace to 1+ pitting lower extremity edema with diminished lower extremity pulses. NEUROLOGIC: Shows him to have a mild tremor bilaterally. LABORATORY DATA AND IMAGING: Admitting abdominal ultrasound and abdominal CT scan showed evidence for obstructive uropathy. Labs: CBC: White blood cell count 5.7 down from 14.2, hemoglobin improved to 8.3 post two units of packed red blood cells. Platelet count remains low at 53,000. Chemistries today show a sodium of 146, potassium 4.3, chloride 112 with a CO2 of 23. BUN remains mildly elevated at 72 with a creatinine of 2. Glucose is 138. Calcium is 9.2. Phosphorus is improved at 5.5. Microbiology: Urine cultures are positive for E. coli. Blood cultures are negative at 72 hours. ASSESSMENT: 1. 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 The patient's baseline BUN is in the 30 to 40 range and baseline creatinine in the 1.3 to 1.4 range. The patient has no evidence for obstructive uropathy. No evidence for acute interstitial nephritis. He does have an Escherichia coli urinary tract infection. He does remain on IV antibiotic therapy. Mild elevation of the BUN is perhaps secondary to the use of steroids. 2. Hypertension. Blood pressure presently is controlled on present medical therapy. No changes in medicines indicated. 3. History of Parkinson disease. The patient will continue medication for his tremors. 4. History of adenocarcinoma of the lung with abnormal chest CT and chest x-ray. Patient is noted to have multiple bilateral pulmonary nodules and a left lower lobe lung mass. 5. History of severe myelodysplastic syndrome. Patient remains thrombocytopenic all the time and requires periodic transfusions along with Epogen and Neupogen. Presently, he is not leukopenic. 6. History of chronic obstructive pulmonary disease and pulmonary fibrosis. The patient remains on steroid therapy. I would like to see this tapered and discontinued. 7. History of benign prostatic hypertrophy, currently on medication. PLAN: 1. Agree with periodic transfusions. 2. Try and taper steroids. 3. Hold all nephrotoxic agents. 4. Continue to hold angiotensin receptor yang therapy in light of his prerenal azotemia. 5. Try and keep his intake ahead of his output without causing significant lower extremity edema. 6. Continue close renal followup during hospitalization. Dwain Og MD
--- NOTE | 2017-09-02 16:20 | PN ---
DATE: 09/01/2017 SUBJECTIVE: Patient seems still coughing, blood-tinged sputum and seems dyspneic with any exertions. . No nausea, no vomiting. The patient does have difficulty swallowing . PHYSICAL EXAMINATION: On 09/01/2017; VITAL SIGNS: Temperature 98.1, heart rate 86, blood pressure 129/59, respirations . HEAD AND NECK: CHEST: There are bilateral rales and diminished breath sounds, left more than right. CARDIAC: First sound and second sound normal. There is systolic murmur. ABDOMEN: Soft, mildly distended, but nontender. EXTREMITIES: No edema. NEUROLOGIC: Patient is alert, awake, and oriented. LABORATORY STUDIES: He had white count 6.1, hemoglobin 6.9, hematocrit 21.6, and platelets 57. Chemistry: Patient had sodium 147, potassium 4.7, chloride 111, bicarb 24. BUN 70, creatinine 2.2. Patient's blood sugar 137. Calcium is 10.7, phosphorus 6.6, . Procalcitonin is low, it is 0.28. IMPRESSION AND PLAN: 1. possibility of urinary tract infection, Gram-negative extended spectrum beta-lactamase. Ibuprofen is requested. Broad-spectrum antibiotic . We will discuss to proceed Infectious Disease consult. Follow . 2. Chronic obstructive pulmonary disease, bilateral lung fibrosis, lung cancer, pulmonary nodules. At this time, continue inhaled bronchodilators. Continue intravenous steroids and Mucomyst for sputum and follow up clinically. The patient has bilateral pneumonia and infiltrates. We will continue . We will follow up clinically Pulmonary and Infectious Disease consult. Patient is stable. 3. Prostate enlargement. 4. Hypertension. Continue current blood pressure medicine. He is off Diovan and we will follow up clinically. 5. Abdominal pain, etiology . Continue morphine p.r.n. 6. Acute renal failure. Patient has creatinine of . Continue hydration. . Renal consult, Dr. Og. We will continue current treatment. Continue gastrointestinal and deep venous thrombosis prophylaxis. We will follow up clinically and patient seems to have also myelodysplastic syndrome, bone marrow failure, Oncology consult. will get blood transfusions for his anemia. Continue current therapy. Patient is otherwise stable. Patient has poor prognosis due to multiorgan dysfunctions and also we are going to get echocardiography to evaluate clinical status and systolic and diastolic functions. Continue current therapy. Follow up clinically. Mook Magallon MD
--- NOTE | 2017-09-02 16:43 | CP.PCM.PN ---
Subjective - Date & Time of Evaluation Date of Evaluation: 09/02/17 Time of Evaluation: 12:10 - Subjective Subjective: No fevers, not in distress. Objective - Vital Signs/Intake and Output Vital Signs (last 24 hours): Temp Pulse Resp BP Pulse Ox 98.8 F 77 18 125/59 L 93 L 09/02/17 07:40 09/02/17 07:40 09/02/17 07:40 09/02/17 07:40 09/02/17 07:40 Intake and Output: 09/02/17 09/02/17 06:59 18:59 Intake Total 850 Output Total 1100 Balance -250 - Medications Medications: Current Medications Acetaminophen (Tylenol 325mg Tab) 650 mg PO Q4H PRN PRN Reason: Pain, Mild (1-3) Acetylcysteine (Acetylcysteine 20%) 4 ml IH BIDRESP [facility] Last Admin: 09/02/17 07:33 Dose: 4 ml Albuterol/Ipratropium (Duoneb 3 Mg/0.5 Mg (3 Ml) Ud) 3 ml IH QIDRESP [facility] Last Admin: 09/02/17 07:33 Dose: 3 ml Albuterol/Ipratropium (Duoneb 3 Mg/0.5 Mg (3 Ml) Ud) 3 ml IH Q4 PRN PRN Reason: Cough and congestion Last Admin: 09/02/17 01:24 Dose: 3 ml Doxazosin Mesylate (Cardura) 8 mg PO BID [facility] Last Admin: 09/01/17 19:04 Dose: 8 mg Doxycycline Hyclate (Doryx) 100 mg PO Q12 [facility] Finasteride (Proscar) 5 mg PO DAILY [facility] Last Admin: 09/01/17 10:33 Dose: 5 mg Home Med (Home Med) 0 unit PO DAILY [facility] Last Admin: 09/01/17 13:09 Dose: 1 unit Hydralazine HCl (Apresoline) 25 mg PO TID [facility] Last Admin: 09/01/17 19:05 Dose: 25 mg Meropenem 500 mg/ Sodium (Chloride) 50 mls @ 100 mls/hr IVPB Q12 [facility] PRN Reason: Protocol Last Admin: 09/01/17 21:49 Dose: 100 mls/hr Sodium Chloride (Sodium Chloride 0.45%) 1,000 mls @ 50 mls/hr IV .Q20H [facility] Last Admin: 09/01/17 21:07 Dose: 50 mls/hr Methylprednisolone (Solu-Medrol) 30 mg IVP Q8 [facility] Last Admin: 09/02/17 05:07 Dose: 30 mg Metoprolol Tartrate (Lopressor) 50 mg PO BID [facility] Last Admin: 09/01/17 19:01 Dose: 50 mg Morphine Sulfate (Morphine) 2 mg IVP Q4H PRN PRN Reason: Pain, severe (8-10) Last Admin: 08/30/17 15:46 Dose: 2 mg Pramipexole Dihydrochloride (Mirapex) 0.125 mg PO TID [facility] Last Admin: 09/01/17 19:04 Dose: 0.125 mg Tamsulosin HCl (Flomax) 0.4 mg PO DAILY [facility] Last Admin: 09/01/17 10:31 Dose: 0.4 mg - Labs Labs: 09/02/17 03:26 09/02/17 03:26 PT 12.7 SECONDS (9.4-12.5) H 08/29/17 17:30 INR 1.11 (0.93-1.08) H 08/29/17 17:30 APTT 33.0 Seconds (25.1-36.5) 08/29/17 17:30 - Constitutional Appears: Chronically Ill - Head Exam Head Exam: NORMAL INSPECTION - Neck Exam Neck Exam: absent: Meningismus - Respiratory Exam Respiratory Exam: Decreased Breath Sounds - Cardiovascular Exam Cardiovascular Exam: +S1, +S2 - GI/Abdominal Exam GI & Abdominal Exam: Soft. absent: Tenderness Assessment and Plan - Assessment and Plan (Free Text) Plan: Assessment Complicated UTI with ESBL-producing E. coli S/P treatment of healthcare-associated pneumonia Maculopapular rash on his back history of sepsis secondary to ESBL E. coli bacteremia S/P sepsis due to Morganella UTI with hematuria history of lung fibrosis myelodysplastic syndrome BPH coronary artery disease Plan continue Merrem day 2 and will continue to monitor clinically; target about 10 days of therapy
--- NOTE | 2017-09-03 01:10 | PN ---
DATE: 09/02/2017 This is [facility] the medical floor. For Dr. Gonsales. SUBJECTIVE: The patient is an 86-year-old male seen sitting up in bed with family members at the bedside reporting that his back discomfort is modestly improved, reporting that conservative approach would be recommended versus kyphoplasty for his compression fracture of his back with the patient having been transfused 2 units of packed red blood cells yesterday with good effect for a hemoglobin of 6.9; he is now at 8.3. With this, the patient is otherwise reporting that his hemoptysis is also modestly improved, with the patient reporting that he has been lying in bed with patient known to have sacral decubitus in the past with precautions to be taken so that this does not worsen. His renal function has stabilized with input as per Dr. Og, renal specialist with a potassium corrected to normal. OBJECTIVE AND PHYSICAL EXAMINATION: VITAL SIGNS: Temperature 98.8, pulse 82, respirations 18, blood pressure 130/58 with a pulse ox of 92% on room air with oxygen, 2 liters nasal cannula applied. HEENT: He appears cachectic. Temples are sunken. NECK: Supple. HEART: Regular rate. Occasional ectopic beat. LUNGS: Faint crackles at the bases. ABDOMEN: Soft. Obese. Nontender. EXTREMITIES: +1 edema with induration of the feet bilaterally. NEUROLOGIC: He is awake and alert, but sluggish with responses with parkinsonian tremor at rest with marked decreased range of motion with cogwheel rigidity. SKIN: Warm and dry with a decubitus ulcer noted on his back side this visit as per nursing, with a significant gait disturbance. LABORATORY DATA: Patient's labs were done. White blood cell count of 5.7; hemoglobin of 8.3, up from 6.9 yesterday; hematocrit of 25.6; platelet count of 53,000. His chem metabolic panel shows a BUN of 72, creatinine of 2.0 with a phosphorous of 5.5. B-natriuretic peptide of 4440. Procalcitonin of 0.2. Troponin of 0.04. Patient did have a chest x-ray done earlier today; it was read as slight increase in bibasilar infiltrates. To this stand, it should be noted that his IV normal saline at 50 mL an hour was on hold. ASSESSMENT: The assessment for this patient is that of hematuria, hemoptysis, Escherichia coli urinary tract infection, history of adenocarcinoma of the lung, chronic obstructive pulmonary disease, pulmonary fibrosis, myelodysplastic syndrome requiring transfusions almost on a weekly basis, Parkinson disease with marked gait disturbance, hypertension, atherosclerotic cardiovascular disease, decubitus ulcer stage II on his back side. PLAN: The plan for this patient after conversation with doctor is to continue his present medical regimen. We will recommend the patient to be out of bed to the chair with the donut pad one-third inflated to sit on on a daily basis so that he does not decompensate in his gait and ambulatory ability while hospitalized with consideration for one unit of fresh frozen plasma at next transfusion with the patient's labs to be monitored and the patient to continue his present antibiotic regimen with further workup as per decorator consultant's recommendations. This is a complex patient with a comprehensive medically necessary and appropriate visit carried out in excess of 30 minutes [id number] time with the patient and his family with questions answered to their satisfaction. Fabian Rosado MD
[2017-09-03] MEDS: Albuterol-Ipratrop 3 mg / 0.5 (3 ml) UD IH PRN (01:22)
[2017-09-03] MEDS: MethylPREDNISolone 40 mg Vial IVP SCH ×3 (05:39→21:48)
[2017-09-03 07:00] LABS: MEAN CELL VOLUME 87.3 fl (80.0-105.0); MEAN CORPUSCULAR HEMOGLOBIN 28.2 pg (25.0-35.0); MEAN CORPUSCULAR HGB CONC 32.3 g/dl (31.0-37.0); PLATELET COUNT 60 10^3/uL (120.0-450.0); RBC 2.84 10^6/uL (3.5-6.1); RED CELL DISTRIBUTION WIDTH 17.1 % (11.5-14.5); WHITE BLOOD COUNT 4.6 10^3/ul (4.5-11.0)
[2017-09-03 07:12] LABS: ALB/GLOB RATIO 1.4 (1.1-1.8); ALBUMIN 3.4 g/dL (3.0-4.8); CALCIUM 9.6 mg/dL (8.4-10.5)
[2017-09-03] MEDS: Albuterol-Ipratrop 3 mg / 0.5 (3 ml) UD IH SCH ×4 (07:24→20:04)
[2017-09-03] MEDS: Acetylcysteine 20% Inhal Soln (4ml) IH SCH ×2 (07:24→20:05)
[2017-09-03] MEDS: Meropenem 500 MG in Sodium Chloride 0.9% 50 ML IVPB SCH ×2 (10:18→21:49)
[2017-09-03] MEDS: DEFERASIROX PO SCH (10:30)
[2017-09-03] MEDS: Silver Sulfadiazine 1% Cream (25 gm) TP SCH ×2 (10:31→18:11)
[2017-09-03 10:41] LABS: PLATELET COUNT MANUAL 64 K/mm3 (120-450)
[2017-09-03] MEDS ORDERED: Darbepoetin Alfa 100 mcg/ml Inj SC ONE (11:36)
--- NOTE | 2017-09-03 14:21 | PN ---
DATE: SUBJECTIVE: The patient is currently seen lying comfortable supine in bed. Presently, the patient is not receiving any IV fluid hydration. The patient remains on IV antibiotic therapy for his E. coli urinary tract infection. MEDICATIONS: Medication list reviewed. The patient is currently on acetylcysteine, Apresoline, Cardura, Doryx, DuoNeb, Flomax, Exjade, Lopressor, meropenem, Mirapex, p.r.n. morphine, PhosLo, Proscar, Silvadene ointment, Solu-Medrol, and Tylenol p.r.n. OBJECTIVE: INTAKE/OUTPUT: Intake 1200, output 1440. VITAL SIGNS: Blood pressure is 136/55, temperature 97.9, respiratory rate 81, pulse of 86. HEENT: Normocephalic, atraumatic. Conjunctivae pale. Sclerae nonicteric. NECK: Supple. No neck vein distention. CHEST: Clear to auscultation and percussion. No rales, rhonchi or wheezing. CARDIOVASCULAR: Shows a regular rate and rhythm without audible murmurs, rubs or gallops. ABDOMEN: Soft. Bowel sounds normal. No rebound. No guarding or masses. : Positive penile and scrotal edema. EXTREMITIES: Trace to 1+ pitting edema of his lower extremity bilaterally. Arms are puffy. NEURO: Shows him to have a mild tremor of his upper extremity. LABORATORY DATA AND IMAGING: CBC: White blood cell count today is 4.6, hemoglobin 8.0, platelet count of 60,000. Chemistries today: Sodium 149, potassium 4.3, chloride 112, CO2 of 25. BUN up to 79. Creatinine is lower at 1.9. Glucose is 134. Calcium is 9.6. Yesterday's phosphorus was 5.5 and a magnesium level of 2.2. Albumin is 3.4. Microbiology: Urine is positive for E. coli. ASSESSMENT: 1. Acute renal failure, prerenal azotemia. No evidence for obstructive uropathy. No evidence for acute interstitial nephritis. The patient's baseline BUN is in the 30-40 range with a baseline creatinine in the 1.3-1.4 range. The patient does have an Escherichia coli urinary tract infection. He is receiving IV antibiotic therapy. He is also on IV steroids, which is likely contributing to his elevated BUN to some extent. 2. Hypertension. Blood pressure is currently controlled on present medical therapy. No change in current medications. 3. History of Parkinson disease, currently stable with only minimal tremor activity in his upper extremity. 4. History of adenocarcinoma of the lung with abnormal chest CT and on chest x-ray, patient is noted to have multiple pulmonary nodules and a left lower lobe lung mass. 5. History of severe myelodysplastic syndrome. The patient remains thrombocytopenic and anemic all the time. He has intermittent leukopenia. He requires transfusions and does receive any Epogen and Neupogen on a regular basis. 6. History of chronic obstructive pulmonary disease and pulmonary fibrosis. The patient is on steroid therapy. This should be decreased to help improve his prerenal azotemia. 7. History of benign prostatic hypertrophy, currently on medication. PLAN: 1. The patient may receive p.r.n. use of diuretic therapy for his scrotal and penile edema. This will likely worsen his BUN and creatinine and make him more prerenal. 2. Try and taper steroids. 3. Hold all nephrotoxic agents. 4. No plans to restart the angiotensin receptor yang therapy in light of his prerenal azotemia. 5. Try and balance his intake and output and perhaps try and keep him in slightly negative fluid balance. He already is retaining fluid in his lower extremity, scrotum and he has penile edema. Dwain Og MD
--- NOTE | 2017-09-03 15:18 | CP.PCM.PN ---
Subjective - Date & Time of Evaluation Date of Evaluation: 09/03/17 Time of Evaluation: 07:40 - Subjective Subjective: Heme-onc Progress Note, Casey Francisco DO, IM PGY-2 This is an 86 yo M with PMH of MDS (transfusion dependent, on regular injections of Procrit and Neupogen), HTN, Lung fibrosis, and urinary incontinence who presented to [facility] with complaint of severe back pain, found to have likely compression fracture on imaging. Heme-onc was consulted for leukocystosis, and his hx of MDS. Patient seen and examined at bedside. Awake and alert, answering all questions appropriately. Oriented to self, location, year, situation. Reports feeling better as compared to prior days, but still intermittently short of breath. Abdominal pain still intermittently present but improved, still has little appetite. Denies chest pain, emesis. Objective - Vital Signs/Intake and Output Vital Signs (last 24 hours): Temp Pulse Resp BP Pulse Ox 97.9 F 72 18 128/61 91 L 09/03/17 07:31 09/03/17 13:52 09/03/17 07:31 09/03/17 13:52 09/03/17 07:31 Intake and Output: 09/03/17 09/03/17 06:59 18:59 Intake Total 240 Output Total 740 Balance -500 - Medications Medications: Current Medications Acetaminophen (Tylenol 325mg Tab) 650 mg PO Q4H PRN PRN Reason: Pain, Mild (1-3) Acetylcysteine (Acetylcysteine 20%) 4 ml IH BIDRESP [facility] Last Admin: 09/03/17 07:24 Dose: 4 ml Albuterol/Ipratropium (Duoneb 3 Mg/0.5 Mg (3 Ml) Ud) 3 ml IH QIDRESP [facility] Last Admin: 09/03/17 11:17 Dose: 3 ml Albuterol/Ipratropium (Duoneb 3 Mg/0.5 Mg (3 Ml) Ud) 3 ml IH Q4 PRN PRN Reason: Cough and congestion Last Admin: 09/03/17 01:22 Dose: 3 ml Calcium Acetate (Phoslo) 667 mg PO WM [facility] Last Admin: 09/03/17 12:20 Dose: 667 mg Doxazosin Mesylate (Cardura) 8 mg PO BID [facility] Last Admin: 03/15/18 10:25 Dose: 8 mg Doxycycline Hyclate (Doryx) 100 mg PO Q12 [facility] Last Admin: 09/03/17 10:26 Dose: 100 mg Finasteride (Proscar) 5 mg PO DAILY [facility] Last Admin: 09/03/17 10:27 Dose: 5 mg Home Med (Home Med) 0 unit PO DAILY [facility] Last Admin: 09/03/17 10:30 Dose: 1 unit Hydralazine HCl (Apresoline) 25 mg PO TID [facility] Last Admin: 09/03/17 13:52 Dose: 25 mg Meropenem 500 mg/ Sodium (Chloride) 50 mls @ 100 mls/hr IVPB Q12 [facility] PRN Reason: Protocol Last Admin: 09/03/17 10:18 Dose: 100 mls/hr Sodium Chloride (Sodium Chloride 0.45%) 1,000 mls @ 50 mls/hr IV .Q20H [facility] Last Admin: 09/01/17 21:07 Dose: 50 mls/hr Methylprednisolone (Solu-Medrol) 30 mg IVP Q8 [facility] Last Admin: 09/03/17 13:51 Dose: 30 mg Metoprolol Tartrate (Lopressor) 50 mg PO BID [facility] Last Admin: 09/03/17 10:26 Dose: 50 mg Morphine Sulfate (Morphine) 2 mg IVP Q4H PRN PRN Reason: Pain, severe (8-10) Last Admin: 08/30/17 15:46 Dose: 2 mg Pramipexole Dihydrochloride (Mirapex) 0.125 mg PO TID [facility] Last Admin: 09/03/17 13:53 Dose: 0.125 mg Silver Sulfadiazine (Silvadene 1% 25 Gm) 0 gm TP BID [facility] Last Admin: 09/03/17 10:31 Dose: 25 gm Tamsulosin HCl (Flomax) 0.4 mg PO DAILY [facility] Last Admin: 09/03/17 10:26 Dose: 0.4 mg - Labs Labs: 09/03/17 06:20 09/03/17 06:20 PT 12.7 SECONDS (9.4-12.5) H 08/29/17 17:30 INR 1.11 (0.93-1.08) H 08/29/17 17:30 APTT 33.0 Seconds (25.1-36.5) 03/10/18 17:30 - Additional Findings Additional findings: - Constitutional Appears: Non-toxic, No Acute Distress, Hard of hearing - Head Exam Head Exam: ATRAUMATIC, NORMAL INSPECTION, NORMOCEPHALIC - Eye Exam Eye Exam: EOMI, Normal appearance. absent: Conjunctival injection Pupil Exam: absent: Irregular, NORMAL ACCOMODATION, Unequal - ENT Exam ENT Exam: Mucous Membranes Moist, no petechiae appreciated - Neck Exam Neck Exam: Full ROM. absent: Lymphadenopathy, Thyromegaly - Respiratory Exam Respiratory Exam: Decreased Breath Sounds (mildly decreased breath sounds in all correa), Rhonchi (mild inspiratory and expiratory ronchi in all correa), NORMAL BREATHING PATTERN. absent: Clear to Ausculation Bilateral, Rales, Wheezes - Cardiovascular Exam Cardiovascular Exam: REGULAR RHYTHM, RRR, +S1, +S2. absent: Bradycardia, Tachycardia, Irregular Rhythm, JVD, +S4 - GI/Abdominal Exam GI & Abdominal Exam: Soft, Normal Bowel Sounds, Reports static tenderness/ discomfort but no tenderness to palpation. absent: Distended, Firm - Extremities Exam Extremities Exam: Normal Inspection. absent: Calf Tenderness, Pedal Edema, Tenderness - Neurological Exam Awake and alert, following all commands appropriately, AAOx4 (self, location, year, situation) Moving all extremities spontaneously Motor grossly intact and equal bilaterally - Psychiatric Exam Psychiatric exam: Normal Affect, Normal Mood - Skin Skin Exam: Dry, Intact, Normal Color, Warm Assessment and Plan - Assessment and Plan (Free Text) Assessment: This is an 86 yo M with PMH of MDS (transfusion dependent, on regular injections of Procrit and Neupogen), HTN, Lung fibrosis, and urinary incontinence who presented to [facility] with complaint of severe back pain, found to have likely compression fracture on imaging. Heme-onc was consulted for leukocystosis, and his hx of MDS. 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 impingement of airway by mass), and then only management of symptoms -Cr 1.9, was 2.0, as per Nephro likely pre-renal azotemia, no signs of obstruction or AIN, continue to hold losartan, prn diuresis only, taper steroids -Leukocytosis resolved -GI consulted for possible pancreatitis; advance diet as tolerated, PPI, trend LFTs, pending EGD -Pain control -s/p 2 units pRBCs for Hgb 6.9 in setting of MDS (transfusion dependant), improved to 8.3, today Hgb is 8.0, continue to monitor on daily CBCs and transfuse as needed, Desferal with transfusions to prevent iron overload Patient reviewed and discussed at length with attending, Dr. Gonsales
--- NOTE | 2017-09-03 15:59 | PN ---
DATE: 09/02/2017 SUBJECTIVE: The patient lying in the bed comfortable. No distress. No chest pain, no nausea, no vomiting. He is tolerating pureed diet. PHYSICAL EXAMINATION: As follows: VITAL SIGNS: Temperature 98.5, heart rate 69, blood pressure 115/59, respirations 18, saturation 92% on room air. HEAD AND NECK: Normal. No JVD. CHEST: There are bilateral rales. CARDIAC: First sound and second sound normal. There is . ABDOMEN: Soft, nontender. EXTREMITIES: No edema. NEUROLOGIC: Normal. Nonfocal, alert, awake, oriented. LABORATORY DATA: Including CBC which shows white count 5.7, hemoglobin 8.3, hematocrit 25.6, platelets 53. Chemistry showed the following: Sodium 146, potassium 4.3, chloride 112, bicarb 23, BUN 72, creatinine is 2, blood sugar 138, calcium 9.2, phosphorus 5.5, magnesium 2.2. AST and ALT is normal, also the patient had troponin 0.03 and proBNP 4440, also the patient has procalcitonin 0.28. IMPRESSION AND PLAN: 1. Complicated urinary tract infection with extended-spectrum beta-lactamase Escherichia coli. The patient has kidney stone, right side. We will continue to follow on that. Continue IV antibiotics, meropenem for now, plus doxycycline. 2. Recurrent nosocomial pneumonia. Continue doxycycline plus meropenem. 3. Chronic obstructive pulmonary disease exacerbation. Continue inhalers and IV bronchodilators. The patient seems doing well. Continue Mucomyst and chest PT. 4. Renal failure. The patient is seen by family practice nurse practitioner. IV fluid is decreased to 50 mL. The patient has high BNP, which is the meaning of high BNP and renal failure uncertain. We will get an echocardiogram to evaluate the left ventricular functions and we will consider Cardiology consult. Currently, his kidney function is improving and went down from 2.2 creatinine to 2. We will continue to follow up on that. 5. Myelodysplastic syndrome status post blood transfusion. Hemoglobin is up. Continue current therapy. Follow up clinically. Continue gastrointestinal and deep venous thrombosis prophylaxis, sequential compression devices of lower legs and we will follow up with the other consultants. Mook Magallon MD
--- NOTE | 2017-09-03 16:37 | CP.PCM.PN ---
Subjective - Date & Time of Evaluation Date of Evaluation: 09/03/17 Time of Evaluation: 11:35 - Subjective Subjective: Feeling better today, no fevers. Improved abdominal pain. Objective - Vital Signs/Intake and Output Vital Signs (last 24 hours): Temp Pulse Resp BP Pulse Ox 97.9 F 87 18 131/64 91 L 09/03/17 07:31 09/03/17 07:31 09/03/17 07:31 09/03/17 07:31 09/03/17 07:31 Intake and Output: 09/03/17 09/03/17 06:59 18:59 Intake Total 240 Output Total 740 Balance -500 - Medications Medications: Current Medications Acetaminophen (Tylenol 325mg Tab) 650 mg PO Q4H PRN PRN Reason: Pain, Mild (1-3) Acetylcysteine (Acetylcysteine 20%) 4 ml IH BIDRESP [facility] Last Admin: 09/03/17 07:24 Dose: 4 ml Albuterol/Ipratropium (Duoneb 3 Mg/0.5 Mg (3 Ml) Ud) 3 ml IH QIDRESP [facility] Last Admin: 09/03/17 07:24 Dose: 3 ml Albuterol/Ipratropium (Duoneb 3 Mg/0.5 Mg (3 Ml) Ud) 3 ml IH Q4 PRN PRN Reason: Cough and congestion Last Admin: 09/03/17 01:22 Dose: 3 ml Calcium Acetate (Phoslo) 667 mg PO WM [facility] Last Admin: 09/03/17 08:39 Dose: 667 mg Doxazosin Mesylate (Cardura) 8 mg PO BID [facility] Last Admin: 09/02/17 19:21 Dose: 8 mg Doxycycline Hyclate (Doryx) 100 mg PO Q12 [facility] Last Admin: 09/02/17 22:30 Dose: 100 mg Finasteride (Proscar) 5 mg PO DAILY [facility] Last Admin: 09/02/17 11:30 Dose: 5 mg Home Med (Home Med) 0 unit PO DAILY [facility] Last Admin: 09/02/17 11:35 Dose: 1 unit Hydralazine HCl (Apresoline) 25 mg PO TID [facility] Last Admin: 09/02/17 19:28 Dose: 25 mg Meropenem 500 mg/ Sodium (Chloride) 50 mls @ 100 mls/hr IVPB Q12 [facility] PRN Reason: Protocol Last Admin: 09/02/17 22:29 Dose: 100 mls/hr Sodium Chloride (Sodium Chloride 0.45%) 1,000 mls @ 50 mls/hr IV .Q20H [facility] Last Admin: 09/01/17 21:07 Dose: 50 mls/hr Methylprednisolone (Solu-Medrol) 30 mg IVP Q8 [facility] Last Admin: 09/03/17 05:39 Dose: 30 mg Metoprolol Tartrate (Lopressor) 50 mg PO BID [facility] Last Admin: 09/02/17 19:21 Dose: 50 mg Morphine Sulfate (Morphine) 2 mg IVP Q4H PRN PRN Reason: Pain, severe (8-10) Last Admin: 08/30/17 15:46 Dose: 2 mg Pramipexole Dihydrochloride (Mirapex) 0.125 mg PO TID [facility] Last Admin: 09/02/17 19:19 Dose: 0.125 mg Silver Sulfadiazine (Silvadene 1% 25 Gm) 0 gm TP BID [facility] Tamsulosin HCl (Flomax) 0.4 mg PO DAILY [facility] Last Admin: 09/02/17 11:29 Dose: 0.4 mg - Labs Labs: 09/03/17 06:20 09/03/17 06:20 PT 12.7 SECONDS (9.4-12.5) H 08/29/17 17:30 INR 1.11 (0.93-1.08) H 08/29/17 17:30 APTT 33.0 Seconds (25.1-36.5) 08/29/17 17:30 - Constitutional Appears: Non-toxic, Chronically Ill - Head Exam Head Exam: NORMAL INSPECTION - ENT Exam ENT Exam: Mucous Membranes Moist - Neck Exam Neck Exam: absent: Meningismus - Respiratory Exam Respiratory Exam: Decreased Breath Sounds - Cardiovascular Exam Cardiovascular Exam: +S1, +S2 - GI/Abdominal Exam GI & Abdominal Exam: Soft. absent: Tenderness Assessment and Plan - Assessment and Plan (Free Text) Plan: Assessment Complicated UTI with ESBL-producing E. coli S/P treatment of healthcare-associated pneumonia Maculopapular rash on his back history of sepsis secondary to ESBL E. coli bacteremia S/P sepsis due to Morganella UTI with hematuria history of lung fibrosis myelodysplastic syndrome BPH coronary artery disease Plan continue Merrem day 3 and will continue to monitor clinically; target about 10 days of therapy
--- NOTE | 2017-09-03 17:09 | CP.PCM.PN ---
Subjective - Date & Time of Evaluation Date of Evaluation: 09/03/17 Time of Evaluation: 09:45 - Subjective Subjective: Seen and examined at the bedside earlier today, chart reviewed. No acute overnight events reported. Patient abdominal discomfort improved. No reports of nausea, vomiting, fever or chills. Objective - Vital Signs/Intake and Output Vital Signs (last 24 hours): Temp Pulse Resp BP Pulse Ox 99 F 84 20 135/64 94 L 09/03/17 14:00 09/03/17 14:00 09/03/17 14:00 09/03/17 14:00 09/03/17 14:00 Intake and Output: 09/03/17 09/03/17 06:59 18:59 Intake Total 240 Output Total 740 Balance -500 - Medications Medications: Current Medications Acetaminophen (Tylenol 325mg Tab) 650 mg PO Q4H PRN PRN Reason: Pain, Mild (1-3) Acetylcysteine (Acetylcysteine 20%) 4 ml IH BIDRESP [facility] Last Admin: 09/03/17 07:24 Dose: 4 ml Albuterol/Ipratropium (Duoneb 3 Mg/0.5 Mg (3 Ml) Ud) 3 ml IH QIDRESP [facility] Last Admin: 09/03/17 15:35 Dose: 3 ml Albuterol/Ipratropium (Duoneb 3 Mg/0.5 Mg (3 Ml) Ud) 3 ml IH Q4 PRN PRN Reason: Cough and congestion Last Admin: 09/03/17 01:22 Dose: 3 ml Calcium Acetate (Phoslo) 667 mg PO WM [facility] Last Admin: 09/03/17 12:20 Dose: 667 mg Doxazosin Mesylate (Cardura) 8 mg PO BID [facility] Last Admin: 09/03/17 10:25 Dose: 8 mg Doxycycline Hyclate (Doryx) 100 mg PO Q12 [facility] Last Admin: 09/03/17 10:26 Dose: 100 mg Finasteride (Proscar) 5 mg PO DAILY [facility] Last Admin: 09/03/17 10:27 Dose: 5 mg Home Med (Home Med) 0 unit PO DAILY [facility] Last Admin: 09/03/17 10:30 Dose: 1 unit Hydralazine HCl (Apresoline) 25 mg PO TID [facility] Last Admin: 09/03/17 13:52 Dose: 25 mg Meropenem 500 mg/ Sodium (Chloride) 50 mls @ 100 mls/hr IVPB Q12 [facility] PRN Reason: Protocol Last Admin: 09/03/17 10:18 Dose: 100 mls/hr Sodium Chloride (Sodium Chloride 0.45%) 1,000 mls @ 50 mls/hr IV .Q20H [facility] Last Admin: 09/01/17 21:07 Dose: 50 mls/hr Methylprednisolone (Solu-Medrol) 30 mg IVP Q8 [facility] Last Admin: 09/03/17 13:51 Dose: 30 mg Metoprolol Tartrate (Lopressor) 50 mg PO BID [facility] Last Admin: 09/03/17 10:26 Dose: 50 mg Morphine Sulfate (Morphine) 2 mg IVP Q4H PRN PRN Reason: Pain, severe (8-10) Last Admin: 08/30/17 15:46 Dose: 2 mg Pramipexole Dihydrochloride (Mirapex) 0.125 mg PO TID [facility] Last Admin: 09/03/17 13:53 Dose: 0.125 mg Silver Sulfadiazine (Silvadene 1% 25 Gm) 0 gm TP BID [facility] Last Admin: 09/03/17 10:31 Dose: 25 gm Tamsulosin HCl (Flomax) 0.4 mg PO DAILY [facility] Last Admin: 09/03/17 10:26 Dose: 0.4 mg - Labs Labs: 09/03/17 06:20 09/03/17 06:20 PT 12.7 SECONDS (9.4-12.5) H 08/29/17 17:30 INR 1.11 (0.93-1.08) H 08/29/17 17:30 APTT 33.0 Seconds (25.1-36.5) 08/29/17 17:30 - Constitutional Appears: No Acute Distress - Head Exam Head Exam: NORMOCEPHALIC - Eye Exam Eye Exam: Normal appearance. absent: Scleral icterus - ENT Exam ENT Exam: Mucous Membranes Moist - Respiratory Exam Respiratory Exam: NORMAL BREATHING PATTERN. absent: Respiratory Distress - Cardiovascular Exam Cardiovascular Exam: +S1, +S2 - GI/Abdominal Exam GI & Abdominal Exam: Soft, Tenderness (minimal tenderness, this is much improved ), Normal Bowel Sounds. 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 Figueredo
--- NOTE | 2017-09-04 02:21 | PN ---
DATE: 09/03/2017 PULMONARY PROGRESS NOTE REFERRING PHYSICIAN: Mook Magallon MD. SUBJECTIVE: He is lying in the bed, head at 45 degrees. Still has some cough. No hemoptysis, no hematemesis, no hematuria, no diarrhea reported. He is on a pureed diet. PHYSICAL EXAMINATION: GENERAL: In no acute distress. VITAL SIGNS: Temperature is 99, heart rate is 70, respiratory rate is 20, blood pressure 136/86, pulse ox 94% on nasal cannula. HEENT: Moist mucous membrane. Crowded airway. Mallampati score is IV. NECK: Supple. No JVD. LUNGS: Have scattered rhonchi. HEART: S1 and S2. ABDOMEN: Soft and nontender. No organomegaly. EXTREMITIES: No edema. NEUROLOGIC: Awake, alert. Follows simple commands. MEDICATIONS: He is on Mucomyst inhaled twice a day, hydralazine 25 mg 3 times a day, Cardura 8 mg twice a day, doxycycline 100 mg twice a day, DuoNeb q. 4 hour p.r.n., Flomax 0.4 mg daily, metoprolol tartrate 50 mg twice a day, meropenem 500 mg q. 12 hour, mg twice a day, morphine 2 mg q. 4 hour p.r.n., Pepcid 20 mg twice a day, PhosLo is with the meals, Proscar 5 mg daily, IV fluid half normal saline 50 mL/hour, Solu-Medrol 30 mg q. 8 hour, and Tylenol p.r.n. basis. LABORATORY DATA: Shows hemoglobin 8.0, hematocrit 24.8, WBC 4.6, platelet is 60. Sodium 149, potassium 4.3, chloride 112, bicarbonate 25, BUN 79, creatinine 1.9, glucose 134, calcium is 9.6. AST 9, ALT 22, alkaline phosphatase is 46, albumin is 3.4. Urine culture has E. coli. Had an echocardiogram, the report is still pending. IMPRESSION AND PLAN: Renal stone, had hematuria, Escherichia coli with extended-spectrum beta-lactamase, adenocarcinoma of the lung, obstructive lung disease, status post pneumonia, pulmonary fibrosis, myelodysplastic syndrome, anemia requiring transfusion, Parkinson disease, oropharyngeal dysphagia, hypertension, atherosclerotic heart disease. Pulmonary point of view, doing okay. Still has oropharyngeal dysphagia, high risk for aspiration. Continue bronchodilator, antibiotics, incentive spirometer. We will add carbidopa and levodopa to his Mirapex. Gastric prophylaxis and deep venous thrombosis prophylaxis. Thank you and we will follow with you. Brenton Diaz MD
[2017-09-04] MEDS: MethylPREDNISolone 40 mg Vial IVP SCH ×3 (06:02→21:41)
[2017-09-04 07:02] LABS: HEMOGLOBIN 7.8 g/dL (14.0-18.0); MEAN CELL VOLUME 89.3 fl (80.0-105.0); MEAN CORPUSCULAR HEMOGLOBIN 27.9 pg (25.0-35.0); MEAN CORPUSCULAR HGB CONC 31.2 g/dl (31.0-37.0); MEAN PLATELET VOLUME 12.3 fl (7.0-11.0); PLATELET COUNT 61 10^3/uL (120.0-450.0); RED CELL DISTRIBUTION WIDTH 17.4 % (11.5-14.5)
[2017-09-04 07:04] LABS: WHITE BLOOD COUNT 51.8 10^3/ul (4.5-11.0)
[2017-09-04 07:40] LABS: ALB/GLOB RATIO 1.4 (1.1-1.8); ALBUMIN 3.3 g/dL (3.0-4.8)
[2017-09-04] MEDS: Albuterol-Ipratrop 3 mg / 0.5 (3 ml) UD IH SCH ×4 (07:40→19:22)
[2017-09-04] MEDS: Acetylcysteine 20% Inhal Soln (4ml) IH SCH ×2 (07:42→19:22)
[2017-09-04 08:02] LABS: MEAN CELL VOLUME 88.1 fl (80.0-105.0); MEAN CORPUSCULAR HEMOGLOBIN 28.1 pg (25.0-35.0); MEAN CORPUSCULAR HGB CONC 31.9 g/dl (31.0-37.0); PLATELET COUNT 67 10^3/uL (120.0-450.0); RBC 2.85 10^6/uL (3.5-6.1); RED CELL DISTRIBUTION WIDTH 17.4 % (11.5-14.5)
[2017-09-04 08:07] LABS: WHITE BLOOD COUNT 49.7 10^3/ul (4.5-11.0)
[2017-09-04 08:54] LABS: BAND 8 % (0-2); LYMPHOCYTE 2 % (22.0-35.0); MONOCYTE 12 % (1.0-6.0); NEUTROPHIL 78 % (50.0-70.0)
[2017-09-04 08:56] LABS: ANISOCYTOSIS SLIGHT; MICROCYTOSIS SLIGHT; PLATELET ESTIMATE LOW (NORMAL)
[2017-09-04] MEDS: Meropenem 500 MG in Sodium Chloride 0.9% 50 ML IVPB SCH ×2 (09:24→21:23)
[2017-09-04] MEDS: Silver Sulfadiazine 1% Cream (25 gm) TP SCH ×2 (09:27→17:02)
--- NOTE | 2017-09-04 09:49 | CARD ---
APPROVED REPORT EXAM: Two-dimensional and M-mode echocardiogram with Doppler and color Doppler. Other Information Quality : AverageRhythm : INDICATION Dyspnea 2D DIMENSIONS Left Atrium (2D)4.5 (1.6-4.0cm)IVSd1.3 (0.7-1.1cm) LVDd4.5 (3.9-5.9cm)PWd1.2 (0.7-1.1cm) LVDs3.2 (2.5-4.0cm)FS (%) 29.0 % LVEF (%)56.0 (>50%) M-Mode DIMENSIONS Aortic Root3.00 (2.2-3.7cm)Aortic Cusp Exc.0.80 (1.5-2.0cm) Aortic Valve AoV Peak Fmoqpljx691.0cm/sAoV VTI43.9cmAO Peak GR.25mmHg LVOT Peak Lhnnlwxl428.0cm/sLVOT VTI25.40cmAO Mean GR.12mmHg Mitral Valve MV E Tosiymyz379.0cm/sMV A Nsqldxkj634.0cm/sE/A ratio1.2 TDI E/Lateral E'0.0E/Medial E'0.0 Tricuspid Valve TR Peak [id number]/sRAP [id number] Peak Gr.22mmHg [id number] LEFT VENTRICLE The left ventricle is normal size. There is mild concentric left ventricular hypertrophy. The left ventricular function is normal. The left ventricular ejection fraction is within the normal range. There is normal LV segmental wall motion. RIGHT VENTRICLE The right ventricle is normal size. ATRIA The left atrium is mildly dilated. The right atrium size is normal. The interatrial septum is intact with no evidence for an atrial septal defect. AORTIC VALVE The aortic valve is moderately to severely calcified. There is mild to moderate valvular aortic stenosis. MITRAL VALVE The mitral valve is moderately thickened but opens well. Mitral annular calcification is moderate to severe. Mitral regurgitation is mild to moderate. TRICUSPID VALVE The tricuspid valve is normal in structure. There is mild tricuspid regurgitation. PULMONIC VALVE The pulmonary valve is normal in structure. GREAT VESSELS The aortic root is normal in size. PERICARDIAL EFFUSION Pleural effusion present. There is no pericardial effusion. <Conclusion> The left ventricle is normal size. There is mild concentric left ventricular hypertrophy. The left ventricular function is normal. The aortic valve is moderately to severely calcified. There is mild to moderate valvular aortic stenosis. Mitral regurgitation is mild to moderate. There is mild tricuspid regurgitation.
[2017-09-04] MEDS: DEFERASIROX PO SCH (09:53)
[2017-09-04] MEDS: POLYETHYLENE GLYCOL 3350 17 GM/Dose PACKET PO SCH (12:15)
--- NOTE | 2017-09-04 12:40 | CP.PCM.PN ---
Subjective - Date & Time of Evaluation Date of Evaluation: 09/04/17 Time of Evaluation: 10:35 - Subjective Subjective: Seen and examined at the bedside earlier today, sister is at bedside. Chart reviewed. Patient reports improvement of abdominal pain and denies nausea, vomiting or shortness of breath or chest pain. Tolerating diet but does not like the pure. Denies any recent BM. No reports of acute overnight events. Patient s/p Granix yesterday. Objective - Vital Signs/Intake and Output Vital Signs (last 24 hours): Temp Pulse Resp BP Pulse Ox 97.8 F 88 18 127/63 91 L 09/04/17 08:01 09/04/17 09:28 09/04/17 08:01 09/04/17 09:28 09/04/17 08:01 Intake and Output: 09/04/17 09/04/17 06:59 18:59 Intake Total 300 Output Total 1140 Balance -840 - Medications Medications: Current Medications Acetaminophen (Tylenol 325mg Tab) 650 mg PO Q4H PRN PRN Reason: Pain, Mild (1-3) Acetylcysteine (Acetylcysteine 20%) 4 ml IH BIDRESP [facility] Last Admin: 09/04/17 07:42 Dose: 4 ml Albuterol/Ipratropium (Duoneb 3 Mg/0.5 Mg (3 Ml) Ud) 3 ml IH QIDRESP [facility] Last Admin: 09/04/17 11:28 Dose: 3 ml Albuterol/Ipratropium (Duoneb 3 Mg/0.5 Mg (3 Ml) Ud) 3 ml IH Q4 PRN PRN Reason: Cough and congestion Last Admin: 09/03/17 01:22 Dose: 3 ml Calcium Acetate (Phoslo) 667 mg PO WM [facility] Last Admin: 09/04/17 12:15 Dose: 667 mg Carbidopa/Levodopa (Sinemet 10/100) 1 tab PO BID [facility] Last Admin: 09/04/17 09:27 Dose: 1 tab Doxazosin Mesylate (Cardura) 8 mg PO BID [facility] Last Admin: 09/04/17 09:26 Dose: 8 mg Famotidine (Pepcid) 20 mg PO 2200 [facility] Finasteride (Proscar) 5 mg PO DAILY [facility] Last Admin: 09/04/17 09:27 Dose: 5 mg Home Med (Home Med) 0 unit PO DAILY [facility] Last Admin: 09/04/17 09:53 Dose: 1 unit Hydralazine HCl (Apresoline) 25 mg PO TID [facility] Last Admin: 09/04/17 09:26 Dose: 25 mg Meropenem 500 mg/ Sodium (Chloride) 50 mls @ 100 mls/hr IVPB Q12 [facility] PRN Reason: Protocol Last Admin: 09/04/17 09:24 Dose: 100 mls/hr Sodium Chloride (Sodium Chloride 0.45%) 1,000 mls @ 50 mls/hr IV .Q20H [facility] Last Admin: 09/01/17 21:07 Dose: 50 mls/hr Methylprednisolone (Solu-Medrol) 30 mg IVP Q8 [facility] Last Admin: 09/04/17 06:02 Dose: 30 mg Metoprolol Tartrate (Lopressor) 50 mg PO BID [facility] Last Admin: 09/04/17 09:28 Dose: 50 mg Morphine Sulfate (Morphine) 2 mg IVP Q4H PRN PRN Reason: Pain, severe (8-10) Last Admin: 08/30/17 15:46 Dose: 2 mg Polyethylene Glycol (Miralax) 17 gm PO DAILY [facility] Last Admin: 09/04/17 12:15 Dose: 17 gm Pramipexole Dihydrochloride (Mirapex) 0.125 mg PO TID [facility] Last Admin: 09/04/17 09:29 Dose: 0.125 mg Silver Sulfadiazine (Silvadene 1% 25 Gm) 0 gm TP BID [facility] Last Admin: 09/04/17 09:27 Dose: 25 gm Tamsulosin HCl (Flomax) 0.4 mg PO DAILY [facility] Last Admin: 09/04/17 09:29 Dose: 0.4 mg - Labs Labs: 09/04/17 07:45 09/04/17 06:15 PT 12.7 SECONDS (9.4-12.5) H 08/29/17 17:30 INR 1.11 (0.93-1.08) H 08/29/17 17:30 APTT 33.0 Seconds (25.1-36.5) 08/29/17 17:30 - Constitutional Appears: No Acute Distress - Head Exam Head Exam: NORMOCEPHALIC - Eye Exam Eye Exam: Normal appearance. absent: Scleral icterus (age) - ENT Exam ENT Exam: Mucous Membranes Moist - Neck Exam Neck Exam: Normal Inspection - Respiratory Exam Respiratory Exam: Clear to Ausculation Bilateral - Cardiovascular Exam Cardiovascular Exam: +S1, +S2 - GI/Abdominal Exam GI & Abdominal Exam: Soft, Normal Bowel Sounds. 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 Spoke to sisters at bedside. Seen and discussed with Dr. Figueredo
--- NOTE | 2017-09-04 16:02 | CP.PCM.PN ---
Subjective - Date & Time of Evaluation Date of Evaluation: 09/04/17 Time of Evaluation: 07:00 - Subjective Subjective: Heme-onc Progress Note, Casey Francisco DO, IM PGY-2 This is an 86 yo M with PMH of MDS (transfusion dependent, on regular injections of Procrit and Neupogen), HTN, Lung fibrosis, and urinary incontinence [place] [facility] [place] of [place] pain, found to have likely compression fracture on imaging. Heme-onc was consulted for leukocystosis, and his hx of MDS. Patient seen and examined at bedside. Awake and alert, answering all questions appropriately. No acute complaints today, including chest pain, shortness of breath, nausea. S/p shots of Granix and Aranesp yesterday. Objective - Vital Signs/Intake and Output Vital Signs (last 24 hours): Temp Pulse Resp BP Pulse Ox 97.8 F 96 H 18 115/55 L 91 L 09/04/17 08:01 09/04/17 14:40 09/04/17 08:01 09/04/17 14:40 09/04/17 08:01 Intake and Output: 09/04/17 09/04/17 06:59 18:59 Intake Total 300 240 Output Total 1140 400 Balance -840 -160 - Medications Medications: Current Medications Acetaminophen (Tylenol 325mg Tab) 650 mg PO Q4H PRN PRN Reason: Pain, Mild (1-3) Acetylcysteine (Acetylcysteine 20%) 4 ml IH BIDRESP [facility] Last Admin: 09/04/17 07:42 Dose: 4 ml Albuterol/Ipratropium (Duoneb 3 Mg/0.5 Mg (3 Ml) Ud) 3 ml IH QIDRESP [facility] Last Admin: 09/04/17 15:15 Dose: 3 ml Albuterol/Ipratropium (Duoneb 3 Mg/0.5 Mg (3 Ml) Ud) 3 ml IH Q4 PRN PRN Reason: Cough and congestion Last Admin: 09/03/17 01:22 Dose: 3 ml Calcium Acetate (Phoslo) 667 mg PO WM [facility] Last Admin: 09/04/17 12:15 Dose: 667 mg Carbidopa/Levodopa (Sinemet 10/100) 1 tab PO BID [facility] Last Admin: 09/04/17 09:27 Dose: 1 tab Doxazosin Mesylate (Cardura) 8 mg PO BID [facility] Last Admin: 09/04/17 09:26 Dose: 8 mg Famotidine (Pepcid) 20 mg PO 2200 [facility] Finasteride (Proscar) 5 mg PO DAILY [facility] Last Admin: 09/04/17 09:27 Dose: 5 mg Home Med (Home Med) 0 unit PO DAILY [facility] Last Admin: 09/04/17 09:53 Dose: 1 unit Hydralazine HCl (Apresoline) 25 mg PO TID [facility] Last Admin: 09/04/17 14:40 Dose: Not Given Meropenem 500 mg/ Sodium (Chloride) 50 mls @ 100 mls/hr IVPB Q12 [facility] PRN Reason: Protocol Last Admin: 09/04/17 09:24 Dose: 100 mls/hr Sodium Chloride (Sodium Chloride 0.45%) 1,000 mls @ 50 mls/hr IV .Q20H [facility] Last Admin: 09/01/17 21:07 Dose: 50 mls/hr Methylprednisolone (Solu-Medrol) 30 mg IVP Q8 [facility] Last Admin: 09/04/17 14:44 Dose: 30 mg Metoprolol Tartrate (Lopressor) 50 mg PO BID [facility] Last Admin: 09/04/17 09:28 Dose: 50 mg Morphine Sulfate (Morphine) 2 mg IVP Q4H PRN PRN Reason: Pain, severe (8-10) Last Admin: 08/30/17 15:46 Dose: 2 mg Polyethylene Glycol (Miralax) 17 gm PO DAILY [facility] Last Admin: 09/04/17 12:15 Dose: 17 gm Pramipexole Dihydrochloride (Mirapex) 0.125 mg PO TID [facility] Last Admin: 09/04/17 14:43 Dose: 0.125 mg Silver Sulfadiazine (Silvadene 1% 25 Gm) 0 gm TP BID [facility] Last Admin: 09/04/17 09:27 Dose: 25 gm Tamsulosin HCl (Flomax) 0.4 mg PO DAILY [facility] Last Admin: 09/04/17 09:29 Dose: 0.4 mg - Labs Labs: 09/04/17 07:45 09/04/17 06:15 PT 12.7 SECONDS (9.4-12.5) H 08/29/17 17:30 INR 1.11 (0.93-1.08) H 08/29/17 17:30 APTT 33.0 Seconds (25.1-36.5) 08/29/17 17:30 - Additional Findings Additional findings: - Constitutional Appears: Non-toxic, No Acute Distress, Hard of hearing - Head Exam Head Exam: ATRAUMATIC, NORMAL INSPECTION, NORMOCEPHALIC - Eye Exam Eye Exam: EOMI, Normal appearance. absent: Conjunctival injection Pupil Exam: absent: Irregular, NORMAL ACCOMODATION, Unequal - ENT Exam ENT Exam: Mucous Membranes Moist, no petechiae appreciated - Neck Exam Neck Exam: Full ROM. absent: Lymphadenopathy, Thyromegaly - Respiratory Exam Respiratory Exam: Decreased Breath Sounds (mildly decreased breath sounds in all correa), Rhonchi (mild inspiratory and expiratory ronchi in all correa), NORMAL BREATHING PATTERN. absent: Clear to Ausculation Bilateral, Rales, Wheezes - Cardiovascular Exam Cardiovascular Exam: REGULAR RHYTHM, RRR, +S1, +S2. absent: Bradycardia, Tachycardia, Irregular Rhythm, JVD, +S4 - GI/Abdominal Exam GI & Abdominal Exam: Soft, Normal Bowel Sounds, Reports static tenderness/ discomfort but no tenderness to palpation. absent: Distended, Firm - Extremities Exam Extremities Exam: Normal Inspection. absent: Calf Tenderness, Pedal Edema, Tenderness - Neurological Exam Awake and alert, following all commands appropriately, AAOx4 (self, location, year, situation) Moving all extremities spontaneously Motor grossly intact and equal bilaterally - Psychiatric Exam Psychiatric exam: Normal Affect, Normal Mood - Skin Skin Exam: Dry, Intact, Normal Color, Warm Assessment and Plan - Assessment and Plan (Free Text) Assessment: This is an 86 yo M with PMH of MDS (transfusion dependent, on regular injections of Procrit and Neupogen), HTN, Lung fibrosis, and urinary incontinence who [place] [facility] [place] of severe [place] pain, found to have likely compression fracture on imaging. Heme-onc was consulted for leukocystosis, and his hx of MDS. 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 impingement of airway by mass), and then only management of symptoms -Cr 1.9, was 2.0, as per Nephro likely pre-renal azotemia, no signs of obstruction or AIN, continue to hold losartan, prn diuresis only, taper steroids -Leukocytosis resolved -GI consulted for possible pancreatitis; advance diet as tolerated, PPI, trend LFTs, pending EGD -Pain control -s/p 2 units pRBCs for Hgb 6.9 in setting of MDS (transfusion dependant), improved to 8.3, today Hgb is 7.8 (8.0 on recheck), continue to monitor on daily CBCs and transfuse as needed, Desferal with transfusions to prevent iron overload Patient reviewed and discussed at length with attending, Dr. Gonsales
--- NOTE | 2017-09-04 20:08 | CP.PCM.PN ---
Subjective - Date & Time of Evaluation Date of Evaluation: 09/04/17 Time of Evaluation: 12:05 - Subjective Subjective: Improved abdominal pain, no fevers, still feels weak. Objective - Vital Signs/Intake and Output Vital Signs (last 24 hours): Temp Pulse Resp BP Pulse Ox 98.5 F 89 20 125/62 95 09/04/17 14:00 09/04/17 17:01 09/04/17 14:00 09/04/17 17:01 09/04/17 14:00 Intake and Output: 09/04/17 09/05/17 18:59 06:59 Intake Total 240 Output Total 400 Balance -160 - Medications Medications: Current Medications Acetaminophen (Tylenol 325mg Tab) 650 mg PO Q4H PRN PRN Reason: Pain, Mild (1-3) Acetylcysteine (Acetylcysteine 20%) 4 ml IH BIDRESP [facility] Last Admin: 09/04/17 19:22 Dose: 4 ml Albuterol/Ipratropium (Duoneb 3 Mg/0.5 Mg (3 Ml) Ud) 3 ml IH QIDRESP [facility] Last Admin: 09/04/17 19:22 Dose: 3 ml Albuterol/Ipratropium (Duoneb 3 Mg/0.5 Mg (3 Ml) Ud) 3 ml IH Q4 PRN PRN Reason: Cough and congestion Last Admin: 09/03/17 01:22 Dose: 3 ml Calcium Acetate (Phoslo) 667 mg PO WM [facility] Last Admin: 09/04/17 16:52 Dose: 667 mg Carbidopa/Levodopa (Sinemet 10/100) 1 tab PO BID [facility] Last Admin: 09/04/17 17:02 Dose: 1 tab Doxazosin Mesylate (Cardura) 8 mg PO BID [facility] Last Admin: 09/04/17 17:01 Dose: 8 mg Famotidine (Pepcid) 20 mg PO 2200 [facility] Finasteride (Proscar) 5 mg PO DAILY [facility] Last Admin: 09/04/17 09:27 Dose: 5 mg Home Med (Home Med) 0 unit PO DAILY [facility] Last Admin: 09/04/17 09:53 Dose: 1 unit Hydralazine HCl (Apresoline) 25 mg PO TID [facility] Last Admin: 09/04/17 17:00 Dose: 25 mg Meropenem 500 mg/ Sodium (Chloride) 50 mls @ 100 mls/hr IVPB Q12 [facility] PRN Reason: Protocol Last Admin: 09/04/17 09:24 Dose: 100 mls/hr Sodium Chloride (Sodium Chloride 0.45%) 1,000 mls @ 50 mls/hr IV .Q20H [facility] Last Admin: 09/01/17 21:07 Dose: 50 mls/hr Methylprednisolone (Solu-Medrol) 30 mg IVP Q8 [facility] Last Admin: 09/04/17 14:44 Dose: 30 mg Metoprolol Tartrate (Lopressor) 50 mg PO BID [facility] Last Admin: 09/04/17 17:01 Dose: 50 mg Morphine Sulfate (Morphine) 2 mg IVP Q4H PRN PRN Reason: Pain, severe (8-10) Last Admin: 08/30/17 15:46 Dose: 2 mg Polyethylene Glycol (Miralax) 17 gm PO DAILY [facility] Last Admin: 09/04/17 12:15 Dose: 17 gm Pramipexole Dihydrochloride (Mirapex) 0.125 mg PO TID [facility] Last Admin: 09/04/17 17:01 Dose: 0.125 mg Silver Sulfadiazine (Silvadene 1% 25 Gm) 0 gm TP BID [facility] Last Admin: 09/04/17 17:02 Dose: 25 gm Tamsulosin HCl (Flomax) 0.4 mg PO DAILY [facility] Last Admin: 09/04/17 09:29 Dose: 0.4 mg - Labs Labs: 09/04/17 07:45 09/04/17 06:15 PT 12.7 SECONDS (9.4-12.5) H 08/29/17 17:30 INR 1.11 (0.93-1.08) H 08/29/17 17:30 APTT 33.0 Seconds (25.1-36.5) 08/29/17 17:30 - Constitutional Appears: Chronically Ill - Head Exam Head Exam: NORMAL INSPECTION - ENT Exam ENT Exam: Mucous Membranes Moist - Neck Exam Neck Exam: absent: Meningismus - Respiratory Exam Respiratory Exam: Decreased Breath Sounds - Cardiovascular Exam Cardiovascular Exam: +S1, +S2 - GI/Abdominal Exam GI & Abdominal Exam: Soft. absent: Tenderness Assessment and Plan - Assessment and Plan (Free Text) Plan: Assessment Complicated UTI with ESBL-producing E. coli marked leukocytosis, probably due to G-CSF infusion S/P treatment of healthcare-associated pneumonia Maculopapular rash on his back history of sepsis secondary to ESBL E. coli bacteremia S/P sepsis due to Morganella UTI with hematuria history of lung fibrosis myelodysplastic syndrome BPH coronary artery disease Plan continue Merrem day 4 and will continue to monitor clinically; target about 10 days of therapy will trend WBC count
--- NOTE | 2017-09-04 21:13 | PN ---
DATE: 09/04/2017 REFERRING PHYSICIAN: Mook Magallon MD. SUBJECTIVE: He is lying in the bed, head at 45 degrees. Brother is at the bedside. Feels little better. Tremor has decreased. Tolerated soft pureed diet well. Still has some cough. No sputum production. No hemoptysis, no hematemesis, no hematuria, no diarrhea reported. OBJECTIVE: GENERAL: In no acute distress. VITAL SIGNS: Temp is 98, heart rate is 89, respiratory rate is 20, blood pressure 125/62, pulse ox 95% on nasal cannula. HEENT: Moist mucous membranes. Crowded airway. NECK: Supple. No JVD. LUNGS: Has fair air flow with rhonchi. HEART: S1 and S2. ABDOMEN: Soft, nontender. No organomegaly. EXTREMITIES: No edema. NEUROLOGIC: Awake and alert. Follows simple commands. MEDICATIONS: He is on Mucomyst 20% inhaled twice a day, hydralazine 25 mg 3 times a day, Cardura 8 mg twice a day, DuoNeb q. 4 hours p.r.n. and q.i.d. around the clock, Flomax 0.4 mg daily, metoprolol tartrate 50 mg twice a day, meropenem 500 mg twice a day, MiraLax 17 g p.o. daily, Mirapex 0.125 mg 3 times a day, morphine 2 mg q. 4 hours p.r.n., Pepcid 20 mg daily, PhosLo with meals, Proscar 5 mg daily, carbidopa and levodopa 10/100 one tab twice a day, IV fluid half normal saline 50 mL/hour, Solu-Medrol 30 mg q. 8 hours, Tylenol p.r.n. LABORATORY DATA: Shows hemoglobin 8.0, hematocrit 25.1, WBC 49,000, platelet is 67. Sodium 149, potassium 4.8, chloride 112, bicarbonate 20, BUN 78, creatinine 1.8, glucose 93, calcium is 10. AST 12, ALT 18, alk phos is 54. Albumin is 3.3. Urine culture has E. coli. IMPRESSION AND PLAN: Renal stone, status post hematuria; Escherichia coli in the urine, which is extended-spectrum beta-lactamase; adenocarcinoma of the lung; chronic obstructive lung disease; status post pneumonia; pulmonary fibrosis; myelodysplastic syndrome; anemia, status post transfusion; Parkinson disease; oropharyngeal dysphagia; modified diet; atherosclerosis; vascular disease. Pulmonary point of view, doing okay. Spoke to the family at bedside. All the questions answered. Continue carbidopa and levodopa for Parkinson's, keep head at 45 degrees, bronchodilator, antibiotics, incentive spirometer, aspiration precaution, stool softener. Thank you and we will follow with you. Brenton Diaz MD
[2017-09-05] MEDS: MethylPREDNISolone 40 mg Vial IVP SCH ×2 (05:41→14:37)
[2017-09-05] MEDS: Acetylcysteine 20% Inhal Soln (4ml) IH SCH (07:52)
[2017-09-05] MEDS: Albuterol-Ipratrop 3 mg / 0.5 (3 ml) UD IH SCH ×5 (07:52→23:20)
[2017-09-05 08:38] LABS: HEMOGLOBIN 7.7 g/dL (14.0-18.0); MEAN CELL VOLUME 89.1 fl (80.0-105.0); MEAN CORPUSCULAR HEMOGLOBIN 28.1 pg (25.0-35.0); MEAN CORPUSCULAR HGB CONC 31.6 g/dl (31.0-37.0); MEAN PLATELET VOLUME 12.3 fl (7.0-11.0); RBC 2.74 10^6/uL (3.5-6.1); RED CELL DISTRIBUTION WIDTH 17.5 % (11.5-14.5); WHITE BLOOD COUNT 23.5 10^3/ul (4.5-11.0)
--- NOTE | 2017-09-05 08:59 | PN ---
DATE: SUBJECTIVE: The patient is currently seen in bed. He appears to be stable. Not complaining of any shortness of breath. He continues on antibiotic therapy for his E. coli UTI and possible pneumonia. His white blood cell count is currently elevated likely secondary to Neupogen. MEDICATIONS: Medication list reviewed. The patient is on acetylcysteine inhalation therapy, Apresoline, Cardura, DuoNeb, Flomax, Exjade, metoprolol, meropenem, MiraLax, Mirapex, morphine, Pepcid, PhosLo, Proscar, Silvadene, Sinemet, IV fluids are on hold, Solu-Medrol and Tylenol p.r.n. OBJECTIVE INTAKE/OUTPUT: Intake is 720, output is 625. VITAL SIGNS: Blood pressure 109/61, temperature 98.1, pulse of 88 with a respiratory rate of 20, pulse ox is 97%. HEENT: Normocephalic, atraumatic. Conjunctivae remain pale. Sclerae nonicteric. NECK: Supple. No neck vein distention. CHEST: Scattered fine rales and scattered rhonchi. No wheezing. CARDIOVASCULAR: Shows a regular rate and rhythm without audible murmurs, rubs or gallops. ABDOMEN: Soft. Bowel sounds normal. No rebound, guarding or masses. GENITOURINARY: Positive scrotal edema. EXTREMITIES: Trace to 1+ pitting edema of his lower extremities. Arms are puffy. NEUROLOGICAL: Shows him to have a mild tremor of his upper extremities bilaterally. LABORATORY DATA AND IMAGING: CBC: White blood cell count yesterday was 49.7 with a hemoglobin of 8 and a platelet count of 67,000. Chemistries: Sodium 149, potassium 4.8, chloride 112 with a CO2 of 20, BUN is 78 with a creatinine of 1.8. His baseline BUN is in the 30-40 range with a baseline creatinine in the 1.3-1.4 range. Liver enzymes are normal. Albumin level is low at 3.3. Calcium is 10. Last phosphorus level available was 5.5. Last magnesium 2.2. Urine is positive for ESBL E. coli. ASSESSMENT 1. Acute renal failure, prerenal azotemia. This is in the setting of renal hypoperfusion. The patient is also on steroids. The patient is being treated for an Escherichia coli urinary tract infection and for pneumonia. No evidence for obstructive uropathy. On imaging studies, no evidence for interstitial nephritis. 2. Hypertension. Blood pressure is currently controlled, within the low-normal range, on current medical therapy. 3. History of Parkinson's disease, being treated with medical therapy. 4. History of adenocarcinoma of the lung with abnormal chest CT scan and chest x-ray. Patient is noted to have multiple pulmonary nodules and a left lower lobe lung mass. 5. History of severe myelodysplastic syndrome. White blood cell count currently is elevated secondary to the use of Neupogen. The patient has required transfusions during the hospitalization. He has received a total of two units of packed red blood cells and his present hemoglobin is 8. 6. History of chronic obstructive pulmonary disease, pulmonary fibrosis. The patient is on steroid therapy, inhalation therapy. Being followed by Pulmonary. 7. History of benign prostatic hypertrophy, on medical therapy. PLAN 1. Again, the attempt here is to try and taper steroids. 2. We will avoid IV fluid hydration in light of the fact that he is edematous. 3. Hold all nephrotoxic agents in light of the fact that his BUN and creatinine are above baseline levels. 4. No plans to restart his angiotensin receptor yang in light of his prerenal azotemia. 5. Followup with Pulmonary, ID and Oncology. Dwain Og MD
[2017-09-05 09:01] LABS: ALB/GLOB RATIO 1.4 (1.1-1.8); ALBUMIN 3.5 g/dL (3.0-4.8); CALCIUM 10.4 mg/dL (8.4-10.5)
[2017-09-05] MEDS: Meropenem 500 MG in Sodium Chloride 0.9% 50 ML IVPB SCH ×2 (12:01→22:51)
[2017-09-05] MEDS: POLYETHYLENE GLYCOL 3350 17 GM/Dose PACKET PO SCH (12:01)
[2017-09-05] MEDS: DEFERASIROX PO SCH (12:02)
[2017-09-05] MEDS: Silver Sulfadiazine 1% Cream (25 gm) TP SCH ×2 (12:03→18:10)
[2017-09-05] MEDS ORDERED: DiphenhydrAMINE 50 mg/ml Inj IVP PRN (13:19)
--- NOTE | 2017-09-05 20:08 | PN ---
DATE: 09/05/2017 SUBJECTIVE: Patient is in bed, in no acute distress, nontoxic. PHYSICAL EXAMINATION: VITAL SIGNS: Temperature is 98, blood pressure is 110/60, respiratory rate of 20. HEENT: Unremarkable. NECK: Supple. LUNGS: Have decreased breath sounds. HEART: Normal S1, S2. ABDOMEN: Soft, nontender. LABORATORY EXAMINATION: Reveals a white count of 23,000, hemoglobin of 7, platelets of 45. Coagulation is noted. Chemistries reveals a BUN of 83, creatinine of 1.8. Urinalysis is noted and review of orders reveals the patient to be on meropenem. ASSESSMENT AND PLAN: This is an 86-year-old male seen earlier in 3, bed 1, with a complicated urinary tract infection with extended-spectrum beta-lactamases producing Escherichia coli, marked leukocytosis, probably secondary to colony-stimulating factor infusion status post treatment for healthcare-associated pneumonia and maculopapular rash on his back and the history of sepsis, day #5 of meropenem, for a complicated urinary tract infection with extended-spectrum beta-lactamases producing Escherichia coli, day #5 of 10 days. Review of orders confirms the meropenem. Shilo Mesa MD
--- NOTE | 2017-09-06 00:30 | PN ---
DATE: PULMONARY PROGRESS NOTE REFERRING PHYSICIAN: Mook Magallon MD SUBJECTIVE: He is lying in the bed, head at 45 degrees. Family is at bedside, feeding him dinner. Feels a little better. Decreased tremor. Swallowing is a little better. Still has a cough . No hematemesis, no emesis, no hematuria. No diarrhea reported. OBJECTIVE: GENERAL: In no acute distress. VITAL SIGNS: Temp is 98, heart rate is 81, respiratory rate is 18, blood pressure 140/70, pulse ox 96% on room air. HEENT: Moist mucous membranes. Crowded airway. Mallampati score is IV. NECK: Supple. No JVD. LUNGS: Have scattered rhonchi. HEART: S1 and S2. ABDOMEN: Soft, nontender. No organomegaly. EXTREMITIES: No edema. NEUROLOGIC: Awake, alert. Follows simple command. MEDICATIONS: He is on Mucomyst 20% inhaled twice a day, hydralazine 25 mg three times a day, Benadryl 25 mg p.r.n. basis, Cardura 8 mg twice a day, albuterol/Atrovent nebulizer q.4 hour p.r.n. and q.i.d. around the clock, Flomax 0.4 mg daily, metoprolol tartrate 50 mg twice a day, meropenem 500 mg q.12 hour, MiraLax 17 g daily, Mirapex 0.125 mg three times a day, morphine 2 mg q.4 hour p.r.n., Pepcid 20 mg daily, PhosLo 667 with meals, finasteride 5 mg daily, Sinemet 10/100 one tab twice a day, IV fluid half-normal saline 50 mL per hour, Solu-Cortef 100 mg one dose was given, Solu-Medrol 30 mg q.8 hour, Tylenol p.r.n. LABORATORY DATA: Shows hemoglobin 7.7, hematocrit 24.4, WBC 23,000, platelet is 45. Sodium 149, potassium 5.0, chloride 111, bicarbonate 25, BUN 83, creatinine 1.8, glucose 132, phosphorus is 5.1, calcium is 10.4. AST 11, ALT 22, alk phos is 70, albumin is 3.5. IMPRESSION AND PLAN: Renal stone, status post hematuria; extended-spectrum beta-lactamase cause Escherichia coli; adenocarcinoma of the lung; chronic obstructive lung disease, status post pneumonia; pulmonary fibrosis; myelodysplastic syndrome; anemia, status post transfusion; Parkinson disease; oropharyngeal dysphagia; modified diet; atherosclerosis; vascular disease; constipation. I spoke to family at bedside. He is still having issue with swallowing. I think Parkinson's is one of the contributor, so we will increase carbidopa and levodopa. Keep head at 45 degrees. Continue bronchodilator, gastric prophylaxis, deep venous thrombosis prophylaxis, aspiration precaution. Thank you and we will follow with you. Brenton Diaz MD
--- NOTE | 2017-09-06 01:00 | PN ---
HEMATOLOGY/ONCOLOGY PROGRESS NOTE DATE: 09/05/2017 LOCATION: The patient is in room 563, bed 1. 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 Currently, in addition to antibiotics, the patient has also been getting intermittent blood transfusions and he has been getting both Neupogen and as part of this treatment for his myelodysplastic syndrome. In addition to that, the patient has been getting medications directed towards the myelodysplastic syndrome with both Revlimid and danazol as an outpatient. Subjectively, the patient is currently seen in bed. He appears to be stable, not complaining of any breathing issues, appears to be alert and oriented to time and place, able to recognize me. The patient has been eating, though he is very weak and he has significant issues with his sacral area as well with sacral breakdown for which when he sits up, they have been using a donut pad. MEDICATIONS: Reviewed. He is on acetylcysteine inhalation therapy, Apresoline, Cardura, DuoNeb, Flomax, Exjade, metoprolol, meropenem, MiraLax, Mirapex, morphine, Pepcid, PhosLo, Proscar, Silvadene, Sinemet, Solu-Medrol, and Tylenol p.r.n. PHYSICAL EXAMINATION: GENERAL: The patient appears to be clinically stable. VITAL SIGNS: Blood pressure is 109/61, T-max is 98.4, pulse is 88 with respiration of 20, pulse ox of 97%. HEENT: Head is normocephalic, atraumatic. Conjunctivae are pale. Temporal muscle wasting is noted. Sclerae are anicteric. Examination of the oropharynx reveals no oropharyngeal lesions. Tongue is moist. No ulcerations are noted. NECK: Supple. There is no adenopathy. No jugular venous distention noted. LUNGS: Reveal decreased breath sounds on the left side posteriorly with scattered rales and rhonchi. CARDIOVASCULAR SYSTEM: Reveals a regular rate and rhythm without any audible murmurs at this time. ABDOMEN: Soft, nontender. No rebound, rigidity, or guarding is noted. Liver and spleen are not palpable. GENITOURINARY: Positive for scrotal edema. EXTREMITIES: The patient has 1+ pitting edema of his lower extremities. Both his arms are puffy, left greater than the right. NEUROLOGIC: Examination shows him to have a mild tremor of his upper extremities bilaterally. No focal deficits are noted. LABORATORY DATA: Reveals a white count of 49,000 which is trending down, hemoglobin has dropped down to 7.8, and platelet count is 45,000 today. Chemistry reveals sodium of 149, potassium of 4.8, chloride 112, CO2 of 20, BUN of 78, creatinine of 1.8. Liver enzymes are normal. Albumin is down to 3.3, phosphorus is 5.5 from the last levels, magnesium is 2.2. Urine was positive for ESBL E. coli. ASSESSMENT NOTES: The patient has myelodysplastic syndrome with resultant transfusion requirement, currently on intermittent transfusion along with growth factors. The patient has acute renal dysfunction with prerenal azotemia in the setting of renal hypoperfusion. The patient is also on steroids. He is being treated for urinary tract infection and possible pneumonia as he could have obstructive changes on the left side where he has the active lung cancer. The patient does not have any obstructive uropathy and he is on Flomax. Hypertension is reasonably well controlled. Tremors are essential tremors for which he is on medical therapy. PLAN: The patient is going to get 1 unit of blood. I am asking for 2 units to be on board. Platelet count is holding at 45,000; we are not going to do any transfusion at this time unless the platelet count goes down to 20,000 or the patient is symptomatic. The patient is being seen by Renal at the same time to watch over his kidney dysfunction. In the meantime, we will try to see if we can get the patient back on his Revlimid and danazol along with his Exjade. The patient has been getting with the blood transfusions, dextran injections to reduce that iron overload as his ferritins are greater than 1000. The patient is being followed up by Infectious Disease and Pulmonary as well along with Renal. Did speak to Dr. Magallon. Spoke at length with the patient, will speak to his sister as well. Time spent with the patient is greater than 45 minutes. More than 50% of this time was involved in [id number] interaction with the patient. Mehdi Gonsales MD [facility] # [id number]
--- NOTE | 2017-09-06 02:30 | PN ---
DATE: 09/05/2017 SUBJECTIVE: This patient was seen and evaluated today earlier. The patient's family was at bedside. PHYSICAL EXAMINATION: VITAL SIGNS: On examination, temperature is 98.7, pulse 81, blood pressure is 143/72. HEENT: Atraumatic, anicteric. NECK: Supple. HEART: S1 and S2 heard. LUNGS: Bilateral air entry present. There are few scattered rhonchi present. Slightly reduced air entry at the base. ABDOMEN: Soft. There is no tenderness present. EXTREMITIES: Mild edema present. LABORATORY DATA: WBC count has come down to 23.5. Hemoglobin 7.7, hematocrit 24.4, platelets 45,000. The chemistry is BUN 88, creatinine of 1.8. IMPRESSION: This 86-year-old patient admitted with right sided abdominal pain. The patient has extended-spectrum beta-lactamase in the urine and has advanced lung cancer. History of pneumonia. The patient has myelodysplastic syndrome also.Small right ureterovesical stone PLAN: 1. The plan is conservative management and continue the antibiotics as per ID. We will consider not from blood count, no obvious bleeding, most likely could be bone marrow etiology. We will recommend to continue his antibiotics. 2. Pureed diet. 3. Family prefers conservative management. The patient does have a gallstone, clinically did not appear to inflamed. Other etiology is to be considered. The patient continues his antibiotics. The patient also has a myelodysplastic syndrome. Follow up with the LFTs. May need transfusion as needed. Valorie Figueredo MD MTD[facility]ayshree
[2017-09-06] MEDS: Albuterol-Ipratrop 3 mg / 0.5 (3 ml) UD IH SCH ×4 (08:00→20:54)
[2017-09-06] MEDS: Acetylcysteine 20% Inhal Soln (4ml) IH SCH (08:01)
--- NOTE | 2017-09-06 10:39 | PN ---
DATE: SUBJECTIVE: The patient is currently seen sitting up in bed. He states that he is having difficulty clearing his secretions. He will be suctioned. He remains on IV antibiotic therapy for his ESBL E. Coli urinary tract infection. He remains prerenal. He still has scrotal and penile edema. MEDICATIONS: List reviewed. The patient is on acetylcysteine inhalation therapy, Apresoline, Benadryl, Cardura, DuoNeb, Flomax, Exjade, metoprolol, meropenem, MiraLax, Mirapex, morphine, Pepcid, PhosLo, Proscar, Silvadene, Sinemet, IV fluids are on hold, Solu-Cortef, Solu-Medrol, and Tylenol p.r.n. PHYSICAL EXAMINATION: INTAKE AND OUTPUT. Intake 1000, output 1900. VITAL SIGNS: Blood pressure 130/60, temperature 98.1, pulse of 76 with respiratory rate of 18, pulse ox is 93%. HEENT: Shows him to be normocephalic, atraumatic. Conjunctivae are pale. Sclerae are nonicteric. NECK: Supple. No neck vein distention. CHEST: Scattered rales and scattered rhonchi bilaterally. No wheezing. Upper airway coarse breath sounds. CARDIOVASCULAR: Shows a regular rate and rhythm without audible murmurs, rubs, or gallops. ABDOMEN: Soft. Bowel sounds normal. No rebound, guarding, or masses. GENITOURINARY: Positive scrotal and penile edema. EXTREMITIES: Trace to 1+ pitting edema of his lower extremities. Arms are puffy. NEUROLOGIC: Shows him to have a mild tremor of the upper extremities bilaterally. LABORATORY DATA AND IMAGING: CBC: White blood cell count from yesterday 23.5 with a hemoglobin of 7.7, platelet count remains low at 45,000. Chemistries: Sodium 149, potassium 5.0, chloride 111. BUN higher at 83. Creatinine stable at 1.8. Glucose is 132. Calcium 10.4. Phosphorus level is 5.1. Liver enzymes are normal. Albumin is 3.5. Microbiology: Urines are positive for ESBL E. coli. ASSESSMENT: 1. Acute renal failure, prerenal azotemia, superimposed on chronic kidney disease stage III. His baseline BUN is in the 30-40 range with a baseline creatinine in the 1.3-1.4 range. This is in the setting of renal hypoperfusion. The patient is also on steroids. He is also being treated for an Escherichia coli extended-spectrum beta-lactamase urinary tract infection. No evidence for obstructive uropathy on imaging studies and urine studies did not support interstitial nephritis. 2. Hypertension. Blood pressure control is acceptable. No change in current medical therapy. 3. History of Parkinson disease, currently stable. 4. History of adenocarcinoma of the lung with abnormal chest CT scan and x-ray. The patient is known to have multiple pulmonary nodules and a left lower lobe lung mass. 5. History of severe myelodysplastic syndrome. The patient's white blood cell count is elevated secondary to the use of Neupogen. The patient requires transfusions periodically. He is being followed closely by Hematology/Oncology. 6. 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 The patient remains on steroid therapy and inhalation therapy. This is also likely the cause of his elevated BUN. 7. History of benign prostatic hypertrophy, currently stable on medical therapy. PLAN: 1. Continue the patient off IV fluids and encourage p.o. intake. This is in light of his lower extremity, penile, and scrotal edema. 2. We will avoid diuretic therapy in light of the fact that he is significantly prerenal. 3. Hold all nephrotoxic agents. 4. No plans to restart his angiotensin receptor yang therapy given his acute renal failure. 5. Continued followup with pulmonary, ID, and Hematology/Oncology. Dwain Og MD
[2017-09-06] MEDS: DEFERASIROX PO SCH (10:43)
[2017-09-06] MEDS: POLYETHYLENE GLYCOL 3350 17 GM/Dose PACKET PO SCH (10:44)
[2017-09-06] MEDS: Silver Sulfadiazine 1% Cream (25 gm) TP SCH ×2 (10:44→18:17)
[2017-09-06] MEDS: Meropenem 500 MG in Sodium Chloride 0.9% 50 ML IVPB SCH ×2 (10:44→22:10)
--- NOTE | 2017-09-06 11:06 | CARD ---
APPROVED REPORT EKG Measurement Heart [id number] <Conclusion> Normal sinus rhythm Possible Left atrial enlargement Right bundle branch block No change
[2017-09-06] MEDS: MethylPREDNISolone 40 mg Vial IVP SCH (12:20)
--- NOTE | 2017-09-06 18:12 | PN ---
DATE: 09/06/2017 SUBJECTIVE: The patient is in bed, in no acute distress, nontoxic. PHYSICAL EXAMINATION: VITAL SIGNS: Temperature is 98, blood pressure is 120/60, respiratory rate of 18. HEENT: Unremarkable. NECK: Supple. LUNGS: Have decreased breath sounds. HEART: Normal S1, S2. ABDOMEN: Soft, nontender. LABORATORY DATA: Reveals a white count of 23,000, hemoglobin of 7, platelets of 45. Chemistries reveal a BUN of 83, creatinine of 1.8. Urinalysis is noted. Microbiology reveals E. Coli ESBL in the urine. Review of orders reveals the patient to be on meropenem and Solu-Medrol. ASSESSMENT AND PLAN: This is an 86-year-old male seen earlier in [facility], bed 1 with complicated urinary tract infection, extended-spectrum beta-lactamase producing Escherichia coli, marked leukocytosis, probably secondary to colony-stimulating factor infusion, status post treatment for healthcare-associated pneumonia, maculopapular rash, history of sepsis, and day #6 of meropenem, will complete 10 days. Shilo Mesa MD
--- NOTE | 2017-09-06 23:51 | PN ---
DATE: 09/05/2017 SUBJECTIVE: The patient seems a little bit lethargic. Still having dyspnea, but otherwise stable. PHYSICAL EXAMINATION: On 09/05, his physical examination as follows: VITAL SIGNS: Temperature 98.3, heart rate 84, blood pressure 128/63, respirations 18. HEAD AND NECK: Normal. No JVD. No thyromegaly. CHEST: Bilateral crackles. CARDIAC: First sound and second sound normal. ABDOMEN: Soft, nontender. EXTREMITIES: No edema. NEUROLOGIC: The patient moves all extremities, but he does have generalized weakness. LABORATORY DATA: On 09/05, lab work shows white count is 23.5, hemoglobin 7.7, hematocrit 24.4, platelets is 45. Chemistry shows sodium 149, potassium , chloride 111, bicarb 25, BUN 83, creatinine is 1.8, blood sugar 132. IMPRESSION AND PLAN: 1. Pulmonary ellis, the patient has hypoxemia due to multiple lung problems including bilateral lung fibrosis, pneumonia, in addition to lung cancer and underlying chronic obstructive pulmonary disease. We will continue intravenous steroids. Continue bronchodilators and chest PT. The patient is also getting Mucomyst and we will see how the patient doing with that. Continue current management. Follow up with the river crossing supervisor's recommendations. 2. Pancytopenia, myelodysplasia. The patient will get blood transfusion. We will give him Lasix before transfusions and will follow up with the senior graphic designer. 3. Hypertension, stable. Continue current therapy. 4. Pneumonia, urinary tract infection, extended-spectrum beta-lactamase. Continue meropenem and follow up with Infectious Disease consult on that. 5. Generalized weakness, Parkinson's disease. Continue current therapy. Follow up clinically. Mook Magallon MD
--- NOTE | 2017-09-07 02:10 | PN ---
DATE: 09/03/2017 SUBJECTIVE: The patient seems less dyspneic than yesterday. He had some suction today, seen by welcome wagon host/hostess, Dr. Diaz. Patient is otherwise stable. He is still on IV antibiotics. Patient is generally weak, cannot get out of bed to chair due to his underlying medical problems. PHYSICAL EXAMINATION: VITAL SIGNS: Today his temperature is 98, heart rate 76, blood pressure 130/60. HEAD AND NECK: Normal. CHEST: Crackles bilaterally, more in the left than the right. CARDIAC: First sound and second sound are normal. ABDOMEN: Soft, nontender. EXTREMITIES: No edema. NEUROLOGIC: Normal. IMPRESSION AND PLAN: 1. Respiratory distress due to multiple medical lung problems including bilateral pulmonary fibrosis, lung cancer, bilateral pneumonia, chronic obstructive pulmonary disease. Continue current therapy including DuoNeb, Mucomyst, IV steroids, chest PT and IV antibiotics for associated pneumonia. 2. Gram-negative complicated urinary tract infections. Patient has right ureteral stone and will continue meropenem for that. Patient will need more time, probably TCU would be helpful. 3. Pancytopenia, myelodysplasia with bone marrow suppressions. Patient would be getting blood transfusions. We will follow up with oncologist. 4. Hypertension, prostate enlargement. Continue Lopressor and continue Flomax and Proscar. Patient seems stable at this time. 5. Generalized weakness, Parkinson's. Continue the Sinemet from ICU Dr. Diaz. He increased his Sinemet from one tablet twice a day to two tablets twice a day. We will get Neurology consultation to help us with this. Continue deep vein thrombosis prophylaxis, patient is getting SCDs. [place] prevention. We will follow up clinically. Mook Magallon MD
[2017-09-07 07:12] LABS: BASO # 0.06 K/mm3 (0.0-2.0); BASO % 0.3 % (0.0-3.0); EOS % 0.1 % (1.5-5.0); GRAN # 14.67 (1.4-6.5); GRAN % 83.8 % (50.0-68.0); HEMOGLOBIN 7.6 g/dL (14.0-18.0); LYMPH # 0.6 (1.2-3.4); LYMPH % 3.5 % (22.0-35.0); MEAN CELL VOLUME 88.9 fl (80.0-105.0); MEAN CORPUSCULAR HGB CONC 31.5 g/dl (31.0-37.0); MONO # 2.2 (0.1-0.6); MONO % 12.3 % (1.0-6.0); RBC 2.71 10^6/uL (3.5-6.1); WHITE BLOOD COUNT 17.5 10^3/ul (4.5-11.0)
[2017-09-07] MEDS: Acetylcysteine 20% Inhal Soln (4ml) IH SCH ×3 (07:24→21:05)
[2017-09-07] MEDS: Albuterol-Ipratrop 3 mg / 0.5 (3 ml) UD IH SCH ×4 (07:24→21:05)
--- NOTE | 2017-09-07 07:29 | PN ---
DATE: 09/06/2017 SUBJECTIVE: This patient was seen and evaluated earlier today. The patient's sister was at bedside. History of bleeding per rectum. Patient did have an endoscopy and colonoscopy by Dr. Montilla in 2018. The results are reviewed. PHYSICAL EXAMINATION: VITAL SIGNS: On examination; temperature is 98.1, pulse 87, blood pressure is 119/52. HEENT: Atraumatic, anicteric. NECK: Supple. HEART: S1 and S2 heard. LUNGS: Bilateral air entry present. ABDOMEN: Soft. There is no tenderness at this time. EXTREMITIES: There is an edema present bilaterally, mild. NEUROLOGIC: Alert. LABORATORY DATA: Anemia, 7.7 hemoglobin, platelets 45. IMPRESSION: This 86-year-old patient with myelodysplastic syndrome. We will continue the antibiotic. RECOMMENDATION: 1. Follow up of the hemoglobin, hematocrit, transfuse as needed. 2. He is to continue the present treatment. Patient is to continue the antibiotics as per ID. Patient is now off the antibiotics. Patient originally came with a right upper quadrant discomfort. Pancreatic contour shows some mild heaviness. Patient also has the gallstones. Other comorbidities include stones in the pelviureteric junction. Patient will continue the PPI. We will continue to closely follow up his care and suggest further management based on the clinical course. Thank you very much for allowing us to participate in the care of the patient. Valorie Figueredo MD
[2017-09-07 07:41] LABS: PLATELET COUNT 24 10^3/uL (120.0-450.0)
[2017-09-07 07:44] LABS: ALB/GLOB RATIO 1.4 (1.1-1.8); ALBUMIN 3.4 g/dL (3.0-4.8); CALCIUM 10.2 mg/dL (8.4-10.5)
[2017-09-07 10:05] LABS: ATYPICAL LYMPHOCYTE 1 % (0.0-0.0); BAND 3 % (0-2); LYMPHOCYTE 12 % (22.0-35.0); METAMYELOCYTE 2 %; MONOCYTE 6 % (1.0-6.0); NEUTROPHIL 76 % (50.0-70.0); NUCLEATED RED BLOOD CELL 3 %
[2017-09-07 10:06] LABS: PLATELET ESTIMATE LOW (NORMAL)
[2017-09-07] MEDS: Morphine 2 mg/ml ISec IVP PRN (10:14)
[2017-09-07] MEDS: DEFERASIROX PO SCH (10:16)
[2017-09-07] MEDS: Silver Sulfadiazine 1% Cream (25 gm) TP SCH ×2 (10:19→19:11)
--- NOTE | 2017-09-07 10:19 | PN ---
DATE: 09/03/2017 SUBJECTIVE: The patient is clinically stable and improving. Less short of breath. Less coughing. Afebrile. Eating a pureed diet, tolerating it well. He is eating better. PHYSICAL EXAMINATION: VITAL SIGNS: Temperature 99, heart rate 84, blood pressure 135/64, respirations 20, and saturation 94%. HEAD AND NECK: Normal. No JVD. No thyromegaly. CHEST: There are crackles on the bases, left more than right. CARDIAC: First sound and second sound normal. ABDOMEN: Soft, nontender. EXTREMITIES: No edema. NEUROLOGIC: Moves all extremities, but generally weak and unsteady gait. LABORATORY DATA: Shows white count 4.6, hemoglobin 8, hematocrit 24.8, and platelet is 60. His chemistries show sodium 149, potassium 4.3, chloride 111, bicarb 25, BUN 79, and creatinine 1.9. The patient has blood sugar 134. Liver function test is normal. The patient also had an echocardiogram that was done. Left ventricle is normal in size, mild concentric left ventricular hypertrophy, ventricular function is normal, [id number] calcified aortic valve, [id number]-jf-[id number] valvular aortic stenosis, mitral regurgitation is [id number], and there is tricuspid mild regurgitation. So, patient does have good LV function, left ventricular hypertrophy moderately, [id number] aortic valve stenosis. IMPRESSION AND PLAN: 1. Bilateral pneumonia, nosocomial with recurrent . We will continue meropenem and doxycycline. Continue inhaled bronchodilators. 2. Chronic lung fibrosis and chronic obstructive pulmonary disease. Continue inhaled bronchodilator. Continue IV steroids; Mucomyst. Chest PT seems helping. His breathing seems better. 3. Complicated urinary traction infection with a stone. We will continue IV antibiotics for now, meropenem and doxycycline. Extended spectrum beta-lactamase in the urine. We will repeat after 10 days' course of antibiotics. 4. The patient does have a history of myelodysplasia syndrome, seen by Hematology. We will continue current therapy. Hemoglobin is stable at 8 and we will follow up clinically. 5. Hypertension and prostate enlargement. Continue Proscar. Continue current blood pressure medicine, which including Lopressor 50 mg b.i.d., Cardura 8 mg b.i.d., hydralazine 25 mg t.i.d. and we will follow up clinically. CURRENT MEDICATIONS: Mucomyst, hydralazine 25 mg t.i.d., Cardura 8 mg b.i.d., DuoNeb, and Flomax 0.4 mg daily. HOME MEDICATIONS: Unclear. Lopressor 50 mg b.i.d., meropenem, MiraLax, Mirapex 0.125 mg t.i.d., morphine p.r.n. for pain, Pepcid 20 mg b.i.d., PhosLo with meals, Proscar 5 mg daily, Silvadene for sacral decubitus one tablet twice a day, Solu-Medrol 30 mg IV q. 8, and Tylenol p.r.n. Continue current therapy. The patient may be transferred to Transitional Care Unit for continuation of IV antibiotics. He is improving and we will follow up with other consultants. Mook Magallon MD
[2017-09-07] MEDS: POLYETHYLENE GLYCOL 3350 17 GM/Dose PACKET PO SCH (10:21)
[2017-09-07] MEDS: Meropenem 500 MG in Sodium Chloride 0.9% 50 ML IVPB SCH ×2 (10:26→21:35)
[2017-09-07] MEDS: MethylPREDNISolone 40 mg Vial IVP SCH (11:53)
--- NOTE | 2017-09-07 11:53 | CP.PCM.PN ---
Subjective - Date & Time of Evaluation Date of Evaluation: 09/07/17 Time of Evaluation: 07:20 - Subjective Subjective: Heme-onc Progress Note, Casey Francisco DO, IM PGY-2 This is an 86 yo M with PMH of MDS (transfusion dependent, on regular injections of Procrit and Neupogen), HTN, Lung fibrosis, and urinary incontinence who presented to [facility] with complaint of severe back pain, found to have likely compression fracture on imaging. Heme-onc was consulted for leukocystosis, and his hx of MDS. Patient seen and examined at bedside. Awake and alert, but less oriented than previously, able to answer direct questions but not as conversant, stuttering speech, seems to be losing focus easily. Reports feeling poorly, sensation of phlegm stuck in throat. Bedside suction utilized but no secretions removed, none appreciated on view of pharynx through open mouth. Hgb decreased again despite transfusion over the weekend, will transfuse another unit of pRBCs. Objective - Vital Signs/Intake and Output Vital Signs (last 24 hours): Temp Pulse Resp BP Pulse Ox 97.3 F L 87 21 135/64 95 09/07/17 07:30 09/07/17 10:26 09/07/17 07:30 09/07/17 10:26 09/07/17 07:30 Intake and Output: 09/07/17 09/07/17 06:59 18:59 Intake Total 555 Output Total 875 Balance -320 - Medications Medications: Current Medications Acetaminophen (Tylenol 325mg Tab) 650 mg PO Q4H PRN PRN Reason: Pain, Mild (1-3) Last Admin: 09/05/17 17:57 Dose: 650 mg Acetaminophen (Tylenol 325mg Tab) 650 mg PO ONCE PRN PRN Reason: 1/2 hour prior transfusion Acetylcysteine (Acetylcysteine 20%) 4 ml IH BIDRESP [facility] Last Admin: 09/07/17 07:24 Dose: 4 ml Albuterol/Ipratropium (Duoneb 3 Mg/0.5 Mg (3 Ml) Ud) 3 ml IH QIDRESP [facility] Last Admin: 09/07/17 07:24 Dose: 3 ml Albuterol/Ipratropium (Duoneb 3 Mg/0.5 Mg (3 Ml) Ud) 3 ml IH Q4 PRN PRN Reason: Cough and congestion Last Admin: 09/03/17 01:22 Dose: 3 ml Calcium Acetate (Phoslo) 667 mg PO WM [facility] Last Admin: 09/07/17 10:26 Dose: 667 mg Carbidopa/Levodopa (Sinemet 10/100) 2 tab PO BID [facility] Last Admin: 09/07/17 10:26 Dose: 2 tab Diphenhydramine HCl (Benadryl) 25 mg IVP ONCE PRN PRN Reason: 1/2 hour prior transfusion Last Admin: 09/05/17 17:57 Dose: 25 mg Doxazosin Mesylate (Cardura) 8 mg PO BID [facility] Last Admin: 09/07/17 10:25 Dose: 8 mg Famotidine (Pepcid) 20 mg PO 2200 [facility] Last Admin: 09/06/17 22:11 Dose: Not Given Finasteride (Proscar) 5 mg PO DAILY [facility] Last Admin: 09/07/17 10:23 Dose: 5 mg Home Med (Home Med) 0 unit PO DAILY [facility] Last Admin: 09/07/17 10:16 Dose: 1 unit Hydralazine HCl (Apresoline) 25 mg PO TID [facility] Last Admin: 09/07/17 10:26 Dose: 25 mg Hydrocortisone Sodium Succinate (Solu-Cortef) 100 mg IVP ONCE PRN PRN Reason: 1/2 hr prior transfusion Last Admin: 09/05/17 17:57 Dose: 100 mg Meropenem 500 mg/ Sodium (Chloride) 50 mls @ 100 mls/hr IVPB Q12 [facility] PRN Reason: Protocol Last Admin: 09/07/17 10:26 Dose: 100 mls/hr Sodium Chloride (Sodium Chloride 0.45%) 1,000 mls @ 50 mls/hr IV .Q20H [facility] Last Admin: 09/01/17 21:07 Dose: 50 mls/hr Methylprednisolone (Solu-Medrol) 30 mg IVP 12 [facility] Last Admin: 09/06/17 12:20 Dose: 30 mg Metoprolol Tartrate (Lopressor) 50 mg PO BID [facility] Last Admin: 09/07/17 10:22 Dose: 50 mg Morphine Sulfate (Morphine) 2 mg IVP Q4H PRN PRN Reason: Pain, severe (8-10) Last Admin: 09/07/17 10:14 Dose: 2 mg Polyethylene Glycol (Miralax) 17 gm PO DAILY [facility] Last Admin: 09/07/17 10:21 Dose: 17 gm Pramipexole Dihydrochloride (Mirapex) 0.125 mg PO TID [facility] Last Admin: 09/06/17 18:16 Dose: 0.125 mg Silver Sulfadiazine (Silvadene 1% 25 Gm) 0 gm TP BID [facility] Last Admin: 09/07/17 10:19 Dose: 1 gm Tamsulosin HCl (Flomax) 0.4 mg PO DAILY [facility] Last Admin: 09/07/17 10:22 Dose: 0.4 mg - Labs Labs: 09/07/17 06:30 09/07/17 06:30 PT 12.7 SECONDS (9.4-12.5) H 08/29/17 17:30 INR 1.11 (0.93-1.08) H 08/29/17 17:30 APTT 33.0 Seconds (25.1-36.5) 08/29/17 17:30 - Additional Findings Additional findings: - Constitutional Appears: Non-toxic, No Acute Distress, Hard of hearing - Head Exam Head Exam: ATRAUMATIC, NORMAL INSPECTION, NORMOCEPHALIC - Eye Exam Eye Exam: EOMI, Normal appearance. absent: Conjunctival injection Pupil Exam: absent: Irregular, NORMAL ACCOMODATION, Unequal - ENT Exam ENT Exam: Mucous Membranes Moist, no petechiae appreciated - Neck Exam Neck Exam: Full ROM. absent: Lymphadenopathy, Thyromegaly - Respiratory Exam Respiratory Exam: Decreased Breath Sounds (mildly decreased breath sounds in all correa), Rhonchi (mild inspiratory and expiratory ronchi in all correa), NORMAL BREATHING PATTERN. absent: Clear to Ausculation Bilateral, Rales, Wheezes - Cardiovascular Exam Cardiovascular Exam: REGULAR RHYTHM, RRR, +S1, +S2. absent: Bradycardia, Tachycardia, Irregular Rhythm, JVD, +S4 - GI/Abdominal Exam GI & Abdominal Exam: Soft, Normal Bowel Sounds, Reports static tenderness/ discomfort but no tenderness to palpation. absent: Distended, Firm - Extremities Exam Extremities Exam: Normal Inspection. absent: Calf Tenderness, Pedal Edema, Tenderness - Exam Exam: scrotal and penile swelling appreciated, card catheter in place draining small amounts of clear yellow urine, difficult to fully visualize genitals due to scrotal swelling - Neurological Exam Awake and alert, following all commands appropriately, but less oriented/alert compared to prior exams, easily losing focus Moving all extremities spontaneously Motor grossly intact and equal bilaterally Resting tremors appreciated in bilateral upper extremities - Psychiatric Exam Psychiatric exam: Normal Affect, Normal Mood - Skin Skin Exam: Dry, Intact, Normal Color, Warm Assessment and Plan - Assessment and Plan (Free Text) Assessment: This is an 86 yo M with PMH of MDS (transfusion dependent, on regular injections of Procrit and Neupogen), HTN, Lung fibrosis, and urinary incontinence who presented to [facility] with complaint of severe back pain, found to have likely compression fracture on imaging. Heme-onc was consulted for leukocystosis, and his hx of MDS. 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 impingement of airway by mass), and then only management of symptoms -Cr 1.7, as per Nephro likely pre-renal azotemia, no signs of obstruction or AIN , continue to hold losartan, prn diuresis only, taper steroids -Leukocytosis resolved -GI consulted for possible pancreatitis; advance diet as tolerated, PPI, trend LFTs, pending EGD -Pain control -s/p 1 units pRBCs for Hgb 7.7 in setting of MDS (transfusion dependant) and continued downtrending Hgb, recheck today 7.6, will transfuse another unit of pRBCs and recheck -Platelets acutely decreased from baseline during this admission (50's-60's) -> 45 -> 24 today, pending manual check; if < 20 with bleeding or if < 10 will transfuse platelets -patient and family have previously expressed desire to receive all potential surgical interventions and remain full code, however given patient course of disease and overall prognosis, consulted Palliative care to meet with patient and discuss goals of care Patient reviewed and discussed at length with attending, Dr. Gonsales
--- NOTE | 2017-09-07 12:21 | PN ---
DATE: 09/06/2017 REFERRING PHYSICIAN: Mook Magallon M.D. SUBJECTIVE: He is lying in the bed, head at 45 degrees. Family is at the bedside. Still has a cough, unable to clear pulmonary secretion. Appetite is a little better. Ate little better. Tremor is a little better. No nausea, no vomiting. No diarrhea. No leg pain or leg swelling. OBJECTIVE: GENERAL: In no acute distress. VITAL SIGNS: Temperature is 98, heart rate 79, respiratory rate is 18, blood pressure 125/54, pulse ox 93% on nasal cannula. HEENT: Moist mucous membranes. Crowded airway. NECK: Supple. No JVD. LUNGS: Has scattered rhonchi in both lung correa. HEART: S1 and S2. ABDOMEN: Soft, nontender. No organomegaly. EXTREMITIES: No edema. NEUROLOGIC: Awake and alert. Follows simple commands. MEDICATIONS: He is on Mucomyst 20% inhaled twice a day, hydralazine 20 mg 3 times a day, Benadryl 25 mg p.r.n., Cardura 8 mg twice a day, albuterol/Atrovent nebulizer q.4 hour p.r.n. and also albuterol/Atrovent q.6 hour round the clock, Flomax 0.4 mg daily, metoprolol tartrate 50 mg twice a day, meropenem 500 mg q.12 hour, MiraLax 17 g daily, Mirapex 0.125 mg 3 times a day, morphine 2 mg q. 4 hours p.r.n., Pepcid 20 mg daily, PhosLo 667 with meals, Proscar 5 mg daily, Sinemet 10/100 two tabs twice a day, IV fluid half normal saline 50 mL/hour which is on hold, Solu-Cortef once was given yesterday, also Solu-Medrol 30 mg q.12 hour, Tylenol p.r.n. LABORATORY DATA: Reviewed, noted. No new lab is available since yesterday. Urine culture has E. coli. IMPRESSION AND PLAN: Renal stone with hematuria, has extended-spectrum beta-lactamase Escherichia coli caused urinary tract infection, adenocarcinoma of the lung, chronic obstructive lung disease, pneumonia, pulmonary fibrosis, myelodysplastic syndrome, anemia, Parkinson disease, oropharyngeal dysphagia, modified diet, atherosclerosis, vascular disease, constipation. Case discussed with the family at bedside. All their questions answered with the help of nurses. Nurses attempted nasal and oral suction to suck some secretion, but did not get much secretions out. We will continue IV and inhaled bronchodilator, keep head at 45 degree, aspiration precaution. Gastric prophylaxis, deep venous thrombosis prophylaxis. Continue adjust his antiparkinsonism medication. But overall, clinically, I believe he is a little better. Thank you and we will follow with you. Brenton Diaz MD
--- NOTE | 2017-09-07 12:33 | CP.PCM.CON ---
History of Present Illness - History of Present Illness History of Present Illness: Palliative consult requested By Dr Jayshree Gonsales copied to Dr Ryan Magallon Reason: Goals of care and advance care planning 84 year old male with history of MDS, transfusion dependent, HTN and lung fibrosis who presented with severe back pain, weakness and periods of confusion. Imaging showed compression fracture of L3, right pelvocaliectasis and ureterctasis with 3.4 mm stone at right uretorvesical junction multiple bilateral renal cysts,bilateral pleural effusions, interval increase in size of left lower lobe mass with multiple pulmonary nodules consistent with metastasis. Labs; leukocytosis,anemia,thrombocytopenia,elevated BUN/Creatinine, UTI. PMHx: MDS,anemia, chronic kidney disease, pulmonary fibrosis, HTN, BPH, Parkinson disease. Social History: Never smoker, no alcohol or drug use.Lives with sister, Eleanor Oseguera. Family History: Non contributory. Advance Care Planning: The patient does not have an Advanced Directive Review of Systems: As per HPI, otherwise negative 12 point review of systems. Past Patient History - Infectious Disease Hx of Infectious Diseases: None - Past Social History Smoking Status: Never Smoked - CARDIAC Hx Hypertension: Yes - PULMONARY Hx Pneumonia: Yes - NEUROLOGICAL Hx Paralysis: No - HEENT Hx HEENT Problems: Yes Other/Comment: right eye red with watery drainage x 1 month - RENAL Hx Chronic Kidney Disease: Yes - ENDOCRINE/METABOLIC Hx Endocrine Disorders: No - HEMATOLOGICAL/ONCOLOGICAL Hx Blood Transfusions: Yes (11/2016) Hx Blood Transfusion Reaction: No - INTEGUMENTARY Hx Dermatological Problems: Yes Other/Comment: red hard dry skin to buttocks, ble tight red dry skin and multiple scabs,callous to ball of left foot 2cm x 1cm wound bed is red - MUSCULOSKELETAL/RHEUMATOLOGICAL Hx Musculoskeletal Disorders: No - GASTROINTESTINAL Hx Gastrointestinal Disorders: No - GENITOURINARY/GYNECOLOGICAL Hx Hematuria: Yes Hx Incontinence: Yes (leaky bladder) Hx Prostate Problems: Yes (enlarged) - PSYCHIATRIC Hx Emotional Abuse: No Hx Physical Abuse: No Hx Substance Use: No - SURGICAL HISTORY Hx Appendectomy: Yes Other/Comment: T&A, penile dorsal slit,cysto - ANESTHESIA Hx Anesthesia Reactions: No Hx Malignant Hyperthermia: No Meds Allergies/Adverse Reactions: Allergies Allergy/AdvReac Type Severity Reaction Status Date / Time No Known Allergies Allergy Verified 08/29/17 16:42 - Medications Medications: Current Medications Acetaminophen (Tylenol 325mg Tab) 650 mg PO Q4H PRN PRN Reason: Pain, Mild (1-3) Last Admin: 09/05/17 17:57 Dose: 650 mg Acetaminophen (Tylenol 325mg Tab) 650 mg PO ONCE PRN PRN Reason: 1/2 hour prior transfusion Acetylcysteine (Acetylcysteine 20%) 4 ml IH BIDRESP [facility] Last Admin: 09/07/17 07:24 Dose: 4 ml Albuterol/Ipratropium (Duoneb 3 Mg/0.5 Mg (3 Ml) Ud) 3 ml IH QIDRESP [facility] Last Admin: 09/07/17 11:49 Dose: 3 ml Albuterol/Ipratropium (Duoneb 3 Mg/0.5 Mg (3 Ml) Ud) 3 ml IH Q4 PRN PRN Reason: Cough and congestion Last Admin: 09/03/17 01:22 Dose: 3 ml Calcium Acetate (Phoslo) 667 mg PO WM [facility] Last Admin: 09/07/17 10:26 Dose: 667 mg Carbidopa/Levodopa (Sinemet 10/100) 2 tab PO BID [facility] Last Admin: 09/07/17 10:26 Dose: 2 tab Diphenhydramine HCl (Benadryl) 25 mg IVP ONCE PRN PRN Reason: 1/2 hour prior transfusion Last Admin: 09/05/17 17:57 Dose: 25 mg Doxazosin Mesylate (Cardura) 8 mg PO BID [facility] Last Admin: 09/07/17 10:25 Dose: 8 mg Famotidine (Pepcid) 20 mg PO 2200 [facility] Last Admin: 09/06/17 22:11 Dose: Not Given Finasteride (Proscar) 5 mg PO DAILY [facility] Last Admin: 09/07/17 10:23 Dose: 5 mg Home Med (Home Med) 0 unit PO DAILY [facility] Last Admin: 09/07/17 10:16 Dose: 1 unit Hydralazine HCl (Apresoline) 25 mg PO TID [facility] Last Admin: 09/07/17 10:26 Dose: 25 mg Hydrocortisone Sodium Succinate (Solu-Cortef) 100 mg IVP ONCE PRN PRN Reason: 1/2 hr prior transfusion Last Admin: 09/05/17 17:57 Dose: 100 mg Meropenem 500 mg/ Sodium (Chloride) 50 mls @ 100 mls/hr IVPB Q12 [facility] PRN Reason: Protocol Last Admin: 09/07/17 10:26 Dose: 100 mls/hr Sodium Chloride (Sodium Chloride 0.45%) 1,000 mls @ 50 mls/hr IV .Q20H [facility] Last Admin: 09/01/17 21:07 Dose: 50 mls/hr Methylprednisolone (Solu-Medrol) 30 mg IVP 12 [facility] Last Admin: 09/07/17 11:53 Dose: 30 mg Metoprolol Tartrate (Lopressor) 50 mg PO BID [facility] Last Admin: 09/07/17 10:22 Dose: 50 mg Morphine Sulfate (Morphine) 2 mg IVP Q4H PRN PRN Reason: Pain, severe (8-10) Last Admin: 09/07/17 10:14 Dose: 2 mg Polyethylene Glycol (Miralax) 17 gm PO DAILY [facility] Last Admin: 09/07/17 10:21 Dose: 17 gm Pramipexole Dihydrochloride (Mirapex) 0.125 mg PO TID [facility] Last Admin: 09/06/17 18:16 Dose: 0.125 mg Silver Sulfadiazine (Silvadene 1% 25 Gm) 0 gm TP BID [facility] Last Admin: 09/07/17 10:19 Dose: 1 gm Tamsulosin HCl (Flomax) 0.4 mg PO DAILY [facility] Last Admin: 09/07/17 10:22 Dose: 0.4 mg Physical Exam - Constitutional Appears: Chronically Ill - Head Exam Head Exam: NORMAL INSPECTION - Eye Exam Eye Exam: Normal appearance, PERRL - ENT Exam ENT Exam: Mucous Membranes Moist, Normal Oropharynx - Neck Exam Neck exam: Positive for: Normal Inspection - Respiratory Exam Respiratory Exam: Decreased Breath Sounds, Rhonchi, NORMAL BREATHING PATTERN - Cardiovascular Exam Cardiovascular Exam: REGULAR RHYTHM, +S1, +S2 - GI/Abdominal Exam GI & Abdominal Exam: Normal Bowel Sounds, Soft Additional comments: mildly distended, non tender - Exam Exam: Scrotal Swelling Additional comments: card - Extremities Exam Extremities exam: Positive for: pedal pulses present - Skin Skin Exam: Dry, Pallor - Additional Findings Additional findings: Palliative performance scale rating 30% Results - Vital Signs Recent Vital Signs: Last Vital Signs Temp 97.3 F L 09/07/17 07:30 Pulse 87 09/07/17 10:26 Resp 21 09/07/17 07:30 BP 135/64 09/07/17 10:26 Pulse Ox 95 09/07/17 07:30 - Labs Result Diagrams: 09/07/17 06:30 09/07/17 06:30 Labs: Laboratory Results - last 24 hr 09/07/17 09/07/17 06:30 06:30 WBC 17.5 H D RBC 2.71 L Hgb 7.6 L Hct 24.1 L MCV 88.9 MCH 28.0 MCHC 31.5 RDW 17.0 H Plt Count 24 L* Gran % 83.8 H Lymph % (Auto) 3.5 L [place] % (Auto) 12.3 H Eos % (Auto) 0.1 L Baso % (Auto) 0.3 Gran # 14.67 H Lymph # (Auto) 0.6 L [place] # (Auto) 2.2 H Eos # (Auto) 0.0 Baso # (Auto) 0.06 Neutrophils % (Manual) 76 H Band Neutrophils % 3 H Lymphocytes % (Manual) 12 L Atypical Lymphs % 1 H Monocytes % (Manual) 6 Metamyelocytes % 2 Nucleated RBC % 3 Platelet Evaluation Low Sodium 148 Potassium 4.7 Chloride 110 H Carbon Dioxide 27 Anion Gap 16 BUN 85 H Creatinine 1.7 H Est GFR ( Amer) 46 Est GFR (Non-Af Amer) 38 Random Glucose 120 H Calcium 10.2 Phosphorus 4.8 H Magnesium 2.2 Total Bilirubin 0.9 AST 11 L ALT 25 Alkaline Phosphatase 68 Total Protein 5.8 Albumin 3.4 Globulin 2.4 Albumin/Globulin Ratio 1.4 Assessment & Plan - Assessment and Plan (Free Text) Assessment: 86 year old male with history of pulmonary fibrosis, MDS, NSCL cancer, MDS, CKD and anemia who is admitted with left lower lobe infiltrate, UTI, CAMILO, anemia. The patient is weak, lethargic, minimally conversive. Patients brother at bedside, palliative services explained. Attempted to discuss goals of care with him. Brother prefers that this conversation be had with his sister Eleanor, whom the patient lives with. Brother stated that his sister would be arriving shortly. Visited patients room twice after our conversation, Eleanor had not yet arrived. My contact information left with brother. Requested that sister contact me upon arrival. Time spent in goals of care discussion with family member, 10 minutes Plan: All reports reviewed, continue medical interventions as prescribed, no new recommendations. Intent to discuss goals of care and advance care planning.
--- NOTE | 2017-09-07 14:19 | CP.PCM.PN ---
Subjective - Date & Time of Evaluation Date of Evaluation: 09/07/17 Time of Evaluation: 11:45 - Subjective Subjective: Comfortable, no fevers, not in distress. Objective - Vital Signs/Intake and Output Vital Signs (last 24 hours): Temp Pulse Resp BP Pulse Ox 97.3 F L 87 21 135/64 95 09/07/17 07:30 09/07/17 10:26 09/07/17 07:30 09/07/17 10:26 09/07/17 07:30 Intake and Output: 09/07/17 09/07/17 06:59 18:59 Intake Total 555 Output Total 875 Balance -320 - Medications Medications: Current Medications Acetaminophen (Tylenol 325mg Tab) 650 mg PO Q4H PRN PRN Reason: Pain, Mild (1-3) Last Admin: 09/05/17 17:57 Dose: 650 mg Acetaminophen (Tylenol 325mg Tab) 650 mg PO ONCE PRN PRN Reason: 1/2 hour prior transfusion Acetylcysteine (Acetylcysteine 20%) 4 ml IH BIDRESP [facility] Last Admin: 09/07/17 07:24 Dose: 4 ml Albuterol/Ipratropium (Duoneb 3 Mg/0.5 Mg (3 Ml) Ud) 3 ml IH QIDRESP [facility] Last Admin: 09/07/17 11:49 Dose: 3 ml Albuterol/Ipratropium (Duoneb 3 Mg/0.5 Mg (3 Ml) Ud) 3 ml IH Q4 PRN PRN Reason: Cough and congestion Last Admin: 09/03/17 01:22 Dose: 3 ml Calcium Acetate (Phoslo) 667 mg PO WM [facility] Last Admin: 09/07/17 10:26 Dose: 667 mg Carbidopa/Levodopa (Sinemet 10/100) 2 tab PO BID [facility] Last Admin: 09/07/17 10:26 Dose: 2 tab Diphenhydramine HCl (Benadryl) 25 mg IVP ONCE PRN PRN Reason: 1/2 hour prior transfusion Last Admin: 09/05/17 17:57 Dose: 25 mg Doxazosin Mesylate (Cardura) 8 mg PO BID [facility] Last Admin: 09/07/17 10:25 Dose: 8 mg Famotidine (Pepcid) 20 mg PO 2200 [facility] Last Admin: 09/06/17 22:11 Dose: Not Given Finasteride (Proscar) 5 mg PO DAILY [facility] Last Admin: 09/07/17 10:23 Dose: 5 mg Home Med (Home Med) 0 unit PO DAILY [facility] Last Admin: 09/07/17 10:16 Dose: 1 unit Hydralazine HCl (Apresoline) 25 mg PO TID [facility] Last Admin: 09/07/17 10:26 Dose: 25 mg Hydrocortisone Sodium Succinate (Solu-Cortef) 100 mg IVP ONCE PRN PRN Reason: 1/2 hr prior transfusion Last Admin: 09/05/17 17:57 Dose: 100 mg Meropenem 500 mg/ Sodium (Chloride) 50 mls @ 100 mls/hr IVPB Q12 [facility] PRN Reason: Protocol Last Admin: 09/07/17 10:26 Dose: 100 mls/hr Sodium Chloride (Sodium Chloride 0.45%) 1,000 mls @ 50 mls/hr IV .Q20H [facility] Last Admin: 09/01/17 21:07 Dose: 50 mls/hr Methylprednisolone (Solu-Medrol) 30 mg IVP 12 [facility] Last Admin: 09/07/17 11:53 Dose: 30 mg Metoprolol Tartrate (Lopressor) 50 mg PO BID [facility] Last Admin: 09/07/17 10:22 Dose: 50 mg Morphine Sulfate (Morphine) 2 mg IVP Q4H PRN PRN Reason: Pain, severe (8-10) Last Admin: 09/07/17 10:14 Dose: 2 mg Polyethylene Glycol (Miralax) 17 gm PO DAILY [facility] Last Admin: 09/07/17 10:21 Dose: 17 gm Pramipexole Dihydrochloride (Mirapex) 0.125 mg PO TID [facility] Last Admin: 09/06/17 18:16 Dose: 0.125 mg Silver Sulfadiazine (Silvadene 1% 25 Gm) 0 gm TP BID [facility] Last Admin: 09/07/17 10:19 Dose: 1 gm Tamsulosin HCl (Flomax) 0.4 mg PO DAILY [facility] Last Admin: 09/07/17 10:22 Dose: 0.4 mg - Labs Labs: 09/07/17 06:30 09/07/17 06:30 PT 12.7 SECONDS (9.4-12.5) H 08/29/17 17:30 INR 1.11 (0.93-1.08) H 08/29/17 17:30 APTT 33.0 Seconds (25.1-36.5) 08/29/17 17:30 - Constitutional Appears: Chronically Ill - Head Exam Head Exam: NORMAL INSPECTION - Respiratory Exam Respiratory Exam: Decreased Breath Sounds - Cardiovascular Exam Cardiovascular Exam: +S1, +S2 - GI/Abdominal Exam GI & Abdominal Exam: Soft. absent: Tenderness Assessment and Plan - Assessment and Plan (Free Text) Plan: Assessment Complicated UTI with ESBL-producing E. coli marked leukocytosis, probably due to G-CSF infusion S/P treatment of healthcare-associated pneumonia Maculopapular rash on his back history of sepsis secondary to ESBL E. coli bacteremia S/P sepsis due to Morganella UTI with hematuria history of lung fibrosis myelodysplastic syndrome BPH coronary artery disease Plan continue Merrem day 7 and will continue to monitor clinically; target about 10 days of therapy will continue to trend WBC count
--- NOTE | 2017-09-07 16:43 | CON ---
DATE: 09/07/2017 NEUROLOGY CONSULT CHIEF COMPLAINT: Evaluate for generalized weakness with history of parkinsonism. HISTORY OF PRESENT ILLNESS: This is an 86-year-old man with past medical history of myelodysplastic syndrome, transfusion dependent, hypertension, lung fibrosis, Parkinson's disease, on Sinemet 10/100 two tabs p.o. b.i.d., history of compression fracture of L3 causing severe back pain, who came in with generalized weakness with periods of confusion, found to have a 3.4 mm stone at the right ureterovesical junction with multiple bilateral renal cysts and bilateral pleural effusion with interval increase in the size of left lower lobe mass with multiple pulmonary nodules consistent with metastasis. Found to have leukocytosis, anemia, thrombocytopenia, elevated BUN and creatinine, complicated UTI with ESBL producing E. coli and healthcare associated pneumonia and some underlying sepsis. I was called for generalized weakness. He does have some parkinsonism tremors bilaterally in both hands, has cogwheel rigidity and increased tone throughout. He is generally weak from his underlying ongoing medical issues at this point. He is on Mirapex for stroke prevention. Palliative Care consult has been placed and reviewed and appreciated. PAST MEDICAL HISTORY: History of myelodysplastic syndrome, anemia of chronic kidney disease, pulmonary fibrosis, hypertension, BPH, Parkinson's disease and [id number] carcinoma of the lung. FAMILY HISTORY: Noncontributory. SOCIAL HISTORY: Nonsmoker, nondrug user, no illicit drug use or alcohol. REVIEW OF SYSTEMS: Fourteen-point review of systems is negative except as per the HPI. ALLERGIES: NO KNOWN DRUG ALLERGIES. MEDICATIONS: Reviewed by nurse reconciliation sheet. PHYSICAL EXAMINATION: VITAL SIGNS: Temperature is 97.8, pulse rate of 87, blood pressure 102/50, respiratory rate of 20. GENERAL: The patient is lethargic, drowsy, in no acute distress. HEENT: Atraumatic, normocephalic. PERRLA. Extraocular muscles intact. LUNGS: Have decreased breath sounds bilaterally with some scattered rhonchi. HEART: Regular rate and rhythm. No murmurs, rubs or gallops. S1, S2 present. ABDOMEN: Soft, nontender and nondistended. Bowel sounds are present. EXTREMITIES: No clubbing. No cyanosis. Peripheral pulses 2+ felt bilaterally. NEUROLOGIC: The patient is drowsy, in no acute distress and is hard of hearing at baseline. Speech is hypophonic. Cranial nerves II through XII intact. Motor exam: Increased tone throughout. Has mild cogwheel rigidity at both wrists and has resting pill rolling tremor on both hands. Sensory exam: Withdraws to localized noxious stimulus. Light touch is intact. DTRs are 2+ throughout and 1 at both knees and ankles. Coordination and gait deferred for now. LABORATORY DATA: WBC 17.5, hemoglobin is 7.6, hematocrit 24.1, platelet count of 24. Sodium 148, potassium 4.7, chloride of 110, BUN of 85, creatinine 1.7, random glucose of 120. ASSESSMENT AND PLAN: This is an 86-year-old man with history of pulmonary fibrosis with myelodysplastic syndrome, [id number] carcinoma lung cancer, chronic kidney disease, anemia. He was admitted for left lower lobe infiltrate, urinary tract infection, complicated by extended-spectrum beta-lactamase producing Escherichia coli and has on top of that acute kidney injury and severe anemia and is lethargic and has underlying Parkinson's disease, on carbidopa and levodopa and Mirapex. The patient is generally lethargic and weak from his underlying ongoing acute medical issues in terms of the left lower lobe infiltrate, complicated urinary tract infection, acute kidney injury and severe anemia superimposed on the Parkinson's disease. At this time, 1. We will continue with the current dose of Sinemet of 10/100 two tablets p.o. b.i.d. and Mirapex of 0.125 p.o. t.i.d. for now. 2. Continue to correct his underlying complicated urinary tract infection and pulmonary infiltrates. 3. Follow up with Oncology in regards to his myelodysplastic syndrome. 4. Continue to monitor electrolytes and correct accordingly. 5. Avoid hypotensive episodes and continue current present medical management. Thank you for this consult. Anton Bell MD
--- NOTE | 2017-09-07 18:36 | PN ---
DATE: SUBJECTIVE: The patient is currently seen eyes closed, sleeping in bed, family is in the room. He continues on IV antibiotic therapy for his ESBL E. coli urinary tract infection. The patient still remains prerenal, has scrotal and penile edema. He is not receiving any IV fluid hydration. MEDICATIONS: Medication list reviewed. The patient is on acetylcysteine, Apresoline, Benadryl, Cardura, DuoNeb, Flomax, Exjade, Lopressor, meropenem, MiraLax, Mirapex, morphine, Pepcid, PhosLo, Proscar, Silvadene, Sinemet, Solu-Medrol, and Tylenol p.r.n. OBJECTIVE: INTAKE/OUTPUT: Intake is 555, output is 875. VITAL SIGNS: Blood pressure is 135/64, temperature 97.3, pulse of 87 with a respiratory rate of 21. HEENT: Shows him to be normocephalic, atraumatic. Conjunctivae are pale. Sclerae are nonicteric. NECK: Supple. No neck vein distention. CHEST: Decreased breath sounds at the bases. Occasional rhonchi. No wheezing. CARDIOVASCULAR: Regular rate and rhythm without audible murmurs, rubs or gallops. ABDOMEN: Soft. Bowel sounds normal. No rebound, guarding or masses noted. : Positive scrotal and penile edema. EXTREMITIES: Trace to 1+ pitting edema of his lower extremities. Arms are puffy bilaterally. LABORATORY DATA AND IMAGING: CBC; white blood cell count today improved at 17.5, hemoglobin 7.6, platelet count is 24,000. Chemistries; electrolytes were acceptable. BUN 85, creatinine 1.7 which is stable. Glucose is 120. Calcium 10.2, phosphorus improved at 4.8, magnesium 2.2. Microbiology; urine was positive for ESBL E. coli. ASSESSMENT: 1. Acute renal failure, prerenal azotemia superimposed on chronic kidney disease stage III. Baseline BUN is in the 30-40 range with a baseline creatinine in the 1.3-1.4 range. This rise in BUN and creatinine secondary to his Escherichia coli urinary tract infection, steroids, renal hypoperfusion. No evidence of obstructive uropathy. No evidence for acute interstitial nephritis. 2. Hypertension. Blood pressure control is acceptable. No change in current medical therapy. 3. History of Parkinson's disease, stable. 4. History of adenocarcinoma of the lung with abnormal chest CT scan and x-ray. The patient has pulmonary nodules and the left lower lobe lung mass. 5. History of severe myelodysplastic syndrome. Patient's white blood cell count when it is low it was treated with Neupogen. The patient requires transfusions on a regular basis. He is closely followed by Hematology/Oncology. 6. 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 The patient will continue inhalation therapy. I would like to see Pulmonary decrease his steroids. 7. History of benign prostatic hypertrophy, currently stable on medical therapy. PLAN: 1. Continue to monitor the patient, off IV fluids. 2. We will avoid diuretic therapy in light of the fact that he is quite prerenal. 3. No nephrotoxic agents. 4. No plans to restart his angiotensin receptor yang given his acute renal failure. 5. Continued followup with all the consultants including Pulmonary, ID and Hematology/Oncology. Dwain Og MD
--- NOTE | 2017-09-07 21:29 | CON ---
DATE: HISTORY OF PRESENT ILLNESS: An 86-year-old male with past medical history of myelodysplastic syndrome, coronary artery disease, history of lung fibrosis, and came to hospital with right lower quadrant pain and found to have ureteral stones, and patient is drowsy, may be secondary to sedation. ALLERGIES: NO KNOWN DRUG ALLERGIES. PHYSICAL EXAMINATION: VITAL SIGNS: Blood pressure 119/57. HEENT: Normocephalic, atraumatic. NECK: Supple. NEUROLOGIC: Awake, drowsy, not following simple commands, and pupils reactive, and masked facies. Mild rigidity of both the wrists. Deep tendon reflexes are 1+, both plantars are downgoing. Sensory appears intact. Cerebellar, gait deferred. IMPRESSION: Encephalopathy, possibly toxic metabolic and Parkinson disease, and continue present management with followup. Prosper Bell MD
--- NOTE | 2017-09-08 00:05 | CP.PCM.PN ---
Subjective - Date & Time of Evaluation Date of Evaluation: 09/07/17 Time of Evaluation: 09:00 Objective - Vital Signs/Intake and Output Vital Signs (last 24 hours): Temp Pulse Resp BP Pulse Ox 98 F 91 H 20 117/47 L 100 09/07/17 18:20 09/07/17 19:15 09/07/17 18:20 09/07/17 19:15 09/07/17 14:00 Intake and Output: 09/07/17 09/08/17 18:59 06:59 Intake Total 1450 Output Total 600 Balance 850 - Medications Medications: Current Medications Acetaminophen (Tylenol 325mg Tab) 650 mg PO Q4H PRN PRN Reason: Pain, Mild (1-3) Last Admin: 09/05/17 17:57 Dose: 650 mg Acetaminophen (Tylenol 325mg Tab) 650 mg PO ONCE PRN PRN Reason: 1/2 hour prior transfusion Acetylcysteine (Acetylcysteine 20%) 4 ml IH BIDRESP [facility] Last Admin: 09/07/17 21:05 Dose: 4 ml Albuterol/Ipratropium (Duoneb 3 Mg/0.5 Mg (3 Ml) Ud) 3 ml IH QIDRESP [facility] Last Admin: 09/07/17 21:05 Dose: 3 ml Albuterol/Ipratropium (Duoneb 3 Mg/0.5 Mg (3 Ml) Ud) 3 ml IH Q4 PRN PRN Reason: Cough and congestion Last Admin: 09/03/17 01:22 Dose: 3 ml Calcium Acetate (Phoslo) 667 mg PO WM [facility] Last Admin: 09/07/17 19:10 Dose: 667 mg Carbidopa/Levodopa (Sinemet 10/100) 2 tab PO BID [facility] Last Admin: 09/07/17 19:10 Dose: 2 tab Diphenhydramine HCl (Benadryl) 25 mg IVP ONCE PRN PRN Reason: 1/2 hour prior transfusion Last Admin: 09/05/17 17:57 Dose: 25 mg Doxazosin Mesylate (Cardura) 8 mg PO BID [facility] Last Admin: 09/07/17 19:10 Dose: 8 mg Famotidine (Pepcid) 20 mg PO 2200 [facility] Last Admin: 09/07/17 21:36 Dose: 20 mg Finasteride (Proscar) 5 mg PO DAILY [facility] Last Admin: 09/07/17 10:23 Dose: 5 mg Home Med (Home Med) 0 unit PO DAILY [facility] Last Admin: 09/07/17 10:16 Dose: 1 unit Hydralazine HCl (Apresoline) 25 mg PO TID [facility] Last Admin: 09/07/17 19:12 Dose: 25 mg Hydrocortisone Sodium Succinate (Solu-Cortef) 100 mg IVP ONCE PRN PRN Reason: 1/2 hr prior transfusion Last Admin: 09/05/17 17:57 Dose: 100 mg Meropenem 500 mg/ Sodium (Chloride) 50 mls @ 100 mls/hr IVPB Q12 [facility] PRN Reason: Protocol Last Admin: 09/07/17 21:35 Dose: 100 mls/hr Sodium Chloride (Sodium Chloride 0.45%) 1,000 mls @ 50 mls/hr IV .Q20H [facility] Last Admin: 09/01/17 21:07 Dose: 50 mls/hr Methylprednisolone (Solu-Medrol) 30 mg IVP 12 [facility] Last Admin: 09/07/17 11:53 Dose: 30 mg Metoprolol Tartrate (Lopressor) 50 mg PO BID [facility] Last Admin: 09/07/17 19:15 Dose: Not Given Morphine Sulfate (Morphine) 2 mg IVP Q4H PRN PRN Reason: Pain, severe (8-10) Last Admin: 09/07/17 10:14 Dose: 2 mg Polyethylene Glycol (Miralax) 17 gm PO DAILY [facility] Last Admin: 09/07/17 10:21 Dose: 17 gm Pramipexole Dihydrochloride (Mirapex) 0.125 mg PO TID [facility] Last Admin: 09/07/17 19:09 Dose: 0.125 mg Silver Sulfadiazine (Silvadene 1% 25 Gm) 0 gm TP BID [facility] Last Admin: 09/07/17 19:11 Dose: 1 gm Tamsulosin HCl (Flomax) 0.4 mg PO DAILY [facility] Last Admin: 09/07/17 10:22 Dose: 0.4 mg - Labs Labs: 09/07/17 06:30 09/07/17 06:30 PT 12.7 SECONDS (9.4-12.5) H 08/29/17 17:30 INR 1.11 (0.93-1.08) H 08/29/17 17:30 APTT 33.0 Seconds (25.1-36.5) 08/29/17 17:30 Assessment and Plan - Assessment and Plan (Free Text) Assessment: p
--- NOTE | 2017-09-08 00:14 | PN ---
DATE: 09/07/2017 PULMONARY PROGRESS NOTE REFERRING PHYSICIAN: Dr. Magallon. SUBJECTIVE: Patient is lying in the bed, sleepy, arousable. Day was better. Did eat well today. Cough is a little better. No nausea. No vomiting. No diarrhea. No leg swelling. OBJECTIVE: GENERAL: In no acute distress. VITAL SIGNS: Temperature is 98, heart rate is 91, respiratory rate is 20, blood pressure 117/47, pulse ox 100% on 5 liters nasal cannula. HEENT: Moist mucous membrane. Crowded airway. Mallampati score is IV. NECK: Supple. No JVD. LUNGS: Has fair airflow with rhonchi. HEART: S1 and S2. ABDOMEN: Soft, nontender. No organomegaly. EXTREMITIES: No edema. NEUROLOGIC: Sleepy, arousable. Follows simple command. MEDICATIONS: He is on Mucomyst 20% inhaled twice a day, hydralazine 25 mg three times a day, Benadryl 25 mg p.r.n. basis, Cardura 8 mg twice a day, DuoNeb q. 4 hours p.r.n. [id number], Flomax 0.4 mg daily, metoprolol tartrate 50 mg twice a day, meropenem 5 mg q. 12 hours, MiraLax 17 g daily, 0.125 mg three times a day, morphine 2 mg IV q. 4 hours p.r.n., Pepcid 20 mg daily, PhosLo with the meals, Proscar 5 mg daily, carbidopa levodopa 10/100 two tablets twice a day, IV fluid half-normal saline 50 mL per hour, Solu-Cortef 100 mg was given, Solu-Medrol 30 mg q. 12 hours, Tylenol p.r.n. basis. LABORATORY DATA: Shows hemoglobin 7.6, hematocrit 24.1, WBC 17.5, platelet count is 30. Sodium 148, potassium 4.7, chloride 110, bicarbonate 27, BUN 85, creatinine 1.7, glucose 120, calcium is 10.2, phosphorus 4.8, AST 25, ALT 25, albumin is 3.4. Microbiology, urine culture has E. coli. IMPRESSION AND PLAN: Renal stone with hematuria; has Escherichia coli with extended spectrum beta-lactamases organism; adenocarcinoma of the lung; chronic obstructive lung disease; pneumonia; pulmonary fibrosis; myelodysplastic syndrome; anemia; Parkinson disease; oropharyngeal dysphagia, on modified diet; atherosclerosis; vascular disease. Spoke to patient's family at bedside. All the questions answered. Clinically, he seems better, though he is sleepy, probably secondary to Parkinson's medication. Pulmonary toilet. Keep head at 45 degrees. Aspiration precaution. Gastric prophylaxis, deep venous thrombosis prophylaxis. Slowly taper down steroids, out of bed to chair, physical therapy at bedside. Thank you and we will follow with you. Brenton Diaz MD
[2017-09-08 06:59] LABS: MEAN CELL VOLUME 89.5 fl (80.0-105.0); MEAN CORPUSCULAR HEMOGLOBIN 28.9 pg (25.0-35.0); MEAN CORPUSCULAR HGB CONC 32.3 g/dl (31.0-37.0); RBC 2.77 10^6/uL (3.5-6.1); RED CELL DISTRIBUTION WIDTH 16.5 % (11.5-14.5)
[2017-09-08] MEDS: Albuterol-Ipratrop 3 mg / 0.5 (3 ml) UD IH SCH ×4 (07:10→20:10)
[2017-09-08] MEDS: Acetylcysteine 20% Inhal Soln (4ml) IH SCH ×2 (07:10→20:10)
[2017-09-08 07:22] LABS: PLATELET COUNT 20 10^3/uL (120.0-450.0)
[2017-09-08 07:31] LABS: ALB/GLOB RATIO 1.4 (1.1-1.8); ALBUMIN 3.2 g/dL (3.0-4.8)
[2017-09-08 08:54] LABS: PLATELET COUNT MANUAL 30 K/mm3 (120-450)
[2017-09-08 08:59] LABS: PLATELET ESTIMATE LOW (NORMAL)
[2017-09-08] MEDS: Meropenem 500 MG in Sodium Chloride 0.9% 50 ML IVPB SCH ×2 (09:55→22:05)
[2017-09-08] MEDS: POLYETHYLENE GLYCOL 3350 17 GM/Dose PACKET PO SCH (09:56)
[2017-09-08] MEDS: DEFERASIROX PO SCH (09:59)
[2017-09-08] MEDS: Silver Sulfadiazine 1% Cream (25 gm) TP SCH ×2 (10:12→17:25)
[2017-09-08] MEDS ORDERED: DiphenhydrAMINE 50 mg/ml Inj IVP ONE (12:04)
[2017-09-08] MEDS: MethylPREDNISolone 40 mg Vial IVP SCH (12:13)
--- NOTE | 2017-09-08 12:28 | CP.PCM.PN ---
Subjective - Date & Time of Evaluation Date of Evaluation: 09/08/17 Time of Evaluation: 11:45 - Subjective Subjective: Alert, oriented to place and self. Complains of weakness. Objective - Vital Signs/Intake and Output Vital Signs (last 24 hours): Temp Pulse Resp BP Pulse Ox 97.9 F 94 H 21 133/62 95 09/08/17 07:30 09/08/17 09:58 09/08/17 07:30 09/08/17 09:58 09/08/17 07:30 Intake and Output: 09/08/17 09/08/17 06:59 18:59 Intake Total 120 Output Total 400 Balance -280 - Medications Medications: Current Medications Acetaminophen (Tylenol 325mg Tab) 650 mg PO Q4H PRN PRN Reason: Pain, Mild (1-3) Last Admin: 09/05/17 17:57 Dose: 650 mg Acetaminophen (Tylenol 325mg Tab) 650 mg PO ONCE PRN PRN Reason: 1/2 hour prior transfusion Acetylcysteine (Acetylcysteine 20%) 4 ml [facility]P [facility] Last Admin: 09/08/17 07:10 Dose: 4 ml Albuterol/Ipratropium (Duoneb 3 Mg/0.5 Mg (3 Ml) Ud) 3 ml [facility]H QIDRESP [facility] Last Admin: 09/08/17 11:24 Dose: 3 ml Albuterol/Ipratropium (Duoneb 3 Mg/0.5 Mg (3 Ml) Ud) 3 ml IH Q4 PRN PRN Reason: Cough and congestion Last Admin: 09/03/17 01:22 Dose: 3 ml Calcium Acetate (Phoslo) 667 mg PO WM [facility] Last Admin: 09/08/17 07:57 Dose: 667 mg Carbidopa/Levodopa (Sinemet 10/100) 2 tab PO BID [facility] Last Admin: 09/08/17 09:57 Dose: 2 tab Diphenhydramine HCl (Benadryl) 25 mg IVP ONCE PRN PRN Reason: 1/2 hour prior transfusion Last Admin: 09/05/17 17:57 Dose: 25 mg Doxazosin Mesylate (Cardura) 8 mg PO BID [facility] Last Admin: 09/08/17 09:59 Dose: 8 mg Famotidine (Pepcid) 20 mg PO 2200 [facility] Last Admin: 09/07/17 21:36 Dose: 20 mg Finasteride (Proscar) 5 mg PO DAILY [facility] Last Admin: 09/08/17 09:56 Dose: 5 mg Home Med (Home Med) 0 unit PO DAILY [facility] Last Admin: 09/08/17 09:59 Dose: 1 unit Hydralazine HCl (Apresoline) 25 mg PO TID [facility] Last Admin: 09/08/17 09:58 Dose: 25 mg Hydrocortisone Sodium Succinate (Solu-Cortef) 100 mg IVP ONCE PRN PRN Reason: 1/2 hr prior transfusion Last Admin: 09/05/17 17:57 Dose: 100 mg Meropenem 500 mg/ Sodium (Chloride) 50 mls @ 100 mls/hr IVPB Q12 [facility] PRN Reason: Protocol Last Admin: 09/08/17 09:55 Dose: 100 mls/hr Sodium Chloride (Sodium Chloride 0.45%) 1,000 mls @ 50 mls/hr IV .Q20H [facility] Last Admin: 09/01/17 21:07 Dose: 50 mls/hr Methylprednisolone (Solu-Medrol) 30 mg IVP 12 [facility] Last Admin: 09/07/17 11:53 Dose: 30 mg Metoprolol Tartrate (Lopressor) 50 mg PO BID [facility] Last Admin: 09/08/17 09:58 Dose: 50 mg Morphine Sulfate (Morphine) 2 mg IVP Q4H PRN PRN Reason: Pain, severe (8-10) Last Admin: 09/07/17 10:14 Dose: 2 mg Polyethylene Glycol (Miralax) 17 gm PO DAILY [facility] Last Admin: 09/08/17 09:56 Dose: 17 gm Pramipexole Dihydrochloride (Mirapex) 0.125 mg PO TID [facility] Last Admin: 09/08/17 09:56 Dose: 0.125 mg Silver Sulfadiazine (Silvadene 1% 25 Gm) 0 gm TP BID [facility] Last Admin: 09/07/17 19:11 Dose: 1 gm Tamsulosin HCl (Flomax) 0.4 mg PO DAILY [facility] Last Admin: 09/08/17 09:58 Dose: 0.4 mg - Labs Labs: 09/08/17 06:15 09/08/17 06:15 PT 12.7 SECONDS (9.4-12.5) H 08/29/17 17:30 INR 1.11 (0.93-1.08) H 08/29/17 17:30 APTT 33.0 Seconds (25.1-36.5) 08/29/17 17:30 - Constitutional Appears: Chronically Ill - Head Exam Head Exam: NORMOCEPHALIC - Eye Exam Eye Exam: Normal appearance, PERRL - ENT Exam ENT Exam: Mucous Membranes Moist, Normal Oropharynx - Respiratory Exam Respiratory Exam: Decreased Breath Sounds, NORMAL BREATHING PATTERN - Cardiovascular Exam Cardiovascular Exam: REGULAR RHYTHM, +S1, +S2 - GI/Abdominal Exam GI & Abdominal Exam: Distended, Soft, Normal Bowel Sounds - Extremities Exam Extremities Exam: Pedal Edema - Neurological Exam Neurological Exam: Alert - Skin Skin Exam: Dry, Pallor Assessment and Plan - Assessment and Plan (Free Text) Assessment: 86 year old male with history of MDS, Parkinsons's, anemia, thrombocytopenia who us admitted with sepsis,UTI, renal stone, hematuria and pneumonia. The patient is alert. Family members at bedside. Discussed goals of care and advanced care planning. The patient designated his sister, Eleanor Oseguera as his healthcare surrogate. Patient affirmed that he does not wants CPR, intubation or permanent feeding tube. POLST: DNR/DNI directive completed, a copy is placed in chart. Hospice services explained in detail. Questions answered. Family aware of patients multiple medical issues and guarded prognosis. Family not ready for hospice at this time. Family to meet with social worker health services to discuss services and discharge plan. Time spent with patient and family in goals of care and advance care planning discussion, 30 minutes Plan: Advance care planning, POLST:DNR/DNI. Palliative support in establishing goals of care
--- NOTE | 2017-09-08 12:54 | PN ---
DATE: 09/07/2017 SUBJECTIVE: The patient seems less distressed, breathing comfortably, especially after putting a Branch and draining the bladder. He does not have any pain now. He feels better. He does have a complicated UTI with kidney stones and currently on IV antibiotic, meropenem. The patient's breathing is better. He still has some cough, getting Mucomyst, chest PT, and IV and inhaled bronchodilators. Seems doing stable at this time. Breathing-ellis, he is better and generally is more comfortable. The patient is very weak. He is almost bedridden because of generalized weakness and underlying medical problems. The patient has severe pancytopenia also. Discussed the case with the family next to the bedside and we will discuss about the plan of care. PHYSICAL EXAMINATION: On 09/07/2017, was as follows: VITAL SIGNS: Temperature is 97.3, blood pressure is 125/54, heart rate 87, saturating 95% on 5 liter nasal cannula. HEAD AND NECK: Normal. No JVD. CHEST: There are crackles bilaterally. CARDIAC: First sound and second sound normal. ABDOMEN: Soft and nontender. EXTREMITIES: No edema. NEUROLOGIC: The patient is alert, awake, oriented, but he is extremely weak. He does move spontaneously his legs and arms, but generally has weakness. LABORATORY DATA: On 09/07/2017, white count is 17.5, hemoglobin 7.6, hematocrit 24.1, and platelet is 24,000, on repeat manual examination, they are 30,0000. The patient's chemistry shows the following: Sodium 148, potassium 4.7, chloride 110, bicarb 27, BUN 85, creatinine 1.7. The patient's blood sugar is 120 and his phosphorus 4.8. IMPRESSION AND PLAN: 1. Acute respiratory distress secondary to multifactorial etiology. The patient has underlying chronic obstructive pulmonary disease, bilateral lung fibrosis, bilateral pneumonia, and cancer. Continue inhaled and intravenous bronchodilator. Continue meropenem intravenous for pneumonia. We will discuss with the family about DNR/DNI and code status. The patient has poor prognosis medical problems. 2. Acute renal failure. His creatinine is up. It improved with gentle hydration. Nephrology consult, Dr. Og on the case. Continue Flomax. Continue Branch catheter in. 3. Pancytopenia, severe myelodysplasia with severe thrombocytopenia, anemia and multiple transfusions. We will discuss further with the pediatrics teacher, but seems stable, no active bleeding. Continue to monitor his bone marrow failure. At this time, we will continue current care. 4. Generalized weakness, parkinsonism, renal stone, prostate enlargement. Plan, continue current therapy. 5. For hypertension, metoprolol 50 mg b.i.d. Continue intravenous meropenem and we will discuss with the family about the DNR/DNI as well as possibility of hospice care at some point very close. Thank you. We will discuss with other end user consultant also. Mook Magallon MD
--- NOTE | 2017-09-08 14:03 | CP.PCM.PN ---
Subjective - Date & Time of Evaluation Date of Evaluation: 09/08/17 Time of Evaluation: 09:10 - Subjective Subjective: Heme-onc Progress Note, Casey Francisco DO, IM PGY-2 This is an 86 yo M with PMH of MDS (transfusion dependent, on regular injections of Procrit and Neupogen), HTN, Lung fibrosis, and urinary incontinence who presented to [facility] with complaint of severe back pain, found to have likely compression fracture on imaging. Heme-onc was consulted for leukocystosis, and his hx of MDS. Patient seen and examined at bedside. Awake and alert, reports improvement of stomach pain but still some persistence. Denies emesis, diarrhea. Wants more PO liquids, but explained that want to avoid over-hydration given current scrotal swelling and edema, patient expresses understanding. Denies chest pain or shortness of breath. Objective - Vital Signs/Intake and Output Vital Signs (last 24 hours): Temp Pulse Resp BP Pulse Ox 97.9 F 94 H 21 133/62 95 09/08/17 07:30 09/08/17 09:58 09/08/17 07:30 09/08/17 09:58 09/08/17 07:30 Intake and Output: 09/08/17 09/08/17 06:59 18:59 Intake Total 120 Output Total 400 Balance -280 - Medications Medications: Current Medications Acetaminophen (Tylenol 325mg Tab) 650 mg PO Q4H PRN PRN Reason: Pain, Mild (1-3) Last Admin: 09/05/17 17:57 Dose: 650 mg Acetaminophen (Tylenol 325mg Tab) 650 mg PO ONCE PRN PRN Reason: 1/2 hour prior transfusion Acetylcysteine (Acetylcysteine 20%) 4 ml IH BIDRESP [facility] Last Admin: 09/08/17 07:10 Dose: 4 ml Albuterol/Ipratropium (Duoneb 3 Mg/0.5 Mg (3 Ml) Ud) 3 ml IH QIDRESP [facility] Last Admin: 09/08/17 11:24 Dose: 3 ml Albuterol/Ipratropium (Duoneb 3 Mg/0.5 Mg (3 Ml) Ud) 3 ml IH Q4 PRN PRN Reason: Cough and congestion Last Admin: 09/03/17 01:22 Dose: 3 ml Calcium Acetate (Phoslo) 667 mg PO WM [facility] Last Admin: 09/08/17 12:13 Dose: 667 mg Carbidopa/Levodopa (Sinemet 10/100) 2 tab PO BID [facility] Last Admin: 09/08/17 09:57 Dose: 2 tab Diphenhydramine HCl (Benadryl) 25 mg IVP ONCE PRN PRN Reason: 1/2 hour prior transfusion Last Admin: 09/05/17 17:57 Dose: 25 mg Doxazosin Mesylate (Cardura) 8 mg PO BID [facility] Last Admin: 09/08/17 09:59 Dose: 8 mg Famotidine (Pepcid) 20 mg PO 2200 [facility] Last Admin: 09/07/17 21:36 Dose: 20 mg Finasteride (Proscar) 5 mg PO DAILY [facility] Last Admin: 09/08/17 09:56 Dose: 5 mg Home Med (Home Med) 0 unit PO DAILY [facility] Last Admin: 09/08/17 09:59 Dose: 1 unit Hydralazine HCl (Apresoline) 25 mg PO TID [facility] Last Admin: 09/08/17 09:58 Dose: 25 mg Hydrocortisone Sodium Succinate (Solu-Cortef) 100 mg IVP ONCE PRN PRN Reason: 1/2 hr prior transfusion Last Admin: 09/05/17 17:57 Dose: 100 mg Meropenem 500 mg/ Sodium (Chloride) 50 mls @ 100 mls/hr IVPB Q12 [facility] PRN Reason: Protocol Last Admin: 09/08/17 09:55 Dose: 100 mls/hr Sodium Chloride (Sodium Chloride 0.45%) 1,000 mls @ 50 mls/hr IV .Q20H [facility] Last Admin: 09/01/17 21:07 Dose: 50 mls/hr Methylprednisolone (Solu-Medrol) 30 mg IVP 12 [facility] Last Admin: 09/08/17 12:13 Dose: 30 mg Metoprolol Tartrate (Lopressor) 50 mg PO BID [facility] Last Admin: 09/08/17 09:58 Dose: 50 mg Morphine Sulfate (Morphine) 2 mg IVP Q4H PRN PRN Reason: Pain, severe (8-10) Last Admin: 09/07/17 10:14 Dose: 2 mg Polyethylene Glycol (Miralax) 17 gm PO DAILY [facility] Last Admin: 09/08/17 09:56 Dose: 17 gm Pramipexole Dihydrochloride (Mirapex) 0.125 mg PO TID [facility] Last Admin: 09/08/17 09:56 Dose: 0.125 mg Silver Sulfadiazine (Silvadene 1% 25 Gm) 0 gm TP BID [facility] Last Admin: 09/08/17 10:12 Dose: 25 gm Tamsulosin HCl (Flomax) 0.4 mg PO DAILY [facility] Last Admin: 09/08/17 09:58 Dose: 0.4 mg - Labs Labs: 09/08/17 06:15 09/08/17 06:15 PT 12.7 SECONDS (9.4-12.5) H 08/29/17 17:30 INR 1.11 (0.93-1.08) H 08/29/17 17:30 APTT 33.0 Seconds (25.1-36.5) 08/29/17 17:30 - Additional Findings Additional findings: - Constitutional Appears: Non-toxic, No Acute Distress, Hard of hearing - Head Exam Head Exam: ATRAUMATIC, NORMAL INSPECTION, NORMOCEPHALIC - Eye Exam Eye Exam: EOMI, Normal appearance. absent: Conjunctival injection Pupil Exam: absent: Irregular, NORMAL ACCOMODATION, Unequal - ENT Exam ENT Exam: Mucous Membranes Moist, no petechiae appreciated - Neck Exam Neck Exam: Full ROM. absent: Lymphadenopathy, Thyromegaly - Respiratory Exam Respiratory Exam: Decreased Breath Sounds (mildly decreased breath sounds in all correa), Rhonchi (mild inspiratory and expiratory ronchi in all correa), NORMAL BREATHING PATTERN. absent: Clear to Ausculation Bilateral, Rales, Wheezes - Cardiovascular Exam Cardiovascular Exam: REGULAR RHYTHM, RRR, +S1, +S2. absent: Bradycardia, Tachycardia, Irregular Rhythm, JVD, +S4 - GI/Abdominal Exam GI & Abdominal Exam: Soft, Normal Bowel Sounds, Reports static tenderness/ discomfort but no tenderness to palpation. absent: Distended, Firm - Extremities Exam Extremities Exam: Normal Inspection. absent: Calf Tenderness, Pedal Edema, Tenderness - Exam Exam: scrotal and penile swelling appreciated, card catheter in place draining small amounts of clear yellow urine, difficult to fully visualize genitals due to scrotal swelling - Neurological Exam Awake and alert, following all commands appropriately Moving all extremities spontaneously Motor grossly intact and equal bilaterally Resting tremors appreciated in bilateral upper extremities, some tremor of lower jaw appreciated but doesn't appear to be tardive dyskinesia - Psychiatric Exam Psychiatric exam: Normal Affect, Normal Mood - Skin Skin Exam: Dry, Intact, Normal Color, Warm Assessment and Plan - Assessment and Plan (Free Text) Assessment: This is an 86 yo M with PMH of MDS (transfusion dependent, on regular injections of Procrit and Neupogen), HTN, Lung fibrosis, and urinary incontinence who presented to [facility] with complaint of severe back pain, found to have likely compression fracture on imaging. Heme-onc was consulted for leukocystosis, and his hx of MDS. 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 impingement of airway by mass), and then only management of symptoms -Cr 1.5 today, as per Nephro likely pre-renal azotemia, no signs of obstruction or AIN, continue to hold losartan, prn diuresis only, taper steroids -GI consulted for possible pancreatitis; advance diet as tolerated, PPI, trend LFTs, pending EGD -Pain control -transfused 1 unit pRBCs yesterday, Hgb increased from 7.6 to 8.0, inadequate response, and in setting of worsening platelets, will need further transfusion -Platelets 20 today (were 24), manual count 30 (same as yesterday) -Transfusing 2 units pRBCs, 1 unit of pheresed platelets, premedicate prior with Benadryl/tylenol/solucortef, Desferal post-blood transfusions to prevent iron overload -Palliative service onboard, met with patient and family at bedside; want to continue medical treatments but as per patient's wishes, POLST filled out indicating DNR/DNI, charting has been amended to reflect patient's wishes Patient reviewed and discussed at length with attending, Dr. Gonsales
--- NOTE | 2017-09-08 16:22 | CP.PCM.PN ---
Subjective - Date & Time of Evaluation Date of Evaluation: 09/08/17 Time of Evaluation: 12:20 - Subjective Subjective: Still feels weak, no fevers, not in distress. Objective - Vital Signs/Intake and Output Vital Signs (last 24 hours): Temp Pulse Resp BP Pulse Ox 97.9 F 94 H 21 133/62 95 09/08/17 07:30 09/08/17 09:58 09/08/17 07:30 09/08/17 09:58 09/08/17 07:30 Intake and Output: 09/08/17 09/08/17 06:59 18:59 Intake Total 120 Output Total 400 Balance -280 - Medications Medications: Current Medications Acetaminophen (Tylenol 325mg Tab) 650 mg PO Q4H PRN PRN Reason: Pain, Mild (1-3) Last Admin: 09/05/17 17:57 Dose: 650 mg Acetaminophen (Tylenol 325mg Tab) 650 mg PO ONCE PRN PRN Reason: 1/2 hour prior transfusion Acetylcysteine (Acetylcysteine 20%) 4 ml IH BIDRESP [facility] Last Admin: 09/08/17 07:10 Dose: 4 ml Albuterol/Ipratropium (Duoneb 3 Mg/0.5 Mg (3 Ml) Ud) 3 ml IH QIDRESP [facility] Last Admin: 09/08/17 07:10 Dose: 3 ml Albuterol/Ipratropium (Duoneb 3 Mg/0.5 Mg (3 Ml) Ud) 3 ml IH Q4 PRN PRN Reason: Cough and congestion Last Admin: 09/03/17 01:22 Dose: 3 ml Calcium Acetate (Phoslo) 667 mg PO WM [facility] Last Admin: 09/08/17 07:57 Dose: 667 mg Carbidopa/Levodopa (Sinemet 10/100) 2 tab PO BID [facility] Last Admin: 09/08/17 09:57 Dose: 2 tab Diphenhydramine HCl (Benadryl) 25 mg IVP ONCE PRN PRN Reason: 1/2 hour prior transfusion Last Admin: 09/05/17 17:57 Dose: 25 mg Doxazosin Mesylate (Cardura) 8 mg PO BID [facility] Last Admin: 09/08/17 09:59 Dose: 8 mg Famotidine (Pepcid) 20 mg PO 2200 [facility] Last Admin: 09/07/17 21:36 Dose: 20 mg Finasteride (Proscar) 5 mg PO DAILY [facility] Last Admin: 09/08/17 09:56 Dose: 5 mg Home Med (Home Med) 0 unit PO DAILY [facility] Last Admin: 09/08/17 09:59 Dose: 1 unit Hydralazine HCl (Apresoline) 25 mg PO TID [facility] Last Admin: 09/08/17 09:58 Dose: 25 mg Hydrocortisone Sodium Succinate (Solu-Cortef) 100 mg IVP ONCE PRN PRN Reason: 1/2 hr prior transfusion Last Admin: 09/05/17 17:57 Dose: 100 mg Meropenem 500 mg/ Sodium (Chloride) 50 mls @ 100 mls/hr IVPB Q12 [facility] PRN Reason: Protocol Last Admin: 09/08/17 09:55 Dose: 100 mls/hr Sodium Chloride (Sodium Chloride 0.45%) 1,000 mls @ 50 mls/hr IV .Q20H [facility] Last Admin: 09/01/17 21:07 Dose: 50 mls/hr Methylprednisolone (Solu-Medrol) 30 mg IVP 12 [facility] Last Admin: 09/07/17 11:53 Dose: 30 mg Metoprolol Tartrate (Lopressor) 50 mg PO BID [facility] Last Admin: 09/08/17 09:58 Dose: 50 mg Morphine Sulfate (Morphine) 2 mg IVP Q4H PRN PRN Reason: Pain, severe (8-10) Last Admin: 09/07/17 10:14 Dose: 2 mg Polyethylene Glycol (Miralax) 17 gm PO DAILY [facility] Last Admin: 09/08/17 09:56 Dose: 17 gm Pramipexole Dihydrochloride (Mirapex) 0.125 mg PO TID [facility] Last Admin: 09/08/17 09:56 Dose: 0.125 mg Silver Sulfadiazine (Silvadene 1% 25 Gm) 0 gm TP BID [facility] Last Admin: 09/07/17 19:11 Dose: 1 gm Tamsulosin HCl (Flomax) 0.4 mg PO DAILY [facility] Last Admin: 09/08/17 09:58 Dose: 0.4 mg - Labs Labs: 09/08/17 06:15 09/08/17 06:15 PT 12.7 SECONDS (9.4-12.5) H 08/29/17 17:30 INR 1.11 (0.93-1.08) H 08/29/17 17:30 APTT 33.0 Seconds (25.1-36.5) 08/29/17 17:30 - Constitutional Appears: Non-toxic, Chronically Ill - Head Exam Head Exam: NORMAL INSPECTION - ENT Exam ENT Exam: Mucous Membranes Moist - Neck Exam Neck Exam: absent: Meningismus - Respiratory Exam Respiratory Exam: Decreased Breath Sounds - Cardiovascular Exam Cardiovascular Exam: +S1, +S2 - GI/Abdominal Exam GI & Abdominal Exam: Soft. absent: Tenderness Assessment and Plan - Assessment and Plan (Free Text) Plan: Assessment Complicated UTI with ESBL-producing E. coli marked leukocytosis, probably due to G-CSF infusion S/P treatment of healthcare-associated pneumonia Maculopapular rash on his back history of sepsis secondary to ESBL E. coli bacteremia S/P sepsis due to Morganella UTI with hematuria history of lung fibrosis myelodysplastic syndrome BPH coronary artery disease Plan continue Merrem day 8 and will continue to monitor clinically; target about 10 days of therapy will continue to trend WBC count
--- NOTE | 2017-09-08 16:53 | CP.PCM.PN ---
Subjective - Date & Time of Evaluation Date of Evaluation: 09/08/17 Time of Evaluation: 15:00 - Subjective Subjective: DATE: NEUROLOGY FOLLOW UP. CHIEF COMPLAINT: Evaluate for generalized weakness with history of parkinsonism. SUBJECTIVE: He is more alert today and less drowsy. No acute events overnight. PAST MEDICAL HISTORY: History of myelodysplastic syndrome, anemia of chronic kidney disease, pulmonary fibrosis, hypertension, BPH, Parkinson's disease and [id number] carcinoma of the lung. FAMILY HISTORY: Noncontributory. SOCIAL HISTORY: Nonsmoker, nondrug user, no illicit drug use or alcohol. REVIEW OF SYSTEMS: Fourteen-point review of systems is negative except as per the HPI. ALLERGIES: NO KNOWN DRUG ALLERGIES. MEDICATIONS: Reviewed by nurse reconciliation sheet. PHYSICAL EXAMINATION: VITAL SIGNS: Reviewed. GENERAL: The patient is lethargic, drowsy, in no acute distress. HEENT: Atraumatic, normocephalic. PERRLA. Extraocular muscles intact. LUNGS: Have decreased breath sounds bilaterally with some scattered rhonchi. HEART: Regular rate and rhythm. No murmurs, rubs or gallops. S1, S2 present. ABDOMEN: Soft, nontender and nondistended. Bowel sounds are present. EXTREMITIES: No clubbing. No cyanosis. Peripheral pulses 2+ felt bilaterally. NEUROLOGIC: The patient is drowsy, in no acute distress and is hard of hearing at baseline. Speech is hypophonic. Cranial nerves II through XII intact. Motor exam: Increased tone throughout. Has mild cogwheel rigidity at both wrists and has resting pill rolling tremor on both hands. Sensory exam: Withdraws to localized noxious stimulus. Light touch is intact. DTRs are 2+ throughout and 1 at both knees and ankles. Coordination and gait deferred for now. LABORATORY DATA: Reviewed. ASSESSMENT AND PLAN: This is an 86-year-old man with history of pulmonary fibrosis with myelodysplastic syndrome, [id number] carcinoma lung cancer, chronic kidney disease, anemia. He was admitted for left lower lobe infiltrate, urinary tract infection, complicated by extended-spectrum beta-lactamase producing Escherichia coli and has on top of that acute kidney injury and severe anemia and is lethargic and has underlying Parkinson's disease, on carbidopa/ levodopa and Mirapex. The patient is generally lethargic and weak from his underlying ongoing acute medical issues in terms of the left lower lobe infiltrate, complicated urinary tract infection, acute kidney injury and severe anemia superimposed on the Parkinson's disease. At this time, 1. We will continue with the current dose of Sinemet of 10/100 two tablets p.o. b.i.d. and Mirapex of 0.125 p.o. t.i.d. for now. 2. Continue to correct his underlying complicated urinary tract infection and pulmonary infiltrates. 3. Follow up with Oncology in regards to his myelodysplastic syndrome. 4. Continue to monitor electrolytes and correct accordingly. 5. Avoid hypotensive episodes and continue current present medical management. 6. Could consider some Nuvigil 150 mg po daily to improve attention span and alertness. Thank you Anton Bell MD Objective - Vital Signs/Intake and Output Vital Signs (last 24 hours): Temp Pulse Resp BP Pulse Ox 98.3 F 81 20 123/60 93 L 09/08/17 16:26 09/08/17 16:26 09/08/17 16:26 09/08/17 16:26 09/08/17 14:00 Intake and Output: 09/08/17 09/08/17 06:59 18:59 Intake Total 120 20 Output Total 400 Balance -280 20 - Medications Medications: Current Medications Acetaminophen (Tylenol 325mg Tab) 650 mg PO Q4H PRN PRN Reason: Pain, Mild (1-3) Last Admin: 09/05/17 17:57 Dose: 650 mg Acetaminophen (Tylenol 325mg Tab) 650 mg PO ONCE PRN PRN Reason: 1/2 hour prior transfusion Acetylcysteine (Acetylcysteine 20%) 4 ml IH BIDRESP [facility] Last Admin: 09/08/17 07:10 Dose: 4 ml Albuterol/Ipratropium (Duoneb 3 Mg/0.5 Mg (3 Ml) Ud) 3 ml IH QIDRESP [facility] Last Admin: 09/08/17 14:45 Dose: 3 ml Albuterol/Ipratropium (Duoneb 3 Mg/0.5 Mg (3 Ml) Ud) 3 ml IH Q4 PRN PRN Reason: Cough and congestion Last Admin: 09/03/17 01:22 Dose: 3 ml Calcium Acetate (Phoslo) 667 mg PO WM [facility] Last Admin: 09/08/17 12:13 Dose: 667 mg Carbidopa/Levodopa (Sinemet 10/100) 2 tab PO BID [facility] Last Admin: 09/08/17 09:57 Dose: 2 tab Doxazosin Mesylate (Cardura) 8 mg PO BID [facility] Last Admin: 09/08/17 09:59 Dose: 8 mg Famotidine (Pepcid) 20 mg PO 2200 [facility] Last Admin: 09/07/17 21:36 Dose: 20 mg Finasteride (Proscar) 5 mg PO DAILY [facility] Last Admin: 09/08/17 09:56 Dose: 5 mg Home Med (Home Med) 0 unit PO DAILY [facility] Last Admin: 09/08/17 09:59 Dose: 1 unit Hydralazine HCl (Apresoline) 25 mg PO TID [facility] Last Admin: 09/08/17 14:26 Dose: 25 mg Meropenem 500 mg/ Sodium (Chloride) 50 mls @ 100 mls/hr IVPB Q12 [facility] PRN Reason: Protocol Last Admin: 09/08/17 09:55 Dose: 100 mls/hr Sodium Chloride (Sodium Chloride 0.45%) 1,000 mls @ 50 mls/hr IV .Q20H [facility] Last Admin: 09/01/17 21:07 Dose: 50 mls/hr Methylprednisolone (Solu-Medrol) 30 mg IVP 12 [facility] Last Admin: 09/08/17 12:13 Dose: 30 mg Metoprolol Tartrate (Lopressor) 50 mg PO BID [facility] Last Admin: 09/08/17 09:58 Dose: 50 mg Morphine Sulfate (Morphine) 2 mg IVP Q4H PRN PRN Reason: Pain, severe (8-10) Last Admin: 09/07/17 10:14 Dose: 2 mg Polyethylene Glycol (Miralax) 17 gm PO DAILY [facility] Last Admin: 09/08/17 09:56 Dose: 17 gm Pramipexole Dihydrochloride (Mirapex) 0.125 mg PO TID [facility] Last Admin: 09/08/17 14:27 Dose: 0.125 mg Silver Sulfadiazine (Silvadene 1% 25 Gm) 0 gm TP BID [facility] Last Admin: 09/08/17 10:12 Dose: 25 gm Tamsulosin HCl (Flomax) 0.4 mg PO DAILY [facility] Last Admin: 09/08/17 09:58 Dose: 0.4 mg - Labs Labs: 09/08/17 06:15 09/08/17 06:15 PT 12.7 SECONDS (9.4-12.5) H 08/29/17 17:30 INR 1.11 (0.93-1.08) H 08/29/17 17:30 APTT 33.0 Seconds (25.1-36.5) 08/29/17 17:30
--- NOTE | 2017-09-08 21:19 | PN ---
DATE: SUBJECTIVE: The patient is currently seen on 5R. He is receiving platelets. His platelet count was 20,000. The patient is continuing to receive intermittent blood transfusions for his severe myelodysplastic syndrome. He remains on IV antibiotic therapy for his ESBL E. coli urinary tract infection. He still continues to have penile and scrotal edema and dependent edema. He is not receiving any IV fluid hydration nor is he receiving diuretic therapy because of his advanced prerenal azotemia. MEDICATIONS: List reviewed. The patient is currently on acetylcysteine inhalation therapy, Apresoline, Cardura, DuoNeb, Flomax, Exjade, metoprolol, meropenem, MiraLax, Mirapex, morphine p.r.n., Pepcid, PhosLo, Proscar, Silvadene, Sinemet, Solu-Medrol, and Tylenol p.r.n. PHYSICAL EXAMINATION: INTAKE AND OUTPUT. Intake is 1570, output is 1000. VITAL SIGNS: Blood pressure 126/64, temperature 98, respiratory rate 20 with a pulse of 84. HEENT: Normocephalic, atraumatic. Conjunctivae remain pale. Sclerae are nonicteric. NECK: Supple. No neck vein distention. CHEST: Decreased breath sounds at the bases. Scattered rhonchi. No wheezing. No rales. CARDIOVASCULAR: Regular rate and rhythm without audible murmurs, rubs, or gallops. ABDOMEN: Soft. Bowel sounds normal. No rebound, guarding, or masses. GENITOURINARY: Positive scrotal and penile edema. EXTREMITIES: Show trace 1+ pitting edema of his lower extremity. Arms are puffy bilaterally. LABORATORY DATA AND IMAGING: CBC: White blood cell count today 18.0, hemoglobin is 8.0 with a platelet count of 20,000. Chemistries: Sodium 151 today, potassium 4.9, chloride 110 with a CO2 of 31, BUN is slightly lower at 76, creatinine slight lower at 1.5. Glucose is 89. Calcium 10, phosphorus 4.1 with a magnesium of 2.2. Liver enzymes remain normal. Albumin level is low at 3.2. Microbiology: Urines are positive for E-coli ESBL as noted previously. ASSESSMENT: 1. Acute renal failure, prerenal azotemia in the setting of chronic kidney disease stage III. Baseline BUN is in the 30-40 range with a creatinine of 1.3-1.4 range. Rise in BUN and creatinine is secondary to his Escherichia coli urinary tract infection, steroids, renal hypoperfusion. He has no evidence for obstructive uropathy on imaging studies and urines do not show any evidence for acute interstitial nephritis. 2. Hypertension. Blood pressure control is acceptable. The patient will continue hydralazine, Cardura, Lopressor. 3. History of Parkinson disease, stable. 4. History of adenocarcinoma of the lung with abnormal chest CT and x-ray. The patient has multiple pulmonary nodules and a left lower lobe lung mass. 5. History of severe myelodysplastic syndrome accounting for his severe thrombocytopenia and anemia. The patient does receive Neupogen for his leukopenia. White blood cell count currently is elevated. The patient requires blood and platelet transfusions on a regular basis. His being followed closely by Hematology/Oncology. 6. 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 The patient is on inhalation therapy and I would like to see the dose of steroids decreased by Pulmonary. 7. History of benign prostatic hypertrophy, currently stable on medical therapy. PLAN: 1. The patient will continue off diuretics and off IV fluids. Try and encourage p.o. fluid intake. 2. Avoid all nephrotoxic agents. 3. No plans to restart his angiotensin receptor yang that he was taking in the outpatient setting. 4. Hopefully, we will be able to decrease his steroids over the next few days as per Pulmonary. 5. Continue to monitor labs on a frequent basis. Dwain Og MD
[2017-09-09] MEDS: Albuterol-Ipratrop 3 mg / 0.5 (3 ml) UD IH PRN (03:37)
[2017-09-09] MEDS: Albuterol-Ipratrop 3 mg / 0.5 (3 ml) UD IH SCH ×4 (07:20→21:00)
[2017-09-09] MEDS: Acetylcysteine 20% Inhal Soln (4ml) IH SCH ×2 (07:20→21:00)
[2017-09-09 08:05] LABS: HEMOGLOBIN 9.7 g/dL (14.0-18.0); MEAN CELL VOLUME 89.1 fl (80.0-105.0); MEAN CORPUSCULAR HEMOGLOBIN 28.7 pg (25.0-35.0); MEAN CORPUSCULAR HGB CONC 32.2 g/dl (31.0-37.0); RBC 3.38 10^6/uL (3.5-6.1); RED CELL DISTRIBUTION WIDTH 16.2 % (11.5-14.5); WHITE BLOOD COUNT 18.7 10^3/ul (4.5-11.0)
[2017-09-09 08:10] LABS: PLATELET COUNT 20 10^3/uL (120.0-450.0)
[2017-09-09 08:16] LABS: ALB/GLOB RATIO 1.4 (1.1-1.8); ALBUMIN 3.3 g/dL (3.0-4.8); ALT/SGPT 24 U/L (7-56); AST/SGOT 13 U/L (17-59); BLOOD UREA NITROGEN 69 mg/dL (7-21); CALCIUM 9.9 mg/dL (8.4-10.5); GFR AFRICAN-AMERICAN > 60; GFR NON-AFRICAN AMERICAN 52
[2017-09-09 08:39] LABS: PLATELET COUNT MANUAL 24 K/mm3 (120-450); PLATELET ESTIMATE LOW (NORMAL)
--- NOTE | 2017-09-09 08:58 | PN ---
DATE: REFERRING PHYSICIAN: Dr. Magallon. SUBJECTIVE: Patient is lying in the bed with head 45 degrees. Family at bedside. Night was unremarkable. Still has cough, unable to clear pulmonary secretion, p.o. diet is a little better. No nausea. Constipated. No leg pain or leg swelling. OBJECTIVE GENERAL: Not in acute distress. VITAL SIGNS: Temperature is 98, heart rate 79, respiratory rate is 20, blood pressure 138/65, pulse ox 93% on 5 liters cannula. HEENT: Moist mucous membrane. Crowded airway. Mallampati score is 4. NECK: Supple. No JVD. Lungs: Have scattered rhonchi. HEART: Normal S1, S2. ABDOMEN: Soft, nontender. No organomegaly. EXTREMITIES: There is no edema. NEUROLOGIC: Asleep, arousable. Follows simple command. MEDICATIONS: He is on Mucomyst 20% inhaled twice a day, hydralazine 25 mg three times a day, Cardura 80 mg twice a day, albuterol/Atrovent mellitus four times a day [id number], Flomax 0.4 mg daily, metoprolol tartrate 50 mg twice a day, meropenem 500 mg q.12h., MiraLax 17 g daily, Mirapex 0.125 mg three times a day, morphine 2 mg q. 4h. p.r.n., PhosLo with the meals, Proscar 5 mg daily, Sinemet 10/100 two tablets twice a day, IV fluid half-normal saline 50 mL/hour, Solu-Medrol 30 mg q.12h., Tylenol on p.r.n. basis. LABORATORY DATA: Shows hemoglobin 8, hematocrit 24.8, WBC 18, platelets are 20,000. Sodium 151, potassium 4.9, chloride 110, bicarbonate 331, BUN 76, creatinine 1.5, glucose 89, calcium is 10, phosphorus is 4.1, AST 10, ALT 25, alkaline phosphatase is 61. Albumin is 3.2. Urine culture has E. coli IMPRESSION AND PLAN: Renal stone with hematuria; Escherichia coli with ESBL; adenocarcinoma of the lung; chronic obstructive lung disease; pneumonia; pulmonary fibrosis; myelodysplastic syndrome; Parkinson disease; oropharyngeal dysphagia, on modified diet; atherosclerosis; vascular disease; constipated. Spoke to family at bedside. All the questions answered. Continue incentive spirometer, bronchodilators, steroids, antibiotics. Aspiration precaution. Increased MiraLax to twice a day, Dulcolax suppository daily. Gastric prophylaxis, DVT prophylaxis. High risk for respiratory failure secondary to aspiration. We will follow with you Brenton Diaz MD
[2017-09-09] MEDS: DEFERASIROX PO SCH (09:22)
[2017-09-09] MEDS: POLYETHYLENE GLYCOL 3350 17 GM/Dose PACKET PO SCH ×2 (09:23→17:38)
[2017-09-09] MEDS: Silver Sulfadiazine 1% Cream (25 gm) TP SCH ×2 (09:23→17:41)
[2017-09-09] MEDS: Meropenem 500 MG in Sodium Chloride 0.9% 50 ML IVPB SCH (09:25)
[2017-09-09] MEDS ORDERED: DiphenhydrAMINE 50 mg/ml Inj IVP ONE (11:41)
--- NOTE | 2017-09-09 11:46 | CP.PCM.PN ---
Subjective - Date & Time of Evaluation Date of Evaluation: 09/09/17 Time of Evaluation: 08:40 - Subjective Subjective: Heme-onc Progress Note, Casey Francisco DO, IM PGY-2 This is an 86 yo M with PMH of MDS (transfusion dependent, on regular injections of Procrit and Neupogen), HTN, Lung fibrosis, and urinary incontinence who [place] [facility] of severe [place] pain, found to have likely compression fracture on imaging. Heme-onc was consulted for leukocystosis, and his hx of MDS. Patient seen and examined at bedside. Awake and alert, reports improvement of stomach pain but still some persistence. Denies emesis, diarrhea. Wants more PO liquids, but explained that want to avoid over-hydration given current scrotal swelling and edema, patient expresses understanding. Denies chest pain or shortness of breath. Objective - Vital Signs/Intake and Output Vital Signs (last 24 hours): Temp Pulse Resp BP Pulse Ox 97.9 F 89 18 149/71 93 L 09/09/17 06:50 09/09/17 09:24 09/09/17 06:50 09/09/17 09:24 09/08/17 14:00 Intake and Output: 09/09/17 09/09/17 06:59 18:59 Intake Total 1130 Output Total 750 Balance 380 - Medications Medications: Current Medications Acetaminophen (Tylenol 325mg Tab) 650 mg PO Q4H PRN PRN Reason: Pain, Mild (1-3) Last Admin: 09/05/17 17:57 Dose: 650 mg Acetaminophen (Tylenol 325mg Tab) 650 mg PO ONCE PRN PRN Reason: 1/2 hour prior transfusion Acetaminophen (Tylenol 325mg Tab) 650 mg PO ONCE ONE Stop: 09/09/17 11:42 Acetylcysteine (Acetylcysteine 20%) 4 ml IH BIDRESP [facility] Last Admin: 09/09/17 07:20 Dose: 4 ml Albuterol/Ipratropium (Duoneb 3 Mg/0.5 Mg (3 Ml) Ud) 3 ml IH QIDRESP [facility] Last Admin: 09/09/17 07:20 Dose: 3 ml Albuterol/Ipratropium (Duoneb 3 Mg/0.5 Mg (3 Ml) Ud) 3 ml IH Q4 PRN PRN Reason: Cough and congestion Last Admin: 09/09/17 03:37 Dose: 3 ml Bisacodyl (Dulcolax) 10 mg RC DAILY [facility] Last Admin: 09/09/17 09:17 Dose: 10 mg Calcium Acetate (Phoslo) 667 mg PO WM [facility] Last Admin: 09/09/17 08:41 Dose: 667 mg Carbidopa/Levodopa (Sinemet 10/100) 2 tab PO BID [facility] Last Admin: 09/09/17 09:23 Dose: 2 tab Diphenhydramine HCl (Benadryl) 25 mg IVP ONCE ONE Stop: 09/09/17 11:42 Doxazosin Mesylate (Cardura) 8 mg PO BID [facility] Last Admin: 09/09/17 09:23 Dose: 8 mg Famotidine (Pepcid) 20 mg PO 2200 [facility] Last Admin: 09/08/17 22:05 Dose: 20 mg Finasteride (Proscar) 5 mg PO DAILY [facility] Last Admin: 09/09/17 09:23 Dose: 5 mg Home Med (Home Med) 0 unit PO DAILY [facility] Last Admin: 09/09/17 09:22 Dose: 1 unit Hydralazine HCl (Apresoline) 25 mg PO TID [facility] Last Admin: 09/09/17 09:24 Dose: 25 mg Hydrocortisone Sodium Succinate (Solu-Cortef) 100 mg IVP ONCE ONE Stop: 09/09/17 11:42 Meropenem 500 mg/ Sodium (Chloride) 50 mls @ 100 mls/hr IVPB Q12 [facility] PRN Reason: Protocol Last Admin: 09/09/17 09:25 Dose: 100 mls/hr Sodium Chloride (Sodium Chloride 0.45%) 1,000 mls @ 50 mls/hr IV .Q20H [facility] Last Admin: 09/01/17 21:07 Dose: 50 mls/hr Meropenem (Merrem Iv 1 Gm Premix) 50 mls @ 100 mls/hr IVPB Q12 [facility] PRN Reason: Protocol Stop: 09/14/17 10:01 Methylprednisolone (Solu-Medrol) 30 mg IVP 12 [facility] Last Admin: 09/08/17 12:13 Dose: 30 mg Metoprolol Tartrate (Lopressor) 50 mg PO BID [facility] Last Admin: 09/09/17 09:24 Dose: 50 mg Morphine Sulfate (Morphine) 2 mg IVP Q4H PRN PRN Reason: Pain, severe (8-10) Last Admin: 09/07/17 10:14 Dose: 2 mg Polyethylene Glycol (Miralax) 17 gm PO DAILY [facility] Last Admin: 09/09/17 09:23 Dose: 17 gm Pramipexole Dihydrochloride (Mirapex) 0.125 mg PO TID [facility] Last Admin: 09/09/17 09:23 Dose: 0.125 mg Silver Sulfadiazine (Silvadene 1% 25 Gm) 0 gm TP BID [facility] Last Admin: 09/09/17 09:23 Dose: 25 gm Tamsulosin HCl (Flomax) 0.4 mg PO DAILY [facility] Last Admin: 09/09/17 09:23 Dose: 0.4 mg - Labs Labs: 09/09/17 07:50 09/09/17 07:50 PT 12.7 SECONDS (9.4-12.5) H 08/29/17 17:30 INR 1.11 (0.93-1.08) H 08/29/17 17:30 APTT 33.0 Seconds (25.1-36.5) 08/29/17 17:30 - Additional Findings Additional findings: - Constitutional Appears: Non-toxic, No Acute Distress, Hard of hearing - Head Exam Head Exam: ATRAUMATIC, NORMAL INSPECTION, NORMOCEPHALIC - Eye Exam Eye Exam: EOMI, Normal appearance. absent: Conjunctival injection Pupil Exam: absent: Irregular, NORMAL ACCOMODATION, Unequal - ENT Exam ENT Exam: Mucous Membranes Moist, no petechiae appreciated - Neck Exam Neck Exam: Full ROM. absent: Lymphadenopathy, Thyromegaly - Respiratory Exam Respiratory Exam: Decreased Breath Sounds (mildly decreased breath sounds in all correa), Rhonchi (moderate inspiratory and expiratory ronchi in all correa) , wet cough intermittently productive of bloody sputum, NORMAL BREATHING PATTERN. absent: Clear to Ausculation Bilateral, Rales, Wheezes - Cardiovascular Exam Cardiovascular Exam: REGULAR RHYTHM, RRR, +S1, +S2. absent: Bradycardia, Tachycardia, Irregular Rhythm, JVD, +S4 - GI/Abdominal Exam GI & Abdominal Exam: Soft, Normal Bowel Sounds, Reports static tenderness/ discomfort but no tenderness to palpation. absent: Distended, Firm - Extremities Exam Extremities Exam: Normal Inspection. absent: Calf Tenderness, Pedal Edema, Tenderness - Exam Exam: scrotal swelling appreciated but no erythema or cellulitis, card catheter in place draining small amounts of clear yellow urine, unable to visualize genitals due to scrotal swelling - Neurological Exam Awake and alert, following all commands appropriately Moving all extremities spontaneously Motor grossly intact and equal bilaterally Resting tremors appreciated in bilateral upper extremities, some tremor of lower jaw appreciated but doesn't appear to be tardive dyskinesia - Psychiatric Exam Psychiatric exam: Normal Affect, Normal Mood - Skin Skin Exam: Dry, Intact, Normal Color, Warm Assessment and Plan - Assessment and Plan (Free Text) Assessment: This is an 86 yo M with PMH of MDS (transfusion dependent, on regular injections of Procrit and Neupogen), HTN, Lung fibrosis, and urinary incontinence who [place] [facility] [place] of severe back pain, found to have likely compression fracture on imaging. Heme-onc was consulted for leukocystosis, and his hx of MDS. 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 impingement of airway by mass), and then only management of symptoms -Cr 1.3 today (improving), as per Nephro likely pre-renal azotemia, no signs of obstruction or AIN, continue to hold losartan, prn diuresis only, taper steroids -GI consulted for possible pancreatitis; advance diet as tolerated, PPI, trend LFTs, pending EGD -Pain control -bloody sputum production in setting of low platelets, will need to transfuse additional platelets; Dr. Diaz (Pulm) consulted for hemoptysis -transfused 1 unit pRBCs yesterday, Hgb increased from 7.6 to 8.0, inadequate response, and in setting of worsening platelets, will need further transfusion -Platelets 20 today (were 20) & manual count 24 (was 30) despite platelet transfusion yesterday, another unit ordered today, will premedicate -Hgb improved to 9.7 from 8.0 after 2 units pRBCs transfused yesterday, continue to monitor -Palliative service onboard, met with patient and family at bedside; want to continue medical treatments but as per patient's wishes, POLST filled out indicating DNR/DNI, charting has been amended to reflect patient's wishes Patient reviewed and discussed at length with attending, Dr. Gonsales
[2017-09-09] MEDS: Meropenem IV 1 gm in NS 50 ML IVPB SCH ×2 (11:53→21:55)
[2017-09-09] MEDS: MethylPREDNISolone 40 mg Vial IVP SCH (13:29)
[2017-09-09] MEDS ORDERED: POLYETHYLENE GLYCOL 3350 17 GM/Dose PACKET PO PRN (13:59)
--- NOTE | 2017-09-09 14:59 | CP.PCM.PN ---
Subjective - Date & Time of Evaluation Date of Evaluation: 09/09/17 Time of Evaluation: 11:25 - Subjective Subjective: No fevers, not in distress. Objective - Vital Signs/Intake and Output Vital Signs (last 24 hours): Temp Pulse Resp BP Pulse Ox 97.9 F 89 18 149/71 93 L 09/09/17 06:50 09/09/17 09:24 09/09/17 06:50 09/09/17 09:24 09/08/17 14:00 Intake and Output: 09/09/17 09/09/17 06:59 18:59 Intake Total 1130 Output Total 750 Balance 380 - Medications Medications: Current Medications Acetaminophen (Tylenol 325mg Tab) 650 mg PO Q4H PRN PRN Reason: Pain, Mild (1-3) Last Admin: 09/05/17 17:57 Dose: 650 mg Acetaminophen (Tylenol 325mg Tab) 650 mg PO ONCE PRN PRN Reason: 1/2 hour prior transfusion Acetylcysteine (Acetylcysteine 20%) 4 ml IH BIDRESP [facility] Last Admin: 09/09/17 07:20 Dose: 4 ml Albuterol/Ipratropium (Duoneb 3 Mg/0.5 Mg (3 Ml) Ud) 3 ml IH QIDRESP [facility] Last Admin: 09/09/17 07:20 Dose: 3 ml Albuterol/Ipratropium (Duoneb 3 Mg/0.5 Mg (3 Ml) Ud) 3 ml IH Q4 PRN PRN Reason: Cough and congestion Last Admin: 09/09/17 03:37 Dose: 3 ml Bisacodyl (Dulcolax) 10 mg RC DAILY [facility] Last Admin: 09/09/17 09:17 Dose: 10 mg Calcium Acetate (Phoslo) 667 mg PO WM [facility] Last Admin: 09/09/17 08:41 Dose: 667 mg Carbidopa/Levodopa (Sinemet 10/100) 2 tab PO BID [facility] Last Admin: 09/09/17 09:23 Dose: 2 tab Doxazosin Mesylate (Cardura) 8 mg PO BID [facility] Last Admin: 09/09/17 09:23 Dose: 8 mg Famotidine (Pepcid) 20 mg PO 2200 [facility] Last Admin: 09/08/17 22:05 Dose: 20 mg Finasteride (Proscar) 5 mg PO DAILY [facility] Last Admin: 09/09/17 09:23 Dose: 5 mg Home Med (Home Med) 0 unit PO DAILY [facility] Last Admin: 09/09/17 09:22 Dose: 1 unit Hydralazine HCl (Apresoline) 25 mg PO TID [facility] Last Admin: 09/09/17 09:24 Dose: 25 mg Meropenem 500 mg/ Sodium (Chloride) 50 mls @ 100 mls/hr IVPB Q12 [facility] PRN Reason: Protocol Last Admin: 09/09/17 09:25 Dose: 100 mls/hr Sodium Chloride (Sodium Chloride 0.45%) 1,000 mls @ 50 mls/hr IV .Q20H [facility] Last Admin: 09/01/17 21:07 Dose: 50 mls/hr Meropenem (Merrem Iv 1 Gm Premix) 50 mls @ 100 mls/hr IVPB Q12 [facility] PRN Reason: Protocol Stop: 09/14/17 10:01 Methylprednisolone (Solu-Medrol) 30 mg IVP 12 [facility] Last Admin: 09/08/17 12:13 Dose: 30 mg Metoprolol Tartrate (Lopressor) 50 mg PO BID [facility] Last Admin: 09/09/17 09:24 Dose: 50 mg Morphine Sulfate (Morphine) 2 mg IVP Q4H PRN PRN Reason: Pain, severe (8-10) Last Admin: 09/07/17 10:14 Dose: 2 mg Polyethylene Glycol (Miralax) 17 gm PO DAILY [facility] Last Admin: 09/09/17 09:23 Dose: 17 gm Pramipexole Dihydrochloride (Mirapex) 0.125 mg PO TID [facility] Last Admin: 09/09/17 09:23 Dose: 0.125 mg Silver Sulfadiazine (Silvadene 1% 25 Gm) 0 gm TP BID [facility] Last Admin: 09/09/17 09:23 Dose: 25 gm Tamsulosin HCl (Flomax) 0.4 mg PO DAILY [facility] Last Admin: 09/09/17 09:23 Dose: 0.4 mg - Labs Labs: 09/09/17 07:50 09/09/17 07:50 PT 12.7 SECONDS (9.4-12.5) H 08/29/17 17:30 INR 1.11 (0.93-1.08) H 08/29/17 17:30 APTT 33.0 Seconds (25.1-36.5) 08/29/17 17:30 - Constitutional Appears: Chronically Ill - Head Exam Head Exam: NORMAL INSPECTION - Respiratory Exam Respiratory Exam: Decreased Breath Sounds - Cardiovascular Exam Cardiovascular Exam: +S1, +S2 - GI/Abdominal Exam GI & Abdominal Exam: Soft. absent: Tenderness Assessment and Plan - Assessment and Plan (Free Text) Plan: Assessment Complicated UTI with ESBL-producing E. coli marked leukocytosis, probably due to G-CSF infusion S/P treatment of healthcare-associated pneumonia Maculopapular rash on his back history of sepsis secondary to ESBL E. coli bacteremia S/P sepsis due to Morganella UTI with hematuria history of lung fibrosis myelodysplastic syndrome BPH coronary artery disease Plan continue Merrem day 9 and will continue to monitor clinically; target about 10- 14 days of therapy will continue to trend WBC count
[2017-09-09 15:09] LABS: PROTHROMBIN TIME 14.4 SECONDS (9.4-12.5)
[2017-09-09 15:10] LABS: INR 1.26 (0.93-1.08); PARTIAL THROMBOPLASTIN TIME 32.4 Seconds (25.1-36.5)
--- NOTE | 2017-09-09 15:16 | PN ---
DATE: 09/09/2017 PULMONARY PROGRESS NOTE REFERRING PHYSICIAN: Mook Magallon MD. SUBJECTIVE: He is lying in the bed, sleepy, arousable. Night was unremarkable. Still has some cough and difficulty clearing secretion. No nausea. No vomiting. No bowel movement for last few days. No leg swelling. OBJECTIVE: GENERAL: In no acute distress. VITAL SIGNS: Temperature is 98, heart rate is 89, respiratory rate is 18, blood pressure 140/71, pulse ox 93% on 5 L nasal cannula. HEENT: Moist mucous membrane. Crowded airway. Mallampati score is 4. NECK: Supple. No JVD. LUNGS: With scattered rhonchi. HEART: S1, S2. ABDOMEN: Soft, nontender. No organomegaly. EXTREMITIES: No edema. NEUROLOGICALLY: Sleepy, arousable. MEDICATIONS: He is on Mucomyst 20% inhaled twice a day, hydralazine 25 mg three times a day, Cardura 8 mg twice a day, Dulcolax 10 mg rectally daily, albuterol/Atrovent nebulizer four times daily [id number], Flomax 0.4 mg daily, metoprolol tartrate 50 mg twice a day, meropenem 1 g IV every 12 hours, MiraLax 17 g twice a day, Mirapex 0.25 mg three times a day, morphine 2 mg every 4 hours p.r.n., Pepcid 20 mg daily, Proscar 5 mg daily, Sinemet 10/100 two tabs twice a day, IV fluid half-normal saline 50 mL/hour, Tylenol p.r.n. basis. LABORATORY DATA: Shows hemoglobin 9.7, hematocrit 30.1, WBC 18.7, platelet is 20. Sodium 149, potassium 4.6, chloride 108, bicarbonate is 31, BUN 69, creatinine 1.3, glucose 97, calcium is 9.9, phosphorus 4.1, magnesium 2.2, total bili 1.7, AST 13, ALT 24, alk phos is 62, Albumin is 3.3. IMPRESSION AND PLAN: Renal stone, hematuria, has extended-spectrum beta-lactamase Escherichia coli in the urine, pulmonary fibrosis, myelodysplastic syndrome, Parkinson disease, adenocarcinoma of the lung, oropharyngeal dysphagia, modified diet, atherosclerosis, vascular disease, chronic constipation. Spoke to nursing staff. We will change MiraLax to twice a day [id number] for now. Continue anti-Parkinson's medicines. Aspiration precaution. P.r.n. mouth and nasal suction. Incentive spirometer. Gastric prophylaxis. Sequential compression device to lower extremity. Hematology followup. Thank you and we will follow with you. Brenton Diaz MD
--- NOTE | 2017-09-09 16:38 | PN ---
DATE: SUBJECTIVE: The patient is currently seen asleep in bed on 5R. There appears to be no significant change from yesterday's clinical presentation. The patient continues receiving blood products as necessary for his thrombocytopenia and anemia. This is in the setting of severe myelodysplastic syndrome. The patient also remains on IV antibiotic therapy for his ESBL E. coli urinary tract infection. The patient has been made a DNR/DNI. MEDICATIONS: Medication list reviewed. The patient is on acetylcysteine, Apresoline, Cardura, Dulcolax, DuoNeb, Flomax, Exjade, metoprolol, meropenem, MiraLax, Mirapex, p.r.n. morphine, Pepcid, PhosLo, Proscar, Silvadene cream, Sinemet, Solu-Medrol, Tylenol p.r.n. OBJECTIVE: INTAKE/OUTPUT: Intake is 1363, output is 750. VITAL SIGNS: Blood pressure 111/52, pulse of 89, temperature 97.9 with a heart rate of 18. HEENT: Eyes are closed. NECK: Supple. No neck vein distention. CHEST: Decreased breath sounds at the bases. Scattered rhonchi. No wheezing or rales. CARDIOVASCULAR: Regular rate and rhythm without audible murmurs, rubs or gallops. ABDOMEN: Soft. Bowel sounds normal. No rebound, guarding or masses. : Positive scrotal, positive penile edema. EXTREMITIES: Showed trace to 1+ pitting edema of his lower extremity. Arms remain puffy bilaterally. LABORATORY DATA AND IMAGING: CBC today: White blood cell count is 18.7, stable. Hemoglobin 9.7, improved. Platelet count is 20,000. The patient has received a total of 6 units of packed red blood cells and he had been transfused 1 unit of platelets. Chemistries: Sodium 149. K 4.6. Chloride 108. BUN 69, slightly improved. Creatinine slightly improved to 1.3. Calcium 9.9, phosphorus improved at 4.1, magnesium stable at 2.2, total bilirubin 1.7. Otherwise, liver enzymes are normal. Albumin remains low, but stable at 3.3. Microbiology: Urine cultures were positive for E. coli ESBL as previously noted. ASSESSMENT: 1. Acute renal failure, prerenal azotemia in the setting of chronic kidney disease stage 3. Baseline BUN is in the 30-40 range with a baseline creatinine in the 1.3-1.4 range. Rise in BUN and creatinine is in part secondary to his Escherichia coli urinary tract infection, steroids being used for treating his pulmonary situation and renal hypoperfusion. He has no evidence for obstructive uropathy on renal imaging studies and urines did not support a diagnosis of interstitial nephritis. 2. Hypertension. Blood pressure control is acceptable. The patient will continue hydralazine, Cardura and Lopressor. 3. History of Parkinson's disease, stable. 4. History of adenocarcinoma of the lung with abnormal chest CT and x-ray. The patient has multiple pulmonary nodules, though to be secondary to metastatic disease from lung cancer along with a left lower lobe lung mass. 5. History of severe myelodysplastic syndrome with severe thrombocytopenia and anemia. The patient is requiring blood products and platelet products on a regular basis. White blood cell count is presently elevated in part from the patient having received Neupogen. The patient has been followed closely by Hematology/Oncology. 6. 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 The patient continues on inhalation therapy and steroids. Again, I would like to see steroid dose decreases. This will likely help lower the elevated BUN. 7. History of benign prostatic hypertrophy, currently stable on medical therapy. 8. Do not resuscitate/do not intubate noted. PLAN: 1. The patient will continue off diuretics and off IV fluids. If his BUN and creatinine continue to fall, there might be some room for using diuretics on a p.r.n. basis. 2. Avoid all nephrotoxic agents. 3. Complete course of the antibiotics for his UTI. 4. I would like to see a decrease in the steroid dose. 5. Long-term prognosis is very poor in this patient and I agree with the decision of DNR/DNI. Dwain Og MD
--- NOTE | 2017-09-10 02:26 | PN ---
DATE: 09/09/2017 SUBJECTIVE: This patient was seen and evaluated earlier today. PHYSICAL EXAMINATION: GENERAL: Patient is not in acute distress. VITAL SIGNS: Temperature is 98, blood pressure 140/71. Patient is on 93% pulse ox on 5% nasal cannula. Respirations 18. HEENT: Atraumatic, anicteric. NECK: Supple. HEART: S1 and S2 heard. LUNGS: Bilateral air entry present. ABDOMEN: Soft. There is no tenderness present. EXTREMITIES: No cyanosis. No clubbing. NEUROLOGIC: Alert and responds to verbal command. Denies any abdominal pain. IMPRESSION: This is an 86-year-old patient with myelodysplastic syndrome, advanced adenocarcinoma of the lung, oropharyngeal dysphagia, on pureed diet, presented with right-sided abdominal pain. Patient did have ureterovesical small stone. Has gallstone also. Patient has urinary tract infection and patient is being treated with intravenous antibiotics. Patient is clinically improving with that respect. However, patient continues to be pancytopenic, received transfusions. RECOMMENDATIONS: Continue the pureed diet with assistance. Continue the antibiotics as per Infectious Disease. Overall prognosis of the patient remains guarded and poor. Thank you very much for allowing us to participate in the care of the patient. Valorie Figueredo MD [facility]
[2017-09-10 06:56] LABS: BASO # 0.07 K/mm3 (0.0-2.0); BASO % 0.6 % (0.0-3.0); EOS % 0.2 % (1.5-5.0); GRAN # 9.95 (1.4-6.5); GRAN % 85.8 % (50.0-68.0); HEMOGLOBIN 9.1 g/dL (14.0-18.0); LYMPH # 0.6 (1.2-3.4); MEAN CELL VOLUME 90.6 fl (80.0-105.0); MEAN CORPUSCULAR HEMOGLOBIN 28.5 pg (25.0-35.0); MEAN CORPUSCULAR HGB CONC 31.5 g/dl (31.0-37.0); MEAN PLATELET VOLUME 10.3 fl (7.0-11.0); MONO % 8.4 % (1.0-6.0); RBC 3.19 10^6/uL (3.5-6.1); RED CELL DISTRIBUTION WIDTH 16.5 % (11.5-14.5); WHITE BLOOD COUNT 11.6 10^3/ul (4.5-11.0)
[2017-09-10 07:22] LABS: ALB/GLOB RATIO 1.3 (1.1-1.8); ALBUMIN 3.3 g/dL (3.0-4.8); ALT/SGPT 26 U/L (7-56); AST/SGOT 14 U/L (17-59); BLOOD UREA NITROGEN 69 mg/dL (7-21); CALCIUM 9.9 mg/dL (8.4-10.5); GFR AFRICAN-AMERICAN > 60; GFR NON-AFRICAN AMERICAN 52
[2017-09-10 07:34] LABS: PLATELET COUNT 27 10^3/uL (120.0-450.0)
[2017-09-10] MEDS: Acetylcysteine 20% Inhal Soln (4ml) IH SCH ×2 (08:08→20:34)
[2017-09-10] MEDS: Albuterol-Ipratrop 3 mg / 0.5 (3 ml) UD IH SCH ×4 (08:08→20:34)
[2017-09-10 08:25] LABS: PLATELET COUNT MANUAL 36 K/mm3 (120-450)
--- NOTE | 2017-09-10 09:10 | PN ---
DATE: 09/08/2017 SUBJECTIVE: The patient seems comfortable. Less respiratory distress. He is more awake. He is receiving platelets and blood transfusions. Otherwise, the patient is afebrile. PHYSICAL EXAMINATION: VITAL SIGNS: Temperature 98.1, heart rate 84, blood pressure 126/66, and respirations 20. HEAD AND NECK: Normal. No JVD. CHEST: Crackles at the bases. CARDIAC: First sound and second sound normal. ABDOMEN: Soft, nontender. EXTREMITIES: No edema. NEUROLOGIC: Generalized weakness, but nonfocal. The patient is alert, awake, and oriented to place and to the person. LABORATORY STUDIES: On 09/08/2017, he had a white count of 18,000, hemoglobin 8, hematocrit 24, and platelets 27. Chemistry showed sodium 151, potassium 4.9, chloride 110, bicarbonate 31, BUN 76, creatinine 1.5, and liver function test is normal with normal magnesium. IMPRESSION AND PLAN: 1. Sepsis due to pneumonia and gram-negative Escherichia coli. Plan is to continue current medications. Patient has extended-spectrum beta-lactamase. Continue meropenem IV and follow up with the Infectious Disease recommendations. Currently, he is getting meropenem 1 g IV every 12 hours. 2. Myelodysplasia syndrome with severe thrombocytopenia and bone marrow failure. Continue supportive care with the IV transfusions. The patient is getting platelets 1 unit. 3. Hypertension, controlled. 4. Chronic obstructive pulmonary disease, pneumonia, lung mass, and lung cancer. We will continue current support. Continue Solu-Medrol 30 mg IV every 12 hours. Continue inhaled bronchodilators, IV meropenem, chest PT, and Mucomyst twice a day. The patient has poor prognosis with multiple medical problems, renal failure, respiratory failure, and bone marrow failure with poor prognosis. The patient was made do not resuscitate/do not intubate. We will continue supportive care for now. We will discuss results with the family and maybe we will consider with the family hospice care. Mook Magallon MD
[2017-09-10] MEDS: Meropenem IV 1 gm in NS 50 ML IVPB SCH ×2 (10:41→22:07)
[2017-09-10] MEDS: POLYETHYLENE GLYCOL 3350 17 GM/Dose PACKET PO SCH ×2 (10:41→18:07)
[2017-09-10] MEDS: DEFERASIROX PO SCH (10:41)
[2017-09-10] MEDS: Silver Sulfadiazine 1% Cream (25 gm) TP SCH ×2 (10:42→18:08)
--- NOTE | 2017-09-10 11:10 | CP.PCM.PN ---
Subjective - Date & Time of Evaluation Date of Evaluation: 09/10/17 Time of Evaluation: 09:40 - Subjective Subjective: Heme-onc Progress Note, Casey Francisco DO, IM PGY-2 This is an 86 yo M with PMH of MDS (transfusion dependent, on regular injections of Procrit and Neupogen), HTN, Lung fibrosis, and urinary incontinence who presented [place] [facility] with complaint of severe back pain, found to have likely compression fracture on imaging. Heme-onc was consulted for leukocystosis, and his hx of MDS. Patient seen and examined at bedside. Awake and alert, denies stomach pain, denies any further hemoptysis. Denies emesis, diarrhea, chest pain, or shortness of breath. Objective - Vital Signs/Intake and Output Vital Signs (last 24 hours): Temp Pulse Resp BP Pulse Ox 98.4 F 78 21 137/63 92 L 09/10/17 07:30 09/10/17 10:43 09/10/17 07:30 09/10/17 10:43 09/10/17 07:30 Intake and Output: 09/10/17 09/10/17 06:59 18:59 Intake Total 60 Output Total 1800 Balance -1740 - Medications Medications: Current Medications Acetaminophen (Tylenol 325mg Tab) 650 mg PO Q4H PRN PRN Reason: Pain, Mild (1-3) Last Admin: 09/05/17 17:57 Dose: 650 mg Acetaminophen (Tylenol 325mg Tab) 650 mg PO ONCE PRN PRN Reason: 1/2 hour prior transfusion Acetylcysteine (Acetylcysteine 20%) 4 ml IH BIDRESP [facility] Last Admin: 09/10/17 08:08 Dose: 4 ml Albuterol/Ipratropium (Duoneb 3 Mg/0.5 Mg (3 Ml) Ud) 3 ml IH QIDRESP [facility] Last Admin: 09/10/17 08:08 Dose: 3 ml Albuterol/Ipratropium (Duoneb 3 Mg/0.5 Mg (3 Ml) Ud) 3 ml IH Q4 PRN PRN Reason: Cough and congestion Last Admin: 09/09/17 03:37 Dose: 3 ml Bisacodyl (Dulcolax) 10 mg RC DAILY [facility] Last Admin: 09/10/17 10:41 Dose: 10 mg Calcium Acetate (Phoslo) 667 mg PO WM [facility] Last Admin: 09/10/17 08:50 Dose: 667 mg Carbidopa/Levodopa (Sinemet 10/100) 2 tab PO BID [facility] Last Admin: 09/10/17 10:41 Dose: 2 tab Doxazosin Mesylate (Cardura) 8 mg PO BID [facility] Last Admin: 09/10/17 10:40 Dose: 8 mg Famotidine (Pepcid) 20 mg PO 2200 [facility] Last Admin: 09/09/17 21:51 Dose: Not Given Finasteride (Proscar) 5 mg PO DAILY [facility] Last Admin: 09/10/17 10:41 Dose: 5 mg Home Med (Home Med) 0 unit PO DAILY [facility] Last Admin: 09/10/17 10:41 Dose: 1 unit Hydralazine HCl (Apresoline) 25 mg PO TID [facility] Last Admin: 09/10/17 10:43 Dose: 25 mg Sodium Chloride (Sodium Chloride 0.45%) 1,000 mls @ 50 mls/hr IV .Q20H [facility] Last Admin: 09/01/17 21:07 Dose: 50 mls/hr Meropenem (Merrem Iv 1 Gm Premix) 50 mls @ 100 mls/hr IVPB Q12 [facility] PRN Reason: Protocol Stop: 09/14/17 10:01 Last Admin: 09/10/17 10:41 Dose: 100 mls/hr Methylprednisolone (Solu-Medrol) 30 mg IVP 12 [facility] Last Admin: 09/09/17 13:29 Dose: 30 mg Metoprolol Tartrate (Lopressor) 50 mg PO BID [facility] Last Admin: 09/10/17 10:42 Dose: 50 mg Morphine Sulfate (Morphine) 2 mg IVP Q4H PRN PRN Reason: Pain, severe (8-10) Last Admin: 09/07/17 10:14 Dose: 2 mg Polyethylene Glycol (Miralax) 17 gm PO BID [facility] Last Admin: 09/10/17 10:41 Dose: 17 gm Pramipexole Dihydrochloride (Mirapex) 0.125 mg PO TID [facility] Last Admin: 09/10/17 10:41 Dose: 0.125 mg Silver Sulfadiazine (Silvadene 1% 25 Gm) 0 gm TP BID [facility] Last Admin: 09/10/17 10:42 Dose: 25 gm Tamsulosin HCl (Flomax) 0.4 mg PO DAILY [facility] Last Admin: 09/10/17 10:41 Dose: 0.4 mg - Labs Labs: 09/10/17 06:00 09/10/17 06:00 PT 14.4 SECONDS (9.4-12.5) H 09/09/17 14:49 INR 1.26 (0.93-1.08) H 09/09/17 14:49 APTT 32.4 Seconds (25.1-36.5) 09/09/17 14:49 - Additional Findings Additional findings: - Constitutional Appears: Non-toxic, No Acute Distress, Hard of hearing - Head Exam Head Exam: ATRAUMATIC, NORMAL INSPECTION, NORMOCEPHALIC - Eye Exam Eye Exam: EOMI, Normal appearance. absent: Conjunctival injection Pupil Exam: absent: Irregular, NORMAL ACCOMODATION, Unequal - ENT Exam ENT Exam: Mucous Membranes Moist, no petechiae appreciated - Neck Exam Neck Exam: Full ROM. absent: Lymphadenopathy, Thyromegaly - Respiratory Exam Respiratory Exam: Decreased Breath Sounds (mildly decreased breath sounds in all correa), Rhonchi (moderate inspiratory and expiratory ronchi in all correa) , wet cough NOT productive of bloody sputum, NORMAL BREATHING PATTERN. absent: Clear to Ausculation Bilateral, Rales, Wheezes Additional Comments: suctioning of mouth obtained scant amount of sputum tinged with dark (old- appearing) blood - Cardiovascular Exam Cardiovascular Exam: REGULAR RHYTHM, RRR, +S1, +S2. absent: Bradycardia, Tachycardia, Irregular Rhythm, JVD, +S4 - GI/Abdominal Exam GI & Abdominal Exam: Soft, Normal Bowel Sounds, Reports static tenderness/ discomfort but no tenderness to palpation. absent: Distended, Firm - Extremities Exam Extremities Exam: Normal Inspection. absent: Calf Tenderness, Pedal Edema, Tenderness - Exam Exam: scrotal swelling appreciated but no erythema or cellulitis, card catheter in place draining small amounts of clear yellow urine, unable to visualize genitals due to scrotal swelling - Neurological Exam Awake and alert, following all commands appropriately Moving all extremities spontaneously Motor grossly intact and equal bilaterally Resting tremors appreciated in bilateral upper extremities, some tremor of lower jaw appreciated but doesn't appear to be tardive dyskinesia - Psychiatric Exam Psychiatric exam: Normal Affect, Normal Mood - Skin Skin Exam: Dry, Intact, Normal Color, Warm Additional Comments: reviewed sacral wound (bandaged), stage 2 under bandaging but appears to be healing, no active bleeding or discharge or appreciated Assessment and Plan - Assessment and Plan (Free Text) Assessment: This is an 86 yo M with PMH of MDS (transfusion dependent, on regular injections of Procrit and Neupogen), HTN, Lung fibrosis, and urinary incontinence who presented to [facility] with complaint of severe back pain, found to have likely compression fracture on imaging. Heme-onc was consulted for leukocystosis, and his hx of MDS. 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 impingement of airway by mass), and then only management of symptoms -Cr 1.3 today (unchanged from yesterday), as per Nephro likely pre-renal azotemia, no signs of obstruction or AIN, continue to hold losartan, taper steroids -GI consulted for possible pancreatitis; advance diet as tolerated, PPI, trend LFTs, pending EGD -Pain control -hemoptysis improved, will discuss option of palliative radiation with Dr. Diaz -Hgb 9.1 (was 9.7), no signs of active bleeding at this time, continue transfusions as needed -Platelets improved to 27 (was 20), manual count 36 (was 24), no need to transfuse platelets at this time -Palliative service onboard, met with patient and family at bedside; want to continue medical treatments but as per patient's wishes, POLST filled out indicating DNR/DNI, charting has been amended to reflect patient's wishes Patient reviewed and discussed at length with attending, Dr. Gonsales
--- NOTE | 2017-09-10 12:11 | CP.PCM.PN ---
Subjective - Date & Time of Evaluation Date of Evaluation: 09/10/17 Time of Evaluation: 11:00 - Subjective Subjective: More alert today, remains weak.Denies pain. Objective - Vital Signs/Intake and Output Vital Signs (last 24 hours): Temp Pulse Resp BP Pulse Ox 98.4 F 78 21 137/63 92 L 09/10/17 07:30 09/10/17 10:43 09/10/17 07:30 09/10/17 10:43 09/10/17 07:30 Intake and Output: 09/10/17 09/10/17 06:59 18:59 Intake Total 60 Output Total 1800 Balance -1740 - Medications Medications: Current Medications Acetaminophen (Tylenol 325mg Tab) 650 mg PO Q4H PRN PRN Reason: Pain, Mild (1-3) Last Admin: 09/05/17 17:57 Dose: 650 mg Acetaminophen (Tylenol 325mg Tab) 650 mg PO ONCE PRN PRN Reason: 1/2 hour prior transfusion Acetylcysteine (Acetylcysteine 20%) 4 ml IH BIDRESP [facility] Last Admin: 09/10/17 08:08 Dose: 4 ml Albuterol/Ipratropium (Duoneb 3 Mg/0.5 Mg (3 Ml) Ud) 3 ml IH QIDRESP [facility] Last Admin: 09/10/17 08:08 Dose: 3 ml Albuterol/Ipratropium (Duoneb 3 Mg/0.5 Mg (3 Ml) Ud) 3 ml IH Q4 PRN PRN Reason: Cough and congestion Last Admin: 09/09/17 03:37 Dose: 3 ml Bisacodyl (Dulcolax) 10 mg RC DAILY [facility] Last Admin: 09/10/17 10:41 Dose: 10 mg Calcium Acetate (Phoslo) 667 mg PO WM [facility] Last Admin: 09/10/17 08:50 Dose: 667 mg Carbidopa/Levodopa (Sinemet 10/100) 2 tab PO BID [facility] Last Admin: 09/10/17 10:41 Dose: 2 tab Doxazosin Mesylate (Cardura) 8 mg PO BID [facility] Last Admin: 09/10/17 10:40 Dose: 8 mg Famotidine (Pepcid) 20 mg PO 2200 [facility] Last Admin: 09/09/17 21:51 Dose: Not Given Finasteride (Proscar) 5 mg PO DAILY [facility] Last Admin: 09/10/17 10:41 Dose: 5 mg Home Med (Home Med) 0 unit PO DAILY [facility] Last Admin: 09/10/17 10:41 Dose: 1 unit Hydralazine HCl (Apresoline) 25 mg PO TID [facility] Last Admin: 09/10/17 10:43 Dose: 25 mg Sodium Chloride (Sodium Chloride 0.45%) 1,000 mls @ 50 mls/hr IV .Q20H [facility] Last Admin: 09/01/17 21:07 Dose: 50 mls/hr Meropenem (Merrem Iv 1 Gm Premix) 50 mls @ 100 mls/hr IVPB Q12 [facility] PRN Reason: Protocol Stop: 09/14/17 10:01 Last Admin: 09/10/17 10:41 Dose: 100 mls/hr Methylprednisolone (Solu-Medrol) 30 mg IVP 12 [facility] Last Admin: 09/09/17 13:29 Dose: 30 mg Metoprolol Tartrate (Lopressor) 50 mg PO BID [facility] Last Admin: 09/10/17 10:42 Dose: 50 mg Morphine Sulfate (Morphine) 2 mg IVP Q4H PRN PRN Reason: Pain, severe (8-10) Last Admin: 09/07/17 10:14 Dose: 2 mg Polyethylene Glycol (Miralax) 17 gm PO BID [facility] Last Admin: 09/10/17 10:41 Dose: 17 gm Pramipexole Dihydrochloride (Mirapex) 0.125 mg PO TID [facility] Last Admin: 09/10/17 10:41 Dose: 0.125 mg Silver Sulfadiazine (Silvadene 1% 25 Gm) 0 gm TP BID [facility] Last Admin: 09/10/17 10:42 Dose: 25 gm Tamsulosin HCl (Flomax) 0.4 mg PO DAILY [facility] Last Admin: 09/10/17 10:41 Dose: 0.4 mg - Labs Labs: 09/10/17 06:00 09/10/17 06:00 PT 14.4 SECONDS (9.4-12.5) H 09/09/17 14:49 INR 1.26 (0.93-1.08) H 09/09/17 14:49 APTT 32.4 Seconds (25.1-36.5) 09/09/17 14:49 - Constitutional Appears: No Acute Distress, Chronically Ill - Head Exam Head Exam: NORMOCEPHALIC - Eye Exam Eye Exam: Normal appearance, PERRL - ENT Exam ENT Exam: Mucous Membranes Moist, Normal Oropharynx - Respiratory Exam Respiratory Exam: Decreased Breath Sounds, NORMAL BREATHING PATTERN - Cardiovascular Exam Cardiovascular Exam: REGULAR RHYTHM, +S1, +S2 - GI/Abdominal Exam GI & Abdominal Exam: Soft, Normal Bowel Sounds - Extremities Exam Extremities Exam: Normal Capillary Refill, Pedal Edema - Skin Skin Exam: Dry, Pallor Assessment and Plan - Assessment and Plan (Free Text) Assessment: 86 year old male with history of MDS, anemia, Parkinson's admitted with sepsis, pneumonia, hypernatremia and resolving CAMILO. Mr Oseguera is more alert today, although still weak Appetite fair. Denies pain. Needs assist with all ADL's. Family and I have had several discussions regarding patients medical condition and overall prognosis. [facility]. Family anticipates transition to palliative care in the near Time spent with family in goals of care and hospice discussion, 30 minutes future Plan: Palliative support in establishing goals of care and advance care planning
--- NOTE | 2017-09-10 13:37 | PN ---
DATE: SUBJECTIVE: The patient is currently seen lying in bed on 5R. He appears to be stable. He continues to receive blood products, platelets and packed red blood cells on an as needed basis. He has severe myelodysplastic syndrome. The patient also continues on IV antibiotic therapy for his ESBL E. coli urinary tract infection. The patient is a DNR/DNI. MEDICATIONS: Medication list reviewed. The patient is on acetylcysteine, Apresoline, Cardura, Dulcolax, DuoNeb, Flomax, Exjade, metoprolol, meropenem, MiraLax, Mirapex, p.r.n. morphine, Pepcid, PhosLo, Proscar, Silvadene, Sinemet, Solu-Medrol, Tylenol p.r.n. PHYSICAL EXAMINATION INTAKE/OUTPUT: Intake is 620, output is 2400. VITAL SIGNS: Blood pressure 137/63, temperature 98.4, respiratory rate 21 with a pulse of 78, pulse ox of 92%. HEENT: Pupils equal, reactive to light and accommodation. Extraocular muscles intact. The patient is normocephalic, atraumatic. Conjunctiva are pale. Sclerae are nonicteric. NECK: Supple. No neck vein distention. CHEST: Slight decreased breath sounds at the bases. Scattered rhonchi. No rales or wheezing. CARDIOVASCULAR: Shows a regular rate and rhythm without audible murmurs, rubs or gallops. ABDOMEN: Soft. Bowel sounds normal. No rebound, guarding or masses. : Positive scrotal and penile edema, improved. EXTREMITIES: Show trace pitting edema of his lower extremity. Arms remain puffy bilaterally. LABORATORY DATA AND IMAGING: CBC: White blood cell count today 11.6, improved. Hemoglobin 9.1, stable. Platelet count is 27,000. The patient is status post two transfusions of platelets and 6 units of packed red blood cells during the hospitalization. Chemistries: Sodium 149, potassium 4.7, chloride 107, CO2 of 31, BUN is stable and improved at 69. Creatinine is down to 1.3. Calcium 9.9, phosphorus 4.4, magnesium 2.2. Bilirubin mildly elevated at 1.4. Albumin is 3.3. Microbiology: Urine cultures were positive for E. coli ESBL. ASSESSMENT: 1. Acute renal failure, prerenal azotemia in the setting of chronic kidney disease stage III. Baseline BUN is in the 30-40 range with a baseline creatinine in the 1.3-1.4 range. The patient is now at his baseline creatinine level. Rise in BUN and creatinine during early part of hospitalization in part secondary to Escherichia coli urinary tract infection in part secondary to steroids being used for treatment of his chronic obstructive pulmonary disease and pulmonary fibrosis. No evidence of obstructive uropathy on renal imaging studies and urine studies did not support a diagnosis of interstitial nephritis. 2. Hypertension. Blood pressure control is acceptable. The patient will continue hydralazine, Cardura and Lopressor. 3. Parkinson disease, stable on current medical therapy. 4. History of adenocarcinoma of the lung with abnormal chest CT and x-ray. The patient has multiple pulmonary nodules thought to be secondary to metastatic disease from lung cancer along with a left lower lobe lung mass. 5. History of severe myelodysplastic syndrome with severe thrombocytopenia and anemia. The patient is requiring blood products and has received these during present hospitalization. For his low white blood cell count, the patient had received Neupogen in the past. The patient is being monitored closely by Hematology/Oncology. 6. History of severe chronic obstructive pulmonary disease with pulmonary fibrosis. The patient remains on inhalation therapy and steroids. As noted in previous notes, I would like to see steroids decreased over time. 7. History of benign prostatic hypertrophy, currently stable on medical therapy. 8. The patient is a DNR/DNI. PLAN: 1. We will continue the patient off diuretics and off IV fluids. He appears to be in negative fluid balance and is diuresing on his own. 2. If penile and scrotal edema persists, BUN and creatinine continue to improve perhaps cautious use of IV diuretic therapy on a p.r.n. basis. 3. Avoid all nephrotoxic agents. 4. Complete a course of antibiotics for his ESBL E. coli urinary tract infection. 5. Pulmonary to decrease steroids when able. 6. Long-term prognosis is very poor in this patient and agree with the decision of the patient being made a DNR/DNI. Dwain Og MD
[2017-09-10] MEDS: MethylPREDNISolone 40 mg Vial IVP SCH (13:59)
--- NOTE | 2017-09-10 14:05 | RAD ---
HISTORY: hemoptysis COMPARISON: 09/02/2017. FINDINGS: The right IJV line terminates in the SVC. LUNGS: The lungs are well inflated. There is severe pulmonary venous congestion. There is a stable left upper lobe nodule. PLEURA: There are small pleural effusions, larger on the left and also likely loculated along the left lateral chest wall. No pneumothorax apparent. CARDIOVASCULAR: Again seen is severe cardiomegaly. OSSEOUS STRUCTURES: No significant abnormalities. VISUALIZED UPPER ABDOMEN: Normal. OTHER FINDINGS: None. IMPRESSION: Severe cardiomegaly and pulmonary venous congestion with small pleural effusions, larger on the left with loculation along the lateral margin. Stable large left upper lobe nodule.
[2017-09-10] MEDS: Morphine 2 mg/ml ISec IVP PRN (18:21)
--- NOTE | 2017-09-11 01:05 | PN ---
DATE: 09/10/2017 SUBJECTIVE: This patient was seen and evaluated earlier today. PHYSICAL EXAMINATION: GENERAL: Patient is comfortable. Not in acute distress. VITAL SIGNS: Temperature is 97.4, blood pressure 120/67, respirations 20, O2 saturation is 100%. HEENT: Atraumatic, anicteric. NECK: Supple. HEART: S1 and S2 heard. LUNGS: Bilateral air entry present. There are few scattered rhonchi present. ABDOMEN: Soft. There is no tenderness. EXTREMITIES: No edema. No cyanosis. LABORATORY DATA: Hemoglobin 9.1, hematocrit 28.9, WBC 7.6, platelets 27. Chemistry is essentially unremarkable except sodium was 149. IMPRESSION AND PLAN: This is an 86-year-old patient with myelodysplasia, advanced adenocarcinoma of the lung, oropharyngeal dysphagia, on pureed diet, presented with right-sided abdominal pain. Patient also has ureterovesical fistula and also gallstones. Abdominal discomfort has improved and the patient is now thrombocytopenic. Continue supportive care. Overall prognosis of the patient remains poor. Thank you very much for allowing us to participate in the care of the patient. Valorie Figueredo MD
[2017-09-11] MEDS: Albuterol-Ipratrop 3 mg / 0.5 (3 ml) UD IH PRN (02:18)
--- NOTE | 2017-09-11 04:34 | PN ---
DATE: PULMONARY PROGRESS NOTE REFERRING PHYSICIAN: Mook Magallon MD SUBJECTIVE: He is lying in the bed, feels a little better. Decreased cough. No nausea. No vomiting. No diarrhea. Did have a bowel movement. No leg pain or leg swelling. OBJECTIVE GENERAL: In no acute distress. VITAL SIGNS: Temperature is 98, heart rate is 90, respiratory rate is 20, blood pressure 132/60, pulse oximetry 100% on nasal cannula. HEENT: Moist mucous membranes. Crowded airway. Mallampati score is IV. NECK: Supple. No JVD. LUNGS: Have a few scattered rhonchi. HEART: S1 and S2. ABDOMEN: Soft, nontender. No organomegaly. EXTREMITIES: No edema of the lower extremities. NEUROLOGIC: He is awake and alert. Follows simple commands. LABORATORY DATA: Show hemoglobin 9.1, hematocrit 28.9, WBC 11.6, platelet is 27. Sodium 149, potassium 4.7, chloride 107, bicarbonate 31, BUN 16, and creatinine 1.3. Glucose 93, calcium is 9.9, phosphorus 4.4, total bilirubin 1.4, AST 14, ALT 26, alkaline phosphatase is 66, and albumin is 3.3. Chest x-ray done today, shows severe cardiomegaly with pulmonary venous congestion with small pleural effusion, larger on the left with along the lateral margin, stable large left upper lobe nodule. MEDICATIONS: He is on Mucomyst 20% 4 mL inhaled twice a day, hydralazine 25 mg three times a day, Cardura 8 mg twice a day, Dulcolax 10 mg rectally daily, DuoNeb every 4 hours p.r.n., DuoNeb every 6 hours [id number], Flomax 0.4 mg daily, metoprolol tartrate 50 mg twice a day, meropenem 1 g IV every 12 hours, MiraLax 17 g twice a day, Mirapex 0.125 mg three times a day, morphine 2 mg every 4 hours p.r.n., Pepcid 20 mg daily, calcium phosphate 667 with meals, Proscar 5 mg daily, carbidopa/levodopa 2 tablets twice a day, IV fluid half-normal saline 50 mL per hour, Solu-Medrol 30 mg every 12 hours, and Tylenol on a p.r.n. basis. IMPRESSION AND PLAN: Renal stone, hematuria, extended-spectrum beta lactamase Escherichia coli in the urine, pulmonary fibrosis, myelodysplastic syndrome, Parkinson's disease, adenocarcinoma of the lung, oropharyngeal dysphagia, on modified diet, chronic constipation, had bowel movement today. I spoke to the patient's brother at bedside. All the questions answered. We will continue bronchodilator. Keep head at 45 degrees. Aspiration precaution. Antibiotics as per Infectious Disease. He has been followed by Oncology. Also being followed by Palliative Care. Continue carbidopa/levodopa form with Mirapex. Continue supportive care. Thank you and we will follow with you. Brenton Diaz MD
[2017-09-11] MEDS: Albuterol-Ipratrop 3 mg / 0.5 (3 ml) UD IH SCH ×5 (07:14→21:48)
[2017-09-11] MEDS: Acetylcysteine 20% Inhal Soln (4ml) IH SCH ×3 (07:14→21:48)
[2017-09-11 08:20] LABS: BASO # 0.04 K/mm3 (0.0-2.0); BASO % 0.4 % (0.0-3.0); EOS % 0.3 % (1.5-5.0); GRAN # 7.43 (1.4-6.5); GRAN % 77.1 % (50.0-68.0); HEMOGLOBIN 8.7 g/dL (14.0-18.0); LYMPH # 0.6 (1.2-3.4); MEAN CELL VOLUME 91.7 fl (80.0-105.0); MEAN CORPUSCULAR HEMOGLOBIN 28.9 pg (25.0-35.0); MEAN CORPUSCULAR HGB CONC 31.5 g/dl (31.0-37.0); MEAN PLATELET VOLUME 11.5 fl (7.0-11.0); MONO # 1.6 (0.1-0.6); MONO % 16.2 % (1.0-6.0); RBC 3.01 10^6/uL (3.5-6.1); RED CELL DISTRIBUTION WIDTH 16.7 % (11.5-14.5); WHITE BLOOD COUNT 9.6 10^3/ul (4.5-11.0)
[2017-09-11 08:22] LABS: PLATELET COUNT 19 10^3/uL (120.0-450.0)
[2017-09-11 08:26] LABS: ALB/GLOB RATIO 1.3 (1.1-1.8); ALBUMIN 3.2 g/dL (3.0-4.8); ALT/SGPT 24 U/L (7-56); AST/SGOT 16 U/L (17-59); BLOOD UREA NITROGEN 68 mg/dL (7-21); GFR AFRICAN-AMERICAN > 60; GFR NON-AFRICAN AMERICAN 57
[2017-09-11] MEDS ORDERED: Albuterol-Ipratrop 3 mg / 0.5 (3 ml) UD IH ONE (10:50)
--- NOTE | 2017-09-11 10:50 | CP.PCM.PN ---
<Ericka Hylton - Last Filed: 09/11/17 10:47> Subjective - Date & Time of Evaluation Date of Evaluation: 09/11/17 Time of Evaluation: 09:15 - Subjective Subjective: S& E at bedside, chart reviewed, patient denies N/V or abdominal pain. No acute overnight events reported. Patient complain of difficulty coughing up phlegm. [place] tinged sputum noted on tissue, no blood clots. No reports of overt GI bleeding. Objective - Vital Signs/Intake and Output Vital Signs (last 24 hours): Temp Pulse Resp BP Pulse Ox 97.8 F 82 21 122/58 L 93 L 09/11/17 07:30 09/11/17 07:30 09/11/17 07:30 09/11/17 07:30 09/11/17 07:30 Intake and Output: 09/11/17 09/11/17 06:59 18:59 Intake Total 120 Output Total 850 Balance -730 - Medications Medications: Current Medications Acetaminophen (Tylenol 325mg Tab) 650 mg PO Q4H PRN PRN Reason: Pain, Mild (1-3) Last Admin: 09/05/17 17:57 Dose: 650 mg Acetaminophen (Tylenol 325mg Tab) 650 mg PO ONCE PRN PRN Reason: 1/2 hour prior transfusion Acetylcysteine (Acetylcysteine 20%) 4 ml IH BIDRESP [facility] Last Admin: 09/11/17 07:14 Dose: 4 ml Albuterol/Ipratropium (Duoneb 3 Mg/0.5 Mg (3 Ml) Ud) 3 ml IH QIDRESP [facility] Last Admin: 09/11/17 07:14 Dose: 3 ml Albuterol/Ipratropium (Duoneb 3 Mg/0.5 Mg (3 Ml) Ud) 3 ml IH Q4 PRN PRN Reason: Cough and congestion Last Admin: 09/11/17 02:18 Dose: 3 ml Bisacodyl (Dulcolax) 10 mg RC DAILY [facility] Last Admin: 09/10/17 10:41 Dose: 10 mg Calcium Acetate (Phoslo) 667 mg PO WM [facility] Last Admin: 09/11/17 08:21 Dose: 667 mg Carbidopa/Levodopa (Sinemet 10/100) 2 tab PO BID [facility] Last Admin: 09/10/17 18:06 Dose: 2 tab Doxazosin Mesylate (Cardura) 8 mg PO BID [facility] Last Admin: 09/10/17 18:06 Dose: 8 mg Famotidine (Pepcid) 20 mg PO 2200 [facility] Last Admin: 09/10/17 22:04 Dose: Not Given Finasteride (Proscar) 5 mg PO DAILY [facility] Last Admin: 09/10/17 10:41 Dose: 5 mg Home Med (Home Med) 0 unit PO DAILY [facility] Last Admin: 09/10/17 10:41 Dose: 1 unit Hydralazine HCl (Apresoline) 25 mg PO TID [facility] Last Admin: 09/10/17 18:07 Dose: 25 mg Sodium Chloride (Sodium Chloride 0.45%) 1,000 mls @ 50 mls/hr IV .Q20H [facility] Last Admin: 09/01/17 21:07 Dose: 50 mls/hr Meropenem (Merrem Iv 1 Gm Premix) 50 mls @ 100 mls/hr IVPB Q12 [facility] PRN Reason: Protocol Stop: 09/14/17 10:01 Last Admin: 09/10/17 22:07 Dose: 100 mls/hr Methylprednisolone (Solu-Medrol) 30 mg IVP 12 [facility] Last Admin: 09/10/17 13:59 Dose: 30 mg Metoprolol Tartrate (Lopressor) 50 mg PO BID [facility] Last Admin: 09/10/17 18:07 Dose: 50 mg Morphine Sulfate (Morphine) 2 mg IVP Q4H PRN PRN Reason: Pain, severe (8-10) Last Admin: 09/10/17 18:21 Dose: 2 mg Polyethylene Glycol (Miralax) 17 gm PO BID [facility] Last Admin: 09/10/17 18:07 Dose: 17 gm Pramipexole Dihydrochloride (Mirapex) 0.125 mg PO TID [facility] Last Admin: 09/10/17 18:07 Dose: 0.125 mg Silver Sulfadiazine (Silvadene 1% 25 Gm) 0 gm TP BID [facility] Last Admin: 09/10/17 18:08 Dose: 25 gm Tamsulosin HCl (Flomax) 0.4 mg PO DAILY [facility] Last Admin: 09/10/17 10:41 Dose: 0.4 mg - Labs Labs: 09/11/17 07:30 09/11/17 07:30 PT 14.4 SECONDS (9.4-12.5) H 09/09/17 14:49 INR 1.26 (0.93-1.08) H 09/09/17 14:49 APTT 32.4 Seconds (25.1-36.5) 09/09/17 14:49 - Constitutional Appears: No Acute Distress - Head Exam Head Exam: NORMOCEPHALIC - Eye Exam Eye Exam: Normal appearance. absent: Scleral icterus - ENT Exam ENT Exam: Mucous Membranes Moist - Neck Exam Neck Exam: Normal Inspection - Respiratory Exam Respiratory Exam: NORMAL BREATHING PATTERN. absent: Respiratory Distress - Cardiovascular Exam Cardiovascular Exam: +S1, +S2 - GI/Abdominal Exam GI & Abdominal Exam: Soft, Normal Bowel Sounds. 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 Spoke to sisters at bedside. Seen and discussed w/ Dr. Figueredo. <Valorie Figueredo V - Last Filed: 09/11/17 23:52> Objective - Vital Signs/Intake and Output Vital Signs (last 24 hours): Temp Pulse Resp BP Pulse Ox 98.1 F 82 18 129/62 97 09/11/17 23:47 09/11/17 23:47 09/11/17 23:47 09/11/17 23:47 09/11/17 22:00 Intake and Output: 09/11/17 09/12/17 18:59 06:59 Intake Total 530 680 Output Total 500 650 Balance 30 30 - Medications Medications: Current Medications Acetaminophen (Tylenol 325mg Tab) 650 mg PO Q4H PRN PRN Reason: Pain, Mild (1-3) Last Admin: 09/11/17 22:10 Dose: 650 mg Acetylcysteine (Acetylcysteine 20%) 4 ml IH BIDRESP [facility] Last Admin: 09/11/17 21:30 Dose: 4 ml Albuterol/Ipratropium (Duoneb 3 Mg/0.5 Mg (3 Ml) Ud) 3 ml IH QIDRESP [facility] Last Admin: 09/11/17 21:30 Dose: 3 ml Albuterol/Ipratropium (Duoneb 3 Mg/0.5 Mg (3 Ml) Ud) 3 ml IH Q4 PRN PRN Reason: Cough and congestion Last Admin: 09/11/17 02:18 Dose: 3 ml Bisacodyl (Dulcolax) 10 mg RC DAILY [facility] Last Admin: 09/11/17 14:01 Dose: Not Given Calcium Acetate (Phoslo) 667 mg PO WM [facility] Last Admin: 09/11/17 18:12 Dose: 667 mg Carbidopa/Levodopa (Sinemet 10/100) 2 tab PO BID [facility] Last Admin: 09/11/17 18:12 Dose: 2 tab Doxazosin Mesylate (Cardura) 8 mg PO BID [facility] Last Admin: 09/11/17 18:12 Dose: 8 mg Famotidine (Pepcid) 20 mg PO 2200 [facility] Last Admin: 09/11/17 21:06 Dose: 20 mg Finasteride (Proscar) 5 mg PO DAILY [facility] Last Admin: 09/11/17 11:24 Dose: 5 mg Home Med (Home Med) 0 unit PO DAILY [facility] Last Admin: 09/11/17 11:21 Dose: 1 unit Hydralazine HCl (Apresoline) 25 mg PO TID [facility] Last Admin: 09/11/17 14:01 Dose: Not Given Meropenem (Merrem Iv 1 Gm Premix) 50 mls @ 100 mls/hr IVPB Q12 [facility] PRN Reason: Protocol Stop: 09/14/17 10:01 Last Admin: 09/11/17 21:05 Dose: 100 mls/hr Metoprolol Tartrate (Lopressor) 50 mg PO BID [facility] Last Admin: 09/11/17 18:11 Dose: 50 mg Morphine Sulfate (Morphine) 2 mg IVP Q4H PRN PRN Reason: Pain, severe (8-10) Last Admin: 09/10/17 18:21 Dose: 2 mg Polyethylene Glycol (Miralax) 17 gm PO BID [facility] Last Admin: 09/11/17 18:12 Dose: 17 gm Pramipexole Dihydrochloride (Mirapex) 0.125 mg PO TID [facility] Last Admin: 09/11/17 18:11 Dose: 0.125 mg Prednisone (Prednisone Tab) 10 mg PO DAILY [facility] Silver Sulfadiazine (Silvadene 1% 25 Gm) 0 gm TP BID [facility] Last Admin: 09/11/17 18:12 Dose: Not Given Tamsulosin HCl (Flomax) 0.4 mg PO DAILY [facility] Last Admin: 09/11/17 11:22 Dose: 0.4 mg - Labs Labs: 09/11/17 07:30 09/11/17 07:30 PT 14.4 SECONDS (9.4-12.5) H 09/09/17 14:49 INR 1.26 (0.93-1.08) H 09/09/17 14:49 APTT 32.4 Seconds (25.1-36.5) 09/09/17 14:49 Attending/Attestation - Attestation I have personally seen and examined this patient.: Yes I have fully participated in the care of the patient.: Yes I have reviewed all pertinent clinical information, including history, physical exam and plan: Yes Notes (Text): This is an addendum to GI progress report dictated by Ericka Hylton APN.The patient was seen and examined earlier. Medical records, lab studies, imagings were reviewed. Last 24 hours events reviewed. Agreed with the above treatment plan as outlined in Ericka Hylton APN's notes the with the addition of the following 09/11/17 23:52
--- NOTE | 2017-09-11 11:00 | CP.PCM.PN ---
Subjective - Date & Time of Evaluation Date of Evaluation: 09/11/17 Time of Evaluation: 09:40 - Subjective Subjective: Heme-onc Progress Note, Casey Francisco DO, IM PGY-2 This is an 86 yo M with PMH of MDS (transfusion dependent, on regular injections of Procrit and Neupogen), HTN, Lung fibrosis, and urinary incontinence who [place] [facility] [place] of severe [place] pain, found to have likely compression fracture on imaging. Heme-onc was consulted for leukocystosis, and his hx of MDS. Patient seen and examined at bedside. Awake and alert, denies stomach pain, denies any further hemoptysis. Does complain of difficulty breathing due to difficulty clearing secretions (bedside suction in place, some suctioned mucous visible in yankauer suction, still streaked with old-appearing blood). Denies emesis, diarrhea, chest pain. Objective - Vital Signs/Intake and Output Vital Signs (last 24 hours): Temp Pulse Resp BP Pulse Ox 97.8 F 82 21 122/58 L 93 L 09/11/17 07:30 09/11/17 07:30 09/11/17 07:30 09/11/17 07:30 09/11/17 07:30 Intake and Output: 09/11/17 09/11/17 06:59 18:59 Intake Total 120 Output Total 850 Balance -730 - Medications Medications: Current Medications Acetaminophen (Tylenol 325mg Tab) 650 mg PO Q4H PRN PRN Reason: Pain, Mild (1-3) Last Admin: 09/05/17 17:57 Dose: 650 mg Acetaminophen (Tylenol 325mg Tab) 650 mg PO ONCE PRN PRN Reason: 1/2 hour prior transfusion Acetylcysteine (Acetylcysteine 20%) 4 ml IH BIDRESP [facility] Last Admin: 09/11/17 07:14 Dose: 4 ml Albuterol/Ipratropium (Duoneb 3 Mg/0.5 Mg (3 Ml) Ud) 3 ml IH QIDRESP [facility] Last Admin: 09/11/17 07:14 Dose: 3 ml Albuterol/Ipratropium (Duoneb 3 Mg/0.5 Mg (3 Ml) Ud) 3 ml IH Q4 PRN PRN Reason: Cough and congestion Last Admin: 09/11/17 02:18 Dose: 3 ml Bisacodyl (Dulcolax) 10 mg RC DAILY [facility] Last Admin: 09/10/17 10:41 Dose: 10 mg Calcium Acetate (Phoslo) 667 mg PO WM [facility] Last Admin: 09/11/17 08:21 Dose: 667 mg Carbidopa/Levodopa (Sinemet 10/100) 2 tab PO BID [facility] Last Admin: 09/10/17 18:06 Dose: 2 tab Doxazosin Mesylate (Cardura) 8 mg PO BID [facility] Last Admin: 09/10/17 18:06 Dose: 8 mg Famotidine (Pepcid) 20 mg PO 2200 [facility] Last Admin: 09/10/17 22:04 Dose: Not Given Finasteride (Proscar) 5 mg PO DAILY [facility] Last Admin: 09/10/17 10:41 Dose: 5 mg Home Med (Home Med) 0 unit PO DAILY [facility] Last Admin: 09/10/17 10:41 Dose: 1 unit Hydralazine HCl (Apresoline) 25 mg PO TID [facility] Last Admin: 09/10/17 18:07 Dose: 25 mg Meropenem (Merrem Iv 1 Gm Premix) 50 mls @ 100 mls/hr IVPB Q12 [facility] PRN Reason: Protocol Stop: 09/14/17 10:01 Last Admin: 09/10/17 22:07 Dose: 100 mls/hr Methylprednisolone (Solu-Medrol) 30 mg IVP 12 [facility] Last Admin: 09/10/17 13:59 Dose: 30 mg Metoprolol Tartrate (Lopressor) 50 mg PO BID [facility] Last Admin: 09/10/17 18:07 Dose: 50 mg Morphine Sulfate (Morphine) 2 mg IVP Q4H PRN PRN Reason: Pain, severe (8-10) Last Admin: 09/10/17 18:21 Dose: 2 mg Polyethylene Glycol (Miralax) 17 gm PO BID [facility] Last Admin: 09/10/17 18:07 Dose: 17 gm Pramipexole Dihydrochloride (Mirapex) 0.125 mg PO TID [facility] Last Admin: 09/10/17 18:07 Dose: 0.125 mg Silver Sulfadiazine (Silvadene 1% 25 Gm) 0 gm TP BID [facility] Last Admin: 09/10/17 18:08 Dose: 25 gm Tamsulosin HCl (Flomax) 0.4 mg PO DAILY [facility] Last Admin: 09/10/17 10:41 Dose: 0.4 mg - Labs Labs: 09/11/17 07:30 09/11/17 07:30 PT 14.4 SECONDS (9.4-12.5) H 09/09/17 14:49 INR 1.26 (0.93-1.08) H 09/09/17 14:49 APTT 32.4 Seconds (25.1-36.5) 09/09/17 14:49 - Additional Findings Additional findings: - Constitutional Appears: Non-toxic, No Acute Distress, Hard of hearing - Head Exam Head Exam: ATRAUMATIC, NORMAL INSPECTION, NORMOCEPHALIC - Eye Exam Eye Exam: EOMI, Normal appearance. absent: Conjunctival injection Pupil Exam: absent: Irregular, NORMAL ACCOMODATION, Unequal - ENT Exam ENT Exam: Mucous Membranes Moist, no petechiae appreciated - Neck Exam Neck Exam: Full ROM. absent: Lymphadenopathy, Thyromegaly - Respiratory Exam Respiratory Exam: Decreased Breath Sounds (mildly decreased breath sounds in all correa), Rhonchi (moderate inspiratory and expiratory ronchi in all correa) , wet cough NOT productive of bloody sputum, NORMAL BREATHING PATTERN. absent: Clear to Ausculation Bilateral, Rales, Wheezes Additional Comments: suctioning of mouth obtained scant amount of sputum tinged with dark (old- appearing) blood - Cardiovascular Exam Cardiovascular Exam: REGULAR RHYTHM, RRR, +S1, +S2. absent: Bradycardia, Tachycardia, Irregular Rhythm, JVD, +S4 - GI/Abdominal Exam GI & Abdominal Exam: Soft, Normal Bowel Sounds, Reports static tenderness/ discomfort but no tenderness to palpation. absent: Distended, Firm - Extremities Exam Extremities Exam: Normal Inspection. absent: Calf Tenderness, Pedal Edema, Tenderness - Exam Exam: scrotal swelling appreciated but no erythema or cellulitis, card catheter in place draining small amounts of clear yellow urine, unable to visualize genitals due to scrotal swelling - Neurological Exam Awake and alert, following all commands appropriately Moving all extremities spontaneously Motor grossly intact and equal bilaterally Resting tremors appreciated in bilateral upper extremities, some tremor of lower jaw appreciated but doesn't appear to be tardive dyskinesia - Psychiatric Exam Psychiatric exam: Normal Affect, Normal Mood - Skin Skin Exam: Dry, Intact, Normal Color, Warm Assessment and Plan - Assessment and Plan (Free Text) Assessment: This is an 86 [place] [facility] [place]fusion dependent, on regular injections of Procrit and Neupogen), HTN, Lung fibrosis, and urinary incontinence who [place] [facility] [place] of severe [place] pain, found to have likely compression fracture on imaging. Heme-onc was consulted for leukocystosis, and his hx of MDS. 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 impingement of airway by mass), and then only management of symptoms -Cr 1.2 today (1.3), as per Nephro likely pre-renal azotemia, no signs of obstruction or AIN, continue to hold losartan, taper steroids, diuresis PRN for scrotal edema if BUN improves (68 today, was 69) -GI consulted for possible pancreatitis; advance diet as tolerated, pepcid for ppx, avoid protonix in setting of thrombocytopenia -Pain control -Hgb 8.7 (was 9.1); no signs of active bleeding at this time, but in setting of low platelets, will transfuse 2 additional units of pRBCs -Platelets decreased to 19 (was 27), manual count 23 (was 36), no sign of active bleeding, but in setting of MDS will transfuse another unit platelets -Palliative service onboard, met with patient and family at bedside; [facility], and will likely transition over to palliative service there as per family Patient reviewed and discussed at length with attending, Dr. Gonsales
[2017-09-11] MEDS: Meropenem IV 1 gm in NS 50 ML IVPB SCH ×2 (11:17→21:05)
[2017-09-11] MEDS: POLYETHYLENE GLYCOL 3350 17 GM/Dose PACKET PO SCH ×2 (11:17→18:12)
[2017-09-11] MEDS: MethylPREDNISolone 40 mg Vial IVP SCH (11:18)
[2017-09-11] MEDS: DEFERASIROX PO SCH (11:21)
[2017-09-11] MEDS ORDERED: Darbepoetin Alfa 100 mcg/ml Inj SC ONE (12:26)
--- NOTE | 2017-09-11 13:25 | PN ---
DATE: SUBJECTIVE: An 86-year-old male, he seems stable, less respiratory distress, he is very weak, on bed, complained of back discomfort due to sitting on the bed all time. The patient is otherwise stable, afebrile. No nausea, no vomiting. Tolerating the thickened liquid pureed diet and the patient is otherwise stable. PHYSICAL EXAMINATION: On 09/10/2017 is as follows; VITAL SIGNS: Temperature 97.4, heart rate 83, blood pressure 120/67, respirations 20, saturating 100% on 5 liters. HEAD AND NECK: Normal. No JVD. No thyromegaly. CHEST: Clear with few rhonchi in the lung base. CARDIAC: First sound and second sound normal. ABDOMEN: Soft and nontender. EXTREMITIES: No edema. NEUROLOGIC: The patient is extremely weak and recognized me, alert to person and place. LABORATORY DATA: Shows white count 11.6, hemoglobin 9.1, hematocrit 28.9, and platelets is 27 and manual platelet count 36. The patient has also chemistry which shows sodium 149, potassium 4.7, chloride 107, bicarb 31, BUN 69, and creatinine is 1.3, which is normal. Liver function test is normal. His bilirubin 1.4, which is less. IMPRESSION AND PLAN: This is an 86-year-old male, very sick, with multiple medical problems, which include the following; 1. Gram-negative infection extended-spectrum beta-lactamases and bilateral pneumonia, infiltrate, underlying chronic obstructive pulmonary disease and lung cancer. We will continue meropenem, oxygen, inhaled bronchodilators and seems better, improved and we will follow up on that. 2. The patient does have severe myelodysplastic syndrome, bone marrow failure, thrombocytopenia, anemia. [facility] [employer] continue doing blood transfusions. However, the patient seems like terminal with his multiple medical problems. 3. Chronic obstructive pulmonary disease and lung cancer. Continue current meds, Mucomyst, IV steroids. 4. Hypertension, prostate enlargement. Continue current medicine. Discussed with the family about the severity of sickness of the patient and difficulty to care of him at home. Family agree about [facility] correction placement. The patient is stable. Hopefully, he will be accepted to [facility] and we will manage him over there. Comfort care to the patient's 86 year old male with multiple problems, this is the best option for the patient. Discussed with Dr. Gonsales. Discussed with the family, casework supervisor on the case. Mook Magallon MD
--- NOTE | 2017-09-11 14:04 | CP.PCM.PN ---
Subjective - Date & Time of Evaluation Date of Evaluation: 09/11/17 Time of Evaluation: 12:05 - Subjective Subjective: Still having cough but not able to bring up phlegm, no fevers, no abdominal pain , no diarrhea. Objective - Vital Signs/Intake and Output Vital Signs (last 24 hours): Temp Pulse Resp BP Pulse Ox 97.8 F 82 21 122/58 L 93 L 09/11/17 07:30 09/11/17 07:30 09/11/17 07:30 09/11/17 07:30 09/11/17 07:30 Intake and Output: 09/11/17 09/11/17 06:59 18:59 Intake Total 120 Output Total 850 Balance -730 - Medications Medications: Current Medications Acetaminophen (Tylenol 325mg Tab) 650 mg PO Q4H PRN PRN Reason: Pain, Mild (1-3) Last Admin: 09/05/17 17:57 Dose: 650 mg Acetaminophen (Tylenol 325mg Tab) 650 mg PO ONCE PRN PRN Reason: 1/2 hour prior transfusion Acetylcysteine (Acetylcysteine 20%) 4 ml IH BIDRESP [facility] Last Admin: 09/11/17 07:14 Dose: 4 ml Albuterol/Ipratropium (Duoneb 3 Mg/0.5 Mg (3 Ml) Ud) 3 ml IH QIDRESP [facility] Last Admin: 09/11/17 07:14 Dose: 3 ml Albuterol/Ipratropium (Duoneb 3 Mg/0.5 Mg (3 Ml) Ud) 3 ml IH Q4 PRN PRN Reason: Cough and congestion Last Admin: 09/11/17 02:18 Dose: 3 ml Bisacodyl (Dulcolax) 10 mg RC DAILY [facility] Last Admin: 09/10/17 10:41 Dose: 10 mg Calcium Acetate (Phoslo) 667 mg PO WM [facility] Last Admin: 09/11/17 08:21 Dose: 667 mg Carbidopa/Levodopa (Sinemet 10/100) 2 tab PO BID [facility] Last Admin: 09/10/17 18:06 Dose: 2 tab Doxazosin Mesylate (Cardura) 8 mg PO BID [facility] Last Admin: 09/10/17 18:06 Dose: 8 mg Famotidine (Pepcid) 20 mg PO 2200 [facility] Last Admin: 09/10/17 22:04 Dose: Not Given Finasteride (Proscar) 5 mg PO DAILY [facility] Last Admin: 09/10/17 10:41 Dose: 5 mg Home Med (Home Med) 0 unit PO DAILY [facility] Last Admin: 09/10/17 10:41 Dose: 1 unit Hydralazine HCl (Apresoline) 25 mg PO TID [facility] Last Admin: 09/10/17 18:07 Dose: 25 mg Sodium Chloride (Sodium Chloride 0.45%) 1,000 mls @ 50 mls/hr IV .Q20H [facility] Last Admin: 09/01/17 21:07 Dose: 50 mls/hr Meropenem (Merrem Iv 1 Gm Premix) 50 mls @ 100 mls/hr IVPB Q12 [facility] PRN Reason: Protocol Stop: 09/14/17 10:01 Last Admin: 09/10/17 22:07 Dose: 100 mls/hr Methylprednisolone (Solu-Medrol) 30 mg IVP 12 [facility] Last Admin: 09/10/17 13:59 Dose: 30 mg Metoprolol Tartrate (Lopressor) 50 mg PO BID [facility] Last Admin: 09/10/17 18:07 Dose: 50 mg Morphine Sulfate (Morphine) 2 mg IVP Q4H PRN PRN Reason: Pain, severe (8-10) Last Admin: 09/10/17 18:21 Dose: 2 mg Polyethylene Glycol (Miralax) 17 gm PO BID [facility] Last Admin: 09/10/17 18:07 Dose: 17 gm Pramipexole Dihydrochloride (Mirapex) 0.125 mg PO TID [facility] Last Admin: 09/10/17 18:07 Dose: 0.125 mg Silver Sulfadiazine (Silvadene 1% 25 Gm) 0 gm TP BID [facility] Last Admin: 09/10/17 18:08 Dose: 25 gm Tamsulosin HCl (Flomax) 0.4 mg PO DAILY [facility] Last Admin: 09/10/17 10:41 Dose: 0.4 mg - Labs Labs: 09/11/17 07:30 09/11/17 07:30 PT 14.4 SECONDS (9.4-12.5) H 09/09/17 14:49 INR 1.26 (0.93-1.08) H 09/09/17 14:49 APTT 32.4 Seconds (25.1-36.5) 09/09/17 14:49 - Constitutional Appears: Chronically Ill - Head Exam Head Exam: NORMAL INSPECTION - ENT Exam ENT Exam: Mucous Membranes Moist - Neck Exam Neck Exam: absent: Meningismus - Respiratory Exam Respiratory Exam: Decreased Breath Sounds Additional comments: right anterior chest wall with port in place - Cardiovascular Exam Cardiovascular Exam: +S1, +S2 - GI/Abdominal Exam GI & Abdominal Exam: Soft. absent: Tenderness Assessment and Plan - Assessment and Plan (Free Text) Plan: Assessment Complicated UTI with ESBL-producing E. coli marked leukocytosis, probably due to G-CSF infusion S/P treatment of healthcare-associated pneumonia Maculopapular rash on his back history of sepsis secondary to ESBL E. coli bacteremia S/P sepsis due to Morganella UTI with hematuria history of lung fibrosis myelodysplastic syndrome BPH coronary artery disease Plan continue Merrem day 11 and will continue to monitor clinically; target about 10- 14 days of therapy will continue to trend WBC count discussed with Dr. Magallon
[2017-09-11] MEDS: Silver Sulfadiazine 1% Cream (25 gm) TP SCH ×2 (14:05→18:12)
[2017-09-11 22:59] VITALS: RESP 18
--- NOTE | 2017-09-11 23:36 | CP.PCM.PN ---
Subjective - Date & Time of Evaluation Date of Evaluation: 09/11/17 Time of Evaluation: 23:35 - Subjective Subjective: Nurse calls and tells that Temp is 99.7 and if she can hang platelets. Received PRBC. Tylenol requested Patient was seen at bedside. Has no rash, no itching, no sob, no wheezing. Medical record was reviewed. This 86 year old white male was admitted with cough with phlegm, weakness, abdominal pain, anemia, Has PMH of myelodysplastic syndrome, pancytopenia, lung fibrosis, lung cancer, enlarged prostate, COPD, multiple blood transfusions. Objective - Vital Signs/Intake and Output Vital Signs (last 24 hours): Temp Pulse Resp BP Pulse Ox 98.4 F 80 18 128/62 97 09/11/17 22:51 09/11/17 22:51 09/11/17 22:51 09/11/17 22:51 09/11/17 22:00 Intake and Output: 09/11/17 09/12/17 18:59 06:59 Intake Total 530 332 Output Total 500 650 Balance 30 -318 - Medications Medications: Current Medications Acetaminophen (Tylenol 325mg Tab) 650 mg PO Q4H PRN PRN Reason: Pain, Mild (1-3) Last Admin: 09/11/17 22:10 Dose: 650 mg Acetylcysteine (Acetylcysteine 20%) 4 ml IH BIDRESP [facility] Last Admin: 09/11/17 21:30 Dose: 4 ml Albuterol/Ipratropium (Duoneb 3 Mg/0.5 Mg (3 Ml) Ud) 3 ml IH QIDRESP [facility] Last Admin: 09/11/17 21:30 Dose: 3 ml Albuterol/Ipratropium (Duoneb 3 Mg/0.5 Mg (3 Ml) Ud) 3 ml IH Q4 PRN PRN Reason: Cough and congestion Last Admin: 09/11/17 02:18 Dose: 3 ml Bisacodyl (Dulcolax) 10 mg RC DAILY [facility] Last Admin: 09/11/17 14:01 Dose: Not Given Calcium Acetate (Phoslo) 667 mg PO WM [facility] Last Admin: 09/11/17 18:12 Dose: 667 mg Carbidopa/Levodopa (Sinemet 10/100) 2 tab PO BID [facility] Last Admin: 09/11/17 18:12 Dose: 2 tab Doxazosin Mesylate (Cardura) 8 mg PO BID [facility] Last Admin: 09/11/17 18:12 Dose: 8 mg Famotidine (Pepcid) 20 mg PO 2200 [facility] Last Admin: 09/11/17 21:06 Dose: 20 mg Finasteride (Proscar) 5 mg PO DAILY [facility] Last Admin: 09/11/17 11:24 Dose: 5 mg Home Med (Home Med) 0 unit PO DAILY [facility] Last Admin: 09/11/17 11:21 Dose: 1 unit Hydralazine HCl (Apresoline) 25 mg PO TID [facility] Last Admin: 09/11/17 14:01 Dose: Not Given Meropenem (Merrem Iv 1 Gm Premix) 50 mls @ 100 mls/hr IVPB Q12 [facility] PRN Reason: Protocol Stop: 09/14/17 10:01 Last Admin: 09/11/17 21:05 Dose: 100 mls/hr Metoprolol Tartrate (Lopressor) 50 mg PO BID [facility] Last Admin: 09/11/17 18:11 Dose: 50 mg Morphine Sulfate (Morphine) 2 mg IVP Q4H PRN PRN Reason: Pain, severe (8-10) Last Admin: 09/10/17 18:21 Dose: 2 mg Polyethylene Glycol (Miralax) 17 gm PO BID [facility] Last Admin: 09/11/17 18:12 Dose: 17 gm Pramipexole Dihydrochloride (Mirapex) 0.125 mg PO TID [facility] Last Admin: 09/11/17 18:11 Dose: 0.125 mg Prednisone (Prednisone Tab) 10 mg PO DAILY [facility] Silver Sulfadiazine (Silvadene 1% 25 Gm) 0 gm TP BID [facility] Last Admin: 09/11/17 18:12 Dose: Not Given Tamsulosin HCl (Flomax) 0.4 mg PO DAILY [facility] Last Admin: 09/11/17 11:22 Dose: 0.4 mg - Labs Labs: 09/11/17 07:30 09/11/17 07:30 PT 14.4 SECONDS (9.4-12.5) H 09/09/17 14:49 INR 1.26 (0.93-1.08) H 09/09/17 14:49 APTT 32.4 Seconds (25.1-36.5) 09/09/17 14:49 Last Vital Signs Temp 98.1 F 09/11/17 23:47 Pulse 82 09/11/17 23:47 Resp 18 09/11/17 23:47 BP 129/62 09/11/17 23:47 Pulse Ox 97 09/11/17 22:00 Micro Results 08/29/17 17:30 Blood-Venous Blood Culture - Final NO GROWTH AFTER 5 DAYS 08/29/17 17:30 Blood-Venous Gram Stain - Final TEST NOT PERFORMED 08/29/17 17:10 Blood-Venous Blood Culture - Final NO GROWTH AFTER 5 DAYS 08/29/17 17:10 Blood-Venous Gram Stain - Final TEST NOT PERFORMED 08/30/17 16:45 Urine,Catheterized Urine Culture - Final Escherichia Coli 08/29/17 19:05 Urine Urine Culture - Final No Growth (<1,000 CFU/ML) Most Recent Lab Values WBC 9.6 10^3/ul (4.5-11.0) 09/11/17 07:30 RBC 3.01 10^6/uL (3.5-6.1) L 09/11/17 07:30 Hgb 8.7 g/dL (14.0-18.0) L 09/11/17 07:30 Hct 27.6 % (42.0-52.0) L 09/11/17 07:30 MCV 91.7 fl (80.0-105.0) 09/11/17 07:30 MCH 28.9 pg (25.0-35.0) 09/11/17 07:30 MCHC 31.5 g/dl (31.0-37.0) 09/11/17 07:30 RDW 16.7 % (11.5-14.5) H 09/11/17 07:30 Plt Count 19 10^3/uL (120.0-450.0) L* 09/11/17 07:30 Manual Plt Count 23 K/mm3 (120-450) L* 09/11/17 06:30 MPV 11.5 fl (7.0-11.0) H 09/11/17 07:30 Gran % 77.1 % (50.0-68.0) H 09/11/17 07:30 Lymph % (Auto) 6.0 % (22.0-35.0) L 09/11/17 07:30 Juab % (Auto) 16.2 % (1.0-6.0) H 09/11/17 07:30 Eos % (Auto) 0.3 % (1.5-5.0) L 09/11/17 07:30 Baso % (Auto) 0.4 % (0.0-3.0) 09/11/17 07:30 Gran # 7.43 (1.4-6.5) H 09/11/17 07:30 Lymph # (Auto) 0.6 (1.2-3.4) L 09/11/17 07:30 [place] # (Auto) 1.6 (0.1-0.6) H 09/11/17 07:30 Eos # (Auto) 0.0 (0.0-0.7) 09/11/17 07:30 Baso # (Auto) 0.04 K/mm3 (0.0-2.0) 09/11/17 07:30 Neutrophils % (Manual) 76 % (50.0-70.0) H 09/07/17 06:30 Band Neutrophils % 3 % (0-2) H 09/07/17 06:30 Lymphocytes % (Manual) 12 % (22.0-35.0) L 09/07/17 06:30 Atypical Lymphs % 1 % (0.0-0.0) H 09/07/17 06:30 Monocytes % (Manual) 6 % (1.0-6.0) 09/07/17 06:30 Metamyelocytes % 2 % 09/07/17 06:30 Nucleated RBC % 3 % 09/07/17 06:30 Platelet Evaluation Low (NORMAL) 09/09/17 07:50 Anisocytosis (manual) Slight 09/04/17 06:15 Microcytosis (manual) Slight 09/04/17 06:15 PT 14.4 SECONDS (9.4-12.5) H 09/09/17 14:49 INR 1.26 (0.93-1.08) H 09/09/17 14:49 APTT 32.4 Seconds (25.1-36.5) 09/09/17 14:49 pCO2 42 mm/Hg (35-45) 09/02/17 03:35 pO2 50.0 mm/Hg (80-100) L 09/02/17 03:35 HCO3 21.6 mmol/L (21-28) 09/02/17 03:35 ABG pH 7.32 (7.35-7.45) L 09/02/17 03:35 ABG Total CO2 22.9 mmol.L (22-28) 09/02/17 03:35 ABG O2 Saturation 91.5 % (95-98) L 09/02/17 03:35 ABG O2 Content 10.2 ML/dl (15-23) L 09/02/17 03:35 ABG Base Excess -4.2 mmol/L (-2.0-3.0) L 09/02/17 03:35 ABG Hemoglobin 8.2 g/dL (11.7-17.4) L 09/02/17 03:35 ABG Carboxyhemoglobin 2.1 % (0.5-1.5) H 09/02/17 03:35 POC ABG HHb (Measured) 8.2 % (0-5) H 09/02/17 03:35 ABG Methemoglobin 1.1 % (0.0-3.0) 09/02/17 03:35 ABG O2 Capacity 11.1 mL/dl (16-24) L 09/02/17 03:35 Hgb O2 Saturation 88.5 % (95.0-98.0) L 09/02/17 03:35 FiO2 32.0 % 09/02/17 03:35 Sodium 147 mmol/L (132-148) 09/11/17 07:30 Potassium 4.5 mmol/L (3.6-5.0) 09/11/17 07:30 Chloride 105 mmol/L (98-107) 09/11/17 07:30 Carbon Dioxide 32 mmol/L (21-33) 09/11/17 07:30 Anion Gap 15 (10-20) 09/11/17 07:30 BUN 68 mg/dL (7-21) H 09/11/17 07:30 Creatinine 1.2 mg/dl (0.8-1.5) 09/11/17 07:30 Est GFR ( Amer) > 60 09/11/17 07:30 Est GFR (Non-Af Amer) 57 09/11/17 07:30 Random Glucose 88 mg/dL (70-110) 09/11/17 07:30 Uric Acid 10.7 mg/dL (3.5-8.5) H 09/01/17 06:20 Calcium 10.0 mg/dL (8.4-10.5) 09/11/17 07:30 Phosphorus 4.2 mg/dL (2.5-4.5) 09/11/17 07:30 Magnesium 2.1 mg/dL (1.7-2.2) 09/11/17 07:30 Total Bilirubin 1.1 mg/dL (0.2-1.3) 09/11/17 07:30 Direct Bilirubin 0.5 mg/dL (0.0-0.4) H 09/09/17 08:00 AST 16 U/L (17-59) L 09/11/17 07:30 ALT 24 U/L (7-56) 09/11/17 07:30 Alkaline Phosphatase 73 U/L (38-126) 09/11/17 07:30 Lactate Dehydrogenase 341 U/L (333-699) 08/29/17 17:30 Total Creatine Kinase 30 U/L (35-230) L 08/29/17 17:30 Troponin I 0.04 ng/mL 09/02/17 20:21 NT-Pro-B Natriuret Pep 4440 pg/mL (0-450) H 09/02/17 03:26 Total Protein 5.6 g/dL (5.8-8.3) L 09/11/17 07:30 Albumin 3.2 g/dL (3.0-4.8) 09/11/17 07:30 Globulin 2.4 gm/dL 09/11/17 07:30 Albumin/Globulin Ratio 1.3 (1.1-1.8) 09/11/17 07:30 Lipase 77 U/L (23-300) 08/29/17 17:30 Procalcitonin 0.28 NG/ML (0.19-0.49) 09/01/17 11:10 Urine Color Yellow (YELLOW) 08/29/17 19:05 Urine Appearance Slight-cloudy (CLEAR) 08/29/17 19:05 Urine pH 6.0 (4.7-8.0) 08/29/17 19:05 Ur Specific [place] 1.025 (1.005-1.035) 08/29/17 19:05 Urine Protein 100 mg/dL (<30 mg/dL) H 08/29/17 19:05 Urine Glucose (UA) Negative mg/dL (NEGATIVE) 08/29/17 19:05 Urine Ketones Negative mg/dL (NEGATIVE) 08/29/17 19:05 Urine Blood Large (NEGATIVE) H 08/29/17 19:05 Urine Nitrate Negative (NEGATIVE) 08/29/17 19:05 Urine Bilirubin Negative (NEGATIVE) 08/29/17 19:05 Urine Urobilinogen 0.2 E.U./dL (<1 E.U./dL) 08/29/17 19:05 Ur Leukocyte Esterase Negative Araseli/uL (NEGATIVE) 08/29/17 19:05 Urine RBC Tntc /hpf (0-2) 08/29/17 19:05 Urine WBC 1 - 3 /hpf (0-6) 08/29/17 19:05 Ur Epithelial Cells 1 - 3 /hpf (0-5) 08/29/17 19:05 Urine Bacteria Few (NEG) 08/29/17 19:05 Urine Eosinophils Negative 08/31/17 19:45 Ur Random Creatinine 115 mg/dL 08/31/17 19:45 Ur Random Sodium 19 meq/L 08/31/17 19:45 Blood Type O POSITIVE 09/11/17 15:00 Antibody Screen Negative 09/11/17 15:00 Crossmatch See Detail 09/11/17 15:00 BBK History Checked Patient has bt 09/11/17 15:00 - Constitutional Appears: Well, No Acute Distress - Head Exam Head Exam: ATRAUMATIC, NORMAL INSPECTION, NORMOCEPHALIC - Eye Exam Eye Exam: Normal appearance - ENT Exam ENT Exam: Normal External Ear Exam - Neck Exam Neck Exam: Normal Inspection - Respiratory Exam Respiratory Exam: NORMAL BREATHING PATTERN - Cardiovascular Exam Cardiovascular Exam: absent: JVD - GI/Abdominal Exam GI & Abdominal Exam: absent: Distended - Rectal Exam Rectal Exam: Deferred - Exam Additional comments: Deferred. - Extremities Exam Extremities Exam: Normal Inspection - Back Exam Back Exam: NORMAL INSPECTION - Neurological Exam Neurological Exam: Alert, Awake, Oriented x3 - Psychiatric Exam Psychiatric exam: Normal Affect, Normal Mood - Skin Skin Exam: Pallor Assessment and Plan - Assessment and Plan (Free Text) Assessment: Low grade temperature. Anemia. Myelodysplastic syndrome. Lung cancer. Prostate cancer. COPD. Lung fibrisis. Plan: Tylenol 650 mg PO x 1. Continue present management.
[2017-09-12] MEDS: Acetylcysteine 20% Inhal Soln (4ml) IH SCH (07:39)
[2017-09-12] MEDS: Albuterol-Ipratrop 3 mg / 0.5 (3 ml) UD IH SCH ×2 (07:39→11:21)
[2017-09-12 08:18] LABS: HEMOGLOBIN 9.4 g/dL (14.0-18.0); MEAN CELL VOLUME 93.4 fl (80.0-105.0); MEAN CORPUSCULAR HEMOGLOBIN 29.4 pg (25.0-35.0); MEAN CORPUSCULAR HGB CONC 31.4 g/dl (31.0-37.0); MEAN PLATELET VOLUME 10.9 fl (7.0-11.0); RBC 3.2 10^6/uL (3.5-6.1); RED CELL DISTRIBUTION WIDTH 16.7 % (11.5-14.5)
[2017-09-12 08:21] LABS: WHITE BLOOD COUNT 51.5 10^3/ul (4.5-11.0)
[2017-09-12 08:45] LABS: ALB/GLOB RATIO 1.4 (1.1-1.8); ALBUMIN 3.3 g/dL (3.0-4.8)
[2017-09-12] MEDS: DEFERASIROX PO SCH (09:18)
[2017-09-12] MEDS: Meropenem IV 1 gm in NS 50 ML IVPB SCH (09:19)
[2017-09-12] MEDS: POLYETHYLENE GLYCOL 3350 17 GM/Dose PACKET PO SCH (09:19)
[2017-09-12] MEDS: Silver Sulfadiazine 1% Cream (25 gm) TP SCH (09:20)
[2017-09-12 09:28] VITALS: BP 130/60; PULSE 80
[2017-09-12 09:40] VITALS: TEMP 97.5; O2SAT 92
--- NOTE | 2017-09-12 13:38 | CP.PCM.PN ---
Subjective - Date & Time of Evaluation Date of Evaluation: 09/12/17 Time of Evaluation: 13:35 - Subjective Subjective: Nephrology Consultation Note for Dr Og Assessment: Stable Acute Kidney Injury (N17.9) improved Hypernatremia Pulmonary congestion MDS Sepsis Plan No acute need for renal replacement therapy at this time. Hypertension control with meds as ordered. Patient not on ACEI/ARB due to recent CAMILO Monitor Input/Output, daily weights and renal function with basic metabolic panel can give Lasix as needed basis Dose meds/antibiotics for reduced GFR. Avoid fleets enema/magnesium based laxatives. Avoid nephrotoxins/NSAIDs/ iodinated contrast (unless needed emergently) Glycemic control Further work up for as per primary team Thanks for allowing me to participate in care of your patient. Will follow patient with you. Please call if any Qs Dr Sj Mejia Office: [phone] Subjective: Noted events overnight. Denies chest pain, palpitation, shortness of breath rest limited Physical Examination: General Appearance: Ill-appearing and debilitated Vitals reviewed and noted as below Head; Atraumatic, normocephalic ENT: no ulcers no thrush. Tongue is midline. Oropharynx: no rash or ulcers. EYES: Pupils are equal, round and reactive to light accommodation. Eye muscles and extraocular movement intact. Sclera is anicteric. Neck; supple no lymphadenopathy, no thyromegaly or bruit Lungs: Normal respiratory rate/effort. Breath sounds bilateral equal and Few basal crackles Heart: Normal rate. s1s2 normal. No rub or gallop. Extremities: no edema. No varicose veins. Upper extremities edematous. Right forearm erythema was noted Neurological: Patient is alert, awake and oriented to person, place and time. No focal deficit. Strength bilateral appropriate and equal Skin: Warm and dry. Normal turgor. No rash. Palpitation: Normal elasticity for age Abdomen: Abdomen is soft. Bowel sounds +. There is no abdominal tenderness, no guarding/rigidity no organomegaly Psych: limited insight and normal affect/mood MSK: no joint tenderness or swelling. Digits and nails normal, no deformity : kidney or bladder not palpable Labs/imaging reviewed. Past medical history, past surgical history, family history, social history, allergy reviewed and noted as below Family hx: no hx of CKD. Rest non-contributory Objective - Vital Signs/Intake and Output Vital Signs (last 24 hours): Temp Pulse Resp BP Pulse Ox 97.5 F L 80 18 130/60 92 L 09/12/17 09:39 09/12/17 09:39 09/12/17 09:39 09/12/17 09:39 09/12/17 09:39 Intake and Output: 09/12/17 09/12/17 06:59 18:59 Intake Total 800 540 Output Total 1450 600 Balance -650 -60 - Medications Medications: Current Medications Acetaminophen (Tylenol 325mg Tab) 650 mg PO Q4H PRN PRN Reason: Pain, Mild (1-3) Last Admin: 09/11/17 22:10 Dose: 650 mg Acetylcysteine (Acetylcysteine 20%) 4 ml IH BIDRESP [facility] Last Admin: 09/12/17 07:39 Dose: 4 ml Albuterol/Ipratropium (Duoneb 3 Mg/0.5 Mg (3 Ml) Ud) 3 ml IH QIDRESP [facility] Last Admin: 09/12/17 11:21 Dose: 3 ml Albuterol/Ipratropium (Duoneb 3 Mg/0.5 Mg (3 Ml) Ud) 3 ml IH Q4 PRN PRN Reason: Cough and congestion Last Admin: 09/11/17 02:18 Dose: 3 ml Bisacodyl (Dulcolax) 10 mg RC DAILY [facility] Last Admin: 09/12/17 09:18 Dose: Not Given Calcium Acetate (Phoslo) 667 mg PO WM [facility] Last Admin: 09/12/17 13:02 Dose: 667 mg Carbidopa/Levodopa (Sinemet 10/100) 2 tab PO BID [facility] Last Admin: 09/12/17 09:20 Dose: 2 tab Doxazosin Mesylate (Cardura) 8 mg PO BID [facility] Last Admin: 09/12/17 09:18 Dose: 8 mg Famotidine (Pepcid) 20 mg PO 2200 [facility] Last Admin: 09/11/17 21:06 Dose: 20 mg Finasteride (Proscar) 5 mg PO DAILY [facility] Last Admin: 09/12/17 09:20 Dose: 5 mg Home Med (Home Med) 0 unit PO DAILY [facility] Last Admin: 09/12/17 09:18 Dose: 1 unit Hydralazine HCl (Apresoline) 25 mg PO TID [facility] Last Admin: 09/12/17 09:17 Dose: 25 mg Meropenem (Merrem Iv 1 Gm Premix) 50 mls @ 100 mls/hr IVPB Q12 [facility] PRN Reason: Protocol Stop: 09/14/17 10:01 Last Admin: 09/12/17 09:19 Dose: 100 mls/hr Metoprolol Tartrate (Lopressor) 50 mg PO BID [facility] Last Admin: 09/12/17 09:18 Dose: 50 mg Morphine Sulfate (Morphine) 2 mg IVP Q4H PRN PRN Reason: Pain, severe (8-10) Last Admin: 09/10/17 18:21 Dose: 2 mg Polyethylene Glycol (Miralax) 17 gm PO BID [facility] Last Admin: 09/12/17 09:19 Dose: 17 gm Pramipexole Dihydrochloride (Mirapex) 0.125 mg PO TID [facility] Last Admin: 09/12/17 09:21 Dose: 0.125 mg Prednisone (Prednisone Tab) 5 mg PO DAILY [facility] Silver Sulfadiazine (Silvadene 1% 25 Gm) 0 gm TP BID [facility] Last Admin: 09/12/17 09:20 Dose: 25 gm Tamsulosin HCl (Flomax) 0.4 mg PO DAILY [facility] Last Admin: 09/12/17 09:18 Dose: 0.4 mg - Labs Labs: 09/12/17 08:00 09/12/17 08:00 PT 14.4 SECONDS (9.4-12.5) H 09/09/17 14:49 INR 1.26 (0.93-1.08) H 09/09/17 14:49 APTT 32.4 Seconds (25.1-36.5) 09/09/17 14:49
--- NOTE | 2017-09-12 14:54 | PN ---
DATE: PULMONARY PROGRESS NOTE REFERRING PHYSICIAN: Mook Magallon MD. SUBJECTIVE: He is lying in the bed, head at 45 degrees. Night was unremarkable. Feels better. Decreased cough. Decreased shortness of breath. Did have a bowel movement. No nausea. No leg pain or leg swelling. OBJECTIVE GENERAL: In no acute distress. VITAL SIGNS: Temperature is 98, heart rate 80, respiratory rate is 20, blood pressure 130/60, pulse ox 92% on room air. HEENT: Moist mucous membrane. Crowded airway. NECK: Supple. No JVD. LUNGS: Have a fair airflow with a few rhonchi. HEART: S1 and S2. ABDOMEN: Soft and nontender. No organomegaly. EXTREMITIES: No edema. NEUROLOGIC: Awake and alert. Follows simple command. MEDICATIONS: He is on Mucomyst 20% inhaled twice a day, hydralazine 25 mg three times a day, Cardura 8 mg twice a day, Dulcolax on p.r.n. basis, DuoNeb every 6 hours, Flomax 0.4 mg daily, metoprolol tartrate 50 mg twice a day, meropenem 1 g IV every 12 hours, MiraLax 17 g twice a day, Mirapex 0.125 mg three times a day, morphine 2 mg every 4 hours p.r.n., Pepcid 20 mg daily, PhosLo 667 mg with meals, prednisone 10 mg daily, Proscar 5 mg daily, Sinemet 10/100 mg two tablets twice a day, Tylenol on p.r.n. basis. LABORATORY DATA: Shows hemoglobin 9.4, hematocrit 29.9, WBC , platelets is 31,000. Sodium 148, potassium 4.4, chloride 103, bicarbonate 23, BUN 16, creatinine 1.4, glucose 56, calcium is 10, phosphorus 3.2, magnesium 2.1. Total bilirubin 1.6, AST 16, ALT 25, alkaline phosphatase is 79, albumin is 3.3. IMPRESSION AND PLAN: Urinary tract infection, renal stone, history of hematuria, pulmonary fibrosis, myelodysplastic syndrome, Parkinson disease, adenocarcinoma of the lung, oropharyngeal dysphagia, modified diet, chronic constipation. Pulmonary point of view, slowly improving oropharyngeal dysphagia, still high risk for aspiration. We will decrease prednisone to 5 mg daily and discontinue in a few days. Antibiotics as per Infectious Diseases. Pressure ulcer precaution. Thank you and we will follow with you. Brenton Diaz MD
--- NOTE | 2017-09-12 14:59 | PN ---
DATE: 09/12/2017 SUBJECTIVE: The patient is in bed, in no acute distress, was seen early this morning. No fevers and chills. The patient was seen in 563, bed 1. PHYSICAL EXAMINATION: VITAL SIGNS: Temperature is 97, blood pressure is 130/60, respiratory rate of 16. HEENT: Unremarkable. NECK: Supple. LUNGS: Have decreased breath sounds. HEART: Normal S1 and S2. ABDOMEN: Soft. LABORATORY EXAMINATION: [place] [address], it was 9000 yesterday. Chemistries are noted and urinalysis is noted. MEDICATIONS: Reviewed. The patient is on Solu-Medrol. ASSESSMENT AND PLAN: An 86-year-old male with a complicated urinary tract infection with extended-spectrum beta-lactamase producing Escherichia coli, marked leukocytosis, probably secondary to CSF infusion, status post healthcare-associated pneumonia and myelodysplastic syndrome in a patient who is day #12 of 10-14 days of antibiotic therapy and meropenem. The patient for possible discharge today. Shilo Mesa MD
--- NOTE | 2017-09-14 08:39 | DS ---
HISTORY OF PRESENT ILLNESS: The patient is stable. There is no respiratory distress. Discussed with the family, will be discharged to [facility], to be accepted and waiting for transportation. The patient has no new complaint, seems doing well, and no other new complaints. PHYSICAL EXAMINATION: VITAL SIGNS: Discharge temperature is 97.5, heart rate 80, blood pressure 120/60, respirations 18, and saturation 92% on room air. HEAD AND NECK: Normal. No JVD. No thyromegaly. CHEST: Diminished breath sounds . CARDIAC: First sound and second sound normal. ABDOMEN: Soft and nontender. EXTREMITIES: No edema. NEUROLOGIC: The patient is generally weak. He does move his extremities, but bedridden. LABORATORY DATA: The patient has sodium 148, potassium 4.4, chloride 103, bicarbonate 33. BUN 60, creatinine 1.4. Liver function test is normal. Magnesium is normal at 2.1. Bilirubin 1.6. Liver function test is otherwise normal. The patient had CBC, which showed white count 61.5 thousand, hemoglobin 9.4, hematocrit 29.9, platelets 31,000. The patient has PT 14.4, INR 1.26, PTT 32.4. HOSPITAL COURSE: The patient was admitted and treated for kidney stone, complicated urinary tract infection, E. coli, ESBL, was getting meropenem. He received IV antibiotics and the patient did well and improved although he remains theoretically ill, bedridden, but he is better than when he came in. His breathing is improving and had blood transfusion , platelet transfusion. He has bone marrow failure, has been managed by Hematology and Dr. Gonsales and his staff physical therapy assistant, also his partner Dr. Peralta. He also had renal failure, creatinine about 2. Discharge creatinine went down to normal range. The patient also improved. He does have urinary retention. We are going to keep the Branch catheter in and discussed with Dr. Jacobs, ID consult. He stopped the IV antibiotics for now. The patient's blood pressure continued to be stable and the patient will be discharged to [facility]. DISCHARGE DIAGNOSES: 1. Complicated urinary tract infection. 2. Bilateral pneumonia. 3. Chronic obstructive pulmonary disease. 4. Acute renal failure. 5. Hypertension. 6. Bone marrow failure with anemia, thrombocytopenia, requiring transfusions. 7. Prostate enlargements. 8. Myelodysplasia. 9. Lung cancer. PLAN: Discharge to alf, follow up with alf, and discussed with the family in detail. The patient is DNR/DNI and plan is to do hospice care. If his condition get worse, we will do hospice care in the alf with physical therapy. Mook Magallon MD
--- NOTE | 2017-09-14 08:44 | PN ---
DATE: 09/11/2017 PULMONARY PROGRESS NOTE REFERRING PHYSICIAN: Mook Magallon MD SUBJECTIVE: The patient is lying in the bed at 45 degrees, sleepy, arousable, family is at bedside, feels better, able to eat better, able to clear secretion better. No hemoptysis, no hematemesis or hematuria. Did have bowel movement. No leg pain or leg swelling. OBJECTIVE: GENERAL: In no acute distress. VITAL SIGNS: Temp is 98, heart rate is 82, respiratory rate is 20, blood pressure 122/58, pulse ox 93% on 5 L nasal cannula. HEENT: Moist mucous membranes. Crowded airway. Mallampati score is IV. NECK: Supple. No JVD. LUNGS: Has a fair airflow with rhonchi. HEART: S1, S2. ABDOMEN: Soft, nontender. No organomegaly. EXTREMITIES: No edema. NEUROLOGIC: Awake and alert. Follow simple commands. MEDICATIONS: Mucomyst 20% 4 mL inhale twice a day, hydralazine 25 mg 3 times a day, Cardura 8 mg twice a day, Desferal 1000 mg IM one was given, Dulcolax p.r.n. basis, DuoNeb 4 times a day, Flomax 0.4 mg daily, metoprolol tartrate 50 mg twice a day, meropenem 1 g IV every 12 hours, MiraLax 17 g twice a day, Mirapex 0.125 mg 3 times a day, morphine 2 mg IV every 4 hour p.r.n., Pepcid 20 mg, also on Proscar 5 mg daily, Sinemet 10/100 two tabs twice a day, Solu-Medrol 30 mg every 12 hours, Tylenol p.r.n. basis. LABORATORY DATA: Shows hemoglobin 8.7, hematocrit 27.6, WBC 9.6, platelet is 19. Sodium 147, potassium 4.5, chloride 105, bicarbonate 35, BUN 68, creatinine 1.2, phosphorus 4.2, magnesium 2.1, total bili 1.1, AST 24, ALT 24, alk phos is 73, albumin 3.2. Urine culture has E. coli. IMPRESSION AND PLAN: History of renal stone, hematuria, extended-spectrum beta-lactamase in the urine, pulmonary fibrosis, myelodysplastic syndrome, adenocarcinoma of the lung, Parkinson's disease, oropharyngeal dysphagia, modified diet, chronic constipation. Spoke to patient's family at bedside. All the questions answered. Continue Sinemet and Mirapex, bronchodilator. Discontinue Solu-Medrol. on 10 mg prednisone and discontinue in 3 to 4 days. Antibiotics as per Infectious Disease. Continue supportive care. Pressure ulcer precaution. Thank you and we will follow with you. Brenton Diaz MD
--- NOTE | 2017-09-14 08:51 | PN ---
DATE: 09/11/2017 SUBJECTIVE: The patient is comfortable, in no distress. Eating pureed diet, ice cream. He feels much more comfortable. No acute distress. PHYSICAL EXAMINATION: VITAL SIGNS: Temperature 98.4, heart rate 80, blood pressure 128/62, respirations . HEAD AND NECK: Normal. No JVD. . CHEST: Clear. Few rales. Diminished breath sounds . CARDIAC: First sound and second sound normal. ABDOMEN: Soft, nontender. EXTREMITIES: No edema. NEUROLOGIC: The patient is alert, awake weak. LABORATORY STUDIES: From 09/11/2017, white count 9.6, hemoglobin 8.7, hematocrit 27.6, platelets are 97. Chemistry showed sodium 147, potassium 4.5, chloride , BUN 68, creatinine . Liver function test is normal. normal. IMPRESSION: 1. Gram-negative sepsis with bilateral pneumonia, urinary tract infection. The patient is getting . 2. Chronic obstructive pulmonary disease. Bilateral pneumonia. Lung cancer. bronchodilators plus IV steroids. and we will follow up closely. 3. Bone marrow failure with myelodysplasia. Continue current therapy. getting transfusions and seems stable. At this time, no active bleeding. 4. Hypertension, stable. Continue Diovan, and Cardura. 5. Prostate enlargement, general weakness, deconditioning. The patient's condition has been discussed with the family. His poor general condition seems probably . We will put him in a snf, [facility]. The patient's condition is critical, but stable. We will send the patient to snf and plan to do hospice care as per family. Continue current therapy. Mook Magallon MD
== END 2017-09-12 13:35 | DRG 689 ==
LOC: ED 16:33 → ERH 21:52 → 5RNO 23:02
PROVIDERS: ADMIT Internal Medicine; ATTEND Internal Medicine
PROC: 30233N1 Transfusion of Nonautologous Red Blood Cells into Peripheral Vein, Percutaneous Approach (ICD-10-PCS; principal; 2017-09-01)
PROC: 6A550Z2 Pheresis of Platelets, Single (ICD-10-PCS; 2017-09-08)
PROC: 6A550Z2 Pheresis of Platelets, Single (ICD-10-PCS; 2017-09-09)
DX: N39.0 Urinary tract infection, site not specified (principal); J18.9 Pneumonia, unspecified organism; J96.91 Respiratory failure, unspecified with hypoxia; J90 Pleural effusion, not elsewhere classified; L89.159 Pressure ulcer of sacral region, unspecified stage; D61.818 Other pancytopenia; L89.312 Pressure ulcer of right buttock, stage 2; N17.9 Acute kidney failure, unspecified; C78.02 Secondary malignant neoplasm of left lung; C78.01 Secondary malignant neoplasm of right lung; E87.0 Hyperosmolality and hypernatremia; C34.90 Malignant neoplasm of unspecified part of unspecified bronchus or lung; N20.2 Calculus of kidney with calculus of ureter; J44.0 Chronic obstructive pulmonary disease with (acute) lower respiratory infection; J44.1 Chronic obstructive pulmonary disease with (acute) exacerbation; M48.56XA Collapsed vertebra, not elsewhere classified, lumbar region, initial encounter for fracture; R64 Cachexia; B96.20 Unspecified Escherichia coli [E. coli] as the cause of diseases classified elsewhere; E87.70 Fluid overload, unspecified; G20 Parkinson's disease; C61 Malignant neoplasm of prostate; D63.1 Anemia in chronic kidney disease; D46.9 Myelodysplastic syndrome, unspecified; H91.90 Unspecified hearing loss, unspecified ear; I12.9 Hypertensive chronic kidney disease with stage 1 through stage 4 chronic kidney disease, or unspecified chronic kidney disease; I25.10 Atherosclerotic heart disease of native coronary artery without angina pectoris; J84.10 Pulmonary fibrosis, unspecified; K59.09 Other constipation; K80.20 Calculus of gallbladder without cholecystitis without obstruction; N18.3 Chronic kidney disease, stage 3 (moderate); N28.1 Cyst of kidney, acquired; N40.0 Benign prostatic hyperplasia without lower urinary tract symptoms; N48.89 Other specified disorders of penis; N50.89 Other specified disorders of the male genital organs; R13.12 Dysphagia, oropharyngeal phase; R32 Unspecified urinary incontinence; R62.7 Adult failure to thrive; T38.0X5A Adverse effect of glucocorticoids and synthetic analogues, initial encounter; Y95 Nosocomial condition; Z16.12 Extended spectrum beta lactamase (ESBL) resistance; R21 Rash and other nonspecific skin eruption; Z86.19 Personal history of other infectious and parasitic diseases; Z51.5 Encounter for palliative care; Z66 Do not resuscitate; Z79.899 Other long term (current) drug therapy; Z80.0 Family history of malignant neoplasm of digestive organs; Z87.01 Personal history of pneumonia (recurrent); Z87.442 Personal history of urinary calculi; Z87.891 Personal history of nicotine dependence; Z90.49 Acquired absence of other specified parts of digestive tract